=== PATIENT | female | born 1975 | race African-American/Black ===

== ENCOUNTER 2017-01-29 16:06 | Emergency (ER) | payer MEDICAID ==
[~2017-01-29] VITALS: Ht 170.2 cm; Wt 129.3 kg
[~2017-01-29 16:06] MED LIST: CIPRO500 MG PO; IBUPROFEN600 MG ORAL; KEFLEX500 MG ORAL; NITROFURANTOIN100 M2 ORAL; NKM; PHENAZOPYRIDIN100 MG ORAL; PRENATAL CAPSU1 EAC1 PO; VICODIN 5-3001 EACH ORAL
[2017-01-29] MEDS ORDERED: IBUPROFEN600 MG ORAL (17:18)
[2017-01-29] MEDS ORDERED: TRAMADOL HCL50 MG ORAL (17:18)
[2017-01-29 17:19] VITALS: BP 154/91
--- NOTE | 2017-01-29 20:57 | Emergency Room Report ---
History of Present Illness General Chief Complaint: Lower Extremity Injury Source: Patient Present Illness HPI The patient is a 42-year-old female presenting for left knee pain which began 5 days prior for no known reason. Pain described as an 8/10 dull ache primarily to the inside of the knee. Worse with walking. She denies previous injury to the knee. She denies any numbness or tingling. She states that she has been trying to keep weight off of the knee by walking on her heels and is now complaining of left heel pain as well. She denies history of gout. She denies any other symptoms including nausea, vomiting, fever, chills, shortness of breath Allergies: Coded Allergies: SULFA(SULFONAMIDE ANTIBIOTICS) (Verified Allergy, Mild, Itching, 04/19/12) Patient History Past Medical History: see triage record Pertinent Family History: none Reviewed Nursing Documentation: PMH: Agreed, PSxH: Agreed Review of Systems All Other Systems: negative except mentioned in HPI Physical Exam Vital Signs Date Time Temp Pulse Resp B/P (MAP) Pulse Ox O2 Delivery O2 Flow Rate FiO2 01/29/17 16:12 98.1 95 20 160/91 99 Room Air Sp02 EP Interpretation: reviewed, normal General Appearance: no apparent distress, alert, GCS 15, non-toxic Head: normocephalic, atraumatic Eyes: bilateral eye normal inspection, bilateral eye PERRL ENT: hearing grossly normal, normal pharynx, no angioedema, normal voice Musculoskeletal: gait/station normal, normal range of motion, no calf tenderness, tender - TTP over the L knee joint line Neurologic: alert, oriented x3, responsive, motor strength/tone normal, sensory intact, speech normal Psychiatric: judgement/insight normal, memory normal, mood/affect normal, no suicidal/homicidal ideation Skin: normal color, no rash, warm/dry, well hydrated Procedures Splinting Splinting : Consent: Verbal Location: L knee Pre-Made Type: AVERY wrap Pre-Proc Neuro Vasc Exam: normal Post-Proc Neuro Vasc Exam: normal Patient Tolerated: Well Complications: None Medical Decision Making PA Attestation Dr. Muñoz is my supervising physician. Patient management was discussed with my supervising physician Diagnostic Impression: Primary Impression: Knee pain, left Qualified Codes: M25.562 - Pain in left knee ER Course The patient is a 42-year-old female presenting for left knee pain Ddx considered include but not limited to sprain/strain, fracture, contusion, gout PE: NAD. Left knee: No edema. No ecchymosis. There is tenderness over the joint line. Full active range of motion. Normal gait X-ray shows no acute findings AVERY wrap placed The patient be discharged home and given rice instructions and pain medication. She will followup with her primary doctor. ER precautions are given Other X-Ray Diagnostic Results Other X-Ray Diagnostic Results : X-Ray ordered: L knee # of Views/Limited Vs Complete: 3 View Indication: Pain EP Interpretation: Yes Interpretation: no dislocation, no soft tissue swelling, no fractures Impression: No acute disease Electronically Signed by: ANUSHA Valladares Scribchanel Text I have reviewed the xray with my supervising physician and interpretation is that there are no fractures, dislocations or soft tissue swelling. Last Vital Signs Date Time Temp Pulse Resp B/P (MAP) Pulse Ox O2 Delivery O2 Flow Rate FiO2 01/29/17 17:19 98.1 76 19 154/91 100 Room Air Status: improved Disposition: HOME, SELF-CARE Condition: Improved Scripts Tramadol Hcl* (ULTRAM*) 50 Mg Tablet 50 MG ORAL Q6H Y for For Pain, #10 TAB 0 Refills Prov: JOHANNY SANCHEZ.A. 01/29/17 Ibuprofen* (MOTRIN*) 600 Mg Tablet 600 MG ORAL Q8H Y for For Pain, #30 TAB 0 Refills Prov: JOHANNY SANCHEZ.A. 01/29/17 Patient Instructions: Knee Pain Additional Instructions: I discussed my findings with the patient. All questions and concerns have been answered. Treatment and medication compliance have been addressed. I advised the patient that they need to follow up with PMD in 3-5 days. Return to ED if symptoms worsen, new symptoms arise, or if needed for any reason. Patient verbalized understanding of discharge instructions. JOHANNY SANCHEZ Jan 29, 2017 20:57
--- NOTE | 2017-01-30 11:11 | Diagnostic Imaging Report ---
Indication: Pain 3 views of the left knee were obtained. Findings: No fracture or malalignment identified. The exam is limited by body habitus. There are some narrowing of the patellofemoral and medial compartment and mild osteophyte formation. Impression: Osteoarthritis
== END 2017-01-29 17:19 | disposition home or self-care (01) ==
LOC: EMR 16:55
DX: M17.12 Unilateral primary osteoarthritis, left knee (principal); Z88.2 Allergy status to sulfonamides
CPT/HCPCS: 99284

== ENCOUNTER 2017-07-21 13:18 | Emergency (ER) | payer MEDICAID ==
[~2017-07-21] VITALS: Ht 170.2 cm; Wt 145.1 kg
[~2017-07-21 13:18] MED LIST changes: +TRAMADOL HCL50 MG ORAL
--- NOTE | 2017-07-21 13:57 | Emergency Room Report ---
History of Present Illness General Chief Complaint: Lower Extremity Injury Source: Patient Present Illness HPI 42-year-old female presents to the emergency department complaining of 8 out of 10 in severity right knee pain 1 week. Patient reports over a week ago she hit the front medial aspect of her knee and had swelling and bruising. Patient states that she has not been able to rest her extremity as she requires using it for work. Patient states that now she is beginning of pain on the opposite extremity due to compensating. Patient states her pain continues and has not improved since injury. Patient denies falling to the ground, hitting her head or loss of consciousness. Denies numbness tingling or loss of sensation or gross motor movements of the extremities, incontinence of bowel or bladder. Denies CP, Palpitations, LOC, AMS, dizziness, Changes in Vision, Sensation, paresthesias, or a sudden severe headache. Allergies: Coded Allergies: SULFA(SULFONAMIDE ANTIBIOTICS) (Verified Allergy, Mild, Itching, 04/19/12) Patient History Past Medical History: see triage record Past Surgical History: none Pertinent Family History: none Last Menstrual Period: 07/05/2017 Now: No : 3 Para: 2 Reviewed Nursing Documentation: PMH: Agreed; PSxH: Agreed Nursing Documentation-PMH Past Medical History: No Stated History Review of Systems All Other Systems: negative except mentioned in HPI Physical Exam Vital Signs Date Time Temp Pulse Resp B/P (MAP) Pulse Ox O2 Delivery O2 Flow Rate FiO2 07/21/17 13:35 97.4 87 18 146/83 95 Room Air 97.3 Sp02 EP Interpretation: reviewed, normal General Appearance: no apparent distress, alert, GCS 15, non-toxic Head: normocephalic, atraumatic ENT: hearing grossly normal, normal voice Neck: full range of motion Respiratory: lungs clear, normal breath sounds, speaking full sentences Cardiovascular #1: regular rate, rhythm, no edema Rectal: deferred Genitourinary: normal inspection Musculoskeletal: back normal, gait/station normal - compensatory., normal range of motion, swelling - right knee. , other - no increased laxity upon varus or valgus stressing of the right knee, negative anterior and posterior drawer signs. ankles with normal palpation and appearance. Neurologic: alert, oriented x3, responsive, motor strength/tone normal, sensory intact, speech normal, grossly normal Psychiatric: judgement/insight normal Skin: normal color, no rash, warm/dry, well hydrated, other - no obvious hematomas or contusions. Medical Decision Making PA Attestation Dr. Muñoz is my supervising Physician whom patient management has been discussed with. Diagnostic Impression: Primary Impression: Closed fibular fracture Qualified Codes: S82.831A - Other fracture of upper and lower end of right fibula, initial encounter for closed fracture Additional Impressions: Contusion of knee, right Qualified Codes: S80.01XA - Contusion of right knee, initial encounter Knee effusion, right ER Course 42-year-old female presents to the emergency department complaining of 8 out of 10 in severity right knee pain 1 week. Patient reports over a week ago she hit the front medial aspect of her knee and had swelling and bruising. Patient states that she has not been able to rest her extremity as she requires using it for work. Patient states that now she is beginning of pain on the opposite extremity due to compensating. Patient states her pain continues and has not improved since injury. Patient denies falling to the ground, hitting her head or loss of consciousness. Denies numbness tingling or loss of sensation or gross motor movements of the extremities, incontinence of bowel or bladder. Denies CP, Palpitations, LOC, AMS, dizziness, Changes in Vision, Sensation, paresthesias, or a sudden severe headache. Ddx considered but are not limited to Fracture, dislocation, contusion, Sprain/ Strain/Spasm. Vital signs: are WNL, pt. is afebrile H&PE are most consistent with musculoskeletal injury will perform imaging to r/ o fractures/dislocations. ORDERS: - X-ray Right Knee 3 Views - suspicious proximal-lateral fibular fx, non- displaced , only seen on 1 view. ED INTERVENTIONS: - Franklin PO - Right knee Immobilizer applied by roof technician. Pt. remains neurovascularly intact. --Patient is provided with crutches and instructed on their use DISCHARGE: At this time pt. is stable for d/c to home. Will provide printed patient care instructions, and any necessary prescriptions. Care plan and follow up instructions have been discussed with the patient prior to discharge. Other X-Ray Diagnostic Results Other X-Ray Diagnostic Results : X-Ray ordered: Right Knee # of Views/Limited Vs Complete: 3 View Indication: Pain EP Interpretation: Yes PA Xray: Interpretation reviewed, by supervising , and agrees with findings. Interpretation: no dislocation, other - suspicious proximal-lateral fibular fx, non-displaced , only seen on 1 view. Impression: Other - abnormal Electronically Signed by: Leslie Montesinos PA-C Last Vital Signs Date Time Temp Pulse Resp B/P (MAP) Pulse Ox O2 Delivery O2 Flow Rate FiO2 07/21/17 13:35 97.4 87 18 146/83 95 Room Air 97.3 Disposition: HOME, SELF-CARE Condition: Stable Scripts Hydrocodone Bit/Acetaminophen 7.5-325* (NORCO 7.5-325*) 1 Each Tablet 1 TAB ORAL Q8HR PRN for For Pain, #9 TAB 0 Refills Prov: Leslie Montesinos 07/21/17 Ibuprofen* (MOTRIN*) 600 Mg Tablet 600 MG ORAL THREE TIMES A DAY, #30 TAB 0 Refills Prov: Leslie Montesinos 07/21/17 Patient Instructions: Knee Fracture, Adult, Knee Pain, [id number] Additional Instructions: Take medications as directed. Follow up with an LEAD PRESS OPERATOR in 3-5 days, even if your symptoms have resolved. --Please review list of primary care clinics, if you do not already have a primary care provider who can give you an Orthopedic Referral. Return sooner to ED if new symptoms occur, or current symptoms become worse. Do not drink alcohol, drive, or operate heavy machinery while taking Franklin as this may cause drowsiness. - Please note that this Emergency Department Report was dictated using [employer] analyst technology software, occasionally this can lead to erroneous entry secondary to interpretation by the dictation equipment. Leslie Montesinos Jul 21, 2017 13:57
[2017-07-21] MEDS ORDERED: HYDROcodone/Acetamin 7.5/325 tab ORAL ONE (14:00)
[2017-07-21] MEDS ORDERED: IBUPROFEN600 MG ORAL (15:00)
[2017-07-21] MEDS ORDERED: NORCO 7.5-3251 EACH ORAL (15:00)
[2017-07-21 15:05] VITALS: BP 146/83
--- NOTE | 2017-07-22 09:11 | Diagnostic Imaging Report ---
Indication: Knee pain Technique: 3 views of the right knee Comparison: None Findings:There is a small suprapatellar effusion. No acute fractures. No dislocations. The joint spaces are preserved. Impression: Positive for joint effusion No acute bony trauma
== END 2017-07-21 15:08 | disposition home or self-care (01) ==
LOC: EMR 14:20
DX: S82.401A Unspecified fracture of shaft of right fibula, initial encounter for closed fracture (principal); S80.01XA Contusion of right knee, initial encounter; W22.8XXA Striking against or struck by other objects, initial encounter; Y92.9 Unspecified place or not applicable; Z88.2 Allergy status to sulfonamides
CPT/HCPCS: 99284

== ENCOUNTER 2018-04-09 08:41 | Emergency (ER) | payer MEDICAID ==
[~2018-04-09] VITALS: Ht 170.2 cm; Wt 131.5 kg
[~2018-04-09 08:41] MED LIST changes: +NORCO 7.5-3251 EACH ORAL
[2018-04-09 08:47] VITALS: BP 105/67
[2018-04-09] MEDS ORDERED: ROBITUSSIN NIG237 ML PO (09:15)
--- NOTE | 2018-04-09 09:17 | Emergency Room Report ---
History of Present Illness General Chief Complaint: Upper Respiratory Illness Source: Patient, Medical Record Present Illness HPI Patient presents with reports of runny nose cough and congestion ongoing since Patient reports that [id number] medication has not been helping Denies any fevers she had a sore throat on that has resolved Denies any chest pain denies any back or flank pain Denies any fevers or chills denies any neck pain or photophobia Denies any production with her cough Patient reports that she has not been to work since that day and requires a note Allergies: Coded Allergies: SULFA(SULFONAMIDE ANTIBIOTICS) (Verified Allergy, Mild, Itching, 04/19/12) Patient History Past Medical History: see triage record Pertinent Family History: none Now: No Reviewed Nursing Documentation: PMH: Agreed; PSxH: Agreed Review of Systems All Other Systems: negative except mentioned in HPI Physical Exam Vital Signs Date Time Temp Pulse Resp B/P (MAP) Pulse Ox O2 Delivery O2 Flow Rate FiO2 04/09/18 08:47 98.2 96 18 105/67 97 Room Air Sp02 EP Interpretation: reviewed, normal General Appearance: well appearing, no apparent distress Head: normocephalic, atraumatic Eyes: bilateral eye PERRL, bilateral eye EOMI ENT: hearing grossly normal, normal pharynx, TMs + canals normal, uvula midline Neck: full range of motion, supple, no meningismus, no bony tend Respiratory: lungs clear, normal breath sounds, no rhonchi, no respiratory distress, no retraction, no accessory muscle use Cardiovascular #1: normal peripheral pulses, regular rate, rhythm, no edema, no gallop, no JVD, no murmur Gastrointestinal: normal bowel sounds, non tender, soft, no mass, no organomegaly, non-distended, no guarding, no hernia, no pulsatile mass, no rebound Musculoskeletal: normal inspection Neurologic: oriented x3, responsive, automatic fancy machine operator III-XII nml as tested, motor strength/ tone normal, sensory intact Psychiatric: mood/affect normal Skin: normal color, no rash, warm/dry, palpation normal Lymphatic: normal inspection, no adenopathy Medical Decision Making Diagnostic Impression: Primary Impression: Upper respiratory infection ER Course Patient has findings consistent with URI Does not have a history of smoking lung sounds are clear at this time and saturation is appropriate I did not feel patient met emergency criteria for imaging Patient is provided with medication and requires close follow-up Last Vital Signs Date Time Temp Pulse Resp B/P (MAP) Pulse Ox O2 Delivery O2 Flow Rate FiO2 04/09/18 08:47 96 18 Room Air 04/09/18 08:47 98.2 105/67 97 Status: unchanged Disposition: HOME, SELF-CARE Condition: Stable Scripts Dextromethorphan Hb/Doxylamine (ROBITUSSIN NIGHTTIME COUGH DM) 237 Ml Liquid 10 ML PO QHS for 5 Days, ML Prov: Gualberto Sommer DO 04/09/18 Referrals: [facility],REFERRING (PCP) Departure Forms: Return to Work Return to Work in (Days): 2 Return to Work Date: Apr 11, 2018 Patient Instructions: Upper Respiratory Infection, Adult Additional Instructions: Patient is provided with the discharge instructions notified to follow up with primary doctor in the next 2-3 days otherwise return to the er with any worsening symptoms. Please note that this report is being documented using [employer] technology. This can lead to erroneous entry secondary to incorrect interpretation by the dictating instrument. Gualberto Sommer DO Apr 09, 2018 09:17
[2018-04-09 09:22] VITALS: BP 112/60
== END 2018-04-09 09:22 | disposition home or self-care (01) ==
LOC: EMR 09:14
DX: J06.9 Acute upper respiratory infection, unspecified (principal); Z88.2 Allergy status to sulfonamides
CPT/HCPCS: 99282

== ENCOUNTER 2018-09-12 09:46 | Emergency (ER) | payer MEDICAID ==
[~2018-09-12] VITALS: Ht 170.2 cm; Wt 133.8 kg
[~2018-09-12 09:46] MED LIST changes: +ROBITUSSIN NIG237 ML PO
[2018-09-12 10:08] VITALS: BP 170/92
--- NOTE | 2018-09-12 10:10 | NUR ---
ED Nurse Note:pt. came with c/o persistant cough and headache ,no fever on arrival
--- NOTE | 2018-09-12 10:16 | Emergency Room Report ---
History of Present Illness General Chief Complaint: Upper Respiratory Illness Source: Patient Present Illness HPI Patient presents with complaints of cough ongoing for the past 7 days reports increased phlegm production Questionable subjective fever several days ago however that has improved denies any rash denies any chest pain or shortness of breath denies any vomiting or diarrhea Denies any recent travel denies any pleurisy Allergies: Coded Allergies: SULFA(SULFONAMIDE ANTIBIOTICS) (Verified Allergy, Mild, Itching, 04/19/12) Patient History Past Medical History: see triage record Pertinent Family History: none Last Menstrual Period: 09/05/2018 Reviewed Nursing Documentation: PMH: Agreed; PSxH: Agreed Nursing Documentation-PMH Past Medical History: No Stated History Review of Systems All Other Systems: negative except mentioned in HPI Physical Exam Vital Signs Date Time Temp Pulse Resp B/P (MAP) Pulse Ox O2 Delivery O2 Flow Rate FiO2 09/12/18 09:50 97.9 100 19 94 Room Air 09/12/18 10:08 170/92 Sp02 EP Interpretation: reviewed, normal General Appearance: well appearing, no apparent distress Head: normocephalic, atraumatic Eyes: bilateral eye PERRL, bilateral eye EOMI ENT: hearing grossly normal, normal pharynx, TMs + canals normal, uvula midline Neck: full range of motion, supple, no meningismus, no bony tend Respiratory: lungs clear, normal breath sounds, no rhonchi, no respiratory distress, no retraction, no accessory muscle use Cardiovascular #1: normal peripheral pulses, regular rate, rhythm, no edema, no gallop, no JVD, no murmur Gastrointestinal: normal bowel sounds, non tender, soft, no mass, no organomegaly, non-distended, no guarding, no hernia, no pulsatile mass, no rebound Musculoskeletal: normal inspection Neurologic: oriented x3, responsive, digital cartographer III-XII nml as tested, motor strength/ tone normal, sensory intact Psychiatric: mood/affect normal Skin: normal color, no rash, warm/dry, palpation normal Lymphatic: normal inspection, no adenopathy Medical Decision Making Diagnostic Impression: Primary Impression: Atypical pneumonia ER Course Patient is a fairly complex patient with multiple differential to consideration including but not limited to cardiac cardiopulmonary and vascular emergencies Patient's x-ray does not show any obvious acute pathology Given the patient's duration of symptoms clinical exam and findings Patient is diagnosed with atypical pneumonia and placed on medication for close follow-up Chest X-Ray Diagnostic Results Chest X-Ray Diagnostic Results : Chest X-Ray Ordered: Yes # of Views/Limited/Complete: 1 View Indication: Shortness of Breath EP Interpretation: Yes Interpretation: no consolidation, no effusion, no pneumothorax Impression: No acute disease Electronically Signed by: Gualberto Sommer DO Last Vital Signs Date Time Temp Pulse Resp B/P (MAP) Pulse Ox O2 Delivery O2 Flow Rate FiO2 09/12/18 10:08 98 19 Room Air 09/12/18 10:08 97.9 170/92 94 Status: improved Disposition: HOME, SELF-CARE Condition: Improved Scripts Promethazine Hcl (PROMETHAZINE HCL*) 6.25 Mg/5 Ml Syrup 5 ML ORAL Q8H for 5 Days, #120 ML 0 Refills Prov: Gualberto Sommer DO 09/12/18 Azithromycin* (ZITHROMAX*) 250 Mg Tablet 250 MG ORAL DAILY, #6 TAB 0 Refills Take two tables once daily for 1 day, then one tablet once daily for 4 days. Prov: Gualberto Sommer DO 09/12/18 Referrals: [facility] [place] [facility],REFERRING (PCP) Additional Instructions: Patient is provided with the discharge instructions notified to follow up with primary doctor in the next 2-3 days otherwise return to the er with any worsening symptoms. Please note that this report is being documented using [employer] technology. This can lead to erroneous entry secondary to incorrect interpretation by the dictating instrument. Gualberto Sommer DO September 12, 2018 10:16
[2018-09-12] MEDS ORDERED: PROMETHAZI6.25 MG/1 ORAL (11:03)
[2018-09-12] MEDS ORDERED: ZITHROMAX250 MG ORAL (11:03)
[2018-09-12 11:12] VITALS: BP 165/90
--- NOTE | 2018-09-12 11:19 | NUR ---
ER DISCHARGE NOTE: Patient is cleared to be discharged per ERMD, pt is aox4, on room air, with stable vital signs. pt was given dc and prescription instructions, pt was able to verbalize understanding. pt is able to ambulate with steady gait. pt took all belongings.
--- NOTE | 2018-09-12 11:42 | Diagnostic Imaging Report ---
Indication: Cough Comparison: 11/14/2013 A single view chest radiograph was obtained. Findings: Cardiomediastinal appearance is within normal limits for age. The lungs are clear. Pulmonary vascularity is appropriate. The diaphragmatic contour is smooth and costophrenic angles are sharp. No pleural effusions are identified. The bones are unremarkable. Impression: No acute findings
== END 2018-09-12 11:20 | disposition home or self-care (01) ==
LOC: EMR 10:00
DX: J18.9 Pneumonia, unspecified organism (principal); Z88.2 Allergy status to sulfonamides
CPT/HCPCS: 71045; 99283

== ENCOUNTER 2018-10-10 11:47 | Emergency (ER) | payer MEDICAID ==
[~2018-10-10] VITALS: Ht 170.2 cm; Wt 117.9 kg
[~2018-10-10 11:47] MED LIST changes: +PROMETHAZI6.25 MG/1 ORAL; +ZITHROMAX250 MG ORAL
[2018-10-10 12:00] VITALS: BP 150/68
--- NOTE | 2018-10-10 12:00 | NUR ---
ED Nurse Note: pt walked in to ED due to pain on right calf area for 2 weeks. per pt, felt bump around that area and having intermittent pain. per pt, pain gets worse when walking. joaquin tingling sensation. able to walk with steady gait. AAO x4. respirations even and non-labored noted. will wait for the further order.
[2018-10-10] MEDS ORDERED: Clindamycin 150mg cap ORAL ONE (12:45)
--- NOTE | 2018-10-10 13:12 | Emergency Room Report ---
History of Present Illness General Chief Complaint: Pain Source: Medical Record Present Illness HPI 43-year-old female presents to the emergency department complaining of 7 out of 10 severity pain, swelling and erythema along with some warmth to the right lower extremity progressive x2 weeks. Patient denies taking estrogen she denies history of smoking she does report recent travel back and forth in the car out to [facility]. Patient states that she does not recall any insect bites or any appreciable trauma or fall. Denies hemoptysis or SOB. The patient reports pain is exacerbated upon walking she states pain is primarily in the medial aspect of the calf with some radiation to the posterior aspect. Patient denies history of immune compromise she does report swelling in the lower extremities bilaterally but states that this is a chronic issue no aggravating or relieving factors at this time. Denies Fevers or chills Allergies: Coded Allergies: SULFA(SULFONAMIDE ANTIBIOTICS) (Verified Allergy, Mild, Itching, 04/19/12) Patient History Past Medical History: see triage record Past Surgical History: none Pertinent Family History: none Last Menstrual Period: 10/05/18 Now: No Reviewed Nursing Documentation: PMH: Agreed; PSxH: Agreed Nursing Documentation-PMH Past Medical History: No History, Except For Review of Systems All Other Systems: negative except mentioned in HPI Physical Exam Vital Signs Date Time Temp Pulse Resp B/P (MAP) Pulse Ox O2 Delivery O2 Flow Rate FiO2 10/10/18 11:50 98.2 99 16 150/68 (95) 96 Room Air Sp02 EP Interpretation: reviewed, normal General Appearance: no apparent distress, alert, GCS 15, non-toxic, obese Head: normocephalic, atraumatic Eyes: bilateral eye normal inspection, bilateral eye PERRL ENT: hearing grossly normal, normal voice Neck: full range of motion Respiratory: lungs clear, normal breath sounds, no respiratory distress, no accessory muscle use, no wheezing, speaking full sentences Cardiovascular #1: regular rate, rhythm, normal capillary refill Cardiovascular #2: 2+ dorsalis pedis (R), 2+ dorsalis pedis (L) Musculoskeletal: back normal, gait/station normal, normal range of motion, tender - medial right calf ttp, no bony ttp. Neurologic: alert, oriented x3, responsive, motor strength/tone normal, sensory intact, speech normal, grossly normal Psychiatric: judgement/insight normal Skin: no rash, warm/dry, well hydrated, other - erythema, warmth and some swelling to the medial right calf. Lymphatic: no adenopathy Medical Decision Making PA Attestation Dr. Dye Is my supervising Physician whom patient management has been discussed with. Diagnostic Impression: Primary Impression: Cellulitis and abscess of right leg ER Course 43-year-old female presents to the emergency department complaining of 7 out of 10 severity pain, swelling and erythema along with some warmth to the right lower extremity progressive x2 weeks. Patient denies taking estrogen she denies history of smoking she does report recent travel back and forth in the car out to [facility]. Patient states that she does not recall any insect bites or any appreciable trauma or fall. Denies hemoptysis or SOB. The patient reports pain is exacerbated upon walking she states pain is primarily in the medial aspect of the calf with some radiation to the posterior aspect. Patient denies history of immune compromise she does report swelling in the lower extremities bilaterally but states that this is a chronic issue no aggravating or relieving factors at this time. Denies Fevers or chills. Ddx considered but are not limited to Cellulitis, DVT, varicose vein, PAD, Venous insufficiency Vital signs: are WNL, pt. is afebrile H&PE are most consistent with extremity cellulitis however given clinical appearance and history of recent travel will rule out DVT with ultrasound. ORDERS: LE duplex U/s to R/O dvt. ED INTERVENTIONS: -Clindamycin p.o. DISCHARGE: At this time pt. is stable for d/c to home. Will provide printed patient care instructions, and any necessary prescriptions. Care plan and follow up instructions have been discussed with the patient prior to discharge. CT/MRI/US Diagnostic Results CT/MRI/US Diagnostic Results : Imaging Test Ordered: Right LE Venous Duplex US Impression NEgative for a cute DVT. Last Vital Signs Date Time Temp Pulse Resp B/P (MAP) Pulse Ox O2 Delivery O2 Flow Rate FiO2 10/10/18 12:00 98.2 99 16 150/68 96 Room Air Status: improved Disposition: HOME, SELF-CARE Condition: Stable Scripts Acetaminophen* (TYLENOL EXTRA STRENGTH*) 500 Mg Tablet 500 MG ORAL Q6H, #20 TAB 0 Refills Prov: Leslie Montesinos 10/10/18 Clindamycin Hcl (CLINDAMYCIN HCL) 300 Mg Capsule 300 MG ORAL FOUR TIMES A DAY for 7 Days, #28 CAP Prov: Leslie Montesinos 10/10/18 Referrals: NOT CHOSEN IPA/MD,REFERRING (PCP) Patient Instructions: Cellulitis, [id number] Additional Instructions: Take medications as directed. Follow up with a Primary Care Provider in 3-5 days, even if your symptoms have resolved. --Please review list of primary care clinics, if you do not already have a primary care provider Return sooner to ED if new symptoms occur, or current symptoms become worse. - Please note that this Emergency Department Report was dictated using [employer] SYSTEMSadministrator of home health technology software, occasionally this can lead to erroneous entry secondary to interpretation by the dictation equipment. Leslie Montesinos Oct 10, 2018 13:12
--- NOTE | 2018-10-10 13:24 | NUR ---
ED Nurse Note: US at bedside.
[2018-10-10] MEDS ORDERED: CLINDAMYCIN HC300 MG ORAL ×2 (14:11→14:15)
[2018-10-10] MEDS ORDERED: TYLENOL EXTRA500 MG ORAL ×2 (14:11→14:15)
[2018-10-10 14:25] VITALS: BP 148/68
--- NOTE | 2018-10-10 14:25 | NUR ---
ED Nurse Note: pt given aci and script verbalized understanding ambulated out of er with strong and steady gait.
--- NOTE | 2018-10-10 15:15 | Diagnostic Imaging Report ---
Indication: Right leg pain and edema Technique: Grayscale and duplex images of the right lower extremity veins Comparison: none Findings: Visualization of the femoral vein and calf veins is limited due to patient body habitus. Grayscale and duplex images of the right lower extremity veins demonstrate no evidence of intraluminal thrombus. Normal compressibility. Normal phasic Doppler waveforms, demonstrating normal augmentation response and no evidence of valvular insufficiency. Impression: Negative for evidence of right lower extremity deep venous thrombosis
== END 2018-10-10 14:25 | disposition home or self-care (01) ==
LOC: EMR 12:49
DX: L03.115 Cellulitis of right lower limb (principal); Z88.2 Allergy status to sulfonamides; E66.9 Obesity, unspecified; Z68.41 Body mass index [BMI] 40.0-44.9, adult
CPT/HCPCS: 93971; 99284

== ENCOUNTER 2018-10-23 21:21 | Emergency (ER) | payer MEDICAID ==
[~2018-10-23] VITALS: Ht 170.2 cm; Wt 131.5 kg
[~2018-10-23 21:21] MED LIST changes: +CLINDAMYCIN HC300 MG ORAL; +TYLENOL EXTRA500 MG ORAL
--- NOTE | 2018-10-23 21:39 | NUR ---
ED Nurse Note: Pt arrived ED from home, c/o right leg redness and pain for 2 weeks. Pt states that she was in ED for trudy same complain one week ago. Pt is A/O X4, Vital signs stable at this time, waiting for orders.
[2018-10-23] MEDS ORDERED: ACETAMINOPHEN-1 EAC1 ORAL (22:18)
[2018-10-23] MEDS ORDERED: FUROSEMIDE20 M1 ORAL (22:18)
[2018-10-23] MEDS ORDERED: AUGMENTIN 875-1 EAC1 ORAL (22:18)
[2018-10-23 22:25] VITALS: BP 141/78
--- NOTE | 2018-10-23 22:25 | NUR ---
ER DISCHARGE NOTE: Patient is cleared to be discharged per Jignesh. Pt is aox4 on room air with stable vital signs. Pt was given dc and prescription instructions and was able to verbalize understanding. Pt's ID band removed. Pt is able to ambulate with steady gait and took all belongings.
--- NOTE | 2018-10-24 00:25 | Emergency Room Report ---
History of Present Illness General Chief Complaint: Lower Extremity Injury Source: Patient Present Illness HPI 43-year-old female presents ED for evaluation. Patient walked in complaining of pain and swelling to the right leg. States that she was seen here almost 2 weeks ago for similar presentation. Had venous duplex of the leg which was negative. Was placed on antibiotics but states there has not been much improvement. Pain is throbbing, 7 out of 10, nonradiating. Denies fevers or chills. States that her legs do get swollen quite often and they resolve with elevation. She is on her feet all day long. Denies chest pain or shortness of breath. No other aggravating relieving factors. Denies any other associated symptoms Allergies: Coded Allergies: SULFA(SULFONAMIDE ANTIBIOTICS) (Verified Allergy, Mild, Itching, 04/19/12) Patient History Past Medical History: none Past Surgical History: none Pertinent Family History: none Social History: Denies: smoking, alcohol use, drug use Last Menstrual Period: October 06 Now: No Immunizations: UTD Reviewed Nursing Documentation: PMH: Agreed; PSxH: Agreed Review of Systems All Other Systems: negative except mentioned in HPI Physical Exam Vital Signs Date Time Temp Pulse Resp B/P (MAP) Pulse Ox O2 Delivery O2 Flow Rate FiO2 10/23/18 21:30 98.2 105 18 143/87 (105) 98 Room Air Sp02 EP Interpretation: reviewed, normal General Appearance: no apparent distress, alert, GCS 15, non-toxic, obese Head: normocephalic Eyes: bilateral eye normal inspection, bilateral eye PERRL ENT: normal ENT inspection Neck: normal inspection Respiratory: chest non-tender, lungs clear, normal breath sounds, speaking full sentences Cardiovascular #1: regular rate, rhythm, no edema Gastrointestinal: normal inspection Rectal: deferred Genitourinary: no CVA tenderness Musculoskeletal: swelling - 2+ pitting edema/ bilateral LE Neurologic: alert, oriented x3, responsive, motor strength/tone normal, sensory intact, speech normal Psychiatric: normal inspection Skin: other - erythema/induration RLE Lymphatic: normal inspection Medical Decision Making Diagnostic Impression: Primary Impression: Peripheral edema Additional Impression: Cellulitis of lower extremity Qualified Codes: L03.115 - Cellulitis of right lower limb ER Course Hospital Course 43-year-old female presents to ED with redness, swelling to right lower extremity Differential diagnoses include: Cellulitis, dermatitis, insect bite, abscess Clinical course Patient placed on stretcher. After initial history, physical exam reveals an obese female in no acute distress. On exam there is pitting edema to both legs. There is some induration and erythema to the right lower extremity. No fluctuance or discharge. I reviewed EMR. Patient was seen here nearly 2 weeks ago for same presentation. Had a venous duplex at that time which was negative. Was placed on clindamycin. Discussed findings with patient. Afebrile, nontoxic-appearing. No signs of shortness of breath. Vitals stable. Discussed option for admission for IV antibiotics but patient declined. Would like to try another round of antibiotics first. We will try Augmentin. Also prescribed low-dose Lasix. Patient states she has compression stockings at home. Safe for discharge for close outpatient follow-up. Will provide referrals Diagnosis - peripheral edema, cellulitis of lower extemity stable and discharged to home with prescription for lasix, augmentin. Instructed to followup with PMD. Instructed return to ED if symptoms recur or worsen Last Vital Signs Date Time Temp Pulse Resp B/P (MAP) Pulse Ox O2 Delivery O2 Flow Rate FiO2 10/23/18 21:30 98.2 105 18 143/87 (105) 98 Room Air Status: improved Disposition: HOME, SELF-CARE Condition: Stable Scripts Furosemide* (LASIX*) 20 Mg Tablet 20 MG ORAL DAILY, #10 TAB Prov: Ronaldo Egan MD 10/23/18 Acetaminophen With Codeine (T#3) (TYLENOL #3 TAB*) Y Tab 1 TAB ORAL Q8H PRN for For Pain, #12 TAB Prov: Ronaldo Egan MD 10/23/18 Amoxicillin/Potassium Clav 875-125* (AUGMENTIN 875-125 TABLET*) 1 Each Tablet 1 TAB ORAL TWICE A DAY, #14 TAB Prov: Ronaldo Egan MD 10/23/18 Referrals: Bind[facility] Patient Instructions: Cellulitis, [id number], Peripheral Edema Ronaldo Egan MD Oct 24, 2018 00:25
== END 2018-10-23 22:25 | disposition home or self-care (01) ==
LOC: EMR 21:45
DX: R60.0 Localized edema (principal); L03.115 Cellulitis of right lower limb; Z88.2 Allergy status to sulfonamides
CPT/HCPCS: 99282

== ENCOUNTER 2019-06-01 12:32 | Emergency (ER) | payer MEDICAID ==
[~2019-06-01] VITALS: Ht 170.2 cm; Wt 127.0 kg
[~2019-06-01 12:32] MED LIST changes: +ACETAMINOPHEN-1 EAC1 ORAL; +AUGMENTIN 875-1 EAC1 ORAL; +FUROSEMIDE20 M1 ORAL
--- NOTE | 2019-06-01 14:10 | NUR ---
ED Nurse Note: pt relates having a cough for a few weeks with some phlegm. states feel worsened over past few days. lungs cta throughout. speaks without dyspnea
[2019-06-01 14:12] VITALS: BP 150/79
--- NOTE | 2019-06-01 14:21 | Emergency Room Report ---
History of Present Illness General Chief Complaint: Upper Respiratory Illness Source: Patient Present Illness HPI 44-year-old female presents to the emergency department complaining of persistent cough x1 month. Patient reports initially she had some sputum production which did resolve. Patient reports persistent coughing especially when she takes too deep of a breath in. She denies smoking history but reports she is around many people that do smoke. She denies fevers or chills. Patient reports that she did receive this years flu vaccine. 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 Denies sore throat, ear pain, high fevers, lethargy, neck pain/stiffness, irritability , photophobia dehydration, N/V/D. Denies Cp, Palpitations, LOC, AMS, seizures, paresthesias, or changes in Hearing or vision, no Sudden severe ESPINOZA. Denies hx of smoking, asthma or COPD. Denies pain at this time. Allergies: Coded Allergies: SULFA(SULFONAMIDE ANTIBIOTICS) (Verified Allergy, Mild, Itching, 04/19/12) Patient History Past Medical History: see triage record Past Surgical History: none Pertinent Family History: none Last Menstrual Period: 05/23/2019 Now: No Immunizations: UTD Reviewed Nursing Documentation: PMH: Agreed; PSxH: Agreed Nursing Documentation-PMH Past Medical History: No Stated History Review of Systems All Other Systems: negative except mentioned in HPI Physical Exam Vital Signs Date Time Temp Pulse Resp B/P (MAP) Pulse Ox O2 Delivery O2 Flow Rate FiO2 06/01/19 12:37 98.1 95 20 150/79 (102) 93 Room Air Sp02 EP Interpretation: reviewed, normal General Appearance: no apparent distress, alert, GCS 15, non-toxic Head: normocephalic, atraumatic Eyes: bilateral eye normal inspection, bilateral eye PERRL ENT: hearing grossly normal, normal voice Neck: full range of motion Respiratory: chest non-tender, lungs clear, normal breath sounds, no respiratory distress, no accessory muscle use, speaking full sentences, wheezing - scant expiratory wheezes/ dry cough. with deep inspiration Cardiovascular #1: regular rate, rhythm, no edema, normal capillary refill Musculoskeletal: normal range of motion, gait/station normal, non-tender Neurologic: alert, motor strength/tone normal, oriented x3, sensory intact, responsive, speech normal Psychiatric: judgement/insight normal Skin: normal color, normal inspection Lymphatic: no adenopathy Medical Decision Making PA Attestation Dr. Sommer is my supervising Physician whom patient management has been discussed with. ER Course 44-year-old female presents to the emergency department complaining of persistent cough x1 month. Patient reports initially she had some sputum production which did resolve. Patient reports persistent coughing especially when she takes too deep of a breath in. She denies smoking history but reports she is around many people that do smoke. She denies fevers or chills. Patient reports that she did receive this years flu vaccine. 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 Denies sore throat, ear pain, high fevers, lethargy, neck pain/stiffness, irritability , photophobia dehydration, N/V/D. Denies Cp, Palpitations, LOC, AMS, seizures, paresthesias, or changes in Hearing or vision, no Sudden severe ESPINOZA. Denies hx of smoking, asthma or COPD. Denies pain at this time. Ddx considered but are not limited to URI, pneumonia, PE, strep pharyngitis, meningitis. Vital signs: Pt.is afebrile VS are WNL H&PE are most consistent with bronchitis ORDERS: none required at this time, the diagnosis is clinical ED INTERVENTIONS: None required at this time. DISCHARGE: At this time pt. is stable for d/c to home. Will provide printed patient care instructions, and any necessary prescriptions. Care plan and follow up instructions have been discussed with the patient prior to discharge. Chest X-Ray Diagnostic Results Chest X-Ray Diagnostic Results : Chest X-Ray Ordered: Yes # of Views/Limited/Complete: 1 View Indication: Shortness of Breath EP Interpretation: Yes PA Xray: Interpretation reviewed, by supervising MD, and agrees with findings. Interpretation: no consolidation, no effusion, no pneumothorax, no acute cardiopulmonary disease Impression: No acute disease Electronically Signed by: Leslie Montesinos PA-C Last Vital Signs Date Time Temp Pulse Resp B/P (MAP) Pulse Ox O2 Delivery O2 Flow Rate FiO2 06/01/19 14:12 88 20 Room Air 06/01/19 14:12 150/79 95 06/01/19 12:37 98.1 Disposition: HOME, SELF-CARE Condition: Stable Departure Forms: Return to Work Return to Work Date: Jun 03, 2019 Work Restrictions: None Return to Full Activity: Jun 03, 2019 Patient Instructions: Acute Bronchitis, [id number] Additional Instructions: Take medications as directed. Follow up with a Primary Care Provider in 3-5 days, even if your symptoms have resolved. Return sooner to ED if new symptoms occur, or current symptoms become worse. Do not drink alcohol, drive, or operate heavy machinery while taking Cough Syrup as this may cause drowsiness. - Please note that this Emergency Department Report was dictated using [employer] well gun perforator operator technology software, occasionally this can lead to erroneous entry secondary to interpretation by the dictation equipment. Leslie Montesinos Jun 01, 2019 14:21
[2019-06-01] MEDS ORDERED: ALBUTEROL SULF8.5 GM INH (14:23)
[2019-06-01] MEDS ORDERED: BENZONATATE200 MG ORAL (14:23)
[2019-06-01] MEDS ORDERED: PROMETHAZINE-C118 M1 ORAL (14:23)
[2019-06-01] MEDS ORDERED: PREDNISONE20 MG ORAL (14:23)
[2019-06-01 14:45] VITALS: BP 150/79
--- NOTE | 2019-06-01 14:45 | NUR ---
ED Nurse Note: Pt cleared by health care Provider for discharge. DC instructions/prescription was given and explained to pt and verbalized understanding of teachings. All medical deviecs such as ID band removed. Pt is AAO x4, ambulatory and left with all personal belongings.
--- NOTE | 2019-06-01 16:27 | Diagnostic Imaging Report ---
Indication: Dyspnea Comparison: 09/12/2018 A single view chest radiograph was obtained. Findings: Cardiomediastinal appearance is within normal limits for age. The lungs are clear. Pulmonary vascularity is appropriate. The diaphragmatic contour is smooth and costophrenic angles are sharp. No pleural effusions are identified. The bones are unremarkable. Impression: No acute findings
== END 2019-06-01 14:46 | disposition home or self-care (01) ==
LOC: EMR 14:16
DX: J20.9 Acute bronchitis, unspecified (principal)
CPT/HCPCS: 71045; Z7502; 99283

== ENCOUNTER 2019-06-25 16:03 | Emergency (ER) | payer MEDICAID ==
[~2019-06-25] VITALS: Ht 172.7 cm; Wt 127.0 kg
[~2019-06-25 16:03] MED LIST changes: +ALBUTEROL SULF8.5 GM INH; +BENZONATATE200 MG ORAL; +PREDNISONE20 MG ORAL; +PROMETHAZINE-C118 M1 ORAL
--- NOTE | 2019-06-25 16:20 | NUR ---
ED Nurse Note: Pt walked into ED w/ c/o blurry vision for 2 days. Bilateral eyes are itchy, red. Pt pain in eyes is 5/10. Pt is taking antifungal cream and thinks she might have rubbed some in her eye. Pt is alert and orientedx4, ambulatory. Pt friend is at bedside.
--- NOTE | 2019-06-25 16:24 | Emergency Room Report ---
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 Denies any pain in the eye. Has not been seen by manager system in a longtime. Denies any change of vision in that eye. Complains of itchiness in the left eye. Denies any headache and dizziness. Denies any chemical exposure. Is sitting comfortably with stable vital signs. Patient has an upcoming appointment with manager system. Denies photophobia. Denies any changes and pressure in eyes.. Reports that she has chronic glaucoma Allergies: Coded Allergies: SULFA(SULFONAMIDE ANTIBIOTICS) (Verified Allergy, Mild, Itching, 04/19/12) Patient History Past Medical History: see triage record Past Surgical History: none Pertinent Family History: none Last Menstrual Period: currently Now: No Immunizations: UTD Reviewed Nursing Documentation: PMH: Agreed; PSxH: Agreed Nursing Documentation-PMH Past Medical History: No History, Except For Review of Systems All Other Systems: negative except mentioned in HPI Physical Exam Vital Signs Date Time Temp Pulse Resp B/P (MAP) Pulse Ox O2 Delivery O2 Flow Rate FiO2 06/25/19 16:07 97.9 100 18 131/77 (95) 95 Room Air Sp02 EP Interpretation: reviewed, normal General Appearance: no apparent distress, alert, GCS 15, non-toxic Head: normocephalic, atraumatic Eyes: left eye other - Allergic conjunctivitis left eye, possible bacterial conjunctivitis right eye; bilateral eye PERRL, bilateral eye conjunctivae pale ENT: normal ENT inspection, hearing grossly normal, EOM grossly intact Neck: full range of motion, supple, supple/symm/no masses Respiratory: chest non-tender, lungs clear, normal breath sounds, no rhonchi, no retraction, speaking full sentences Cardiovascular #1: regular rate, rhythm, no edema, no murmur Gastrointestinal: normal bowel sounds, non tender, soft, non-distended, no guarding, no rebound Rectal: deferred Genitourinary: no CVA tenderness Musculoskeletal: back normal, no calf tenderness Neurologic: alert, motor strength/tone normal, oriented x3, sensory intact, responsive, speech normal Psychiatric: judgement/insight normal, memory normal, mood/affect normal, no suicidal/homicidal ideation Skin: no rash Lymphatic: no adenopathy Medical Decision Making PA Attestation All my diagnosis and treatment plans were reviewed ad discussed with my supervising physician Dr. 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 Denies any pain in the eye. Has not been seen by manager system in a longtime. Denies any change of vision in that eye. Complains of itchiness in the left eye. Denies any headache and dizziness. Denies any chemical exposure. Is sitting comfortably with stable vital signs. Patient has an upcoming appointment with manager system. Denies photophobia. Denies any changes and pressure in eyes.. Reports that she has chronic glaucoma Ddx considered but are not limited to: bacterial conjunctivitis, allergic conjunctivitis, viral conjunctivitis, periorbital cellulitis, global trauma Vital signs: are WNL, pt. is afebrile H&PE are most consistent with: Bacterial conjunctivitis, allergic conjunctivitis ORDERS: Ofloxacin ophthalmic, olopatadine ophthalmic ED INTERVENTIONS: None required at this time. DISCHARGE: At this time pt. is stable for d/c to home. Will provide printed patient care instructions, and any necessary prescriptions. Care plan and follow up instructions have been discussed with the patient prior to discharge. Since patient does not report any change in the pressure in the eye and reports that she is completely blind in the affected eye with glaucoma patient to follow-up with manager system at this time no further evaluation needed in that regard. However if worsening symptoms return to the emergency room Last Vital Signs Date Time Temp Pulse Resp B/P (MAP) Pulse Ox O2 Delivery O2 Flow Rate FiO2 06/25/19 16:07 97.9 100 18 131/77 (95) 95 Room Air Disposition: HOME, SELF-CARE Condition: Stable Scripts Olopatadine (Patanol) 5 Ml Drops 1 DROP OP BID for 7 Days, #10 ML Prov: Alize Khan 06/25/19 Ofloxacin (Ofloxacin) 5 Ml Drops 2 DROP OP Q6H for 7 Days, #5 ML Prov: Alize Khan 06/25/19 Patient Instructions: Bacterial Conjunctivitis, [id number] Additional Instructions: Take medication as directed, follow-up with your manager system, if worsening symptoms return to the emergency room Alize Kahn Jun 25, 2019 16:24
[2019-06-25] MEDS ORDERED: OFLOXACIN10 ML OP ×2 (16:26→16:36)
[2019-06-25] MEDS ORDERED: PATANOL1 DROP OP ×2 (16:26→16:36)
[2019-06-25 16:31] VITALS: BP 127/73
[2019-06-25 16:40] VITALS: BP 120/71
--- NOTE | 2019-06-25 16:40 | NUR ---
ER DISCHARGE NOTE: Patient is cleared to be discharged per ERMD, pt is aox4, on room air, with stable vital signs. pt was given dc and prescription instructions, pt was able to verbalize understanding, pt id band removed. pt is able to ambulate with steady gait. pt took all belongings.
== END 2019-06-25 16:40 | disposition home or self-care (01) ==
LOC: EMR 16:40
DX: H10.89 Other conjunctivitis (principal); H10.12 Acute atopic conjunctivitis, left eye; H54.61 Unqualified visual loss, right eye, normal vision left eye; H40.9 Unspecified glaucoma; Z88.2 Allergy status to sulfonamides
CPT/HCPCS: 99282

== ENCOUNTER 2019-07-06 13:47 | Emergency (ER) | payer MEDICAID ==
[~2019-07-06] VITALS: Ht 170.2 cm; Wt 128.4 kg
[~2019-07-06 13:47] MED LIST changes: +OFLOXACIN10 ML OP; +PATANOL1 DROP OP
--- NOTE | 2019-07-06 14:06 | NUR ---
ED Nurse Note: eye infection x 2 weeks given meds but pain and redness still there garamycin,cipro eye drops
[2019-07-06 14:07] VITALS: BP 130/67
--- NOTE | 2019-07-06 14:07 | NUR ---
ED Nurse Note: pt has glaucoma of right eye and states she cannot see from that eye. redness noted in both eyes. pt has 20/20 of left eye
[2019-07-06] MEDS ORDERED: ERYTHROMYCIN3.5 GM BOTH EYES (14:26)
--- NOTE | 2019-07-06 14:32 | Emergency Room Report ---
History of Present Illness General Chief Complaint: Eye Problems Source: Patient Present Illness HPI 44-year-old female presents with bilateral eye redness for about 2 weeks. Patient was here 2 weeks ago and received antihistamine eyedrops along with ofloxacin eyedrops. At that time she was having some discharge from her eyes and she reports that she sometimes still does but overall that part is getting better, her eyes are just very dry and itchy. She denies any pain or changes in her vision. Patient has a history of glaucoma and cannot see from the right eye. No visual changes to the left eye. No trauma. No foreign body sensation. Does not wear contacts. No fever or other symptoms. Allergies: Coded Allergies: SULFA(SULFONAMIDE ANTIBIOTICS) (Verified Allergy, Mild, Itching, 04/19/12) Patient History Past Medical History: see triage record Now: No Reviewed Nursing Documentation: PMH: Agreed; PSxH: Agreed Review of Systems All Other Systems: negative except mentioned in HPI Physical Exam Vital Signs Date Time Temp Pulse Resp B/P (MAP) Pulse Ox O2 Delivery O2 Flow Rate FiO2 07/06/19 13:59 98.2 66 18 130/67 (88) 98 Room Air Sp02 EP Interpretation: reviewed, normal General Appearance: normal inspection, well appearing, no apparent distress Eyes: left eye visual acuity - 20/20; bilateral eye PERRL, bilateral eye EOMI, bilateral eye Scleral Injection Medical Decision Making PA Attestation Dr. Bill Timmons is my supervising physician whom patient management and care has been discussed with. Diagnostic Impression: Primary Impression: Conjunctivitis Qualified Codes: H10.33 - Unspecified acute conjunctivitis, bilateral ER Course Pt. presents to the ED c/o bilateral eye erythema and dryness and itchiness. Ddx considered but are not limited to bacterial conjunctivitis, allergic conjunctivitis, corneal abrasion, corneal ulcer, periorbital cellulitis, foreign body. Vital signs: are WNL, pt. is afebrile H&PE are most consistent with allergic versus bacterial conjunctivitis ORDERS: none required at this time, the diagnosis is clinical ED INTERVENTIONS: None required at this time. DISCHARGE: At this time pt. is stable for d/c to home. No evidence of any periorbital/orbital cellulitis, foreign body, abrasion or ulcer. Will provide printed patient care instructions, and erythromycin ophthalmic ointment to assist with dryness, itching, and possible infectious etiology. Advised to continue with antihistamine eyedrops and other lubricating eyedrop such as Systane as needed. Advised to follow up outpatient in 1-2 days. Care plan and follow up instructions have been discussed with the patient prior to discharge. Last Vital Signs Date Time Temp Pulse Resp B/P (MAP) Pulse Ox O2 Delivery O2 Flow Rate FiO2 07/06/19 14:07 98.2 86 18 130/67 98 Room Air Disposition: HOME, SELF-CARE Condition: Stable Scripts Erythromycin Base (ERYTHROMYCIN*) 3.5 Gm Oint...g. 1 APPLIC BOTH EYES QID for 7 Days, #3.5 GM 0 Refills Prov: Kari Mistry 07/06/19 Patient Instructions: Bacterial Conjunctivitis, [id number], Allergic Conjunctivitis, [id number] Additional Instructions: Take medications as directed. Follow up with an eye doctor if no improvement. Follow up with a Primary Care Provider in 1-2 days, even if your symptoms have resolved. --Please review list of primary care clinics, if you do not already have a primary care provider Return to the emergency department sooner if new symptoms occur, or current symptoms become worse. - Please note that this Emergency Department Report was dictated using Michael Biekerresidential insurance inspector technology software, occasionally this can lead to erroneous entry secondary to interpretation by the dictation equipment. Kari Mistry Jul 06, 2019 14:32
== END 2019-07-06 14:28 | disposition home or self-care (01) ==
LOC: EMR 14:23
DX: H10.33 Unspecified acute conjunctivitis, bilateral (principal); Z88.2 Allergy status to sulfonamides
CPT/HCPCS: 99282

== ENCOUNTER 2019-10-04 19:31 | Inpatient (IN) | payer MEDICAID ==
[~2019-10-04] VITALS: Ht 165.1 cm; Wt 143.8 kg
[2019-10-04 19:31] VITALS: BP 112/74
[~2019-10-04 19:31] MED LIST changes: +ERYTHROMYCIN3.5 GM BOTH EYES
--- NOTE | 2019-10-04 19:31 | NUR ---
ED Nurse Note: PT walked in to ED for C/O increase in weakness since 3 days ago. pt reports having headache, fatigue, n/v, and dizziness. Pt reports having occasional cough
--- NOTE | 2019-10-04 19:55 | NUR ---
ED Nurse Note: PT blood sample collected and sent to lab. pt is unable to provide urine sample at this time.
--- NOTE | 2019-10-04 19:55 | Emergency Room Report ---
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 And at the facility does not have any covid-19 patient's Allergies: Coded Allergies: SULFA (SULFONAMIDE ANTIBIOTICS) (Verified Allergy, Mild, Itching, 04/19/12 ) COVID-19 Screening Contact w/high risk pt: Yes Recent Travel to affected area: No Experienced COVID-19 symptoms?: No 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 COVID-19 Screening: Negative COVID-19 COVID-19 Testing Source: outside facility 3 weeks ago Patient History Past Medical History: see triage record Last Menstrual Period: current Reviewed Nursing Documentation: PMH: Agreed; PSxH: Agreed Review of Systems All Other Systems: negative except mentioned in HPI Physical Exam Vital Signs Date Time Temp Pulse Resp B/P (MAP) Pulse Ox O2 Delivery O2 Flow Rate FiO2 10/04/19 19:24 98.8 99 18 98/64 (75) 93 Room Air Sp02 EP Interpretation: reviewed, normal General Appearance: well appearing, no apparent distress Head: normocephalic, atraumatic Eyes: bilateral eye PERRL, bilateral eye EOMI ENT: hearing grossly normal, normal pharynx, TMs + canals normal, uvula midline Neck: full range of motion, supple, no meningismus, no bony tend Respiratory: lungs clear, normal breath sounds, no rhonchi, no respiratory distress, no retraction, no accessory muscle use Cardiovascular #1: normal peripheral pulses, regular rate, rhythm, no edema, no gallop, no JVD, no murmur Gastrointestinal: normal bowel sounds, non tender, soft, no mass, no organomegaly, non-distended, no guarding, no hernia, no pulsatile mass, no rebound Genitourinary: no CVA tenderness Musculoskeletal: normal inspection Neurologic: motor strength/tone normal, senior mobile developer III-XII nml as tested, oriented x3 , sensory intact, responsive Psychiatric: mood/affect normal Skin: no rash Lymphatic: normal inspection, no adenopathy Medical Decision Making Diagnostic Impression: Primary Impression: Pneumonia Additional Impressions: Vomiting UTI (urinary tract infection) ER Course With the history exam and presentation, multiple differentials considered, including but not limited to appendicitis, gastritis, cholecystitis, diverticulitis Patient also had cardiac process entertained and on the work-up chest x-ray shows questionable infiltrate After further discussion patient now reports that she has had a cough over the past several days CT imaging has been done to evaluate the nausea and vomiting and the lower lobes do show abnormal findings raising concern of covid-19 Patient's urine also shows significant infectious process Patient is placed on precautions and isolation testing is performed and patient admitted for further care Labs Test 10/04/19 19:52 10/04/19 20:21 White Blood Count 9.4 K/UL (4.8-10.8) Red Blood Count 4.58 M/UL (4.20-5.40) Hemoglobin 13.2 G/DL (12.0-16.0) Hematocrit 42.5 % (37.0-47.0) Mean Corpuscular Volume 93 FL (80-99) Mean Corpuscular Hemoglobin 28.8 PG (27.0-31.0) Mean Corpuscular Hemoglobin Concent 31.1 G/DL (32.0-36.0) Red Cell Distribution Width 13.3 % (11.6-14.8) Platelet Count 186 K/UL (150-450) Mean Platelet Volume 9.0 FL (6.5-10.1) Neutrophils (%) (Auto) 71.6 % (45.0-75.0) Lymphocytes (%) (Auto) 22.0 % (20.0-45.0) Monocytes (%) (Auto) 5.5 % (1.0-10.0) Eosinophils (%) (Auto) 0.1 % (0.0-3.0) Basophils (%) (Auto) 0.9 % (0.0-2.0) Sodium Level 133 MMOL/L (136-145) Potassium Level 4.6 MMOL/L (3.5-5.1) Chloride Level 96 MMOL/L (98-107) Carbon Dioxide Level 28 MMOL/L (21-32) Anion Gap 9 mmol/L (5-15) Blood Urea Nitrogen 9 mg/dL (7-18) Creatinine 1.0 MG/DL (0.55-1.30) Estimat Glomerular Filtration Rate > 60 mL/min (>60) Glucose Level 298 MG/DL (74-106) Calcium Level 8.9 MG/DL (8.5-10.1) Total Bilirubin 0.6 MG/DL (0.2-1.0) Aspartate Amino Transf (AST/SGOT) 29 U/L (15-37) Alanine Aminotransferase (ALT/SGPT) 26 U/L (12-78) Alkaline Phosphatase 103 U/L (46-116) Total Creatine Kinase 131 U/L (26-308) Troponin I 0.000 ng/mL (0.000-0.056) Pro-B-Type Natriuretic Peptide 8 pg/mL (0-125) Total Protein 8.1 G/DL (6.4-8.2) Albumin 3.3 G/DL (3.4-5.0) Globulin 4.8 g/dL Albumin/Globulin Ratio 0.7 (1.0-2.7) Lipase 214 U/L (73-393) Rhythm Strip Diag. Results EP Interpretation: yes Rate: 77 Rhythm: NSR, no PVC's, no ectopy Chest X-Ray Diagnostic Results Chest X-Ray Diagnostic Results : Chest X-Ray Ordered: Yes # of Views/Limited/Complete: 1 View Indication: Chest Pain EP Interpretation: Yes Interpretation: no effusion, no pneumothorax, other - Bilateral patchy markings some increased marking the left lower lobe concerning for infiltrate Impression: Other - Bilateral patchy markings, more focalized region left lower lobe Electronically Signed by: Gualberto Sommer DO CT/MRI/US Diagnostic Results CT/MRI/US Diagnostic Results : Impression CT abdomen pelvisIMPRESSION: 1. Patchy bilateral airspace opacities, left greater than right. Differential includes infectious etiologies such as viral as well as atypical bacterial. Additionally, interstitial processes such as cryptogenic organizing pneumonia. 2. Large multi-fibroid uterus. Last Vital Signs Date Time Temp Pulse Resp B/P (MAP) Pulse Ox O2 Delivery O2 Flow Rate FiO2 10/04/19 19:24 98.8 99 18 98/64 (75) 93 Room Air Status: improved Disposition: ADMITTED INPATIENT Condition: Serious Gualberto Sommer DO Oct 04, 2019 19:55
--- NOTE | 2019-10-04 20:04 | NUR ---
ED Nurse Note: X ray being taken at this time.
[2019-10-04 20:16] LABS: BASOPHILS % (AUTO) 0.9 % (0.0-2.0); EOSINOPHILS % (AUTO) 0.1 % (0.0-3.0); HEMATOCRIT 42.5 % (37.0-47.0); HEMOGLOBIN 13.2 G/DL (12.0-16.0); MEAN CORPUSCULAR VOLUME 93 FL (80-99); MONOCYTES % (AUTO) 5.5 % (1.0-10.0); NEUTROPHILS % (AUTO) 71.6 % (45.0-75.0); PLATELET COUNT 186 K/UL (150-450); RED BLOOD COUNT 4.58 M/UL (4.20-5.40); RED CELL DISTRIBUTION WIDTH 13.3 % (11.6-14.8); WHITE BLOOD COUNT 9.4 K/UL (4.8-10.8)
[2019-10-04 20:47] LABS: ANION GAP 9 mmol/L (5-15); BLOOD UREA NITROGEN 9 mg/dL (7-18); CALCIUM 8.9 MG/DL (8.5-10.1); CARBON DIOXIDE 28 MMOL/L (21-32); CHLORIDE 96 MMOL/L (98-107); POTASSIUM 4.6 MMOL/L (3.5-5.1); SODIUM 133 MMOL/L (136-145)
[2019-10-04 20:58] LABS: ALANINE AMINOTRANSFERASE 26 U/L (12-78); ALBUMIN 3.3 G/DL (3.4-5.0); ALBUMIN/GLOBULIN RATIO 0.7 (1.0-2.7); ALKALINE PHOSPHATASE 103 U/L (46-116); ASPARTATE AMINO TRANSFERASE 29 U/L (15-37); BILIRUBIN,TOTAL 0.6 MG/DL (0.2-1.0); CREATINE KINASE 131 U/L (26-308)
--- NOTE | 2019-10-04 21:03 | NUR ---
ED Nurse Note: PT back from CT.
--- NOTE | 2019-10-04 21:13 | Diagnostic Imaging Report ---
EXAM: XR Chest, 1 View CLINICAL HISTORY: CP TECHNIQUE: Frontal view of the chest. COMPARISON: Chest VertiGraft dated 06/01/2019 FINDINGS: Lungs: Left patchy and linear airspace opacity within the lung base. Pleural space: Unremarkable. No pneumothorax. Heart: Unremarkable. No cardiomegaly. Mild tortuosity of the aorta. Mediastinum: Unremarkable. Bones/joints: Unremarkable. Mild degenerative changes of the bilateral acromioclavicular joints. IMPRESSION: Left basilar airspace disease, may represent infection in the appropriate clinical setting. Recommend correlation with clinical exam and consider dedicated frontal and lateral radiographs once patient is able.
--- NOTE | 2019-10-04 21:39 | Diagnostic Imaging Report ---
EXAM: CT Abdomen and Pelvis Without Intravenous Contrast CLINICAL HISTORY: PAIN TECHNIQUE: Axial computed tomography images of the abdomen and pelvis without intravenous contrast. CTDI is 17.0 mGy and DLP is 1009.2 mGy-cm. One or more of the following dose reduction techniques were used: automated exposure control, adjustment of the mA and/or kV according to patient size, use of iterative reconstruction technique. COMPARISON: Chest radiograph dated today. FINDINGS: Lung bases: Patchy bilateral airspace opacities are demonstrated within the left greater than right lung bases. A few areas of peribronchovascular opacities are noted. ABDOMEN: Liver: Unremarkable. Gallbladder and bile ducts: Unremarkable. No calcified stones. No ductal dilation. Pancreas: Unremarkable. No ductal dilation. Spleen: Unremarkable. No splenomegaly. Adrenals: Unremarkable. No mass. Kidneys and ureters: Unremarkable. No obstructing stones. No hydronephrosis. Stomach and bowel: Unremarkable. No obstruction. No mucosal thickening. PELVIS: Appendix: No findings to suggest acute appendicitis. Bladder: Unremarkable. No stones. Reproductive: Large multilobulated uterus with areas of dense dystrophic calcification representing a multi-fibroid uterus. The uterus measures approximately 13.4 x 18.9 x 12.6 cm. ABDOMEN and PELVIS: Intraperitoneal space: Unremarkable. No free air. No significant fluid collection. Bones/joints: No acute fracture. No dislocation. Soft tissues: Small fat-containing umbilical hernia. Vasculature: Unremarkable. No abdominal aortic aneurysm. Lymph nodes: Unremarkable. No enlarged lymph nodes. IMPRESSION: 1. Patchy bilateral airspace opacities, left greater than right. Differential includes infectious etiologies such as viral as well as atypical bacterial. Additionally, interstitial processes such as cryptogenic organizing pneumonia. 2. Large multi-fibroid uterus.
--- NOTE | 2019-10-04 21:39 | NUR ---
ED Nurse Note: droplet precaution initiated. covid swab collected and sent to lab.
[2019-10-04] MEDS ORDERED: Azithromycin 500 MG in NS 275 ML IV ONE (21:45)
[2019-10-04] MEDS ORDERED: Levofloxacin 750mg tab ORAL ONE (21:45)
--- NOTE | 2019-10-04 22:45 | NUR ---
ED Nurse Note: urine sent to lab
--- NOTE | 2019-10-04 22:52 | NUR ---
ED Nurse Note: Report given to NICOL Foster from med/surg
[2019-10-04 23:14] LABS: BILIRUBIN, URINE NEGATIVE (NEGATIVE); COLOR,URINE PALE YELLOW; GLUCOSE, URINE (UA) 4+ (NEGATIVE); KETONES,URINE 4+ (NEGATIVE); LEUKOCYTE ESTERASE ,URINE 2+ (NEGATIVE); NITRITE,URINE POSITIVE (NEGATIVE); PH,URINE 5 (4.5-8.0); PROTEIN,URINE 3+ (NEGATIVE); UROBILINOGEN,URINE NORMAL MG/DL (0.0-1.0)
--- NOTE | 2019-10-04 23:15 | NUR ---
ER DISCHARGE NOTE: Patient taken up to [facility] room 421 accompanied by LOADING UNIT OPERATOR SEATING via W/C in stable condition. Belonging list signed off. IV to left AC intact.
[2019-10-04 23:24] LABS: APPEARANCE,URINE CLOUDY
--- NOTE | 2019-10-04 23:25 | NUR ---
NURSE NOTES: Admitted a patient from ER. Pt is A&O x4, verbal and awake. Pt is ambulatory. Pt has a fever and episode of cough. no sob. iv on the left Ac 20g sL. Skin is intact. Belongings are with a patient. Bed in the lower position,locked and call light within reach. We will keep monitoring the pt.
[2019-10-05] VITALS (7 sets, daily range): BP systolic 118–144; BP diastolic 56–80
[2019-10-05] MEDS ORDERED: cefTRIAXone 1 GM in D5W 55 ML IVPB SCH (01:00)
[2019-10-05] MEDS: cefTRIAXone 1 GM in D5W 55 ML IVPB SCH (01:02)
[2019-10-05] MEDS ORDERED: guaiFENesin /DM 10ml syrup ORAL PRN (01:30)
[2019-10-05] MEDS ORDERED: D5NS 1,000 ML IV SCH (01:30)
[2019-10-05] MEDS ORDERED: Albuterol/Ipratropium 3ml neb HHN SCH (01:30)
[2019-10-05] MEDS ORDERED: NovoLOG Insulin Flexpen SUBQ SCH (06:30)
[2019-10-05] MEDS: Albuterol/Ipratropium 3ml neb INH SCH ×2 (06:39→12:56)
[2019-10-05] MEDS: NovoLOG Insulin Flexpen SUBQ SCH ×4 (06:50→20:20)
[2019-10-05] MEDS ORDERED: Albuterol/Ipratropium 3ml neb INH SCH (07:00)
[2019-10-05 07:15] LABS: BASOPHILS % (AUTO) 0.5 % (0.0-2.0); EOSINOPHILS % (AUTO) 0.1 % (0.0-3.0); HEMATOCRIT 36.9 % (37.0-47.0); HEMOGLOBIN 12.5 G/DL (12.0-16.0); LYMPHOCYTES % (AUTO) 27.5 % (20.0-45.0); MEAN CORPUSCULAR VOLUME 85 FL (80-99); PLATELET COUNT 176 K/UL (150-450); RED BLOOD COUNT 4.33 M/UL (4.20-5.40); RED CELL DISTRIBUTION WIDTH 11.7 % (11.6-14.8)
--- NOTE | 2019-10-05 07:20 | NUR ---
HAND-OFF: Report given to NICOL Ryan.
[2019-10-05 07:24] LABS: ALANINE AMINOTRANSFERASE 20 U/L (12-78); ALBUMIN 2.9 G/DL (3.4-5.0); ALBUMIN/GLOBULIN RATIO 0.6 (1.0-2.7); ALKALINE PHOSPHATASE 90 U/L (46-116); ANION GAP 10 mmol/L (5-15); ASPARTATE AMINO TRANSFERASE 33 U/L (15-37); BILIRUBIN,TOTAL 0.5 MG/DL (0.2-1.0); BLOOD UREA NITROGEN 9 mg/dL (7-18); CALCIUM 8.1 MG/DL (8.5-10.1); CARBON DIOXIDE 26 MMOL/L (21-32); CHLORIDE 99 MMOL/L (98-107); CREATININE 0.7 MG/DL (0.55-1.30); POTASSIUM 3.8 MMOL/L (3.5-5.1); SODIUM 135 MMOL/L (136-145)
--- NOTE | 2019-10-05 07:49 | NUR ---
NURSE NOTES: Report received from NICOL Foster. Patient seen on rounds, AxOx4, not in distress, on room air. Pt reports feeling a little nauseated and weak. PIV on left AC patent and intact running IVF as ordered. Isolation precautions maintained. Bed low and locked, siderails up x2, call light placed within reach and instructed to call nurse for assistance. Will continue to monitor.
[2019-10-05] MEDS: Enoxaparin 40mg Inj SUBQ SCH (08:23)
[2019-10-05] MEDS ORDERED: Pantoprazole Inj IVP SCH (09:00)
[2019-10-05] MEDS ORDERED: Heparin 5000 units/ml inj SUBQ SCH (09:00)
--- NOTE | 2019-10-05 09:26 | NUR ---
*-* NO INSURANCE INFORMATION IN THE BAR UNABLE TO SEND CLINICALS OR REVIEWS *-*
--- NOTE | 2019-10-05 09:28 | NUR ---
*-* NO INSURANCE INFORMATION IN THE BAR UNABLE TO SEND CLINICALS OR REVIEWS *-*
--- NOTE | 2019-10-05 11:30 | NUR ---
*-* INSURANCE *-* ALL AVAILABLE CLINICALS HAVE BEEN FAXED TO: [employer] P: [phone] F: [phone]
--- NOTE | 2019-10-05 13:00 | History and Physical Report ---
DATE OF ADMISSION: 10/04/2019 CHIEF COMPLAINT: Shortness of breath, cough, dizziness HISTORY OF PRESENT ILLNESS: The patient is a 44-year-old female with no past medical history, presented from home with complaints of generalized weakness and dizziness. She has had a mild nonproductive cough and low-grade fevers. 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 On evaluation in the emergency room, she had a low-grade temperature. She had a CAT scan that showed bilateral opacities possibly consistent with viral pneumonia. A COVID swab was done and is currently pending. She is now admitted for further evaluation and care. PAST MEDICAL HISTORY: None. PAST SURGICAL HISTORY: None. CURRENT MEDICATIONS: None. FAMILY HISTORY: Significant for diabetes. SOCIAL HISTORY: Negative for tobacco. Patient drinks socially. No drugs. REVIEW OF SYSTEMS: Negative except for dizziness and dry cough. PHYSICAL EXAMINATION: VITAL SIGNS: Temperature 99.5, pulse 98, respirations 18, and blood pressure 126/68. GENERAL: The patient is well developed, in no apparent distress. HEART: Regular rate and rhythm. LUNGS: Clear. ABDOMEN: Soft, nontender, and nondistended. EXTREMITIES: Without clubbing, cyanosis, or edema. LABORATORY DATA: Sodium 133, potassium 4.6, chloride 96. TSH is 0.76. White count 9, hemoglobin 13. UA showed 40 to 60 wbc's. ASSESSMENT: This is a 44-year-old female admitted with complaints of fevers, dizziness, dehydration, possible new-onset diabetes, possible pneumonia versus COVID. PLAN: 1. IV antibiotics. 2. Followup cultures. 3. Await COVID swab. 4. IV hydration. 5. Check an A1c. Josh Farnsworth M.D. DR: AMBER JOB#: [id number] CC:
--- NOTE | 2019-10-05 13:30 | Consultation ---
DATE OF CONSULTATION: 10/05/2019 INFECTIOUS DISEASES CONSULTATION CONSULTING PHYSICIAN: Blu Guzman MD. REFERRING PHYSICIAN: Josh Farnsworth MD. REASON FOR CONSULTATION: To rule out COVID-19 pneumonia. 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 There was a concern for COVID-19 pneumonia and an Infectious Diseases consultation has been obtained for antibiotics. She was tested negative for COVID-19. PAST MEDICAL HISTORY: History of newly diagnosed diabetes. SOCIAL HISTORY: She does not smoke. She drinks alcohol socially. No history of drug use. FAMILY HISTORY: Noncontributory. REVIEW OF SYSTEMS: RESPIRATORY: No fever or chills, but she feels cold. She has some dry cough. No shortness of breath or chest pain. CARDIAC: No chest pain. No palpitations. She did have dizziness. No syncope. GASTROINTESTINAL: She had no nausea. She had some vomiting yesterday. No abdominal pain or diarrhea. MEDICATIONS: As an inpatient, she is on azithromycin, metformin, enoxaparin, albuterol, ipratropium, insulin, Robitussin, ceftriaxone, Zofran, Tylenol. ALLERGIES: To . PHYSICAL EXAMINATION: VITAL SIGNS: Temperature of 99.3, T-max of 99.5, pulse of 109, respiratory rate 18, blood pressure 133/62, O2 saturation of 96% on room air. Examination deferred due to possibility of COVID-19. LABORATORY AND DIAGNOSTIC DATA: White count of 8, hemoglobin 12.5, hematocrit 36.9, MCV 85, platelet count of 176,000, neutrophils of 66%. Sodium 135, potassium 3.8, chloride 99, bicarb 26, BUN 9, creatinine 0.7, glucose 252, calcium 8.1. Total bilirubin 0.5. AST 33, ALT 20, alkaline phosphatase 90. Total protein 7.4, albumin 2.9, lipase of 214. C-reactive protein 4.3. UA showing 40 to 60 white cell. Chest x-ray showing left basilar airspace disease. CT abdomen and pelvis showing patchy bilateral airspace opacities, left greater than the right. ASSESSMENT: This is a 44-year-old lady with history of newly diagnosed diabetes, who comes in with cough, vomiting, dizziness and was found to have: 1. Urinary tract infection. 2. Would also like to rule out COVID-19 pneumonia as a possibility. 3. Newly diagnosed diabetes. PLAN: 1. Continue ceftriaxone. 2. Discontinue azithromycin. 3. We will order urine cultures. 4. We will order a COVID-19 testing. 5. We will follow up cultures and adjust antibiotics accordingly. I would like to thank, Dr. Farnsworth, for this consultation. Blu Guzman M.D. DR: DEISI JOB#: [id number] CC: Josh Farnsworth MD.
--- NOTE | 2019-10-05 14:10 | NUR ---
INTERQUAL CRITERIA MET
--- NOTE | 2019-10-05 17:25 | NUR ---
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 98.8 HR 99 RR 18 B/P 98/64 UA+ PROTEIN,GLUCOSE,KETONES,RBC,WBC,LEUKOCYTE ESTERASE,NITRITE,BACTERIA CXR=Left basilar airspace disease, may represent infection in the appropriate clinical setting. IS: ZITHROMAX IV LEVAQUIN PO IV BOLUS NS X 500ML ADMITTED TO MED/SURG @ 23158 MED/SURG STATUS DCP PENDING HOSPITAL STAY
--- NOTE | 2019-10-05 19:25 | NUR ---
NURSE NOTES: Received report from NICOL Velasquez. AAO x 4, resting in bed, on NC3L. IV site intact, running IVF. Need to collect sputum. Isolation precaution maintained. No acute distress noted. Bed locked, lowest position, bed locked, alarm on, side rails up, call light within reach. Will continue to monitor.
--- NOTE | 2019-10-05 19:43 | NUR ---
HAND-OFF: Report given to Ashley CAMARENA.
[2019-10-05] MEDS ORDERED: Azithromycin 500 MG in D5W 275 ML IV SCH (22:00)
[2019-10-06] MEDS: cefTRIAXone 1 GM in D5W 55 ML IVPB SCH (00:39)
[2019-10-06 04:00] VITALS: BP 125/59
[2019-10-06] MEDS: NovoLOG Insulin Flexpen SUBQ SCH ×4 (05:55→20:24)
--- NOTE | 2019-10-06 07:13 | NUR ---
HAND-OFF: Report given to Hari/NICOL London.
--- NOTE | 2019-10-06 07:45 | NUR ---
RECEIVED REPORT FROM NICOL TRAMMELL. PATIENT SEEN RESTING IN BED AAOX4, AMBULATORY, ON NC 4L/M. IV SITE PATENT AND INTACT WITH IV FLUIDS RUNNING. NEED TO COLLECT SPUTUM. ISOLATION PRECAUTION MAINTAINED. RN INSTRUCTED PATIENT TO CALL IF PATIENT TRIES TO USE BATHROOM OR AMBULATE. BED LOCKED AND PLACED IN LOWEST POSITION WITH ALARM ON. CALL LIGHT WITHIN REACH. WILL CONTINUE TO MONITOR. Addendum: 10/06/19 at 0936 by Surya Hannon RN NURSE NOTES: RECEIVED REPORT FROM NICOL TRAMMELL. PATIENT SEEN RESTING IN BED AAOX4, AMBULATORY, ON NC 4L/M. IV SITE PATENT AND INTACT WITH IV FLUIDS RUNNING. NEED TO COLLECT SPUTUM. ISOLATION PRECAUTION MAINTAINED. RN INSTRUCTED PATIENT TO CALL IF PATIENT TRIES TO USE BATHROOM OR AMBULATE. BED LOCKED AND PLACED IN LOWEST POSITION WITH ALARM ON. CALL LIGHT WITHIN REACH. WILL CONTINUE TO MONITOR.
[2019-10-06 07:59] LABS: ALANINE AMINOTRANSFERASE 27 U/L (12-78); ALBUMIN 2.7 G/DL (3.4-5.0); ALBUMIN/GLOBULIN RATIO 0.6 (1.0-2.7); ALKALINE PHOSPHATASE 79 U/L (46-116); ANION GAP 11 mmol/L (5-15); ASPARTATE AMINO TRANSFERASE 47 U/L (15-37); BILIRUBIN,TOTAL 0.6 MG/DL (0.2-1.0); BLOOD UREA NITROGEN 8 mg/dL (7-18); CALCIUM 7.7 MG/DL (8.5-10.1); CARBON DIOXIDE 25 MMOL/L (21-32); CHLORIDE 99 MMOL/L (98-107); CREATININE 0.7 MG/DL (0.55-1.30); POTASSIUM 3.6 MMOL/L (3.5-5.1); SODIUM 135 MMOL/L (136-145)
[2019-10-06 08:00] VITALS: BP 124/59
[2019-10-06] MEDS: Enoxaparin 40mg Inj SUBQ SCH (08:15)
--- NOTE | 2019-10-06 09:05 | General Progress Note ---
Assessment/Plan Problem List: (1) COVID-19 ICD Codes: U07.1 - COVID-19 SNOMED: 647647865 (2) Diabetes ICD Codes: E11.9 - Type 2 diabetes mellitus without complications SNOMED: 27175475 (3) Pneumonia ICD Codes: J18.9 - Pneumonia, unspecified organism SNOMED: 665711698 Status: stable Assessment/Plan: ID follow up titrate insulin ivf o2 Subjective ROS Limited/Unobtainable: No Constitutional: Reports: fever, malaise, weakness HEENT: Reports: no symptoms Cardiovascular: Reports: no symptoms Respiratory: Reports: cough, shortness of breath Gastrointestinal/Abdominal: Reports: no symptoms Genitourinary: Reports: no symptoms Neurologic/Psychiatric: Reports: no symptoms Endocrine: Reports: no symptoms Hematologic/Lymphatic: Reports: no symptoms Allergies: Coded Allergies: SULFA (SULFONAMIDE ANTIBIOTICS) (Verified Allergy, Mild, Itching, 04/19/12 ) All Systems: reviewed and negative except above Subjective no events. w/o complaints. feels tired. Covid +. Objective Last 24 Hour Vital Signs Date Time Temp Pulse Resp B/P (MAP) Pulse Ox O2 Delivery O2 Flow Rate FiO2 10/06/19 08:00 100.9 110 20 124/59 (80) 93 10/06/19 04:00 99.7 109 20 125/59 (81) 93 10/05/19 23:55 99.5 106 20 118/56 (76) 95 10/05/19 21:00 Nasal Cannula 4.0 10/05/19 20:00 99.9 108 20 123/65 (84) 95 10/05/19 16:00 99.9 100 18 144/76 (98) 93 10/05/19 12:00 98.6 97 18 132/80 (97) 95 Intake and Output 10/05/19 10/06/19 19:00 07:00 Intake Total 605 ml 1333 ml Balance 605 ml 1333 ml Intake Oral 480 ml IV Total 125 ml 1333 ml # Voids 3 3 Laboratory Tests 10/06/19 06:55: Sodium Level 135L, Potassium Level 3.6, Chloride Level 99, Carbon Dioxide Level 25, Anion Gap 11, Blood Urea Nitrogen 8, Creatinine 0.7, Estimat Glomerular Filtration Rate > 60, Glucose Level 255H, Calcium Level 7.7L, Total Bilirubin 0.6, Aspartate Amino Transf (AST/SGOT) 47H, Alanine Aminotransferase (ALT/SGPT) 27, Alkaline Phosphatase 79, Total Protein 7.0, Albumin 2.7L, Globulin 4.3, Albumin/Globulin Ratio 0.6L Height (Feet): 5 Height (Inches): 5.00 Weight (Pounds): 316 General Appearance: WD/WN Neck: supple Cardiovascular: regular rhythm Respiratory/Chest: lungs clear Abdomen: normal bowel sounds, non tender, soft, no organomegaly Edema: no edema noted Arm (L), no edema noted Arm (R), no edema noted Leg (L), no edema noted Leg (R), no edema noted Pedal (L), no edema noted Pedal (R), no edema noted Generalized Josh Farnsworth MD Oct 06, 2019 09:05
--- NOTE | 2019-10-06 11:22 | Infectious Diseases Prog Note ---
Assessment/Plan Assessment/Plan antibiotics : ceftriaxone A 1. COVID 19 pneumonia on 4 liters O2, 93 percent O2 saturation 2. diabetes mellitus P 1. d/c ceftriaxone 2. consider remdesivir EUA 3. will follow up cultures 4. continue isolation Subjective Constitutional: Denies: fever, chills Respiratory: Reports: shortness of breath, dry cough Gastrointestinal/Abdominal: Denies: nausea, vomiting, diarrhea Musculoskeletal: Denies: pain Allergies: Coded Allergies: SULFA (SULFONAMIDE ANTIBIOTICS) (Verified Allergy, Mild, Itching, 04/19/12 ) Objective Vital Signs Last 24 Hour Vital Signs Date Time Temp Pulse Resp B/P (MAP) Pulse Ox O2 Delivery O2 Flow Rate FiO2 10/06/19 09:10 98.2 10/06/19 09:00 Nasal Cannula 4.0 10/06/19 08:00 100.9 110 20 124/59 (80) 93 10/06/19 04:00 99.7 109 20 125/59 (81) 93 10/05/19 23:55 99.5 106 20 118/56 (76) 95 10/05/19 21:00 Nasal Cannula 4.0 10/05/19 20:00 99.9 108 20 123/65 (84) 95 10/05/19 16:00 99.9 100 18 144/76 (98) 93 10/05/19 12:00 98.6 97 18 132/80 (97) 95 Height (Feet): 5 Height (Inches): 5.00 Weight (Pounds): 316 Microbiology Date/Time Source Procedure Growth Status 10/04/19 21:39 Nasopharynx Coronavirus COVID-19 PCR (MICHAEL) - Final Complete 10/04/19 22:38 Urine,Clean Catch Urine Culture - Preliminary Diphtheroids Resulted Laboratory Tests Test 10/06/19 06:55 Sodium Level 135 MMOL/L (136-145) L Potassium Level 3.6 MMOL/L (3.5-5.1) Chloride Level 99 MMOL/L (98-107) Carbon Dioxide Level 25 MMOL/L (21-32) Anion Gap 11 mmol/L (5-15) Blood Urea Nitrogen 8 mg/dL (7-18) Creatinine 0.7 MG/DL (0.55-1.30) Estimat Glomerular Filtration Rate > 60 mL/min (>60) Glucose Level 255 MG/DL (74-106) H Calcium Level 7.7 MG/DL (8.5-10.1) L Total Bilirubin 0.6 MG/DL (0.2-1.0) Aspartate Amino Transf (AST/SGOT) 47 U/L (15-37) H Alanine Aminotransferase (ALT/SGPT) 27 U/L (12-78) Alkaline Phosphatase 79 U/L (46-116) Total Protein 7.0 G/DL (6.4-8.2) Albumin 2.7 G/DL (3.4-5.0) L Globulin 4.3 g/dL Albumin/Globulin Ratio 0.6 (1.0-2.7) L Current Medications Medications (Trade) Dose Ordered Sig/Isa Route PRN Reason Start Time Stop Time Status Last Admin Dose Admin Acetaminophen (Tylenol) 650 mg Q4H PRN ORAL Mild Pain (Pain Scale 1-3) 10/04/19 23:45 11/03/19 23:44 10/06/19 08:34 Albuterol/ Ipratropium (Combivent Respimat) 2 puff Q6HR INH 10/05/19 14:00 11/04/19 13:59 10/06/19 05:57 Ceftriaxone Sodium 1 gm/ Dextrose 55 ml @ 110 mls/hr Q24H IVPB 10/05/19 01:00 10/12/19 00:59 10/06/19 00:39 Dextrose (Dextrose 50%) 25 ml Q30M PRN IV Hypoglycemia 10/05/19 01:30 01/03/20 01:29 Dextrose (Dextrose 50%) 50 ml Q30M PRN IV Hypoglycemia 10/05/19 01:30 01/03/20 01:29 Enoxaparin Sodium (Lovenox) 40 mg DAILY SUBQ 10/05/19 09:00 01/03/20 08:59 10/06/19 08:15 Guaifenesin/ Dextromethorphan (Robitussin DM Syrup) 10 ml Q4H PRN ORAL For Cough 10/05/19 01:30 01/03/20 01:29 Insulin Aspart (NovoLOG) BEFORE MEALS AND HS SUBQ 10/05/19 06:30 01/03/20 06:29 10/06/19 05:55 Metformin HCl (Glucophage) 850 mg TIAC ORAL 10/05/19 09:30 11/04/19 09:29 10/06/19 05:54 Ondansetron HCl (Zofran) 4 mg Q4H PRN IVP Nausea & Vomiting 10/04/19 23:45 11/03/19 23:44 Sodium Chloride 1,000 ml @ 125 mls/hr Q8H IV 10/05/19 01:30 11/04/19 01:29 10/06/19 08:15 Blu Guzman MD Oct 06, 2019 11:22
[2019-10-06 12:00] VITALS: BP 122/63
--- NOTE | 2019-10-06 12:42 | NUR ---
RD ASSESSMENT & RECOMMENDATIONS SEE CARE ACTIVITY FOR COMPLETE ASSESSMENT DAILY ESTIMATED NEEDS: Needs based on DM, obese 78.5kg abw 20-25 kcals/kg 6392-3626 total kcals 1-1.5 g protein/kg 79-118 g total protein 25-30 mL/kg 4979-9777 total fluid mLs NUTRITION DIAGNOSIS: Altered nutrition related lab values r/t diabetes as evidenced by A1C 11.8, Uglu 4+ on adm, w/ BG in the 200's. CURRENT DIET: Regular PO DIET RECOMMENDATIONS--->>> Rec CCHO LOW ADDITIONAL RECOMMENDATIONS: 1) Obtain a calibrated bed scale wt while on iso 2) Diet edu as able, on iso 3) Monitor BG w/ current fair po intake.
[2019-10-06] MEDS ORDERED: Remdesivir Fact Sheet MISC SCH (13:00)
--- NOTE | 2019-10-06 14:06 | NUR ---
NURSE NOTES: RN EDUCATED PATIENT ON REMDESIVIR. PATIENT GIVEN FACT SHEET AND INFORMED PATIENT THAT THE SHEET CONSISTS OF INFORMATION REGARDING THE MEDICATION. PATIENT IS SCHEDULED TO GET MEDICATION TODAY
--- NOTE | 2019-10-06 15:22 | NUR ---
NURSE NOTES: PATIENT NOTIFIED RN REGARDING CONCERN OF HER NEW MEDICATION, REMDESIVIR. PATIENT WAS AFRAID AND WANTED MORE INFORMATION REGARDING THE DRUG. PATIENT REQUESTED TO TALK TO A DOCTOR FOR FURTHER QUESTIONS AND CONCERN. RN GOT PATIENTS PHONE NUMBER TO RELAY TO DR. DELAROSA. RN CALLED AND LEFT DR. DELAROSA A MESSAGE.
--- NOTE | 2019-10-06 15:36 | NUR ---
NURSE NOTES: PATIENT'S SP02 WITHOUT NC ON WAS 92 AND CONTINUED TO DESAT. WILL CONTINUE TO MONITOR
--- NOTE | 2019-10-06 15:51 | NUR ---
NURSE NOTES: PATIENT ABLE TO TALK TO DR. DELAROSA REGARDING CONCERNS AND VERBALIZED TO NURSE THAT SHE WILL STILL CONTINUE WITH REMDESIVIR.
[2019-10-06 16:00] VITALS: BP 122/70
--- NOTE | 2019-10-06 16:12 | NUR ---
CASE MANAGEMENT:REVIEW SI;COVID-19 PNEUMONIA 100.9 110 20 125/59 93% 4L NC NA 135 BG 255 CA 7.7 AST 47 ALB 2.7 IS;REMDESIVIR IV Q24 HRS COMBIVENT INH Q6 HRS LOVENOX SUBQ QD IVF NS @ 125 ML/HR MED SURG STATUS DCP;PATIENT IS FROM HOME
--- NOTE | 2019-10-06 16:42 | NUR ---
*-* INSURANCE *-* ALL AVAILABLE CLINICALS HAVE BEEN FAXED TO: [employer] P: [phone] F: [phone] & GIOVANNY HANLEY P: [phone] F: [phone]
[2019-10-06] MEDS ORDERED: Loading Dose:Remdesivir 200mg/NS 210ml IV SCH (17:00)
--- NOTE | 2019-10-06 18:50 | NUR ---
NURSE NOTES: PATIENT'S SPO2 WAS CONSISTENTLY AROUND 90-91% AND COMPLAINING OF LIGHT HEADEDNESS. RN DECIDED TO CHANGE TO FACE MASK AND INCREASE OXYGEN TO 10L/MIN. PATIENT'S O2 STILL REMAINED 90-91%. PATIENT WAS THEN PUT ON NON-REBREATHER ON 15L/MIN. O2 SAT INCREASED TO 94-95%
--- NOTE | 2019-10-06 19:10 | NUR ---
NURSE NOTES: Received report from NICOL Noriega. AAO x 4, resting in bed, on non rebreather mask 15L. IV site intact, running IVF. Need to collect sputum. Isolation precaution maintained. No acute distress noted. Bed locked, lowest position, bed locked, alarm on, side rails up, call light within reach. Will continue to monitor.
--- NOTE | 2019-10-06 19:16 | NUR ---
HAND-OFF: Report given to VALERI WICK RN.
[2019-10-06 20:00] VITALS: BP 131/70
--- NOTE | 2019-10-06 21:30 | NUR ---
NURSE NOTES: Pt c/o chest soreness /10 when breathing. Stated I have pain on my chest because I am using chest a lot when I breath. Per pt requesting, Tylenol given and re asses for pain is /10 with 97% O2 sat.
[2019-10-07] VITALS (25 sets, daily range): BP systolic 104–175; BP diastolic 53–112
--- NOTE | 2019-10-07 05:07 | NUR ---
NURSE NOTES: Pt c/o hard of breathing and couldn't lie down whole night. Vitals 98.2F, 109HR, 26RR, 127/76BP, 94% O2. 2puffs of Combivent given. Called RT and recommended MDI, bipap. Charge nurse made aware. Left the message Dr. Farnsworth. Awaiting for call back. Addendum: 10/07/19 at 0551 by VALERI WICK RN RN Per Dr. Farnsworth, transfer to ICU. Awaiting for the bed in ICU.
[2019-10-07] MEDS: NovoLOG Insulin Flexpen SUBQ SCH ×4 (05:36→21:13)
--- NOTE | 2019-10-07 05:51 | NUR ---
NURSE NOTES: RT came and ABG is done.
--- NOTE | 2019-10-07 06:45 | NUR ---
NURSE NOTES: received to 246-K in no acute resp distress, slightly tachypneic with rr 25/min o2 sat 09-92% on nrm 100% fio2, special assets officer shows st wit hr 112/min bp 114/68, received report from tony light
--- NOTE | 2019-10-07 07:00 | NUR ---
NURSE NOTES: Dr. Farnsworth made aware of ABG result. No new order received. Pt transferred to ICU room 246-k. All belongings sent with pt. Addendum: 10/07/19 at 0712 by VALERI WICK RN RN Informed family member Carlyn Whipple regarding transfer to icu.
--- NOTE | 2019-10-07 07:00 | NUR ---
HAND-OFF: Report given to tony sanderson.
[2019-10-07 07:04] LABS: ALANINE AMINOTRANSFERASE 28 U/L (12-78); ALBUMIN/GLOBULIN RATIO 0.6 (1.0-2.7); ALKALINE PHOSPHATASE 92 U/L (46-116); ANION GAP 13 mmol/L (5-15); ASPARTATE AMINO TRANSFERASE 51 U/L (15-37); BILIRUBIN,DIRECT 0.2 MG/DL (0.0-0.3); BILIRUBIN,TOTAL 0.8 MG/DL (0.2-1.0); BLOOD UREA NITROGEN 6 mg/dL (7-18); CALCIUM 7.9 MG/DL (8.5-10.1); CARBON DIOXIDE 24 MMOL/L (21-32); CHLORIDE 98 MMOL/L (98-107); CREATININE 0.8 MG/DL (0.55-1.30); POTASSIUM 3.5 MMOL/L (3.5-5.1); SODIUM 135 MMOL/L (136-145)
[2019-10-07] MEDS ORDERED: guaiFENesin /DM 10ml syrup ORAL PRN (07:08)
--- NOTE | 2019-10-07 07:11 | NUR ---
HAND-OFF: Report given to NICOL Lyon.
[2019-10-07 07:28] LABS: BASOPHILS % (AUTO) 0.2 % (0.0-2.0); HEMATOCRIT 37.1 % (37.0-47.0); HEMOGLOBIN 12.4 G/DL (12.0-16.0); MEAN CORPUSCULAR VOLUME 86 FL (80-99); MONOCYTES % (AUTO) 4.6 % (1.0-10.0); NEUTROPHILS % (AUTO) 81.1 % (45.0-75.0); PLATELET COUNT 188 K/UL (150-450); RED CELL DISTRIBUTION WIDTH 11.9 % (11.6-14.8)
--- NOTE | 2019-10-07 08:10 | NUR ---
NURSE NOTES: Patient is a new transfer to ICU for SOB. Received lying in bed, awake, alert x4, able to communicate needs. On non-rebreather mask 15 lpm, saturation ranges from 88-92-96%. Respirations even, unlabored, slight tachypneic RR -22. Patient does not want the bed to lay flat, pt unable to tolerate. Purewick catheter in place, blood tinged urine noted. Patient with 24g peripheral line infusing NS at 125 ml/hr. Skin is intact. Call light placed within reach. Safety measures implemented, bed kept at lowest position, bed alarm activated. Sinus tachycardia rate of 110s noted on the monitor. On isolation for Covid19 virus. Will monitor the patient.
--- NOTE | 2019-10-07 08:48 | General Progress Note ---
Assessment/Plan Problem List: (1) COVID-19 ICD Codes: U07.1 - COVID-19 SNOMED: 611905763 (2) Diabetes ICD Codes: E11.9 - Type 2 diabetes mellitus without complications SNOMED: 34112874 (3) Pneumonia ICD Codes: J18.9 - Pneumonia, unspecified organism SNOMED: 902366298 Status: deteriorating Assessment/Plan: cont remdesivir per ID bipap check cxr dvt prophylaxis with lovenox MS for sob hope to avoid intubation tenuous pulm eval called Subjective ROS Limited/Unobtainable: No Constitutional: Reports: malaise, weakness HEENT: Reports: no symptoms Cardiovascular: Reports: no symptoms Respiratory: Reports: cough, shortness of breath Gastrointestinal/Abdominal: Reports: no symptoms Genitourinary: Reports: no symptoms Neurologic/Psychiatric: Reports: no symptoms Endocrine: Reports: no symptoms Hematologic/Lymphatic: Reports: no symptoms Allergies: Coded Allergies: SULFA (SULFONAMIDE ANTIBIOTICS) (Verified Allergy, Mild, Itching, 04/19/12 ) All Systems: reviewed and negative except above Subjective worsening sob. now on nrb. received first dose of remdesivir yesterday. no chest pain .. Objective Last 24 Hour Vital Signs Date Time Temp Pulse Resp B/P (MAP) Pulse Ox O2 Delivery O2 Flow Rate FiO2 10/07/19 06:45 99.7 112 25 114/68 (83) 90 10/07/19 04:00 98.2 109 26 127/76 (93) 94 10/07/19 00:00 98.2 91 18 135/67 (89) 97 10/06/19 20:45 Non-Rebreather 15.0 10/06/19 20:00 98.4 109 17 131/70 (90) 93 10/06/19 16:00 98.2 74 18 122/70 (87) 94 10/06/19 12:00 97.9 96 20 122/63 (82) 94 10/06/19 09:10 98.2 10/06/19 09:00 Nasal Cannula 4.0 Intake and Output 10/06/19 10/07/19 19:00 07:00 Intake Total 1600 ml 1735 ml Balance 1600 ml 1735 ml Intake Oral 600 ml 360 ml IV Total 1000 ml 1375 ml # Voids 3 3 Laboratory Tests 10/07/19 05:40: Arterial Blood pH 7.405, Arterial Blood Partial Pressure CO2 33.8L, Arterial Blood Partial Pressure O2 65.7L, Arterial Blood HCO3 20.7L, Arterial Blood Oxygen Saturation 93.3L, Arterial Blood Base Excess -3.3L, Sadi Test Positive 10/07/19 05:50: White Blood Count 10.0, Red Blood Count 4.30, Hemoglobin 12.4, Hematocrit 37.1, Mean Corpuscular Volume 86, Mean Corpuscular Hemoglobin 28.9, Mean Corpuscular Hemoglobin Concent 33.5, Red Cell Distribution Width 11.9, Platelet Count 188, Mean Platelet Volume 5.8L, Neutrophils (%) (Auto) 81.1H, Lymphocytes (%) (Auto) 14.0L, Monocytes (%) (Auto) 4.6, Eosinophils (%) (Auto) 0.0, Basophils (%) (Auto ) 0.2, Sodium Level 135L, Potassium Level 3.5, Chloride Level 98, Carbon Dioxide Level 24, Anion Gap 13, Blood Urea Nitrogen 6L, Creatinine 0.8, Estimat Glomerular Filtration Rate > 60, Glucose Level 254H, Calcium Level 7.9L, Total Bilirubin 0.8, Direct Bilirubin 0.2, Aspartate Amino Transf (AST/SGOT) 51H, Alanine Aminotransferase (ALT/SGPT) 28, Alkaline Phosphatase 92, Total Protein 7.9, Albumin 3.0L, Globulin 4.9, Albumin/Globulin Ratio 0.6L Height (Feet): 5 Height (Inches): 5.00 Weight (Pounds): 315 General Appearance: alert Respiratory/Chest: crackles/rales - on the right Abdomen: normal bowel sounds, non tender, soft, no organomegaly Edema: no edema noted Arm (L), no edema noted Arm (R), no edema noted Leg (L), no edema noted Leg (R), no edema noted Pedal (L), no edema noted Pedal (R), no edema noted Generalized Neurologic: alert Josh Farnsworth MD Oct 07, 2019 08:48
--- NOTE | 2019-10-07 09:00 | NUR ---
NURSE NOTES: NICOL De La Fuente, resource nurse placed another IV, due to IV pull out by patient. Right forearm 22g, IV inserted.
[2019-10-07] MEDS: Morphine Sulfate 2mg/ml Inj(IV/IM USE ONLY) IVP PRN (09:16)
[2019-10-07] MEDS: Enoxaparin 40mg Inj SUBQ SCH (09:35)
--- NOTE | 2019-10-07 09:37 | NUR ---
NURSE NOTES: Patient complaining of pain, morphine IV administered as ordered. Patient kept NPO due to respirations starting to increase 22-26, patient feeling a little bit restless.
--- NOTE | 2019-10-07 10:08 | Diagnostic Imaging Report ---
Indication: Shortness of breath Technique: One view of the chest Comparison: 10/04/2019 Findings: Bilateral infiltrates have increased significantly. Heart borders are largely obscured. No definite effusions. Impression: Worsening bilateral infiltrates, likely pneumonia, over 3 days
--- NOTE | 2019-10-07 10:20 | NUR ---
RADIOLOGY DEPT., CHEST X-RAY DONE.-P.DYE
--- NOTE | 2019-10-07 12:41 | Infectious Diseases Prog Note ---
Assessment/Plan Assessment/Plan A 1. COVID 19 pneumonia 2. diabetes mellitus 3. Hypoxic respiratory failure 4. Morbid obesity P 1. Continue Remdesivir EUA 2. will follow up cultures 3. continue isolation Subjective ROS Limited/Unobtainable: No Constitutional: Reports: other - decreased appetite Respiratory: Reports: dry cough Gastrointestinal/Abdominal: Reports: no symptoms Genitourinary: Reports: no symptoms Allergies: Coded Allergies: SULFA (SULFONAMIDE ANTIBIOTICS) (Verified Allergy, Mild, Itching, 04/19/12 ) Objective Vital Signs Last 24 Hour Vital Signs Date Time Temp Pulse Resp B/P (MAP) Pulse Ox O2 Delivery O2 Flow Rate FiO2 10/07/19 10:00 112 28 112/63 (79) 92 10/07/19 09:46 98.7 10/07/19 09:00 112 28 104/55 (71) 92 10/07/19 08:00 98.7 111 25 110/68 (82) 90 10/07/19 08:00 Non-Rebreather 10/07/19 06:45 99.7 112 25 114/68 (83) 90 10/07/19 04:00 98.2 109 26 127/76 (93) 94 10/07/19 00:00 98.2 91 18 135/67 (89) 97 10/06/19 20:45 Non-Rebreather 15.0 10/06/19 20:00 98.4 109 17 131/70 (90) 93 10/06/19 16:00 98.2 74 18 122/70 (87) 94 Height (Feet): 5 Height (Inches): 5.00 Weight (Pounds): 315 General Appearance: other - obese HEENT: mucous membranes moist Respiratory/Chest: other - oxygen by rebreathing mask Cardiovascular: tachycardia Abdomen: soft, non tender Neurologic/Psychiatric: alert, oriented x 3, responsive Microbiology Date/Time Source Procedure Growth Status 10/04/19 21:39 Nasopharynx Coronavirus COVID-19 PCR (MICHAEL) - Final Complete 10/04/19 22:38 Urine,Clean Catch Urine Culture - Final Diphtheroids Complete Laboratory Tests Test 10/07/19 05:40 10/07/19 05:50 10/07/19 12:19 Arterial Blood pH 7.405 (7.350-7.450) 7.412 (7.350-7.450) Arterial Blood Partial Pressure CO2 33.8 mmHg (35.0-45.0) L 35.3 mmHg (35.0-45.0) Arterial Blood Partial Pressure O2 65.7 mmHg (75.0-100.0) L 49.4 mmHg (75.0-100.0) Arterial Blood HCO3 20.7 mmol/L (22.0-26.0) L 22.0 mmol/L (22.0-26.0) Arterial Blood Oxygen Saturation 93.3 % (95-100) L 86.4 % (95-100) *L Arterial Blood Base Excess -3.3 (-2-2) L -2.1 (-2-2) L Sadi Test Positive Positive White Blood Count 10.0 K/UL (4.8-10.8) Red Blood Count 4.30 M/UL (4.20-5.40) Hemoglobin 12.4 G/DL (12.0-16.0) Hematocrit 37.1 % (37.0-47.0) Mean Corpuscular Volume 86 FL (80-99) Mean Corpuscular Hemoglobin 28.9 PG (27.0-31.0) Mean Corpuscular Hemoglobin Concent 33.5 G/DL (32.0-36.0) Red Cell Distribution Width 11.9 % (11.6-14.8) Platelet Count 188 K/UL (150-450) Mean Platelet Volume 5.8 FL (6.5-10.1) L Neutrophils (%) (Auto) 81.1 % (45.0-75.0) H Lymphocytes (%) (Auto) 14.0 % (20.0-45.0) L Monocytes (%) (Auto) 4.6 % (1.0-10.0) Eosinophils (%) (Auto) 0.0 % (0.0-3.0) Basophils (%) (Auto) 0.2 % (0.0-2.0) Sodium Level 135 MMOL/L (136-145) L Potassium Level 3.5 MMOL/L (3.5-5.1) Chloride Level 98 MMOL/L (98-107) Carbon Dioxide Level 24 MMOL/L (21-32) Anion Gap 13 mmol/L (5-15) Blood Urea Nitrogen 6 mg/dL (7-18) L Creatinine 0.8 MG/DL (0.55-1.30) Estimat Glomerular Filtration Rate > 60 mL/min (>60) Glucose Level 254 MG/DL (74-106) H Calcium Level 7.9 MG/DL (8.5-10.1) L Total Bilirubin 0.8 MG/DL (0.2-1.0) Direct Bilirubin 0.2 MG/DL (0.0-0.3) Aspartate Amino Transf (AST/SGOT) 51 U/L (15-37) H Alanine Aminotransferase (ALT/SGPT) 28 U/L (12-78) Alkaline Phosphatase 92 U/L (46-116) Total Protein 7.9 G/DL (6.4-8.2) Albumin 3.0 G/DL (3.4-5.0) L Globulin 4.9 g/dL Albumin/Globulin Ratio 0.6 (1.0-2.7) L Current Medications Medications (Trade) Dose Ordered Sig/Isa Route PRN Reason Start Time Stop Time Status Last Admin Dose Admin Acetaminophen (Tylenol) 650 mg Q4H PRN ORAL Mild Pain (Pain Scale 1-3) 10/07/19 07:45 11/03/19 23:44 Albuterol/ Ipratropium (Combivent Respimat) 2 puff Q6HR INH 10/07/19 12:00 11/04/19 13:59 Dextrose (Dextrose 50%) 25 ml Q30M PRN IV Hypoglycemia 10/07/19 07:00 01/03/20 01:29 Dextrose (Dextrose 50%) 50 ml Q30M PRN IV Hypoglycemia 10/07/19 07:00 01/03/20 01:29 Enoxaparin Sodium (Lovenox) 40 mg DAILY SUBQ 10/07/19 09:00 01/03/20 08:59 10/07/19 09:35 Guaifenesin/ Dextromethorphan (Robitussin DM Syrup) 10 ml Q4H PRN ORAL For Cough 10/07/19 07:08 01/03/20 07:07 Insulin Aspart (NovoLOG) BEFORE MEALS AND HS SUBQ 10/07/19 11:30 01/03/20 06:29 Metformin HCl (Glucophage) 850 mg TIAC ORAL 10/07/19 11:30 11/04/19 09:29 Morphine Sulfate (Morphine Sulfate) 1 mg Q4H PRN IVP For Pain 10/07/19 08:45 10/14/19 08:44 10/07/19 09:16 Ondansetron HCl (Zofran) 4 mg Q4H PRN IVP Nausea & Vomiting 10/07/19 07:45 11/03/19 23:44 Remdesivir 100 mg/ Sodium Chloride 250 ml @ 250 mls/hr Q24H IV 10/07/19 17:00 10/10/19 17:59 Sodium Chloride 1,000 ml @ 125 mls/hr Q8H IV 10/07/19 07:00 11/04/19 01:29 10/07/19 09:26 Tony Mckinney MD Oct 07, 2019 12:41
--- NOTE | 2019-10-07 12:45 | NUR ---
NURSE NOTES: Reported ABG results to Dr. Perkins, patient saturating 88-90% on non-rebreather mask, tachypneic RR - 26. MD stated to intubate patient, MD to call ER doctor. RT made aware.
--- NOTE | 2019-10-07 13:25 | NUR ---
NURSE NOTES: Successful bedside intubation of patient. CXR to be ordered for placement confirmation.
--- NOTE | 2019-10-07 13:45 | NUR ---
NURSE NOTES: Dr. Farnsworth called the unit made aware that patient is already intubated- that the patient is wide awake and restless with order for Ativan 2 mg Q 1 hour as PRN for agitation. Dr. Farnsworth wanted to inform the daughter ( Baltazar Avila) that patient got intubated- patient gesturing that she doesn't want her daughter to be notified- Dr. Farnsworth aware.
--- NOTE | 2019-10-07 13:50 | NUR ---
NURSE NOTES: Patient's bed alarm ringing, patient observed to be sitting at edge of bed, left arm restraint removed, trying to reach for medical lines. Sudhakar Goodman RN rapidly entered room to prevent self-extubation. Will administer PRN ativan as ordered. Patient restless and agitated.
[2019-10-07] MEDS: LORazepam Inj 2mg/ml 1ml IV PRN ×2 (13:53→15:24)
--- NOTE | 2019-10-07 14:20 | Emergency Room Report ---
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 COVID-19 Screening: PUI COVID-19 COVID-19 Testing Source: outside facility 3 weeks ago Patient History Last Menstrual Period: current Nursing Documentation-[facility] Hx Cardiac Problems: No Hx Cancer: No Hx Gastrointestinal Problems: No Physical Exam Vital Signs Date Time Temp Pulse Resp B/P (MAP) Pulse Ox O2 Delivery O2 Flow Rate FiO2 10/04/19 19:24 98.8 99 18 98/64 (75) 93 Room Air 10/05/19 09:00 2.0 10/07/19 13:20 100 Procedures Intubation Intubation : Consent: Verbal Intubation Method: orotracheal Tube Size (cm): 7.5 Medications: Etomidate, Succinylcholine Breath Sounds after Intubation: equal Intubation Complications: no complications Post Intubation Xray: Yes Progress/Xray Impression: ET tube in appropriate position Attempts: One Patient Tolerated: Well Complications: None Medical Decision Making Diagnostic Impression: Primary Impression: Pneumonia Additional Impressions: UTI (urinary tract infection) Vomiting Last Vital Signs Date Time Temp Pulse Resp B/P (MAP) Pulse Ox O2 Delivery O2 Flow Rate FiO2 10/07/19 13:20 137 30 100 10/07/19 13:20 93 Mechanical Ventilator 10/07/19 10:00 112/63 (79) 10/07/19 09:46 98.7 10/06/19 20:45 15.0 Disposition: ADMITTED INPATIENT Condition: Serious Referrals: [facility],REFERRING (PCP) Wili Moreland M.D. Oct 07, 2019 14:20
--- NOTE | 2019-10-07 15:12 | NUR ---
RADIOLOGY DEPT., CHEST X-RAY FORM [facility] COMPLETED.-P.DYE
--- NOTE | 2019-10-07 15:15 | NUR ---
CASE MANAGEMENT:REVIEW SI:COVID-19 PNEUMONIA . UTI . VOMITING 98.7111 25 110/68 90% 15L NON-REBREATHER ~~~~NOW ON MECHANICAL VENT FiO2 100 NA 135 BG 255 CA 7.7 AST 47 ALB 2.7 ABG: pH 7.302 pCO2 48.6 pO2 53.7 O2 SAT 85.3 IS;IV NS @125ML/HR IV PROPOFOL Q24HR ALBUTEROL Q6HR/PRN NOVOLOG SQ AC+HS LOVENOX SQ QD IV MORPHINE SULFATE Q4HR/PRN Venous Duplex Scan Bo Leg-Bilateral lower extremity edema:Negative for lower extremity deep venous thrombosis bilaterally \: 3E MED SURG STATUS DCP:PATIENT IS FROM HOME PLAN: NOW INTUBATED D/T WORSENING SOB
--- NOTE | 2019-10-07 15:22 | Diagnostic Imaging Report ---
Indication: Bilateral lower extremity edema Technique: Grayscale and duplex images of the bilateral lower extremity veins Comparison: Right leg study dated 10/10/2018, left leg study dated 12/04/2013 Findings: Bilaterally, grayscale and duplex images demonstrate no evidence of intraluminal thrombus. Normal phasic Doppler waveforms, demonstrating normal augmentation response and no evidence of valvular insufficiency. Greater saphenous vein(s) and tibial veins are patent. Normal compressibility. No significant change Impression: Negative for evidence of lower extremity deep venous thrombosis bilaterally
[2019-10-07] MEDS: propofoL 1,000mg/100ml 100 ML IV SCH ×3 (15:29→22:01)
--- NOTE | 2019-10-07 16:12 | Diagnostic Imaging Report ---
Indication: Post intubation Technique: One view of the chest Comparison: 5 hours earlier Findings: Interim endotracheal intubation, endotracheal tube tip projecting approximately 3 cm above the ulysses. Bilateral infiltrates are unchanged. Impression: Satisfactory endotracheal intubation Unchanged bilateral infiltrates, likely pneumonia
--- NOTE | 2019-10-07 16:15 | NUR ---
NURSE NOTES: Patient inserted with 16 fr. paige catheter, right nare NG tube and tylenol 650 mg suppository and ice pack. Perineal care provided.
[2019-10-07] MEDS ORDERED: Acetaminophen 650 MG SUPP RECTAL PRN (16:45)
[2019-10-07] MEDS ORDERED: Maintenance Dose:Remdesivir 100mg/NS 230ml x 4 Doses IV SCH (17:00)
[2019-10-07] MEDS: Remdesivir 100mg 100 MG in NS 230 ML IV SCH (17:14)
--- NOTE | 2019-10-07 18:00 | NUR ---
NURSE NOTES: System downtime unexpected, unknown of what exact time started. Medication Propofol removed by NICOL De La Fuente through pyxs and given to primary nurse to administer. Administration witnessed by Florinda Khoury RN. Patient would easily awaken and gets agitated, would be pulling on medical sonographer. Medication had to be given as soon as possible. Patient is newly intubated. Oxygenation was crucial to stabilize the patient due to desaturation. Patient in critical condition.
--- NOTE | 2019-10-07 18:10 | Critical Care Progress Note ---
Assessment/Plan Assessment/Plan COVID+ ARDS hypoxemic respiratory failure sinus tachycardia PLAN vent support PEEP ICU care ID follow up on max oxygenation very critical medications/laboratory data/nursing notes/ICU care reviewed in detail note reviewed and edited care discussed with RN and RT ICU time spent >40 minutes Critical Care - Subjective Interval Events: seen earlier hypoxemic required intubation d/w ID very critical ROS Limited/Unobtainable: Yes Condition: critical EKG Rhythm: Sinus Tachycardia I&O: Intake and Output 10/06/19 10/07/19 19:00 07:00 Intake Total 1600 ml 1735 ml Balance 1600 ml 1735 ml Intake Oral 600 ml 360 ml IV Total 1000 ml 1375 ml # Voids 3 3 Critical Care - Objective Last 24 Hour Vital Signs Date Time Temp Pulse Resp B/P (MAP) Pulse Ox O2 Delivery O2 Flow Rate FiO2 10/07/19 15:29 22 136/73 Mechanical Ventilator 15.0 100 10/07/19 15:25 116 27 100 10/07/19 13:20 137 30 100 10/07/19 13:20 137 30 93 Mechanical Ventilator 100 10/07/19 10:00 112 28 112/63 (79) 92 10/07/19 09:46 98.7 10/07/19 09:00 112 28 104/55 (71) 92 10/07/19 08:00 98.7 111 25 110/68 (82) 90 10/07/19 08:00 Non-Rebreather 10/07/19 06:45 99.7 112 25 114/68 (83) 90 10/07/19 04:00 98.2 109 26 127/76 (93) 94 10/07/19 00:00 98.2 91 18 135/67 (89) 97 10/06/19 20:45 Non-Rebreather 15.0 10/06/19 20:00 98.4 109 17 131/70 (90) 93 Labs: Laboratory Tests Test 10/07/19 05:40 10/07/19 05:50 10/07/19 12:19 10/07/19 14:40 Arterial Blood pH 7.405 (7.350-7.450) 7.412 (7.350-7.450) 7.302 (7.350-7.450) Arterial Blood Partial Pressure CO2 33.8 mmHg (35.0-45.0) L 35.3 mmHg (35.0-45.0) 48.6 mmHg (35.0-45.0) H Arterial Blood Partial Pressure O2 65.7 mmHg (75.0-100.0) L 49.4 mmHg (75.0-100.0) 53.7 mmHg (75.0-100.0) L Arterial Blood HCO3 20.7 mmol/L (22.0-26.0) L 22.0 mmol/L (22.0-26.0) 23.5 mmol/L (22.0-26.0) Arterial Blood Oxygen Saturation 93.3 % (95-100) L 86.4 % (95-100) *L 85.3 % (95-100) *L Arterial Blood Base Excess -3.3 (-2-2) L -2.1 (-2-2) L -3.2 (-2-2) L Sadi Test Positive Positive Positive White Blood Count 10.0 K/UL (4.8-10.8) Red Blood Count 4.30 M/UL (4.20-5.40) Hemoglobin 12.4 G/DL (12.0-16.0) Hematocrit 37.1 % (37.0-47.0) Mean Corpuscular Volume 86 FL (80-99) Mean Corpuscular Hemoglobin 28.9 PG (27.0-31.0) Mean Corpuscular Hemoglobin Concent 33.5 G/DL (32.0-36.0) Red Cell Distribution Width 11.9 % (11.6-14.8) Platelet Count 188 K/UL (150-450) Mean Platelet Volume 5.8 FL (6.5-10.1) L Neutrophils (%) (Auto) 81.1 % (45.0-75.0) H Lymphocytes (%) (Auto) 14.0 % (20.0-45.0) L Monocytes (%) (Auto) 4.6 % (1.0-10.0) Eosinophils (%) (Auto) 0.0 % (0.0-3.0) Basophils (%) (Auto) 0.2 % (0.0-2.0) Sodium Level 135 MMOL/L (136-145) L Potassium Level 3.5 MMOL/L (3.5-5.1) Chloride Level 98 MMOL/L (98-107) Carbon Dioxide Level 24 MMOL/L (21-32) Anion Gap 13 mmol/L (5-15) Blood Urea Nitrogen 6 mg/dL (7-18) L Creatinine 0.8 MG/DL (0.55-1.30) Estimat Glomerular Filtration Rate > 60 mL/min (>60) Glucose Level 254 MG/DL (74-106) H Calcium Level 7.9 MG/DL (8.5-10.1) L Total Bilirubin 0.8 MG/DL (0.2-1.0) Direct Bilirubin 0.2 MG/DL (0.0-0.3) Aspartate Amino Transf (AST/SGOT) 51 U/L (15-37) H Alanine Aminotransferase (ALT/SGPT) 28 U/L (12-78) Alkaline Phosphatase 92 U/L (46-116) Total Protein 7.9 G/DL (6.4-8.2) Albumin 3.0 G/DL (3.4-5.0) L Globulin 4.9 g/dL Albumin/Globulin Ratio 0.6 (1.0-2.7) L Triglycerides Level 80 MG/DL (30-150) Objective: deferred due to COVID Micro: Microbiology Date/Time Source Procedure Growth Status 10/04/19 21:39 Nasopharynx Coronavirus COVID-19 PCR (MICHAEL) - Final Complete 10/04/19 22:38 Urine,Clean Catch Urine Culture - Final Diphtheroids Complete Accucheck: 238 Tripp Perkins MD Oct 07, 2019 18:10
--- NOTE | 2019-10-07 18:26 | Diagnostic Imaging Report ---
EXAM: XR Abdomen, 2 Views CLINICAL HISTORY: TUBE PLCMT TECHNIQUE: Frontal view of the abdomen/pelvis with upright view of the abdomen. COMPARISON: No relevant prior studies available. FINDINGS: Lower thorax: Esophagogastric tube terminates within the gastric antrum. Intraperitoneal space: No free air. Gastrointestinal tract: Unremarkable. No dilation. Bones/joints: Unremarkable. IMPRESSION: Esophagogastric tube terminates within the gastric antrum.
--- NOTE | 2019-10-07 19:15 | NUR ---
NURSE NOTES: Received patient from NICOL CARDENAS. Will continue plan of care.
--- NOTE | 2019-10-07 19:15 | NUR ---
HAND-OFF: Report given to NICOL Mckeon. Patient in stable condition.
--- NOTE | 2019-10-07 20:00 | NUR ---
NURSE NOTES: Patient is sedated RASS -2, moves and awakens to touch and voice. Intubated ETT 7.5 @ 26cm to the right lipline to vent with settings of AC:16, TV:500, FiO2:100%, PEEP:10. O2 saturation: 92-93%. Right nare NGT in place but NPO status at the moment. Zamora intact and draining. PHOTOVOLTAIC INSTALLATION TECHNICIAN restraints on for safety and prevention of pulling lines and tubes. Skin assessed and ROM performed. Right hand 20g intact, asymptomatic and running Propofol @ 25mcgs/min. Left hand 20g running NS @ 125ml/hr. Droplet precautions in place for Covid-19, fall precautions also implemented. Was endorsed that while patient was alert and oriented x 4 that she wishes not inform family of health status at the moment (livan intubation).
--- NOTE | 2019-10-07 22:00 | NUR ---
NURSE NOTES: Elevated temp of 102.5F axillary @ 1999, Tylenol PRN given and ice packs placed throughout. Patient became restless; trying to pulling out of restraints and kickings legs ; increased Propofol to 30mcgs/min. Will keep monitoring.
[2019-10-08] VITALS (37 sets, daily range): BP systolic 88–158; BP diastolic 19–71
--- NOTE | 2019-10-08 | NUR ---
NURSE NOTES: Temp still elevated. Will give Tylenol when due. Cooling measures remains in place. No changes in condition. RASS -2 lightly sedated; opens eyes and moves to voice and touch. Propofol remains running at 30mcgs/min. O2 saturation 94%.
[2019-10-08] MEDS: propofoL 1,000mg/100ml 100 ML IV SCH ×6 (01:38→22:24)
--- NOTE | 2019-10-08 02:00 | NUR ---
NURSE NOTES: RASS -2 continues to be lightly sedated. Propofol @ 30mcgs/min. Turned and repositioned.
--- NOTE | 2019-10-08 04:00 | NUR ---
NURSE NOTES: Continues to have elevated temp (102F axillary) Cool bath given, linens changed, turned and repositioned.
--- NOTE | 2019-10-08 06:00 | NUR ---
NURSE NOTES: Continues to have elevated temp. Tylenol given, cool towels given, ice packs placed. RASS -2, awakens to voice and touch.
[2019-10-08 06:06] LABS: BASOPHILS % (AUTO) 0.4 % (0.0-2.0); HEMATOCRIT 34.2 % (37.0-47.0); HEMOGLOBIN 11.4 G/DL (12.0-16.0); LYMPHOCYTES % (AUTO) 17.8 % (20.0-45.0); MEAN CORPUSCULAR VOLUME 87 FL (80-99); MONOCYTES % (AUTO) 4.9 % (1.0-10.0); NEUTROPHILS % (AUTO) 76.9 % (45.0-75.0); PLATELET COUNT 199 K/UL (150-450); RED BLOOD COUNT 3.94 M/UL (4.20-5.40); RED CELL DISTRIBUTION WIDTH 11.9 % (11.6-14.8); WHITE BLOOD COUNT 10.9 K/UL (4.8-10.8)
[2019-10-08] MEDS: NovoLOG Insulin Flexpen SUBQ SCH ×4 (06:08→21:03)
[2019-10-08 06:47] LABS: ALANINE AMINOTRANSFERASE 27 U/L (12-78); ALBUMIN 2.4 G/DL (3.4-5.0); ALBUMIN/GLOBULIN RATIO 0.5 (1.0-2.7); ALKALINE PHOSPHATASE 77 U/L (46-116); ANION GAP 7 mmol/L (5-15); ASPARTATE AMINO TRANSFERASE 54 U/L (15-37); BILIRUBIN,DIRECT 0.4 MG/DL (0.0-0.3); BILIRUBIN,TOTAL 0.9 MG/DL (0.2-1.0); BLOOD UREA NITROGEN 4 mg/dL (7-18); CALCIUM 7.8 MG/DL (8.5-10.1); CARBON DIOXIDE 29 MMOL/L (21-32); CHLORIDE 102 MMOL/L (98-107); CREATININE 0.8 MG/DL (0.55-1.30); POTASSIUM 3.4 MMOL/L (3.5-5.1); SODIUM 138 MMOL/L (136-145)
--- NOTE | 2019-10-08 07:30 | NUR ---
HAND-OFF: Report given to NICOL Alvarado.
--- NOTE | 2019-10-08 07:45 | NUR ---
NURSE NOTES: Dr. hdez updated at the bedside regarding mental status being sedated but has a gag reflex and responds to light shaking. currently running propofol to rass scale of -2 on dose of 30mcg/kg/hr and rate of 25.749ml/hr. patient is currently NPO awaiting for nutritional recommendation. NG-tube is present on the right nares and confirmed with xray film. no verbal orders given at this time.
--- NOTE | 2019-10-08 08:10 | NUR ---
NURSE NOTES: Patient is a new transfer to ICU for SOB. Received lying in bed, awake, alert x4, able to communicate needs. On non-rebreather mask 15 lpm, saturation ranges from 88-92-96%. Respirations even, unlabored, slight tachypneic RR -22. Patient does not want the bed to lay flat, pt unable to tolerate. Purewick catheter in place, blood tinged urine noted. Patient with 24g peripheral line infusing NS at 125 ml/hr. Skin is intact. Call light placed within reach. Safety measures implemented, bed kept at lowest position, bed alarm activated. Sinus tachycardia rate of 110s noted on the monitor. On isolation for Covid19 virus. Will monitor the patient. Addendum: 10/08/19 at 1012 by Owen Gibson RN wrong charting, intended for 10/07/19 at 08:10AM.
--- NOTE | 2019-10-08 08:52 | Critical Care Progress Note ---
Assessment/Plan Assessment/Plan COVID+ ARDS hypoxemic respiratory failure sinus tachycardia PLAN vent support as is PEEP at 10 ICU care ID follow up on max oxygenation follow up ABG and CXR daily very critical medications/laboratory data/nursing notes/ICU care reviewed in detail note reviewed and edited care discussed with RN and RT ICU time spent >40 minutes Critical Care - Subjective Interval Events: remains ill ICU care reviewed venous US negative ROS Limited/Unobtainable: Yes Condition: critical EKG Rhythm: Sinus Rhythm I&O: Intake and Output 10/07/19 10/08/19 19:00 07:00 Intake Total 250 ml 1463.98203 ml Output Total 250 ml 1200 ml Balance 0 ml 263.26642 ml IV Total 250 ml 1463.73757 ml Output Urine Total 250 ml 1200 ml Critical Care - Objective ET-Tube: 7.5 ET Position: 26 Last 24 Hour Vital Signs Date Time Temp Pulse Resp B/P (MAP) Pulse Ox O2 Delivery O2 Flow Rate FiO2 10/08/19 07:00 20 108/57 Mechanical Ventilator 100 10/08/19 06:00 23 101/50 Mechanical Ventilator 100 10/08/19 05:49 102.0 10/08/19 05:48 22 110/53 Mechanical Ventilator 100 10/08/19 05:00 24 110/53 Mechanical Ventilator 100 10/08/19 04:00 102.0 125 24 112/62 (79) 95 10/08/19 04:00 24 112/62 Mechanical Ventilator 100 10/08/19 04:00 Mechanical Ventilator 10/08/19 04:00 100 10/08/19 03:20 12 22 100 10/08/19 03:00 24 142/68 Mechanical Ventilator 100 10/08/19 03:00 124 24 142/68 (92) 96 10/08/19 02:00 124 24 110/66 (81) 95 10/08/19 02:00 24 110/66 Mechanical Ventilator 100 10/08/19 01:38 26 124/71 Mechanical Ventilator 100 10/08/19 01:37 24 124/71 Mechanical Ventilator 100 10/08/19 01:00 127 24 124/71 (88) 91 10/08/19 01:00 22 136/66 Mechanical Ventilator 100 10/08/19 00:00 102.0 127 23 158/59 (92) 93 10/08/19 00:00 Mechanical Ventilator 10/08/19 00:00 23 125/61 Mechanical Ventilator 100 10/08/19 00:00 100 10/07/19 23:00 23 142/64 Mechanical Ventilator 100 10/07/19 23:00 120 21 131/57 (81) 91 10/07/19 22:50 12 21 100 10/07/19 22:01 22 129/54 100 10/07/19 22:00 120 21 144/64 (90) 91 10/07/19 22:00 21 141/55 Mechanical Ventilator 100 10/07/19 21:00 119 22 145/65 (91) 94 10/07/19 21:00 22 145/65 Mechanical Ventilator 100 10/07/19 20:30 22 145/65 Mechanical Ventilator 100 10/07/19 20:00 22 134/70 Mechanical Ventilator 100 10/07/19 20:00 Mechanical Ventilator 10/07/19 20:00 102.5 122 22 134/70 (91) 92 10/07/19 19:50 124 26 100 10/07/19 19:00 24 115/59 Mechanical Ventilator 100 10/07/19 19:00 122 24 128/55 (79) 94 10/07/19 18:30 124 24 123/54 (77) 93 10/07/19 18:00 121 24 129/56 (80) 95 10/07/19 17:30 102.4 120 24 128/70 (89) 91 10/07/19 17:14 24 122/58 Mechanical Ventilator 100 10/07/19 17:00 112 26 115/53 (73) 99 10/07/19 17:00 25 115/53 Mechanical Ventilator 100 10/07/19 16:45 26 115/54 Mechanical Ventilator 100 10/07/19 16:30 26 115/57 Mechanical Ventilator 100 10/07/19 16:30 116 26 117/57 (77) 98 10/07/19 16:15 25 125/59 Mechanical Ventilator 100 10/07/19 16:00 Non-Rebreather 10/07/19 16:00 121 23 124/60 (81) 95 10/07/19 16:00 100 10/07/19 16:00 23 124/60 Mechanical Ventilator 100 10/07/19 15:45 24 136/73 Mechanical Ventilator 100 10/07/19 15:30 126 24 128/92 (104) 91 6/10/20 15:29 22 136/73 Mechanical Ventilator 15.0 100 10/07/19 15:25 116 27 100 10/07/19 15:00 102.0 135 27 128/92 (104) 90 10/07/19 14:30 130 29 167/110 (129) 94 10/07/19 14:00 133 26 147/71 (96) 93 10/07/19 13:45 133 29 157/71 (99) 92 10/07/19 13:30 136 29 175/112 (133) 93 10/07/19 13:25 100 10/07/19 13:20 137 30 100 10/07/19 13:20 137 30 93 Mechanical Ventilator 100 10/07/19 13:00 124 30 146/69 (94) 89 10/07/19 12:00 Non-Rebreather 10/07/19 12:00 98.2 117 33 139/79 (99) 89 10/07/19 10:00 112 28 112/63 (79) 92 10/07/19 09:46 98.7 10/07/19 09:00 112 28 104/55 (71) 92 Labs: Laboratory Tests Test 10/07/19 12:19 10/07/19 14:40 10/08/19 05:30 Arterial Blood pH 7.412 (7.350-7.450) 7.302 (7.350-7.450) Arterial Blood Partial Pressure CO2 35.3 mmHg (35.0-45.0) 48.6 mmHg (35.0-45.0) H Arterial Blood Partial Pressure O2 49.4 mmHg (75.0-100.0) 53.7 mmHg (75.0-100.0) L Arterial Blood HCO3 22.0 mmol/L (22.0-26.0) 23.5 mmol/L (22.0-26.0) Arterial Blood Oxygen Saturation 86.4 % (95-100) *L 85.3 % (95-100) *L Arterial Blood Base Excess -2.1 (-2-2) L -3.2 (-2-2) L Sadi Test Positive Positive White Blood Count 10.9 K/UL (4.8-10.8) H Red Blood Count 3.94 M/UL (4.20-5.40) L Hemoglobin 11.4 G/DL (12.0-16.0) L Hematocrit 34.2 % (37.0-47.0) L Mean Corpuscular Volume 87 FL (80-99) Mean Corpuscular Hemoglobin 28.8 PG (27.0-31.0) Mean Corpuscular Hemoglobin Concent 33.2 G/DL (32.0-36.0) Red Cell Distribution Width 11.9 % (11.6-14.8) Platelet Count 199 K/UL (150-450) Mean Platelet Volume 5.8 FL (6.5-10.1) L Neutrophils (%) (Auto) 76.9 % (45.0-75.0) H Lymphocytes (%) (Auto) 17.8 % (20.0-45.0) L Monocytes (%) (Auto) 4.9 % (1.0-10.0) Eosinophils (%) (Auto) 0.0 % (0.0-3.0) Basophils (%) (Auto) 0.4 % (0.0-2.0) Sodium Level 138 MMOL/L (136-145) Potassium Level 3.4 MMOL/L (3.5-5.1) L Chloride Level 102 MMOL/L (98-107) Carbon Dioxide Level 29 MMOL/L (21-32) Anion Gap 7 mmol/L (5-15) Blood Urea Nitrogen 4 mg/dL (7-18) L Creatinine 0.8 MG/DL (0.55-1.30) Estimat Glomerular Filtration Rate > 60 mL/min (>60) Glucose Level 259 MG/DL (74-106) H Calcium Level 7.8 MG/DL (8.5-10.1) L Total Bilirubin 0.9 MG/DL (0.2-1.0) Direct Bilirubin 0.4 MG/DL (0.0-0.3) H Aspartate Amino Transf (AST/SGOT) 54 U/L (15-37) H Alanine Aminotransferase (ALT/SGPT) 27 U/L (12-78) Alkaline Phosphatase 77 U/L (46-116) Total Protein 6.9 G/DL (6.4-8.2) Albumin 2.4 G/DL (3.4-5.0) L Globulin 4.5 g/dL Albumin/Globulin Ratio 0.5 (1.0-2.7) L Objective: deferred due to COVID Accucheck: 256 Tripp Perkins MD Oct 08, 2019 08:52
--- NOTE | 2019-10-08 09:00 | NUR ---
NURSE NOTES: NICOL De La Fuente, resource nurse placed another IV, due to IV pull out by patient. Right forearm 22g, IV inserted. Addendum: 10/08/19 at 1014 by Owen Gibson RN wrong time and date charting
--- NOTE | 2019-10-08 09:15 | NUR ---
NURSE NOTES: Dr. Perkins updated on patient respiratory status remaining around 25-29 RR with saturations of 998-99%. patient remains on sedation running propofol at 30mcg/kg/min at rate of 25.749ml/hr. patient still remains NPO she responds to light shaking and with light pain.
--- NOTE | 2019-10-08 09:37 | NUR ---
NURSE NOTES: Patient complaining of pain, morphine administered as ordered. Patient kept NPO due to respirations starting to increase 22-26, patient feeling a little bit restless. Addendum: 10/08/19 at 1017 by Owen Gibson RN wrong date and time charting
[2019-10-08] MEDS: Enoxaparin 40mg Inj SUBQ SCH (10:06)
--- NOTE | 2019-10-08 10:57 | NUR ---
RD ASSESSMENT & RECOMMENDATIONS SEE CARE ACTIVITY FOR COMPLETE ASSESSMENT DAILY ESTIMATED NEEDS: Needs based on DM, obese, Critical care 22-25kcal/kg IBW (57kg) kcals/kg 8162-5906 total kcals 2-2.5g/kg IBW g protein/kg 114-142 g total protein 25-30ml/kg abw (78kg) mL/kg 6517-2121 total fluid mLs NUTRITION DIAGNOSIS: * Swallowing difficulty R/T respiratory failure as evidenced by pt now orally intubated and sedated, w/ NGT in place, NPO status. * Altered nutrition related lab values r/t diabetes as evidenced by A1C 11.8, Uglu 4+ on adm, w/ BG in the 200's. CURRENT DIET:NPO PO DIET RECOMMENDATIONS: STUDENT SERVICES REP EVAL POST EXTUBATION -> CCHO LOW ENTERAL NUTRITION RECOMMENDATIONS: Vital AF 1.2 @ 50ml/hr x 24 hrs to provide 1200ml, 1440kcal, 90g prot, 973ml free water * Once medically appropriate, initiate Vital AF 1.2 for critical care and carb control * Initiate @ 20ml/hr x 6hrs, advance 10ml q 4-6 hrs as tolerated to goal rate * Once TF well tolerated @ goal, add Prosource 1pkt TID for additional 33g prot to better meet protein needs * HOB over 30 degrees/ water flush per MD IF PROPOFOL REMAINS @ 25.749ML/HR (provides 680kcal/day), rec lower goal rate of Vital AF to 25ml/hr x 24 hrs (600ml, 720kcal). Propofol and Vital AF together will provide 1400kcal per day. ADDITIONAL RECOMMENDATIONS: 1) Obtain a calibrated bed scale wt while on iso 2) Diet edu as able once extubated and out of iso 3) Monitor for hypoglycemia while pt is NPO- monitor need to add D5 4) W/ TF, consider adding long acting insulin 5) Monitor lytes, replete as needed
--- NOTE | 2019-10-08 12:30 | NUR ---
NURSE NOTES: Oral care provided and insulin given to patient, thick secretion suctioned from the Et-tube with saturations remains above 97% and returned to 100%. patient remains NPO at this time. currently remains running Propofol at 30mcg/kg/min at rate of 25.749 ml/hr.
--- NOTE | 2019-10-08 13:39 | Infectious Diseases Prog Note ---
Assessment/Plan Assessment/Plan A 1. COVID 19 pneumonia 2. diabetes mellitus 3. Hypoxic respiratory failure 4. Morbid obesity P 1. Continue Remdesivir EUA 2. will follow up cultures 3. continue isolation 4. Add Ceftriaxone Subjective ROS Limited/Unobtainable: Yes Constitutional: Reports: fever, other - Mr=706.5 Respiratory: Reports: other - intubated yesterday Allergies: Coded Allergies: SULFA (SULFONAMIDE ANTIBIOTICS) (Verified Allergy, Mild, Itching, 04/19/12 ) Objective Vital Signs Last 24 Hour Vital Signs Date Time Temp Pulse Resp B/P (MAP) Pulse Ox O2 Delivery O2 Flow Rate FiO2 10/08/19 12:00 101.0 103 27 111/49 (69) 100 10/08/19 12:00 100 10/08/19 12:00 Mechanical Ventilator 10/08/19 11:30 106 26 112/48 (69) 100 10/08/19 11:00 105 25 102/61 (75) 100 10/08/19 10:30 117 28 112/48 (69) 98 10/08/19 10:08 24 108/55 Mechanical Ventilator 100 10/08/19 10:00 120 28 108/55 (72) 99 10/08/19 09:30 111 21 109/68 (82) 100 10/08/19 09:00 107 22 103/56 (72) 99 10/08/19 08:30 107 24 99/38 (58) 99 10/08/19 08:00 100 10/08/19 08:00 101.4 113 24 106/61 (76) 100 10/08/19 08:00 110 10/08/19 08:00 Mechanical Ventilator 10/08/19 07:38 107 23 100 10/08/19 07:30 113 22 97/59 (72) 98 10/08/19 07:00 20 108/57 Mechanical Ventilator 100 10/08/19 06:00 23 101/50 Mechanical Ventilator 100 10/08/19 05:49 102.0 10/08/19 05:48 22 110/53 Mechanical Ventilator 100 10/08/19 05:00 24 110/53 Mechanical Ventilator 100 10/08/19 04:00 102.0 125 24 112/62 (79) 95 10/08/19 04:00 24 112/62 Mechanical Ventilator 100 10/08/19 04:00 Mechanical Ventilator 10/08/19 04:00 100 10/08/19 03:20 12 22 100 10/08/19 03:00 24 142/68 Mechanical Ventilator 100 10/08/19 03:00 124 24 142/68 (92) 96 10/08/19 02:00 124 24 110/66 (81) 95 10/08/19 02:00 24 110/66 Mechanical Ventilator 100 10/08/19 01:38 26 124/71 Mechanical Ventilator 100 10/08/19 01:37 24 124/71 Mechanical Ventilator 100 10/08/19 01:00 127 24 124/71 (88) 91 10/08/19 01:00 22 136/66 Mechanical Ventilator 100 10/08/19 00:00 102.0 127 23 158/59 (92) 93 10/08/19 00:00 Mechanical Ventilator 10/08/19 00:00 23 125/61 Mechanical Ventilator 100 10/08/19 00:00 100 10/07/19 23:00 23 142/64 Mechanical Ventilator 100 10/07/19 23:00 120 21 131/57 (81) 91 10/07/19 22:50 12 21 100 10/07/19 22:01 22 129/54 100 10/07/19 22:00 120 21 144/64 (90) 91 10/07/19 22:00 21 141/55 Mechanical Ventilator 100 10/07/19 21:00 119 22 145/65 (91) 94 10/07/19 21:00 22 145/65 Mechanical Ventilator 100 10/07/19 20:30 22 145/65 Mechanical Ventilator 100 10/07/19 20:00 22 134/70 Mechanical Ventilator 100 10/07/19 20:00 Mechanical Ventilator 10/07/19 20:00 102.5 122 22 134/70 (91) 92 10/07/19 19:50 124 26 100 10/07/19 19:00 24 115/59 Mechanical Ventilator 100 10/07/19 19:00 122 24 128/55 (79) 94 10/07/19 18:30 124 24 123/54 (77) 93 10/07/19 18:00 121 24 129/56 (80) 95 10/07/19 17:30 102.4 120 24 128/70 (89) 91 10/07/19 17:14 24 122/58 Mechanical Ventilator 100 10/07/19 17:00 112 26 115/53 (73) 99 10/07/19 17:00 25 115/53 Mechanical Ventilator 100 10/07/19 16:45 26 115/54 Mechanical Ventilator 100 10/07/19 16:30 26 115/57 Mechanical Ventilator 100 10/07/19 16:30 116 26 117/57 (77) 98 10/07/19 16:15 25 125/59 Mechanical Ventilator 100 10/07/19 16:00 Non-Rebreather 10/07/19 16:00 121 23 124/60 (81) 95 10/07/19 16:00 100 10/07/19 16:00 23 124/60 Mechanical Ventilator 100 10/07/19 15:45 24 136/73 Mechanical Ventilator 100 10/07/19 15:30 126 24 128/92 (104) 91 10/07/19 15:29 22 136/73 Mechanical Ventilator 15.0 100 10/07/19 15:25 116 27 100 10/07/19 15:00 102.0 135 27 128/92 (104) 90 10/07/19 14:30 130 29 167/110 (129) 94 10/07/19 14:00 133 26 147/71 (96) 93 10/07/19 13:45 133 29 157/71 (99) 92 Height (Feet): 5 Height (Inches): 5.00 Weight (Pounds): 315 HEENT: mucous membranes moist Respiratory/Chest: other - orally intubated on ventilator Cardiovascular: tachycardia Neurologic/Psychiatric: other - sedated Laboratory Tests Test 10/07/19 14:40 10/08/19 05:30 10/08/19 09:17 Arterial Blood pH 7.302 (7.350-7.450) 7.345 (7.350-7.450) Arterial Blood Partial Pressure CO2 48.6 mmHg (35.0-45.0) H 49.3 mmHg (35.0-45.0) H Arterial Blood Partial Pressure O2 53.7 mmHg (75.0-100.0) L 75.1 mmHg (75.0-100.0) Arterial Blood HCO3 23.5 mmol/L (22.0-26.0) 26.3 mmol/L (22.0-26.0) H Arterial Blood Oxygen Saturation 85.3 % (95-100) *L 93.8 % (95-100) L Arterial Blood Base Excess -3.2 (-2-2) L 0.1 (-2-2) Sadi Test Positive Positive White Blood Count 10.9 K/UL (4.8-10.8) H Red Blood Count 3.94 M/UL (4.20-5.40) L Hemoglobin 11.4 G/DL (12.0-16.0) L Hematocrit 34.2 % (37.0-47.0) L Mean Corpuscular Volume 87 FL (80-99) Mean Corpuscular Hemoglobin 28.8 PG (27.0-31.0) Mean Corpuscular Hemoglobin Concent 33.2 G/DL (32.0-36.0) Red Cell Distribution Width 11.9 % (11.6-14.8) Platelet Count 199 K/UL (150-450) Mean Platelet Volume 5.8 FL (6.5-10.1) L Neutrophils (%) (Auto) 76.9 % (45.0-75.0) H Lymphocytes (%) (Auto) 17.8 % (20.0-45.0) L Monocytes (%) (Auto) 4.9 % (1.0-10.0) Eosinophils (%) (Auto) 0.0 % (0.0-3.0) Basophils (%) (Auto) 0.4 % (0.0-2.0) Sodium Level 138 MMOL/L (136-145) Potassium Level 3.4 MMOL/L (3.5-5.1) L Chloride Level 102 MMOL/L (98-107) Carbon Dioxide Level 29 MMOL/L (21-32) Anion Gap 7 mmol/L (5-15) Blood Urea Nitrogen 4 mg/dL (7-18) L Creatinine 0.8 MG/DL (0.55-1.30) Estimat Glomerular Filtration Rate > 60 mL/min (>60) Glucose Level 259 MG/DL (74-106) H Calcium Level 7.8 MG/DL (8.5-10.1) L Total Bilirubin 0.9 MG/DL (0.2-1.0) Direct Bilirubin 0.4 MG/DL (0.0-0.3) H Aspartate Amino Transf (AST/SGOT) 54 U/L (15-37) H Alanine Aminotransferase (ALT/SGPT) 27 U/L (12-78) Alkaline Phosphatase 77 U/L (46-116) Total Protein 6.9 G/DL (6.4-8.2) Albumin 2.4 G/DL (3.4-5.0) L Globulin 4.5 g/dL Albumin/Globulin Ratio 0.5 (1.0-2.7) L Current Medications Medications (Trade) Dose Ordered Sig/Isa Route PRN Reason Start Time Stop Time Status Last Admin Dose Admin Acetaminophen (Tylenol) 650 mg Q4H PRN ORAL Mild Pain (Pain Scale 1-3) 10/07/19 07:45 11/03/19 23:44 10/08/19 05:19 Acetaminophen (Tylenol) 650 mg Q4H PRN RECTAL FEVER 10/07/19 16:45 11/06/19 16:44 Albuterol/ Ipratropium (Combivent Respimat) 2 puff Q6HR INH 10/07/19 12:00 11/04/19 13:59 10/07/19 17:14 Dextrose (Dextrose 50%) 25 ml Q30M PRN IV Hypoglycemia 10/07/19 07:00 01/03/20 01:29 Dextrose (Dextrose 50%) 50 ml Q30M PRN IV Hypoglycemia 10/07/19 07:00 01/03/20 01:29 Enoxaparin Sodium (Lovenox) 40 mg DAILY SUBQ 10/07/19 09:00 01/03/20 08:59 10/08/19 10:06 Guaifenesin/ Dextromethorphan (Robitussin DM Syrup) 10 ml Q4H PRN ORAL For Cough 10/07/19 07:08 01/03/20 07:07 Insulin Aspart (NovoLOG) BEFORE MEALS AND HS SUBQ 10/07/19 11:30 01/03/20 06:29 10/08/19 12:32 Lorazepam (Ativan 2mg/ml 1ml) 2 mg Q1H PRN IV For Anxiety 10/07/19 13:45 10/14/19 13:44 10/07/19 15:24 Metformin HCl (Glucophage) 850 mg TIAC ORAL 10/07/19 11:30 11/04/19 09:29 Morphine Sulfate (Morphine Sulfate) 1 mg Q4H PRN IVP For Pain 10/07/19 08:45 10/14/19 08:44 10/07/19 09:16 Ondansetron HCl (Zofran) 4 mg Q4H PRN IVP Nausea & Vomiting 10/07/19 07:45 11/03/19 23:44 Propofol 100 ml @ 0 mls/hr Q24H IV 10/07/19 13:59 10/09/19 13:58 10/08/19 10:08 Remdesivir 100 mg/ Sodium Chloride 250 ml @ 250 mls/hr Q24H IV 10/07/19 17:00 10/10/19 17:59 10/07/19 17:14 Sodium Chloride 1,000 ml @ 125 mls/hr Q8H IV 10/07/19 07:00 11/04/19 01:29 10/08/19 05:00 Tony Mckinney MD Oct 08, 2019 13:39
--- NOTE | 2019-10-08 14:05 | NUR ---
NURSE NOTES: Patient repositioned with assistance of CATHEAD OPERATOR, sacral remains intact with no redness present and blanchable. heels are elevated with blanchable pink skin noted. tolerated procedure well with ventilator setting of AC 16, TV: 500, FIo2 at 100% with peep of 10. patient remains saturating at 99-100%. thick secretion noted through the ET-tube.
--- NOTE | 2019-10-08 15:25 | NUR ---
NURSE NOTES: Tube feeding started after Dr Farnsworth gave verbal order for Vital A.F 1.2 at rate of 50ml/hr plus proscource for protein needs. Right NG-tube remains patent and in position, remains on propofol at 30mcg/kg/min at rate of 25.749ml/hr.
[2019-10-08] MEDS: cefTRIAXone 1 GM in D5W 55 ML IVPB SCH (16:01)
--- NOTE | 2019-10-08 16:19 | General Progress Note ---
Assessment/Plan Problem List: (1) COVID-19 ICD Codes: U07.1 - COVID-19 SNOMED: 322145256 (2) Diabetes ICD Codes: E11.9 - Type 2 diabetes mellitus without complications SNOMED: 20760661 (3) Pneumonia ICD Codes: J18.9 - Pneumonia, unspecified organism SNOMED: 781735041 Status: deteriorating Assessment/Plan: cont remdesivir per ID vent check cxr dvt prophylaxis with lovenox MS for sob tenuous pulm appreciated Subjective ROS Limited/Unobtainable: Yes HEENT: Reports: no symptoms Cardiovascular: Reports: no symptoms Respiratory: Reports: cough, shortness of breath Gastrointestinal/Abdominal: Reports: no symptoms Genitourinary: Reports: no symptoms Neurologic/Psychiatric: Reports: no symptoms Endocrine: Reports: no symptoms Hematologic/Lymphatic: Reports: no symptoms Allergies: Coded Allergies: SULFA (SULFONAMIDE ANTIBIOTICS) (Verified Allergy, Mild, Itching, 04/19/12 ) All Systems: reviewed and negative except above Subjective intubated. sedated. Objective Last 24 Hour Vital Signs Date Time Temp Pulse Resp B/P (MAP) Pulse Ox O2 Delivery O2 Flow Rate FiO2 10/08/19 15:06 97 26 100 10/08/19 14:06 24 133/47 Non-Rebreather 100 10/08/19 12:00 101.0 103 27 111/49 (69) 100 10/08/19 12:00 100 10/08/19 12:00 Mechanical Ventilator 10/08/19 11:36 104 28 100 10/08/19 11:30 106 26 112/48 (69) 100 10/08/19 11:00 105 25 102/61 (75) 100 10/08/19 10:30 117 28 112/48 (69) 98 10/08/19 10:08 24 108/55 Mechanical Ventilator 100 10/08/19 10:00 120 28 108/55 (72) 99 10/08/19 09:30 111 21 109/68 (82) 100 10/08/19 09:00 107 22 103/56 (72) 99 10/08/19 08:30 107 24 99/38 (58) 99 10/08/19 08:00 100 10/08/19 08:00 101.4 113 24 106/61 (76) 100 10/08/19 08:00 110 10/08/19 08:00 Mechanical Ventilator 10/08/19 07:38 107 23 100 10/08/19 07:30 113 22 97/59 (72) 98 10/08/19 07:00 20 108/57 Mechanical Ventilator 100 10/08/19 06:00 23 101/50 Mechanical Ventilator 100 10/08/19 05:49 102.0 10/08/19 05:48 22 110/53 Mechanical Ventilator 100 10/08/19 05:00 24 110/53 Mechanical Ventilator 100 10/08/19 04:00 102.0 125 24 112/62 (79) 95 10/08/19 04:00 24 112/62 Mechanical Ventilator 100 10/08/19 04:00 Mechanical Ventilator 10/08/19 04:00 100 10/08/19 03:20 12 22 100 10/08/19 03:00 24 142/68 Mechanical Ventilator 100 10/08/19 03:00 124 24 142/68 (92) 96 10/08/19 02:00 124 24 110/66 (81) 95 10/08/19 02:00 24 110/66 Mechanical Ventilator 100 10/08/19 01:38 26 124/71 Mechanical Ventilator 100 10/08/19 01:37 24 124/71 Mechanical Ventilator 100 10/08/19 01:00 127 24 124/71 (88) 91 10/08/19 01:00 22 136/66 Mechanical Ventilator 100 10/08/19 00:00 102.0 127 23 158/59 (92) 93 10/08/19 00:00 Mechanical Ventilator 10/08/19 00:00 23 125/61 Mechanical Ventilator 100 10/08/19 00:00 100 10/07/19 23:00 23 142/64 Mechanical Ventilator 100 10/07/19 23:00 120 21 131/57 (81) 91 10/07/19 22:50 12 21 100 10/07/19 22:01 22 129/54 100 10/07/19 22:00 120 21 144/64 (90) 91 10/07/19 22:00 21 141/55 Mechanical Ventilator 100 10/07/19 21:00 119 22 145/65 (91) 94 10/07/19 21:00 22 145/65 Mechanical Ventilator 100 10/07/19 20:30 22 145/65 Mechanical Ventilator 100 10/07/19 20:00 22 134/70 Mechanical Ventilator 100 10/07/19 20:00 Mechanical Ventilator 10/07/19 20:00 102.5 122 22 134/70 (91) 92 10/07/19 19:50 124 26 100 10/07/19 19:00 24 115/59 Mechanical Ventilator 100 10/07/19 19:00 122 24 128/55 (79) 94 10/07/19 18:30 124 24 123/54 (77) 93 10/07/19 18:00 24 129/56 Mechanical Ventilator 100 10/07/19 18:00 24 129/56 Mechanical Ventilator 100 10/07/19 18:00 121 24 129/56 (80) 95 10/07/19 17:45 24 122/58 Mechanical Ventilator 100 10/07/19 17:30 102.4 120 24 128/70 (89) 91 10/07/19 17:30 24 128/70 Mechanical Ventilator 100 10/07/19 17:14 24 122/58 Mechanical Ventilator 100 10/07/19 17:00 112 26 115/53 (73) 99 10/07/19 17:00 25 115/53 Mechanical Ventilator 100 10/07/19 16:45 26 115/54 Mechanical Ventilator 100 10/07/19 16:30 26 115/57 Mechanical Ventilator 100 10/07/19 16:30 116 26 117/57 (77) 98 Intake and Output 10/07/19 10/08/19 19:00 07:00 Intake Total 350 ml 1463.47592 ml Output Total 250 ml 1200 ml Balance 100 ml 263.47037 ml IV Total 350 ml 1463.93159 ml Output Urine Total 250 ml 1200 ml Laboratory Tests 10/08/19 05:30: White Blood Count 10.9H, Red Blood Count 3.94L, Hemoglobin 11.4L, Hematocrit 34.2L, Mean Corpuscular Volume 87, Mean Corpuscular Hemoglobin 28.8, Mean Corpuscular Hemoglobin Concent 33.2, Red Cell Distribution Width 11.9, Platelet Count 199, Mean Platelet Volume 5.8L, Neutrophils (%) (Auto) 76.9H, Lymphocytes (%) (Auto) 17.8L, Monocytes (%) (Auto) 4.9, Eosinophils (%) (Auto) 0.0, Basophils (%) (Auto) 0.4, Sodium Level 138, Potassium Level 3.4L, Chloride Level 102, Carbon Dioxide Level 29, Anion Gap 7, Blood Urea Nitrogen 4L, Creatinine 0.8, Estimat Glomerular Filtration Rate > 60, Glucose Level 259H, Calcium Level 7.8L, Total Bilirubin 0.9, Direct Bilirubin 0.4H, Aspartate Amino Transf (AST/SGOT) 54H, Alanine Aminotransferase (ALT/SGPT) 27, Alkaline Phosphatase 77, Total Protein 6.9, Albumin 2.4L, Globulin 4.5, Albumin/Globulin Ratio 0.5L 10/08/19 09:17: Arterial Blood pH 7.345L, Arterial Blood Partial Pressure CO2 49.3H, Arterial Blood Partial Pressure O2 75.1, Arterial Blood HCO3 26.3H, Arterial Blood Oxygen Saturation 93.8L, Arterial Blood Base Excess 0.1, Sadi Test Positive Height (Feet): 5 Height (Inches): 5.00 Weight (Pounds): 315 General Appearance: WD/WN Neck: supple Cardiovascular: normal rate Respiratory/Chest: lungs clear Abdomen: normal bowel sounds, non tender, soft Josh Farnsworth MD Oct 08, 2019 16:19
--- NOTE | 2019-10-08 16:26 | NUR ---
COUNTY ENGINEER NOTE Per chart review, pt is COVID +ve, intubated, A&O 4x, ambulatory. It is also noted that she does not want her family to be notified of her current health status. SW will attempt to meet w/ pt for assessment when pt is stable to communicate w/ this SW. Emergency contact listed: Carlyn Avila (daughter) [phone]
--- NOTE | 2019-10-08 16:38 | NUR ---
CASE MANAGEMENT:REVIEW 10/08/19 SI:COVID-19 + PNEUMONIA . UTI . VOMITING 101.0 103 27 111/49 100% ON MECHANICAL VENT FIO2 100 WBC 10.9 K+3.4 BG 259 CA+ 7.8 AST 54 ABG: pH 7.345 pCO2 49.3 HCO3 26.3 O2 SAT 93.8 IS;IV REMDESIVIR/NS Q24HR X9 BAGS IV NS @125ML/HR IV PROPOFOL Q24HR IV ROCEPHIN QD NOVOLOG SQ AC+HS LOVENOX SQ QD IV MORPHINE SULFATE Q4HR/PRN TYLENOL PO Q4HR/PRN \: 3E MED SURG STATUS DCP:PATIENT IS FROM HOME
[2019-10-08] MEDS: Remdesivir 100mg 100 MG in NS 230 ML IV SCH (17:30)
--- NOTE | 2019-10-08 17:30 | NUR ---
NURSE NOTES: reMdesirvir hung on patient left hand IV, blood return present upon flushing with Saline Flush. no alarms noted after infusion started with no puffy or swelling noted at insertion site. Tube feeding remains at 20ml/hr running vital A.F 1.2.
--- NOTE | 2019-10-08 17:57 | NUR ---
NURSE NOTES: Pharmacy called to inform of order placed by Dr. Farnsworth for potassium 10mEq/100ml x3 mixed solution in a 500ml bag to indorse over 3hrs and reschedule for 1999.
--- NOTE | 2019-10-08 19:17 | NUR ---
HAND-OFF: Report given to NICOL Mckeon.
[2019-10-08] MEDS ORDERED: POTASSIUM CHLORIDE IVPB ONE (20:00)
[2019-10-08] MEDS ORDERED: SODIUM CHLORIDE IVPB ONE (20:00)
--- NOTE | 2019-10-08 20:00 | NUR ---
NURSE NOTES: Patient is sedated RASS -2, moves and awakens to touch and voice. Intubated ETT 7.5 @ 26cm to the right lipline to vent with settings of AC:16, TV:500, FiO2:100%, PEEP:10. O2 saturation: 94%. Right nare NGT in placed, feeding of Vital AF @ 20ml at the moment and will increase to goal of 50ml/he as tolerated. Zamora intact and draining. WHEAT AND O[employer] FLAKE MILLER restraints on for safety and prevention of pulling lines and tubes. Skin assessed and ROM performed. Right hand 20g intact, asymptomatic and running Propofol @ 30mcgs/min. Left hand 20g running NS @ 125ml/hr. Droplet precautions in place for Covid-19, fall precautions also implemented.
[2019-10-08] MEDS: Levemir Flexpen SUBQ SCH (21:02)
--- NOTE | 2019-10-08 22:00 | NUR ---
NURSE NOTES: Patient has been tachycardic; now to the mid 120s. Continues Propofol @ 30mcgs RASS -2 lightly sedated. Opens eyes and moves a bit to light, voice and touch. Feeding increased to 30ml/hr w/ no residual; will keep monitoring and increase to goal accordingly. Repositioned.
[2019-10-09] VITALS (48 sets, daily range): BP systolic 98–167; BP diastolic 31–113
--- NOTE | 2019-10-09 | NUR ---
NURSE NOTES: Temp 102.8F axillary. Tylenol PRN given. Ice packs placed. Will monitor and place cooling blanket when available.
--- NOTE | 2019-10-09 02:00 | NUR ---
NURSE NOTES: Cool bath given, linens changes, turned and repositioned. Cooling blanket on. Temp slowing going down.
[2019-10-09] MEDS: propofoL 1,000mg/100ml 100 ML IV SCH ×6 (02:33→20:28)
--- NOTE | 2019-10-09 04:00 | NUR ---
NURSE NOTES: Temp decreasing 99.1F rectally. RASS -2 lighted sedated; opens eyes to voice and touch.
[2019-10-09 05:56] LABS: BASOPHILS % (AUTO) 0.5 % (0.0-2.0); EOSINOPHILS % (AUTO) 0.1 % (0.0-3.0); HEMATOCRIT 37.1 % (37.0-47.0); HEMOGLOBIN 11.6 G/DL (12.0-16.0); LYMPHOCYTES % (AUTO) 19.9 % (20.0-45.0); MEAN CORPUSCULAR VOLUME 94 FL (80-99); MONOCYTES % (AUTO) 4.8 % (1.0-10.0); NEUTROPHILS % (AUTO) 74.7 % (45.0-75.0); PLATELET COUNT 213 K/UL (150-450); RED BLOOD COUNT 3.93 M/UL (4.20-5.40); RED CELL DISTRIBUTION WIDTH 12.3 % (11.6-14.8); WHITE BLOOD COUNT 9.5 K/UL (4.8-10.8)
[2019-10-09 06:06] LABS: ALANINE AMINOTRANSFERASE 26 U/L (12-78); ALBUMIN 2.2 G/DL (3.4-5.0); ALBUMIN/GLOBULIN RATIO 0.5 (1.0-2.7); ALKALINE PHOSPHATASE 85 U/L (46-116); ANION GAP 7 mmol/L (5-15); ASPARTATE AMINO TRANSFERASE 63 U/L (15-37); BILIRUBIN,DIRECT 0.3 MG/DL (0.0-0.3); BILIRUBIN,TOTAL 0.9 MG/DL (0.2-1.0); BLOOD UREA NITROGEN 7 mg/dL (7-18); CALCIUM 8.2 MG/DL (8.5-10.1); CARBON DIOXIDE 30 MMOL/L (21-32); CHLORIDE 103 MMOL/L (98-107); CREATININE 0.7 MG/DL (0.55-1.30); POTASSIUM 3.7 MMOL/L (3.5-5.1); SODIUM 139 MMOL/L (136-145); TRIGLYCERIDES 179 MG/DL (30-150)
[2019-10-09] MEDS: NovoLOG Insulin Flexpen SUBQ SCH ×4 (06:30→21:03)
--- NOTE | 2019-10-09 07:25 | NUR ---
HAND-OFF: Report given to NICOL Alvarado.
--- NOTE | 2019-10-09 08:00 | NUR ---
NURSE NOTES: Medium Bowel movement cleaned this morning, consistent of soft and liquid stool. patient tolerated cleaning well with no distress noted. tube feeding Vital A.F. 1.2 is running at 50ml/hr. patient has cooling blanket with temperature of 98.9 F ventilator setting currently are AC 16, TV: 500, FIo2 100% with peep of 10. Zamora remain draining straw urine.
--- NOTE | 2019-10-09 08:40 | Critical Care Progress Note ---
Assessment/Plan Assessment/Plan COVID+ ARDS hypoxemic respiratory failure sinus tachycardia PLAN vent support as is/ taper oxygen as able PEEP at 10 ICU care ID follow up on max oxygenation at present follow up ABG and CXR daily for change very critical feeds proning as able medications/laboratory data/nursing notes/ICU care reviewed in detail note reviewed and edited care discussed with RN and RT ICU time spent >40 minutes Critical Care - Subjective Interval Events: remains critical on 100% minimal improvement sedated ROS Limited/Unobtainable: Yes Condition: critical EKG Rhythm: Sinus Tachycardia I&O: Intake and Output 10/08/19 10/09/19 19:00 07:00 Intake Total 2440.89573 ml 1421.03460 ml Output Total 1030 ml 1140 ml Balance 1410.47260 ml 281.04478 ml Free Water 100 ml IV Total 2220.69782 ml 981.75716 ml Tube Feeding 80 ml 440 ml Other 40 ml Output Urine Total 1030 ml 1140 ml Critical Care - Objective ET-Tube: 7.5 ET Position: 26 Last 24 Hour Vital Signs Date Time Temp Pulse Resp B/P (MAP) Pulse Ox O2 Delivery O2 Flow Rate FiO2 10/09/19 07:48 102 26 100 10/09/19 07:00 108 26 145/76 (99) 98 10/09/19 07:00 26 145/76 Mechanical Ventilator 100 10/09/19 06:45 22 112/96 Mechanical Ventilator 100 10/09/19 06:30 116 27 112/96 (101) 95 10/09/19 06:00 113 25 150/113 (125) 10/09/19 06:00 26 150/113 Mechanical Ventilator 100 10/09/19 05:30 107 25 122/76 (91) 100 10/09/19 05:00 25 135/64 Mechanical Ventilator 100 10/09/19 05:00 110 27 135/64 (87) 100 10/09/19 04:30 116 28 134/57 (82) 97 10/09/19 04:00 99.1 109 23 122/31 (61) 100 10/09/19 04:00 24 122/31 Mechanical Ventilator 100 10/09/19 04:00 Mechanical Ventilator 10/09/19 04:00 100 10/09/19 03:30 111 22 116/73 (87) 100 10/09/19 03:19 110 24 100 10/09/19 03:06 113 10/09/19 03:00 111 21 113/56 (75) 10/09/19 03:00 22 113/56 Mechanical Ventilator 100 10/09/19 02:33 22 116/43 Mechanical Ventilator 100 10/09/19 02:30 118 23 129/63 (85) 97 10/09/19 02:00 110 20 129/63 (85) 100 10/09/19 02:00 20 129/63 Mechanical Ventilator 100 10/09/19 01:00 21 120/37 Mechanical Ventilator 100 10/09/19 01:00 117 21 120/37 (64) 100 10/09/19 00:03 101.0 10/09/19 00:00 102.2 124 20 102/50 (67) 95 10/09/19 00:00 20 102/50 Mechanical Ventilator 100 10/09/19 00:00 Mechanical Ventilator 10/08/19 23:25 138 10/08/19 23:00 138 22 135/58 (83) 95 10/08/19 23:00 22 135/58 Mechanical Ventilator 100 10/08/19 22:57 134 26 100 10/08/19 22:24 22 137/57 Mechanical Ventilator 100 10/08/19 22:00 22 137/57 Mechanical Ventilator 100 10/08/19 22:00 139 22 132/65 (87) 95 10/08/19 21:30 137 22 135/57 (83) 94 10/08/19 21:00 133 21 119/52 (74) 95 10/08/19 21:00 21 119/52 Mechanical Ventilator 100 10/08/19 20:30 130 21 131/48 (75) 94 10/08/19 20:00 100 10/08/19 20:00 99.9 124 20 125/58 (80) 95 10/08/19 20:00 20 125/58 Mechanical Ventilator 100 10/08/19 20:00 Mechanical Ventilator 10/08/19 19:58 121 10/08/19 19:30 122 20 112/44 (66) 96 10/08/19 19:04 134 28 100 10/08/19 19:00 118 21 112/48 (69) 97 10/08/19 18:40 25 103/44 Mechanical Ventilator 100 10/08/19 18:30 108 20 103/44 (63) 99 10/08/19 18:00 103 20 103/44 (63) 100 10/08/19 17:30 103 20 104/41 (62) 100 10/08/19 17:00 104 23 97/43 (61) 99 10/08/19 16:56 99.9 10/08/19 16:30 104 23 104/34 (57) 99 10/08/19 16:01 99.9 111 23 106/37 (60) 100 10/08/19 16:00 Mechanical Ventilator 10/08/19 16:00 100 10/08/19 16:00 111 23 106/37 (60) 100 10/08/19 15:30 106 22 106/51 (69) 100 10/08/19 15:06 97 26 100 10/08/19 15:00 101 26 106/37 (60) 100 10/08/19 14:30 100 29 103/51 (68) 100 10/08/19 14:06 24 133/47 Non-Rebreather 100 10/08/19 14:00 104 24 88/19 (42) 96 10/08/19 13:30 118 24 101/54 (70) 96 10/08/19 13:00 110 24 133/47 (75) 99 10/08/19 12:30 104 25 111/57 (75) 100 10/08/19 12:00 101.0 103 27 111/49 (69) 100 10/08/19 12:00 100 10/08/19 12:00 Mechanical Ventilator 10/08/19 11:36 104 28 100 10/08/19 11:30 106 26 112/48 (69) 100 10/08/19 11:00 105 25 102/61 (75) 100 10/08/19 10:30 117 28 112/48 (69) 98 10/08/19 10:08 24 108/55 Mechanical Ventilator 100 10/08/19 10:00 120 28 108/55 (72) 99 10/08/19 09:30 111 21 109/68 (82) 100 10/08/19 09:00 107 22 103/56 (72) 99 Labs: Laboratory Tests Test 10/08/19 09:17 10/09/19 04:45 10/09/19 08:24 Arterial Blood pH 7.345 (7.350-7.450) 7.330 (7.350-7.450) Arterial Blood Partial Pressure CO2 49.3 mmHg (35.0-45.0) H 59.1 mmHg (35.0-45.0) *H Arterial Blood Partial Pressure O2 75.1 mmHg (75.0-100.0) 51.7 mmHg (75.0-100.0) L Arterial Blood HCO3 26.3 mmol/L (22.0-26.0) H 30.5 mmol/L (22.0-26.0) H Arterial Blood Oxygen Saturation 93.8 % (95-100) L 85.8 % (95-100) *L Arterial Blood Base Excess 0.1 (-2-2) 3.2 (-2-2) H Sadi Test Positive Positive White Blood Count 9.5 K/UL (4.8-10.8) Red Blood Count 3.93 M/UL (4.20-5.40) L Hemoglobin 11.6 G/DL (12.0-16.0) L Hematocrit 37.1 % (37.0-47.0) Mean Corpuscular Volume 94 FL (80-99) # Mean Corpuscular Hemoglobin 29.5 PG (27.0-31.0) Mean Corpuscular Hemoglobin Concent 31.2 G/DL (32.0-36.0) L Red Cell Distribution Width 12.3 % (11.6-14.8) Platelet Count 213 K/UL (150-450) Mean Platelet Volume 6.6 FL (6.5-10.1) Neutrophils (%) (Auto) 74.7 % (45.0-75.0) Lymphocytes (%) (Auto) 19.9 % (20.0-45.0) L Monocytes (%) (Auto) 4.8 % (1.0-10.0) Eosinophils (%) (Auto) 0.1 % (0.0-3.0) Basophils (%) (Auto) 0.5 % (0.0-2.0) Sodium Level 139 MMOL/L (136-145) Potassium Level 3.7 MMOL/L (3.5-5.1) Chloride Level 103 MMOL/L (98-107) Carbon Dioxide Level 30 MMOL/L (21-32) Anion Gap 7 mmol/L (5-15) Blood Urea Nitrogen 7 mg/dL (7-18) Creatinine 0.7 MG/DL (0.55-1.30) Estimat Glomerular Filtration Rate > 60 mL/min (>60) Glucose Level 295 MG/DL (74-106) H Calcium Level 8.2 MG/DL (8.5-10.1) L Total Bilirubin 0.9 MG/DL (0.2-1.0) Direct Bilirubin 0.3 MG/DL (0.0-0.3) Aspartate Amino Transf (AST/SGOT) 63 U/L (15-37) H Alanine Aminotransferase (ALT/SGPT) 26 U/L (12-78) Alkaline Phosphatase 85 U/L (46-116) Total Protein 6.7 G/DL (6.4-8.2) Albumin 2.2 G/DL (3.4-5.0) L Globulin 4.5 g/dL Albumin/Globulin Ratio 0.5 (1.0-2.7) L Triglycerides Level 179 MG/DL (30-150) H Objective: deferred due to COVID Micro: Microbiology Date/Time Source Procedure Growth Status 10/08/19 06:00 Sputum Gram Stain - Final Resulted 10/08/19 06:00 Sputum Sputum Culture Pending Resulted Accucheck: 251 Tripp Perkins MD Oct 09, 2019 08:40
--- NOTE | 2019-10-09 09:00 | NUR ---
NURSE NOTES: Dr. Perkins notified of patient saturations this morning which are around 88-89% ABG results also provided, no verbal order given at this time.
--- NOTE | 2019-10-09 09:22 | NUR ---
NURSE NOTES: Dr. Perkins is at the bedside and notified of patient saturations remaining 88-89%. order to have patient Peep increased to 12. no order orders given at this time.
[2019-10-09] MEDS: Enoxaparin 40mg Inj SUBQ SCH (09:25)
--- NOTE | 2019-10-09 09:59 | Diagnostic Imaging Report ---
Indication: Shortness of breath Technique: One view of the chest Comparison: 10/07/2019 Findings: There is increasingly dense consolidation of both lungs, particularly the left, with an ARDS pattern developing. Interim placement of an orogastric tube, tip of which projects at the level gastric body or antrum. Impression: Worsening bilateral consolidation, with development of an ARDS pattern
--- NOTE | 2019-10-09 10:30 | NUR ---
NURSE NOTES: Dr. Perkins notified regarding cheat X-ray report, ordered to have a BNP placed for this morning. patient does not have any neck vein distention or bounding pulses present.
--- NOTE | 2019-10-09 10:40 | Infectious Diseases Prog Note ---
Assessment/Plan Assessment/Plan antibiotics : ceftriaxone, remdesivir EUA 6.9.20 - A 1. COVID 19 pneumonia on FiO2 100 percent PEEP 12, 88 percent O2 saturation s/p tocilizumab 6..20 explained to daughter Carlyn, benefits outweigh risks of using tocilizumab and remdesivir, she consented to it 2. diabetes mellitus 3. ARDS 4. respiratory failure P 1. continue ceftriaxone 2. consider remdesivir EUA day 4 3. will follow up cultures 4. continue isolation Subjective ROS Limited/Unobtainable: Yes Allergies: Coded Allergies: SULFA (SULFONAMIDE ANTIBIOTICS) (Verified Allergy, Mild, Itching, 04/19/12 ) Objective Vital Signs Last 24 Hour Vital Signs Date Time Temp Pulse Resp B/P (MAP) Pulse Ox O2 Delivery O2 Flow Rate FiO2 10/09/19 08:00 100 10/09/19 08:00 Mechanical Ventilator 10/09/19 07:48 102 26 100 10/09/19 07:00 108 26 145/76 (99) 98 10/09/19 07:00 26 145/76 Mechanical Ventilator 100 10/09/19 06:45 22 112/96 Mechanical Ventilator 100 10/09/19 06:30 116 27 112/96 (101) 95 10/09/19 06:00 113 25 150/113 (125) 10/09/19 06:00 26 150/113 Mechanical Ventilator 100 10/09/19 05:30 107 25 122/76 (91) 100 10/09/19 05:00 25 135/64 Mechanical Ventilator 100 10/09/19 05:00 110 27 135/64 (87) 100 10/09/19 04:30 116 28 134/57 (82) 97 10/09/19 04:00 99.1 109 23 122/31 (61) 100 10/09/19 04:00 24 122/31 Mechanical Ventilator 100 10/09/19 04:00 Mechanical Ventilator 10/09/19 04:00 100 10/09/19 03:30 111 22 116/73 (87) 100 10/09/19 03:19 110 24 100 10/09/19 03:06 113 10/09/19 03:00 111 21 113/56 (75) 10/09/19 03:00 22 113/56 Mechanical Ventilator 100 10/09/19 02:33 22 116/43 Mechanical Ventilator 100 10/09/19 02:30 118 23 129/63 (85) 97 10/09/19 02:00 110 20 129/63 (85) 100 10/09/19 02:00 20 129/63 Mechanical Ventilator 100 10/09/19 01:00 21 120/37 Mechanical Ventilator 100 10/09/19 01:00 117 21 120/37 (64) 100 10/09/19 00:03 101.0 10/09/19 00:00 102.2 124 20 102/50 (67) 95 10/09/19 00:00 20 102/50 Mechanical Ventilator 100 10/09/19 00:00 Mechanical Ventilator 10/08/19 23:25 138 10/08/19 23:00 138 22 135/58 (83) 95 10/08/19 23:00 22 135/58 Mechanical Ventilator 100 10/08/19 22:57 134 26 100 10/08/19 22:24 22 137/57 Mechanical Ventilator 100 10/08/19 22:00 22 137/57 Mechanical Ventilator 100 10/08/19 22:00 139 22 132/65 (87) 95 10/08/19 21:30 137 22 135/57 (83) 94 10/08/19 21:00 133 21 119/52 (74) 95 10/08/19 21:00 21 119/52 Mechanical Ventilator 100 10/08/19 20:30 130 21 131/48 (75) 94 10/08/19 20:00 100 10/08/19 20:00 99.9 124 20 125/58 (80) 95 10/08/19 20:00 20 125/58 Mechanical Ventilator 100 10/08/19 20:00 Mechanical Ventilator 10/08/19 19:58 121 10/08/19 19:30 122 20 112/44 (66) 96 10/08/19 19:04 134 28 100 10/08/19 19:00 118 21 112/48 (69) 97 10/08/19 18:40 25 103/44 Mechanical Ventilator 100 10/08/19 18:30 108 20 103/44 (63) 99 10/08/19 18:00 103 20 103/44 (63) 100 10/08/19 17:30 103 20 104/41 (62) 100 10/08/19 17:00 104 23 97/43 (61) 99 10/08/19 16:56 99.9 10/08/19 16:30 104 23 104/34 (57) 99 10/08/19 16:01 99.9 111 23 106/37 (60) 100 10/08/19 16:00 Mechanical Ventilator 10/08/19 16:00 100 10/08/19 16:00 111 23 106/37 (60) 100 10/08/19 15:30 106 22 106/51 (69) 100 10/08/19 15:06 97 26 100 10/08/19 15:00 101 26 106/37 (60) 100 10/08/19 14:30 100 29 103/51 (68) 100 10/08/19 14:06 24 133/47 Non-Rebreather 100 10/08/19 14:00 104 24 88/19 (42) 96 10/08/19 13:30 118 24 101/54 (70) 96 10/08/19 13:00 110 24 133/47 (75) 99 10/08/19 12:30 104 25 111/57 (75) 100 10/08/19 12:00 101.0 103 27 111/49 (69) 100 10/08/19 12:00 100 10/08/19 12:00 Mechanical Ventilator 10/08/19 11:36 104 28 100 10/08/19 11:30 106 26 112/48 (69) 100 10/08/19 11:00 105 25 102/61 (75) 100 Height (Feet): 5 Height (Inches): 5.00 Weight (Pounds): 315 HEENT: other - intubated Microbiology Date/Time Source Procedure Growth Status 10/08/19 06:00 Sputum Gram Stain - Final Resulted 10/08/19 06:00 Sputum Sputum Culture Pending Resulted Laboratory Tests Test 10/09/19 04:45 10/09/19 08:24 White Blood Count 9.5 K/UL (4.8-10.8) Red Blood Count 3.93 M/UL (4.20-5.40) L Hemoglobin 11.6 G/DL (12.0-16.0) L Hematocrit 37.1 % (37.0-47.0) Mean Corpuscular Volume 94 FL (80-99) # Mean Corpuscular Hemoglobin 29.5 PG (27.0-31.0) Mean Corpuscular Hemoglobin Concent 31.2 G/DL (32.0-36.0) L Red Cell Distribution Width 12.3 % (11.6-14.8) Platelet Count 213 K/UL (150-450) Mean Platelet Volume 6.6 FL (6.5-10.1) Neutrophils (%) (Auto) 74.7 % (45.0-75.0) Lymphocytes (%) (Auto) 19.9 % (20.0-45.0) L Monocytes (%) (Auto) 4.8 % (1.0-10.0) Eosinophils (%) (Auto) 0.1 % (0.0-3.0) Basophils (%) (Auto) 0.5 % (0.0-2.0) Sodium Level 139 MMOL/L (136-145) Potassium Level 3.7 MMOL/L (3.5-5.1) Chloride Level 103 MMOL/L (98-107) Carbon Dioxide Level 30 MMOL/L (21-32) Anion Gap 7 mmol/L (5-15) Blood Urea Nitrogen 7 mg/dL (7-18) Creatinine 0.7 MG/DL (0.55-1.30) Estimat Glomerular Filtration Rate > 60 mL/min (>60) Glucose Level 295 MG/DL (74-106) H Calcium Level 8.2 MG/DL (8.5-10.1) L Total Bilirubin 0.9 MG/DL (0.2-1.0) Direct Bilirubin 0.3 MG/DL (0.0-0.3) Aspartate Amino Transf (AST/SGOT) 63 U/L (15-37) H Alanine Aminotransferase (ALT/SGPT) 26 U/L (12-78) Alkaline Phosphatase 85 U/L (46-116) Total Protein 6.7 G/DL (6.4-8.2) Albumin 2.2 G/DL (3.4-5.0) L Globulin 4.5 g/dL Albumin/Globulin Ratio 0.5 (1.0-2.7) L Triglycerides Level 179 MG/DL (30-150) H Arterial Blood pH 7.330 (7.350-7.450) Arterial Blood Partial Pressure CO2 59.1 mmHg (35.0-45.0) *H Arterial Blood Partial Pressure O2 51.7 mmHg (75.0-100.0) L Arterial Blood HCO3 30.5 mmol/L (22.0-26.0) H Arterial Blood Oxygen Saturation 85.8 % (95-100) *L Arterial Blood Base Excess 3.2 (-2-2) H Sadi Test Positive Current Medications Medications (Trade) Dose Ordered Sig/Isa Route PRN Reason Start Time Stop Time Status Last Admin Dose Admin Acetaminophen (Tylenol) 650 mg Q4H PRN ORAL Mild Pain (Pain Scale 1-3) 10/07/19 07:45 11/03/19 23:44 10/08/19 23:33 Acetaminophen (Tylenol) 650 mg Q4H PRN RECTAL FEVER 10/07/19 16:45 11/06/19 16:44 10/08/19 13:58 Ceftriaxone Sodium 1 gm/ Dextrose 55 ml @ 110 mls/hr Q24H IVPB 10/08/19 15:00 10/15/19 14:59 10/08/19 16:01 Dextrose (Dextrose 50%) 25 ml Q30M PRN IV Hypoglycemia 10/07/19 07:00 01/03/20 01:29 Dextrose (Dextrose 50%) 50 ml Q30M PRN IV Hypoglycemia 10/07/19 07:00 01/03/20 01:29 Enoxaparin Sodium (Lovenox) 40 mg DAILY SUBQ 10/07/19 09:00 01/03/20 08:59 10/09/19 09:25 Guaifenesin/ Dextromethorphan (Robitussin DM Syrup) 10 ml Q4H PRN ORAL For Cough 10/07/19 07:08 01/03/20 07:07 Insulin Aspart (NovoLOG) BEFORE MEALS AND HS SUBQ 10/07/19 11:30 01/03/20 06:29 10/09/19 06:30 Insulin Detemir (Levemir) 6 units BEDTIME SUBQ 10/08/19 21:00 01/06/20 20:59 10/08/19 21:02 Lorazepam (Ativan 2mg/ml 1ml) 2 mg Q1H PRN IV For Anxiety 10/07/19 13:45 10/14/19 13:44 10/07/19 15:24 Metformin HCl (Glucophage) 850 mg TIAC ORAL 10/07/19 11:30 11/04/19 09:29 10/09/19 06:44 Morphine Sulfate (Morphine Sulfate) 1 mg Q4H PRN IVP For Pain 10/07/19 08:45 10/14/19 08:44 10/07/19 09:16 Ondansetron HCl (Zofran) 4 mg Q4H PRN IVP Nausea & Vomiting 10/07/19 07:45 11/03/19 23:44 Propofol 100 ml @ 0 mls/hr Q24H IV 10/07/19 13:59 10/09/19 13:58 10/09/19 06:45 Remdesivir 100 mg/ Sodium Chloride 250 ml @ 250 mls/hr Q24H IV 10/07/19 17:00 10/15/19 17:59 10/08/19 17:30 Sodium Chloride 1,000 ml @ 125 mls/hr Q8H IV 10/07/19 07:00 11/04/19 01:29 10/09/19 05:00 Tocilizumab 400 mg/Sodium Chloride 120 ml @ 120 mls/hr ONCE IV 10/08/19 18:00 11/07/19 20:00 10/08/19 18:39 Blu Guzman MD Oct 09, 2019 10:40
--- NOTE | 2019-10-09 10:40 | NUR ---
RADIOLOGY DEPT., CHEST X-RAY DONE.-P.DYE
--- NOTE | 2019-10-09 10:50 | NUR ---
NURSE NOTES: Dr. hdez called to inform of recommendation by senior functional analyst to lower the tube feeding to 25ml/hr while remaining on propofol. order given to place patient at 25 ml/hr running vital A.F 1.2.
--- NOTE | 2019-10-09 10:59 | NUR ---
NURSE NOTES: Dr Guzman updated on patient condition and ABC count of 9.5 with temperature of 98.[address] Guzman updated daughter, Carlyn Avila, on patient infection status. no verbal orders given at this time.
--- NOTE | 2019-10-09 11:10 | NUR ---
NURSE NOTES: propofol increased to 35mcg/kg/min at rate of 30ml/hr for rass of -2
--- NOTE | 2019-10-09 12:03 | NUR ---
*-* INSURANCE *-* UPDATED CLINICALS AND REVIEWS HAVE BEEN FAXED TO: [employer] P: [phone] F: [phone] & GIOVANNY HANLEY P: [phone] F: [phone]
--- NOTE | 2019-10-09 13:28 | NUR ---
NURSE NOTES: updated daughter of the patient status and asked about the names of the medication dr Guzman informed her about. no further questions asked.
[2019-10-09] MEDS: cefTRIAXone 1 GM in D5W 55 ML IVPB SCH (14:13)
--- NOTE | 2019-10-09 14:57 | General Progress Note ---
Assessment/Plan Problem List: (1) COVID-19 ICD Codes: U07.1 - COVID-19 SNOMED: 439905203 (2) Diabetes ICD Codes: E11.9 - Type 2 diabetes mellitus without complications SNOMED: 71481533 (3) Pneumonia ICD Codes: J18.9 - Pneumonia, unspecified organism SNOMED: 039265243 Status: deteriorating Assessment/Plan: cont remdesivir per ID il6 blockade vent dvt prophylaxis with lovenox MS for sob tenuous pulm/id appreciated Subjective ROS Limited/Unobtainable: Yes Constitutional: Reports: weakness HEENT: Reports: no symptoms Cardiovascular: Reports: no symptoms Respiratory: Reports: no symptoms Gastrointestinal/Abdominal: Reports: no symptoms Genitourinary: Reports: no symptoms Neurologic/Psychiatric: Reports: no symptoms Endocrine: Reports: no symptoms Hematologic/Lymphatic: Reports: no symptoms Allergies: Coded Allergies: SULFA (SULFONAMIDE ANTIBIOTICS) (Verified Allergy, Mild, Itching, 04/19/12 ) All Systems: reviewed and negative except above Subjective intubated. sedated. on 100%. o2 sats 95-100. Objective Last 24 Hour Vital Signs Date Time Temp Pulse Resp B/P (MAP) Pulse Ox O2 Delivery O2 Flow Rate FiO2 10/09/19 14:19 20 99/54 Mechanical Ventilator 95 10/09/19 12:30 106 28 125/68 (87) 95 10/09/19 12:00 100 10/09/19 12:00 Mechanical Ventilator 10/09/19 12:00 100 10/09/19 12:00 99.7 100 28 103/49 (67) 95 10/09/19 11:42 113 27 100 10/09/19 11:30 101 28 101/61 (74) 95 10/09/19 11:00 115 27 121/56 (77) 84 10/09/19 10:42 24 129/53 Mechanical Ventilator 100 10/09/19 10:30 117 26 129/53 (78) 80 10/09/19 10:00 114 26 147/67 (93) 79 10/09/19 09:30 116 27 164/47 (86) 80 10/09/19 09:00 119 27 156/68 (97) 98 10/09/19 08:30 112 27 167/41 (83) 89 10/09/19 08:00 100 10/09/19 08:00 98.9 110 28 119/73 (88) 91 10/09/19 08:00 Mechanical Ventilator 10/09/19 08:00 111 10/09/19 07:48 102 26 100 10/09/19 07:30 108 28 119/73 (88) 87 10/09/19 07:00 108 26 145/76 (99) 98 10/09/19 07:00 26 145/76 Mechanical Ventilator 100 10/09/19 06:45 22 112/96 Mechanical Ventilator 100 10/09/19 06:30 116 27 112/96 (101) 95 10/09/19 06:00 113 25 150/113 (125) 10/09/19 06:00 26 150/113 Mechanical Ventilator 100 10/09/19 05:30 107 25 122/76 (91) 100 10/09/19 05:00 25 135/64 Mechanical Ventilator 100 10/09/19 05:00 110 27 135/64 (87) 100 10/09/19 04:30 116 28 134/57 (82) 97 10/09/19 04:00 99.1 109 23 122/31 (61) 100 10/09/19 04:00 24 122/31 Mechanical Ventilator 100 10/09/19 04:00 Mechanical Ventilator 10/09/19 04:00 100 10/09/19 03:30 111 22 116/73 (87) 100 10/09/19 03:19 110 24 100 10/09/19 03:06 113 10/09/19 03:00 111 21 113/56 (75) 10/09/19 03:00 22 113/56 Mechanical Ventilator 100 10/09/19 02:33 22 116/43 Mechanical Ventilator 100 10/09/19 02:30 118 23 129/63 (85) 97 10/09/19 02:00 110 20 129/63 (85) 100 10/09/19 02:00 20 129/63 Mechanical Ventilator 100 10/09/19 01:00 21 120/37 Mechanical Ventilator 100 10/09/19 01:00 117 21 120/37 (64) 100 10/09/19 00:03 101.0 10/09/19 00:00 102.2 124 20 102/50 (67) 95 10/09/19 00:00 20 102/50 Mechanical Ventilator 100 10/09/19 00:00 Mechanical Ventilator 10/08/19 23:25 138 10/08/19 23:00 138 22 135/58 (83) 95 10/08/19 23:00 22 135/58 Mechanical Ventilator 100 10/08/19 22:57 134 26 100 10/08/19 22:24 22 137/57 Mechanical Ventilator 100 10/08/19 22:00 22 137/57 Mechanical Ventilator 100 10/08/19 22:00 139 22 132/65 (87) 95 10/08/19 21:30 137 22 135/57 (83) 94 10/08/19 21:00 133 21 119/52 (74) 95 10/08/19 21:00 21 119/52 Mechanical Ventilator 100 10/08/19 20:30 130 21 131/48 (75) 94 10/08/19 20:00 100 10/08/19 20:00 99.9 124 20 125/58 (80) 95 10/08/19 20:00 20 125/58 Mechanical Ventilator 100 10/08/19 20:00 Mechanical Ventilator 10/08/19 19:58 121 10/08/19 19:30 122 20 112/44 (66) 96 10/08/19 19:04 134 28 100 10/08/19 19:00 118 21 112/48 (69) 97 10/08/19 18:40 25 103/44 Mechanical Ventilator 100 10/08/19 18:30 108 20 103/44 (63) 99 10/08/19 18:00 103 20 103/44 (63) 100 10/08/19 17:30 103 20 104/41 (62) 100 10/08/19 17:00 104 23 97/43 (61) 99 10/08/19 16:56 99.9 10/08/19 16:30 104 23 104/34 (57) 99 10/08/19 16:01 99.9 111 23 106/37 (60) 100 10/08/19 16:00 Mechanical Ventilator 10/08/19 16:00 100 10/08/19 16:00 111 23 106/37 (60) 100 10/08/19 15:30 106 22 106/51 (69) 100 10/08/19 15:06 97 26 100 10/08/19 15:00 101 26 106/37 (60) 100 Intake and Output 10/08/19 10/09/19 19:00 07:00 Intake Total 2440.69431 ml 1421.05449 ml Output Total 1030 ml 1140 ml Balance 1410.01109 ml 281.98001 ml Free Water 100 ml IV Total 2220.93223 ml 981.97785 ml Tube Feeding 80 ml 440 ml Other 40 ml Output Urine Total 1030 ml 1140 ml Laboratory Tests 10/09/19 04:43: Pro-B-Type Natriuretic Peptide 674H 10/09/19 04:45: White Blood Count 9.5, Red Blood Count 3.93L, Hemoglobin 11.6L, Hematocrit 37.1 , Mean Corpuscular Volume 94#, Mean Corpuscular Hemoglobin 29.5, Mean Corpuscular Hemoglobin Concent 31.2L, Red Cell Distribution Width 12.3, Platelet Count 213, Mean Platelet Volume 6.6, Neutrophils (%) (Auto) 74.7, Lymphocytes (%) (Auto) 19.9L, Monocytes (%) (Auto) 4.8, Eosinophils (%) (Auto) 0.1, Basophils (%) (Auto) 0.5, Sodium Level 139, Potassium Level 3.7, Chloride Level 103, Carbon Dioxide Level 30, Anion Gap 7, Blood Urea Nitrogen 7, Creatinine 0.7, Estimat Glomerular Filtration Rate > 60, Glucose Level 295H, Calcium Level 8.2L, Total Bilirubin 0.9, Direct Bilirubin 0.3, Aspartate Amino Transf (AST/SGOT) 63H, Alanine Aminotransferase (ALT/SGPT) 26, Alkaline Phosphatase 85, Total Protein 6.7, Albumin 2.2L, Globulin 4.5, Albumin/Globulin Ratio 0.5L, Triglycerides Level 179H 10/09/19 08:24: Arterial Blood pH 7.330L, Arterial Blood Partial Pressure CO2 59.1*H, Arterial Blood Partial Pressure O2 51.7L, Arterial Blood HCO3 30.5H, Arterial Blood Oxygen Saturation 85.8*L, Arterial Blood Base Excess 3.2H, Sadi Test Positive Height (Feet): 5 Height (Inches): 5.00 Weight (Pounds): 315 Objective General Appearance: WD/WN, orally intubated Neck: supple Cardiovascular: normal rate Respiratory/Chest: lungs clear Abdomen: normal bowel sounds, non tender, soft Josh Farnsworth MD Oct 09, 2019 14:57
--- NOTE | 2019-10-09 15:00 | NUR ---
NURSE NOTES: Patient remains on tube feeding at rate of 25ml/hr, patient remains on propofol drip at rate of 35mcg/kg/min at rate of 30.00ml/hr.
--- NOTE | 2019-10-09 16:36 | NUR ---
CASE MANAGEMENT: REVIEW 10/09/2019 SI:RESP FAILURE VS: T 99.7 HR 100 RR 28 B/P 103/49 SATS 95% ON MECH VENT FIO2 100 LABS: GLU 295 CA 8.2 AST 63 ABGs PH 7.330 PCO2 59.1 PO2 51.7 HCO3 30.5 O2 SAT 85.8 BE 3.2 IS:NS @ 125 ML/HR INSULIN ASPART SUBQ AC/HS REMDESIVIR IV Q24H CEFTRIAXONE IV Q24H PROPOFOL IV PER PARAMETERS ICU
[2019-10-09] MEDS: Remdesivir 100mg 100 MG in NS 230 ML IV SCH (17:46)
--- NOTE | 2019-10-09 18:30 | NUR ---
NURSE NOTES: Propofol bottle changed with rate at 30.00ml/hr. at of 35mcg/kg/min. patient temperature is 98.9 F taken rectally.
--- NOTE | 2019-10-09 19:17 | NUR ---
RESPIRATORY NOTE: Received pt on AC 16, 500VT, 100%, PEEP +12. Pt intubated w/ ETT 7.5 @ 26cm lipline, secured by anchorfast. Pt obtunded. B/S dewayne. diminished, sxn minimal amounts of thin, clear-white secretions. Vent plugged into red outlet, ambubag at bedside. Pt in no apparent distress at this time. Will continue to monitor pt.
--- NOTE | 2019-10-09 19:21 | NUR ---
HAND-OFF: Report given to NICOL Rodriguez. Patient remains on tube feeding at 25ml/hr propofol is running at 30.002ml/hr at 35mcg/kg/min.
--- NOTE | 2019-10-09 19:30 | NUR ---
NURSE NOTES: Received report from NICOL Alvarado Pt is sedated with Propofol 35mcg, calm and asleep IV site is patent Tube feeding Vital A.F. 1.2 is running at 25ml/hr. Goal is 50mL/hr Ventilator setting AC 16, TV: 500, FIo2 100% with peep of 12. Zamora remain adequate amount 75-100mL/hr draining straw urine.
[2019-10-09] MEDS: LORazepam Inj 2mg/ml 1ml IV PRN ×2 (20:24→23:44)
--- NOTE | 2019-10-09 20:30 | NUR ---
NURSE NOTES: Pt remains sedated. Propofol bottle changed and dosage changed to 30mcg NS is running at 125mL/hr IV site is intact Accu check is done BG 281. Insulin given per order. Ativan PRN given Pt has cooling blanket with temperature of 97.8 Skin is intact
[2019-10-09] MEDS: Levemir Flexpen SUBQ SCH (21:02)
--- NOTE | 2019-10-09 22:00 | NUR ---
NURSE NOTES: Pt remains sedated with Propofol 30mcg, RASS -2. NS 125mL/hr. IV site is patent Patient has been tachycardic, above 110. Pt soiled with loose greenish BM. inserted rectal tube Cleaned, turned, repositioned, suctioned and oral care provided Will continue monitor.
[2019-10-10] VITALS (59 sets, daily range): BP systolic 72–168; BP diastolic 31–83
--- NOTE | 2019-10-10 | NUR ---
NURSE NOTES: No acute distress noted and remains sedated with Propofol 30mcg RASS -2 Turned, repositioned, oral care provided. Rectal tube and paige are in place and intact Will continue to monitor
[2019-10-10] MEDS: propofoL 1,000mg/100ml 100 ML IV SCH ×3 (00:36→06:43)
[2019-10-10] MEDS: LORazepam Inj 2mg/ml 1ml IV PRN ×2 (03:04→06:18)
--- NOTE | 2019-10-10 03:08 | NUR ---
NURSE NOTES: Saturation decreasing to low 80s. Ativan given. RT is at the bedside.
--- NOTE | 2019-10-10 04:15 | NUR ---
NURSE NOTE Temp 101.9. Tylenol given. Pt remains sedated with Propofol 30mcg, calm and asleep. No residual and feeding remain running 25mL/hr Saturation 99% All IV site are patent Turn and repositioned Oral care provided Will continue to monitor
[2019-10-10 05:22] LABS: BASOPHILS % (AUTO) 0.5 % (0.0-2.0); EOSINOPHILS % (AUTO) 0.7 % (0.0-3.0); HEMATOCRIT 38.1 % (37.0-47.0); HEMOGLOBIN 11.6 G/DL (12.0-16.0); LYMPHOCYTES % (AUTO) 14.9 % (20.0-45.0); MEAN CORPUSCULAR VOLUME 95 FL (80-99); MONOCYTES % (AUTO) 4.3 % (1.0-10.0); NEUTROPHILS % (AUTO) 79.6 % (45.0-75.0); PLATELET COUNT 159 K/UL (150-450); RED CELL DISTRIBUTION WIDTH 12.3 % (11.6-14.8)
[2019-10-10 05:35] LABS: ALANINE AMINOTRANSFERASE 33 U/L (12-78); ALBUMIN 2.3 G/DL (3.4-5.0); ALBUMIN/GLOBULIN RATIO 0.5 (1.0-2.7); ALKALINE PHOSPHATASE 114 U/L (46-116); ANION GAP 8 mmol/L (5-15); ASPARTATE AMINO TRANSFERASE 67 U/L (15-37); BILIRUBIN,DIRECT 0.2 MG/DL (0.0-0.3); BILIRUBIN,TOTAL 0.8 MG/DL (0.2-1.0); BLOOD UREA NITROGEN 9 mg/dL (7-18); CALCIUM 8.3 MG/DL (8.5-10.1); CARBON DIOXIDE 32 MMOL/L (21-32); CHLORIDE 103 MMOL/L (98-107); CREATININE 0.6 MG/DL (0.55-1.30); POTASSIUM 3.6 MMOL/L (3.5-5.1); SODIUM 143 MMOL/L (136-145); TRIGLYCERIDES 547 MG/DL (30-150)
[2019-10-10] MEDS: Morphine Sulfate 2mg/ml Inj(IV/IM USE ONLY) IVP PRN (06:20)
[2019-10-10] MEDS: NovoLOG Insulin Flexpen SUBQ SCH ×4 (06:25→21:28)
--- NOTE | 2019-10-10 07:12 | NUR ---
HAND-OFF: Report given to NICOL Henderson. Endorsed POC.
--- NOTE | 2019-10-10 07:13 | NUR ---
NURSE NOTES: Received patient from Brenda CAMARENA. Patient is sedated RASS -2, Sinus Tachycardia on the heart monitor, HR 140. Receiving oxygen via ET Tube 7.5 26cm at the lip line, vent settings: AC 16, TV 500, FiO2 100%, PEEP 12. Right NGT is intact and receiving Vital AF at 25cc/hr. IV site is right hand 20g receiving propofol at 30mcg/kg/min, left hand is intact and receiving NS at 125cc/hr. Zamora catheter is intact and draining, Rectal tube is intact and draining. Bed is locked, placed in lowest position, side rails up x3, bed alarm on, head of bed elevated.
--- NOTE | 2019-10-10 07:25 | NUR ---
NURSE NOTES: Patient seen and assessed by Dr. Farnsworth, reported Triglyceride level, ordered to discontinue Propofol.
[2019-10-10] MEDS: Enoxaparin 40mg Inj SUBQ SCH (08:04)
[2019-10-10] MEDS: fentaNYL 2500mcg/NS 250ml 250 ML IV SCH (08:05)
[2019-10-10] MEDS ORDERED: Sterile Water Irrig 1000ml IRRIG ONE (08:48)
--- NOTE | 2019-10-10 09:58 | NUR ---
NURSE NOTES: Reported ABG results and O2 saturation of patient to Dr. Blackman. Orders received.
--- NOTE | 2019-10-10 09:58 | Diagnostic Imaging Report ---
EXAM: XR Chest, 1 View CLINICAL HISTORY: F/U TECHNIQUE: Frontal view of the chest. COMPARISON: Chest x-ray 10/09/19 FINDINGS: Lungs: Bilateral airspace opacities and consolidations have improved in the left lung and right upper lobe. Persistent consolidation in the right lower lung. Pleural space: There may be small pleural effusions. No pneumothorax. Heart: Unremarkable. No cardiomegaly. Mediastinum: Unremarkable. Bones/joints: Unremarkable. Tubes, lines and devices: Stable endotracheal tube and NG tube. IMPRESSION: 1. Bilateral airspace opacities and consolidations have improved in the left lung and right upper lobe. Persistent consolidation in the right lower lung. 2. There may be small pleural effusions.
[2019-10-10] MEDS ORDERED: Lidocaine 1% Plain 30 ml INJ PRN (10:39)
[2019-10-10] MEDS ORDERED: Heparin1,000 units/500ml Premix(Conc:2 units/ml) IV PRN (10:39)
[2019-10-10] MEDS ORDERED: Acetaminophen 650mg/20.3ml NG PRN (10:45)
--- NOTE | 2019-10-10 11:05 | NUR ---
NURSE NOTES: Patient's rectal temperature read 101.2 degrees Fahrenheit, prescribed Tylenol given, patient is on cooling blanket.
--- NOTE | 2019-10-10 12:22 | General Progress Note ---
Assessment/Plan Problem List: (1) COVID-19 ICD Codes: U07.1 - COVID-19 SNOMED: 804974333 (2) Diabetes ICD Codes: E11.9 - Type 2 diabetes mellitus without complications SNOMED: 24161144 (3) Pneumonia ICD Codes: J18.9 - Pneumonia, unspecified organism SNOMED: 699344779 Status: deteriorating Assessment/Plan: cont remdesivir per ID il6 blockade vent dvt prophylaxis with lovenox MS for sob tenuous/crtiical pulm/id appreciated Subjective ROS Limited/Unobtainable: Yes Constitutional: Reports: no symptoms HEENT: Reports: no symptoms Cardiovascular: Reports: no symptoms Respiratory: Reports: no symptoms Genitourinary: Reports: no symptoms Neurologic/Psychiatric: Reports: no symptoms Endocrine: Reports: no symptoms Hematologic/Lymphatic: Reports: no symptoms Allergies: Coded Allergies: SULFA (SULFONAMIDE ANTIBIOTICS) (Verified Allergy, Mild, Itching, 04/19/12 ) All Systems: reviewed and negative except above Subjective intubated. sedated. on 100%. o2 sats 95-100. tachycardic. +fevers Objective Last 24 Hour Vital Signs Date Time Temp Pulse Resp B/P (MAP) Pulse Ox O2 Delivery O2 Flow Rate FiO2 10/10/19 11:23 100.8 10/10/19 11:20 130 30 100 10/10/19 10:30 150 33 96/56 (69) 80 10/10/19 10:00 144 37 90/41 (57) 80 10/10/19 09:30 147 34 102/46 (64) 62 10/10/19 09:15 148 35 108/67 (81) 69 10/10/19 09:00 Mechanical Ventilator 10/10/19 09:00 145 36 107/48 (67) 66 10/10/19 08:45 148 34 123/64 (83) 61 10/10/19 08:30 149 35 121/54 (76) 63 10/10/19 08:30 35 121/54 Endotracheal Tube 100 10/10/19 08:15 150 33 127/75 (92) 80 10/10/19 08:05 34 138/63 Endotracheal Tube 15.0 100 10/10/19 08:00 100 10/10/19 08:00 101.9 148 34 114/65 (81) 99 10/10/19 08:00 Mechanical Ventilator 10/10/19 07:59 148 10/10/19 07:30 34 138/63 Endotracheal Tube 100 10/10/19 07:12 127 36 100 10/10/19 07:00 139 30 126/68 (87) 99 10/10/19 07:00 30 126/68 Mechanical Ventilator 100 10/10/19 06:43 30 111/55 Mechanical Ventilator 100 10/10/19 06:00 146 33 141/77 (98) 97 10/10/19 06:00 30 141/77 Mechanical Ventilator 100 10/10/19 06:00 30 141/77 Mechanical Ventilator 100 10/10/19 05:58 30 116/52 Mechanical Ventilator 100 10/10/19 05:00 144 30 144/83 (103) 98 10/10/19 05:00 30 144/83 Mechanical Ventilator 100 10/10/19 04:49 101.9 10/10/19 04:30 148 30 153/73 (99) 99 10/10/19 04:15 101.9 150 29 151/74 (99) 100 10/10/19 04:00 30 166/75 Mechanical Ventilator 100 10/10/19 04:00 Mechanical Ventilator 10/10/19 04:00 100 10/10/19 04:00 148 29 166/75 (105) 100 10/10/19 03:41 30 152/78 100 10/10/19 03:40 30 166/80 Mechanical Ventilator 100 10/10/19 03:07 139 27 100 10/10/19 03:00 30 166/80 Mechanical Ventilator 100 10/10/19 03:00 138 28 166/80 (108) 10/10/19 02:30 131 27 144/72 (96) 10/10/19 02:00 119 27 109/74 (86) 10/10/19 02:00 30 109/74 Mechanical Ventilator 100 10/10/19 01:30 119 28 133/56 (81) 10/10/19 01:00 30 125/61 Mechanical Ventilator 100 10/10/19 01:00 97.9 111 23 125/61 (82) 10/10/19 00:36 30 109/57 Mechanical Ventilator 100 10/10/19 00:35 30 114/69 Mechanical Ventilator 100 10/10/19 00:00 Mechanical Ventilator 10/10/19 00:00 30 114/64 Mechanical Ventilator 100 10/10/19 00:00 100 10/10/19 00:00 108 30 114/64 (81) 10/09/19 23:30 128 33 165/98 (120) 10/09/19 23:30 30 165/98 Mechanical Ventilator 100 10/09/19 23:20 129 34 100 10/09/19 23:00 128 34 146/57 (86) 100 10/09/19 23:00 30 146/57 Mechanical Ventilator 100 10/09/19 22:45 120 27 135/56 (82) 86 10/09/19 22:30 124 29 130/46 (74) 77 10/09/19 22:15 129 20 149/60 (89) 75 10/09/19 22:00 30 152/57 Mechanical Ventilator 100 10/09/19 22:00 125 31 152/57 (88) 93 10/09/19 21:45 30 143/54 Mechanical Ventilator 100 10/09/19 21:45 123 29 143/54 (83) 99 10/09/19 21:30 127 27 132/52 (78) 100 10/09/19 21:30 30 132/52 Mechanical Ventilator 100 10/09/19 21:15 30 134/68 Mechanical Ventilator 100 10/09/19 21:15 115 24 134/68 (90) 96 10/09/19 21:00 30 121/56 Mechanical Ventilator 100 10/09/19 21:00 102 28 121/56 (77) 100 10/09/19 20:45 114 30 116/66 (83) 96 10/09/19 20:45 30 116/66 Mechanical Ventilator 100 10/09/19 20:28 30 166/66 Mechanical Ventilator 100 10/09/19 20:28 30 166/66 Mechanical Ventilator 100 10/09/19 20:00 100 10/09/19 20:00 30 116/66 Mechanical Ventilator 100 10/09/19 20:00 114 30 116/66 (83) 96 10/09/19 20:00 Mechanical Ventilator 10/09/19 19:15 109 30 100 10/09/19 18:30 98.9 113 25 126/62 (83) 93 10/09/19 18:00 99.1 111 25 141/71 (94) 92 10/09/19 17:46 25 122/48 Mechanical Ventilator 100 10/09/19 17:30 99.2 112 25 122/48 (72) 95 10/09/19 17:00 118 23 106/34 (58) 91 10/09/19 16:30 117 23 127/74 (91) 93 10/09/19 16:00 100.0 123 24 120/73 (89) 89 10/09/19 16:00 100 10/09/19 16:00 Mechanical Ventilator 10/09/19 16:00 123 10/09/19 15:30 124 24 98/60 (73) 90 10/09/19 15:20 124 25 100 10/09/19 15:00 125 24 99/56 (70) 88 10/09/19 14:30 127 23 111/63 (79) 83 10/09/19 14:19 20 99/54 Mechanical Ventilator 95 10/09/19 14:00 112 27 99/54 (69) 94 10/09/19 13:30 104 28 106/60 (75) 95 10/09/19 13:00 106 28 125/58 (80) 94 10/09/19 12:30 106 28 125/68 (87) 95 Intake and Output 10/09/19 10/10/19 19:00 07:00 Intake Total 2589.88753 ml 2438.121 ml Output Total 1475 ml 675 ml Balance 1114.86261 ml 1763.121 ml Free Water 105 ml 30 ml IV Total 2089.62782 ml 2108.121 ml Tube Feeding 375 ml 300 ml Other 20 ml Output Urine Total 1475 ml 675 ml # Bowel Movements 3 Laboratory Tests 10/10/19 04:00: White Blood Count 11.0H, Red Blood Count 4.00L, Hemoglobin 11.6L, Hematocrit 38.1, Mean Corpuscular Volume 95, Mean Corpuscular Hemoglobin 28.9, Mean Corpuscular Hemoglobin Concent 30.4L, Red Cell Distribution Width 12.3, Platelet Count 159, Mean Platelet Volume 6.9, Neutrophils (%) (Auto) 79.6H, Lymphocytes (%) (Auto) 14.9L, Monocytes (%) (Auto) 4.3, Eosinophils (%) (Auto) 0.7, Basophils (%) (Auto) 0.5, Sodium Level 143, Potassium Level 3.6, Chloride Level 103, Carbon Dioxide Level 32, Anion Gap 8, Blood Urea Nitrogen 9, Creatinine 0.6, Estimat Glomerular Filtration Rate > 60, Glucose Level 315H, Calcium Level 8.3L, Total Bilirubin 0.8, Direct Bilirubin 0.2, Aspartate Amino Transf (AST/SGOT) 67H, Alanine Aminotransferase (ALT/SGPT) 33, Alkaline Phosphatase 114, Total Protein 6.5, Albumin 2.3L, Globulin 4.2, Albumin/ Globulin Ratio 0.5L, Triglycerides Level 547H 10/10/19 06:30: D-Dimer > 35.20H 10/10/19 07:28: Arterial Blood pH 7.283L, Arterial Blood Partial Pressure CO2 64.3*H, Arterial Blood Partial Pressure O2 39.0*L, Arterial Blood HCO3 29.7H, Arterial Blood Oxygen Saturation 70.2*L, Arterial Blood Base Excess 1.6, Sadi Test Positive 10/10/19 12:00: Arterial Blood pH 7.132*L, Arterial Blood Partial Pressure CO2 78.6*H, Arterial Blood Partial Pressure O2 46.4*L, Arterial Blood HCO3 25.7, Arterial Blood Oxygen Saturation 72.6*L, Arterial Blood Base Excess -4.7L, Sadi Test Positive Height (Feet): 5 Height (Inches): 5.00 Weight (Pounds): 316 Objective General Appearance: WD/WN, orally intubated Neck: supple Cardiovascular: normal rate Respiratory/Chest: lungs clear Abdomen: normal bowel sounds, non tender, soft Josh Farnsworth MD Oct 10, 2019 12:22
--- NOTE | 2019-10-10 12:39 | NUR ---
NURSE NOTES: Reported ABG results to Dr. Blackman. Orders received.
--- NOTE | 2019-10-10 13:16 | Pulmonolgy Critical Care Note ---
Critical Care - Asmt/Plan Assessment/Plan: Pulmonary CCM Progress Note Assessment/Plan COVID+ ARDS worsening hypoxemic respiratory failure sinus tachycardia PLAN vent support as is/ taper oxygen as able PEEP at 16, RR increased sp central line CXR pending ICU care ID follow up FIO2 100% follow up ABG and CXR daily for change very critical feeds proning as able medications/laboratory data/nursing notes/ICU care reviewed in detail note reviewed and edited care discussed with RN and RT ICU time spent >40 minutes Critical Care - Subjective Interval Events: remains critical on 100% no improvement sedated ROS Limited/Unobtainable: Yes Condition: critical EKG Rhythm: Sinus Tachycardia Critical Care - Objective ET-Tube: 7.5 ET Position: 26 Vital Signs Noted Laboratory Tests Noted Test 10/08/19 09:17 10/09/19 04:45 10/09/19 08:24 Arterial Blood pH 7.345 (7.350-7.450) 7.330 (7.350-7.450) Arterial Blood Partial Pressure CO2 49.3 mmHg (35.0-45.0) H 59.1 mmHg (35.0-45.0) *H Arterial Blood Partial Pressure O2 75.1 mmHg (75.0-100.0) 51.7 mmHg (75.0-100.0) L Arterial Blood HCO3 26.3 mmol/L (22.0-26.0) H 30.5 mmol/L (22.0-26.0) H Arterial Blood Oxygen Saturation 93.8 % (95-100) L 85.8 % (95-100) *L Arterial Blood Base Excess 0.1 (-2-2) 3.2 (-2-2) H Sadi Test Positive Positive White Blood Count 9.5 K/UL (4.8-10.8) Red Blood Count 3.93 M/UL (4.20-5.40) L Hemoglobin 11.6 G/DL (12.0-16.0) L Hematocrit 37.1 % (37.0-47.0) Mean Corpuscular Volume 94 FL (80-99) # Mean Corpuscular Hemoglobin 29.5 PG (27.0-31.0) Mean Corpuscular Hemoglobin Concent 31.2 G/DL (32.0-36.0) L Red Cell Distribution Width 12.3 % (11.6-14.8) Platelet Count 213 K/UL (150-450) Mean Platelet Volume 6.6 FL (6.5-10.1) Neutrophils (%) (Auto) 74.7 % (45.0-75.0) Lymphocytes (%) (Auto) 19.9 % (20.0-45.0) L Monocytes (%) (Auto) 4.8 % (1.0-10.0) Eosinophils (%) (Auto) 0.1 % (0.0-3.0) Basophils (%) (Auto) 0.5 % (0.0-2.0) Sodium Level 139 MMOL/L (136-145) Potassium Level 3.7 MMOL/L (3.5-5.1) Chloride Level 103 MMOL/L (98-107) Carbon Dioxide Level 30 MMOL/L (21-32) Anion Gap 7 mmol/L (5-15) Blood Urea Nitrogen 7 mg/dL (7-18) Creatinine 0.7 MG/DL (0.55-1.30) Estimat Glomerular Filtration Rate > 60 mL/min (>60) Glucose Level 295 MG/DL (74-106) H Calcium Level 8.2 MG/DL (8.5-10.1) L Total Bilirubin 0.9 MG/DL (0.2-1.0) Direct Bilirubin 0.3 MG/DL (0.0-0.3) Aspartate Amino Transf (AST/SGOT) 63 U/L (15-37) H Alanine Aminotransferase (ALT/SGPT) 26 U/L (12-78) Alkaline Phosphatase 85 U/L (46-116) Total Protein 6.7 G/DL (6.4-8.2) Albumin 2.2 G/DL (3.4-5.0) L Globulin 4.5 g/dL Albumin/Globulin Ratio 0.5 (1.0-2.7) L Triglycerides Level 179 MG/DL (30-150) H Objective: deferred due to COVID Micro: Microbiology Date/Time Source Procedure Growth Status 10/08/19 06:00 Sputum Gram Stain - Final Resulted 10/08/19 06:00 Sputum Sputum Culture Pending Resulted Critical Care - Objective Last 24 Hour Vital Signs Date Time Temp Pulse Resp B/P (MAP) Pulse Ox O2 Delivery O2 Flow Rate FiO2 6/13/20 12:57 95/52 10/10/19 12:40 100 10/10/19 12:00 Mechanical Ventilator 10/10/19 12:00 100 10/10/19 12:00 100.9 140 31 89/60 (70) 99 10/10/19 11:30 140 30 91/44 (60) 97 10/10/19 11:23 100.8 10/10/19 11:20 130 30 100 10/10/19 11:00 146 31 97/55 (69) 97 10/10/19 10:30 150 33 96/56 (69) 80 10/10/19 10:00 144 37 90/41 (57) 80 10/10/19 09:30 147 34 102/46 (64) 62 10/10/19 09:15 148 35 108/67 (81) 69 10/10/19 09:00 Mechanical Ventilator 10/10/19 09:00 145 36 107/48 (67) 66 10/10/19 08:45 148 34 123/64 (83) 61 10/10/19 08:30 149 35 121/54 (76) 63 10/10/19 08:30 35 121/54 Endotracheal Tube 100 10/10/19 08:15 150 33 127/75 (92) 80 10/10/19 08:05 34 138/63 Endotracheal Tube 15.0 100 10/10/19 08:00 100 10/10/19 08:00 101.9 148 34 114/65 (81) 99 10/10/19 08:00 Mechanical Ventilator 10/10/19 07:59 148 10/10/19 07:30 34 138/63 Endotracheal Tube 100 10/10/19 07:12 127 36 100 10/10/19 07:00 139 30 126/68 (87) 99 10/10/19 07:00 30 126/68 Mechanical Ventilator 100 10/10/19 06:43 30 111/55 Mechanical Ventilator 100 10/10/19 06:00 146 33 141/77 (98) 97 10/10/19 06:00 30 141/77 Mechanical Ventilator 100 10/10/19 06:00 30 141/77 Mechanical Ventilator 100 10/10/19 05:58 30 116/52 Mechanical Ventilator 100 10/10/19 05:00 144 30 144/83 (103) 98 10/10/19 05:00 30 144/83 Mechanical Ventilator 100 10/10/19 04:49 101.9 10/10/19 04:30 148 30 153/73 (99) 99 10/10/19 04:15 101.9 150 29 151/74 (99) 100 10/10/19 04:00 30 166/75 Mechanical Ventilator 100 10/10/19 04:00 Mechanical Ventilator 10/10/19 04:00 100 10/10/19 04:00 148 29 166/75 (105) 100 10/10/19 03:41 30 152/78 100 10/10/19 03:40 30 166/80 Mechanical Ventilator 100 10/10/19 03:07 139 27 100 10/10/19 03:00 30 166/80 Mechanical Ventilator 100 10/10/19 03:00 138 28 166/80 (108) 10/10/19 02:30 131 27 144/72 (96) 10/10/19 02:00 119 27 109/74 (86) 10/10/19 02:00 30 109/74 Mechanical Ventilator 100 10/10/19 01:30 119 28 133/56 (81) 10/10/19 01:00 30 125/61 Mechanical Ventilator 100 10/10/19 01:00 97.9 111 23 125/61 (82) 10/10/19 00:36 30 109/57 Mechanical Ventilator 100 10/10/19 00:35 30 114/69 Mechanical Ventilator 100 10/10/19 00:00 Mechanical Ventilator 10/10/19 00:00 30 114/64 Mechanical Ventilator 100 10/10/19 00:00 100 10/10/19 00:00 108 30 114/64 (81) 10/09/19 23:30 128 33 165/98 (120) 10/09/19 23:30 30 165/98 Mechanical Ventilator 100 10/09/19 23:20 129 34 100 10/09/19 23:00 128 34 146/57 (86) 100 10/09/19 23:00 30 146/57 Mechanical Ventilator 100 10/09/19 22:45 120 27 135/56 (82) 86 10/09/19 22:30 124 29 130/46 (74) 77 10/09/19 22:15 129 20 149/60 (89) 75 10/09/19 22:00 30 152/57 Mechanical Ventilator 100 10/09/19 22:00 125 31 152/57 (88) 93 10/09/19 21:45 30 143/54 Mechanical Ventilator 100 10/09/19 21:45 123 29 143/54 (83) 99 10/09/19 21:30 127 27 132/52 (78) 100 10/09/19 21:30 30 132/52 Mechanical Ventilator 100 10/09/19 21:15 30 134/68 Mechanical Ventilator 100 10/09/19 21:15 115 24 134/68 (90) 96 10/09/19 21:00 30 121/56 Mechanical Ventilator 100 10/09/19 21:00 102 28 121/56 (77) 100 10/09/19 20:45 114 30 116/66 (83) 96 10/09/19 20:45 30 116/66 Mechanical Ventilator 100 10/09/19 20:28 30 166/66 Mechanical Ventilator 100 10/09/19 20:28 30 166/66 Mechanical Ventilator 100 10/09/19 20:00 100 10/09/19 20:00 30 116/66 Mechanical Ventilator 100 10/09/19 20:00 114 30 116/66 (83) 96 10/09/19 20:00 Mechanical Ventilator 10/09/19 19:15 109 30 100 10/09/19 18:30 98.9 113 25 126/62 (83) 93 10/09/19 18:00 99.1 111 25 141/71 (94) 92 10/09/19 17:46 25 122/48 Mechanical Ventilator 100 10/09/19 17:30 99.2 112 25 122/48 (72) 95 10/09/19 17:00 118 23 106/34 (58) 91 10/09/19 16:30 117 23 127/74 (91) 93 10/09/19 16:00 100.0 123 24 120/73 (89) 89 10/09/19 16:00 100 10/09/19 16:00 Mechanical Ventilator 10/09/19 16:00 123 10/09/19 15:30 124 24 98/60 (73) 90 10/09/19 15:20 124 25 100 10/09/19 15:00 125 24 99/56 (70) 88 10/09/19 14:30 127 23 111/63 (79) 83 10/09/19 14:19 20 99/54 Mechanical Ventilator 95 10/09/19 14:00 112 27 99/54 (69) 94 10/09/19 13:30 104 28 106/60 (75) 95 Micro: Microbiology Date/Time Source Procedure Growth Status 10/08/19 06:00 Sputum Gram Stain - Final Complete 10/08/19 06:00 Sputum Sputum Culture - Final NORMAL UPPER RESPIRATORY BETZADIA AT 48 ... Complete Accucheck: 328 Critical Care - Subjective ROS Limited/Unobtainable: Yes Condition: critical IV Access: central FI02: 100 Vent Support Breath Rate: 24 Vent Support Mode: AC Vent Tidal Volume: 500 Sputum Amount: Small PEEP: 16.0 PIP: 38 Tube Feeding Amount: 35 I&O: Intake and Output 10/09/19 10/10/19 19:00 07:00 Intake Total 2589.10115 ml 2438.121 ml Output Total 1475 ml 675 ml Balance 1114.53678 ml 1763.121 ml Free Water 105 ml 30 ml IV Total 2089.41184 ml 2108.121 ml Tube Feeding 375 ml 300 ml Other 20 ml Output Urine Total 1475 ml 675 ml # Bowel Movements 3 ET-Tube: 7.5 ET Position: 26 Christiano Blackman MD Oct 10, 2019 13:16
--- NOTE | 2019-10-10 13:18 | Operative Note - PDOC ---
Operative Note Operative Note Date of Operation/Procedure: Oct 10, 2019 Pre-op Diagnosis: Sepsis, hypotension, abnormal labs, COVID Procedure: Left femoral central venous catheter insertion Post-op Diagnosis: same as pre-op Surgeon: Abdoul Burt MD Anesthesia: local Specimen: none Complications: none Condition: unstable Estimated Blood Loss: minimal Drains: none Implant(s) used?: No Indications for Procedure 44-year-old female COVID positive and intensive care unit septic hypotensive requiring pressors, meds, labs, fluids. Central venous access indicated and necessary. Consent obtained. Line placed in ICU. Description of Procedure Patient was made comfortable in supine position intensive care unit. Patient is already on ventilator support through an ET tube and sedated with fentanyl. She is comfortable nonresponsive at this time. Rass -2. The left groin was prepped draped in the same surgical fashion. Local anesthetic was infiltrated and a finder needle was used after anatomic landmarks were identified to cannulate the left femoral vein. Left femoral vein cannulated on for stick without complication good venous blood flow identified. Guidewire placed through the needle needle removed and discarded. Dilator used and tract was dilated after small skin incision was made around the wire. A triple-lumen central venous catheter was inserted over the guidewire and the guidewire was removed and discarded. The catheter was sutured in place all 3 ports flushed and aspirated appropriately without complication. Dressings applied. Line okay to use. Will anticipate PICC line placement when radiology team available. Thank you for let me participate in patient's care Abdoul Burt Oct 10, 2019 13:18
[2019-10-10] MEDS: cefTRIAXone 1 GM in D5W 55 ML IVPB SCH (15:17)
[2019-10-10] MEDS: Remdesivir 100mg 100 MG in NS 230 ML IV SCH (16:47)
--- NOTE | 2019-10-10 18:45 | NUR ---
NURSE NOTES: Gave bed bath to patient, changed central line dressing, turned and repositioned. Patient remains hypotensive, reported to Dr. Blackman. Orders received.
[2019-10-10] MEDS ORDERED: EPINEPHrine 1mg/1ml Amp 1 MG in D5W 249 ML IV PRN (19:00)
[2019-10-10] MEDS ORDERED: Vasopressin 100 UNITS in NS 95 ML IV PRN (19:00)
--- NOTE | 2019-10-10 19:01 | NUR ---
RESPIRATORY NOTE: Received pt on AC 28, 550VT, 100%, PEEP +20. Pt intubated w/ ETT 7.5 @ 26cm lipline, secured by anchorfast. Pt sedated. B/S dewayne. diminished, sxn small amounts of thick/thin, lucas-brown secretions w/ occasional blood clots & red specks. Vent plugged into red outlet, ambubag at bedside. Will continue to monitor pt.
--- NOTE | 2019-10-10 19:02 | NUR ---
NURSE NOTES: Called Dr. Blackman and updated MD regarding patients conditioned, dopamine gtt order received.
--- NOTE | 2019-10-10 19:07 | NUR ---
NURSE NOTES: Called and spoke with MD Blackman at this time. Notified him of the most recent ABG done as ordered. Also informed him the ID MD Guzman recommends starting the patient on heparin gtt and solu medrol. Also informed MD Blackman, peak pressures are in the 60's, VT is less that 520.Per MD Blackman vent setting to be change to the following: AC 30 Peep 22. Patient is to be started on Heparin gtt at this time, Solumedrol 40mg IVP Q 6HR. Give another Lasix 20mg and try to prone the patient. Orders read back and confirmed by .
--- NOTE | 2019-10-10 19:12 | NUR ---
NURSE NOTES: Informed MD Blackman patient BP Currently 53/28 at this time. Dopamine and levophed are maxed. MD ordered to start Epinephrine gtt with a goal to keep map > 65, Give on amp Bicarb IVP. Orders read back and confirmed at this time.
[2019-10-10] MEDS ORDERED: Sodium Bicarbonate 50ml Carp IV SCH (19:15)
[2019-10-10] MEDS: DOPamine 400mg/250ml 250 ML IV SCH (19:19)
--- NOTE | 2019-10-10 19:25 | NUR ---
NURSE NOTES: PTT drawn and picked up by Compensation Programs Manager.
[2019-10-10] MEDS ORDERED: Heparin 25,000u/D5W 500ml 500 ML IV SCH (19:30)
[2019-10-10] MEDS: Solu-MEDROL 40mg Inj IVP SCH (19:31)
--- NOTE | 2019-10-10 19:33 | NUR ---
HAND-OFF: Report given to Michael CAMARENA.
--- NOTE | 2019-10-10 19:47 | NUR ---
RESPIRATORY NOTE: Vent settings changed per MD Yehuda post ABG draw. Pt now on AC VC+ 30, 550VT, 100%, PEEP +22. Pt tolerating new settings, still sedated. RN at bedside. ABG to be drawn in an hour. Will continue to monitor pt.
--- NOTE | 2019-10-10 19:58 | NUR ---
NURSE NOTES: Called and informed MD Blackman Patient sats are in the low 70's, peak pressures remain > 60, VT > 460 with shallow and slight retraction when breathing. RT recommendation of AC/VC+ rate 30 Vt 550 peep 20 100%. On this setting she is doing inverse ration breathing 1.0:1 and she is comfortable. Her volumes remain 470-500. Per MD Blackman ok continue recommended setting. ABG to be repeated in 1 HR.
[2019-10-10] MEDS: Dyna-Hex 2% Top Sol 2oz TOPIC SCH (20:00)
[2019-10-10] MEDS: Norepinephrine Bitartrate 8 MG in D5W 500ml 500 ML IV SCH (20:42)
--- NOTE | 2019-10-10 20:52 | NUR ---
NURSE NOTES: At this time patient is on Levophed 30mcg/min, dopamine gtt at 4mcg/kg/min, Vasopressin at 0.04units and Heparin gtt at 15units/kg/hr -Next PTT to be done at 0200 10/10, and fentanyl gtt at 200mcg. Right now we will hold off on the Epinephrine gtt as Blood pressure remains stable while on these current gtt's. We will try to taper off pressors as much as blood pressure parameters allow. Currently patients on new Vent settings per Dr. Blackman. Patients saturating in the mid 80s to upper 80s. Right now SpO2 is 88% while on 100% FiO2. Patient is in a low semi-fowlers position. Blood pressure is 126/53 (69). I will continue to monitor for any acute changes.
[2019-10-10] MEDS ORDERED: Enoxaparin 40mg Inj SUBQ SCH (21:00)
[2019-10-10] MEDS: Levemir Flexpen SUBQ SCH (21:27)
--- NOTE | 2019-10-10 21:28 | NUR ---
NURSE NOTES: Glucose noted to be 385, insulin coverage given along with scheduled Levemir. tapering pressors down as much as blood pressure parameters allows. Keeping MAP grater than 65 and SBP greater than 100.
--- NOTE | 2019-10-10 21:30 | NUR ---
NURSE NOTES: Notified MD Blackman about the latest ABG results ordered. wants patient to start on D5W with 3 amps of bicarb @ 50ml/hr. Orders read back and confirmed by .
--- NOTE | 2019-10-10 21:35 | NUR ---
NURSE NOTES: Called and informed Dr. Blackman regarding post ABG results after changing Vent settings. MD ordered to continue with this vent settings and place patient on a 3 amp/150ml Bicarb gtt at 50ml/hr.
[2019-10-10] MEDS ORDERED: Sodium Bicarbonate 150 ML in D5W 1000ml 1,000 ML IV SCH (22:00)
--- NOTE | 2019-10-10 22:30 | NUR ---
NURSE NOTES: Bicarb gtt hung. Adjusting pressors to meet MAP above 60-65 andn SBP of greater than 100. Patient remains sedated RASS -2. Afebrile at this time, no acute distress. Patient remains on cooling blanket as patient does tends to become febrile without cooling measures.
[2019-10-11] VITALS (91 sets, daily range): BP systolic 65–160; BP diastolic 22–96
--- NOTE | 2019-10-11 | NUR ---
NURSE NOTES: Patient in ST at this time in the 120s. Afebrile. Patient was lavaged and suctioned by RT. Oral care was provided and repositioned. Slowly titrating gtt accordingly as much as BP will permit. Keeping MAP greater than 60 or 65 and SBP above 100. Patient remains afebrile while on cooling measures.
[2019-10-11] MEDS: Solu-MEDROL 40mg Inj IVP SCH ×5 (00:19→23:29)
[2019-10-11] MEDS: LORazepam Inj 2mg/ml 1ml IV PRN (00:19)
[2019-10-11] MEDS: fentaNYL 2500mcg/NS 250ml 250 ML IV SCH ×2 (00:32→14:01)
[2019-10-11] MEDS: Norepinephrine Bitartrate 8 MG in D5W 500ml 500 ML IV SCH ×5 (00:33→23:32)
--- NOTE | 2019-10-11 01:55 | NUR ---
NURSE NOTES: Timed ptt drawn and sent to lab.
[2019-10-11] MEDS: DOPamine 400mg/250ml 250 ML IV SCH (01:56)
--- NOTE | 2019-10-11 02:00 | NUR ---
NURSE NOTES: Patients HR in the 120s, we decreased Dopamine gtt and restarted vasopressin to keep HR lower than 120's. So far patients is tolerating ventilator settings, patient was lavaged and suctioned, bloody tinge secretions noted. Patient continues on the heparin gtt, levo gtt, dopa gtt, vaso gtt, fentanyl gtt and bicarb gtt. Patient is making good amount of urine output. RASS -2. Will continue to monitor.
--- NOTE | 2019-10-11 03:00 | NUR ---
NURSE NOTES: Patients PTT was 66. Per protocol patient to receive 5500units of Heparin bolus IVP and increase gtt rate to 17units/kg/hr. Addendum: 10/11/19 at 0700 by DAMION NG RN Correction: PTT was 60 not 66
[2019-10-11] MEDS ORDERED: Heparin 5000 units/ml inj IV SCH (03:30)
[2019-10-11] MEDS ORDERED: Heparin 25,000u/D5W 500ml 500 ML IV SCH (03:30)
--- NOTE | 2019-10-11 04:00 | NUR ---
NURSE NOTES: Sponge bath given, Zamora care provided. Labs drawn and sent to lab. Adjusting pressors as much as BP will permit. Oral care provided, afebrile 98.5F. HR is 108ST. BP is 134/60. Patients SPo2 is 85% While on 100% Fio2. Patient continues to tolerate ventilator settings, peak pressures around in the 50s. Repositioned.
[2019-10-11] MEDS: NovoLOG Insulin Flexpen SUBQ SCH ×5 (05:34→21:00)
[2019-10-11 05:47] LABS: EOSINOPHILS % (AUTO) 0.9 % (0.0-3.0); HEMATOCRIT 37.7 % (37.0-47.0); LYMPHOCYTES % (AUTO) 15.3 % (20.0-45.0); MEAN CORPUSCULAR VOLUME 101 FL (80-99); MONOCYTES % (AUTO) 4.8 % (1.0-10.0); PLATELET COUNT 121 K/UL (150-450); RED BLOOD COUNT 3.74 M/UL (4.20-5.40); RED CELL DISTRIBUTION WIDTH 14.3 % (11.6-14.8); WHITE BLOOD COUNT 9.8 K/UL (4.8-10.8)
--- NOTE | 2019-10-11 06:00 | NUR ---
NURSE NOTES: We decreased dopamine gtt to 1mcg, slowly tapering pressors as possible as patient does remains critical. levo gtt remains at 30mcg/min, vasopressin at 0.02units. Patient continues to be on Bicarb gtt, Heparin gtt and fentanyl gtt. SpO2 is 91%. HR 105, BP 148/55. Suctioned patient. New Heparin bag hung. Patients Glucose this morning was 529, 10units of insulin coverage was given including scheduled Glucophage.
--- NOTE | 2019-10-11 06:30 | NUR ---
NURSE NOTES: Dopamine gtt held for now as BP staying within good parameters.
--- NOTE | 2019-10-11 07:00 | NUR ---
NURSE NOTES: Dr. Farnsworth at bedside, updated MD on patients progress, order given for AM CXR.
--- NOTE | 2019-10-11 07:03 | NUR ---
HAND-OFF: Report given to Emily Hinds.
--- NOTE | 2019-10-11 07:04 | NUR ---
NURSE NOTES: Pt received from NICOL Rodriguez. Pt is sedated, noted with RASS -4, does not open eyes when called by name or shaken, pt grimaces during oral care, gag reflex is hypoactive, right pupil noted 3 cc with sluggish light rxn and left pupil 2 cc with brisk light rxn (will clarify RASS goal with Dr Blackman). Pt is ST to [facility] [employer], bilateral radial pulses 2+ and dorsalis pedis pulses 1+. Pt has non-pitting edema to both hands, arms, and feet. Pt is mechanically ventilated with 7.5 ETT noted 26 cm at lip line with the following settings: AC 30 TV 550 FiO2 100% Peep 22. SpO2 noted 89-92%. Upper and lower right lung lobes noted with fine crackles and upper+lower left lung lobes diminished upon auscultation. Pt has a right nares NGT clamped at this time0- pt is NPO. Abd is soft, round, and non-distended with hypoactive bowel sounds to all quadrants. F/C noted draining yellow urine. Pt has a LH 20g IV running fentanyl gtt a 200 mcg/hr, a RH 20g IV running Heparin gtt at 17 units/kg/hr, and a left femoral line with dry and intact dressing running NaHCO3- at 50 cc/hr, levophed gtt at 30 mcg/min and vasopressin at 0.02 units/min (1.2 CC/HR). no visible bruising or bleeding present at this time time. Skin is intact, noted with dryness. Dr Farnsworth at bedside assessing pt and is aware of difference in pupil size as well as labs for today (serum glucose of 612 and potassium 3.4). Bed in lowest position with alarm on, side rails up x 3, call light within reach. Will continue to monitor. Addendum: 10/11/19 at 1453 by Emily Esqueda RN Amendment: with active (not hypoactive) bowel sounds to all quadrants. Rectal tube noted draining dark brown liquid-like stool.
--- NOTE | 2019-10-11 07:30 | NUR ---
NURSE NOTES: Clarified RASS goal with Dr Blackman with order for RASS goal of -3 during sedation.
[2019-10-11 07:37] LABS: ALANINE AMINOTRANSFERASE 27 U/L (12-78); ALBUMIN 2.1 G/DL (3.4-5.0); ALBUMIN/GLOBULIN RATIO 0.6 (1.0-2.7); ALKALINE PHOSPHATASE 112 U/L (46-116); ANION GAP 12 mmol/L (5-15); ASPARTATE AMINO TRANSFERASE 76 U/L (15-37); BILIRUBIN,TOTAL 0.6 MG/DL (0.2-1.0); BLOOD UREA NITROGEN 26 mg/dL (7-18); CALCIUM 7.6 MG/DL (8.5-10.1); CARBON DIOXIDE 28 MMOL/L (21-32); CHLORIDE 98 MMOL/L (98-107); CREATININE 1.6 MG/DL (0.55-1.30); POTASSIUM 3.4 MMOL/L (3.5-5.1); SODIUM 138 MMOL/L (136-145)
--- NOTE | 2019-10-11 07:45 | NUR ---
NURSE NOTES: Dr Blackman made aware of most recent ABG results- order received for 20 mg IV lasix once.
[2019-10-11] MEDS: Insulin Reg 100 units Premix 100 ML IVPB SCH ×2 (09:00→21:35)
[2019-10-11] MEDS: Levemir Flexpen SUBQ SCH ×2 (09:14→17:28)
--- NOTE | 2019-10-11 09:31 | Diagnostic Imaging Report ---
EXAM: XR Chest, 1 View CLINICAL HISTORY: F/U TECHNIQUE: Frontal view of the chest. COMPARISON: Chest x-ray 10/10/19 FINDINGS: Lungs: Right mid to lower lung consolidation, similar. Diffuse bilateral interstitial thickening and mild opacities, similar. Pleural space: Query small right pleural effusion. No pneumothorax. Heart: Unremarkable. No cardiomegaly. Mediastinum: Unremarkable. Bones/joints: Unremarkable. Tubes, lines and devices: Stable endotracheal tube and NG tube. IMPRESSION: No significant interval change.
--- NOTE | 2019-10-11 09:54 | General Progress Note ---
Assessment/Plan Problem List: (1) COVID-19 ICD Codes: U07.1 - COVID-19 SNOMED: 866885044 (2) Diabetes ICD Codes: E11.9 - Type 2 diabetes mellitus without complications SNOMED: 87951445 (3) Pneumonia ICD Codes: J18.9 - Pneumonia, unspecified organism SNOMED: 104979590 Status: deteriorating Assessment/Plan: cont remdesivir per ID il6 blockade vent heparin drip pressors renal consult morphine and ativan tenuous/crtiical pulm/id appreciated Subjective ROS Limited/Unobtainable: Yes Constitutional: Reports: malaise, weakness HEENT: Reports: no symptoms Cardiovascular: Reports: no symptoms Respiratory: Reports: no symptoms Gastrointestinal/Abdominal: Reports: no symptoms Genitourinary: Reports: no symptoms Neurologic/Psychiatric: Reports: no symptoms Endocrine: Reports: no symptoms Hematologic/Lymphatic: Reports: no symptoms Allergies: Coded Allergies: SULFA (SULFONAMIDE ANTIBIOTICS) (Verified Allergy, Mild, Itching, 04/19/12 ) All Systems: reviewed and negative except above Subjective remains intubated. multiple pressors. max vent support 100% fio2. high peep. on heparin drip and iv steroids. on remdesivir. high blood sugars. Objective Last 24 Hour Vital Signs Date Time Temp Pulse Resp B/P (MAP) Pulse Ox O2 Delivery O2 Flow Rate FiO2 10/11/19 07:34 108 30 100 10/11/19 07:00 125/58 10/11/19 07:00 30 125/58 Mechanical Ventilator 100 10/11/19 07:00 108 30 125/58 (80) 87 10/11/19 06:30 111 30 122/54 (76) 90 10/11/19 06:15 106 30 135/58 (83) 89 10/11/19 06:00 98.3 105 30 146/55 (85) 83 10/11/19 06:00 146/55 10/11/19 06:00 146/55 10/11/19 06:00 30 146/55 Mechanical Ventilator 100 10/11/19 05:45 105 30 145/58 (87) 89 10/11/19 05:30 105 30 139/64 (89) 86 10/11/19 05:16 114/56 10/11/19 05:15 108 30 134/60 (84) 85 10/11/19 05:11 108 30 122/59 (80) 84 10/11/19 05:00 109 30 89/44 (59) 85 10/11/19 05:00 134/60 10/11/19 05:00 134/60 10/11/19 05:00 30 134/60 Mechanical Ventilator 100 10/11/19 04:45 109 30 126/58 (80) 85 10/11/19 04:30 110 30 116/43 (67) 83 10/11/19 04:15 110 30 120/48 (72) 83 10/11/19 04:00 Mechanical Ventilator 10/11/19 04:00 114/56 10/11/19 04:00 114/56 10/11/19 04:00 30 114/56 Mechanical Ventilator 100 10/11/19 04:00 100 10/11/19 04:00 98.5 109 30 114/56 (75) 81 10/11/19 03:45 109 30 114/54 (74) 79 10/11/19 03:30 108 30 112/66 (81) 100 10/11/19 03:25 109 30 100 10/11/19 03:19 108 10/11/19 03:15 105 30 129/46 (73) 100 10/11/19 03:00 122/22 10/11/19 03:00 122/22 10/11/19 03:00 30 122/22 Mechanical Ventilator 100 10/11/19 03:00 106 30 122/22 (55) 100 10/11/19 02:45 105 30 116/46 (69) 100 10/11/19 02:30 107 30 107/58 (74) 100 10/11/19 02:15 109 30 99/41 (60) 100 10/11/19 02:00 112 30 115/95 (102) 100 10/11/19 02:00 115/95 10/11/19 02:00 115/95 10/11/19 02:00 30 115/95 Mechanical Ventilator 100 10/11/19 01:56 124/58 10/11/19 01:30 121 30 124/58 (80) 100 10/11/19 01:15 122 30 140/72 (94) 100 10/11/19 01:13 122 30 137/57 (83) 100 10/11/19 01:00 140/53 10/11/19 01:00 140/53 10/11/19 01:00 30 140/53 Mechanical Ventilator 100 10/11/19 01:00 123 30 140/53 (82) 100 10/11/19 00:33 107/28 10/11/19 00:32 30 107/289 Mechanical Ventilator 100 10/11/19 00:30 119 24 120/53 (75) 100 10/11/19 00:30 107/28 10/11/19 00:30 107/28 10/11/19 00:23 114 30 107/28 (54) 100 10/11/19 00:15 115 26 111/30 (57) 100 10/11/19 00:00 Mechanical Ventilator 10/11/19 00:00 100 10/11/19 00:00 100/33 10/11/19 00:00 100/33 10/11/19 00:00 30 100/33 Mechanical Ventilator 100 10/11/19 00:00 98.1 115 25 108/50 (69) 100 10/10/19 23:45 114 30 100/33 (55) 100 10/10/19 23:30 115 30 101/54 (70) 100 10/10/19 23:15 118 23 110/44 (66) 100 10/10/19 23:15 114 30 100 10/10/19 23:12 113 10/10/19 23:00 112 30 123/50 (74) 84 10/10/19 23:00 123/50 10/10/19 23:00 123/50 10/10/19 23:00 30 123/50 Mechanical Ventilator 100 10/10/19 22:45 110 30 131/52 (78) 85 10/10/19 22:30 114 30 124/54 (77) 85 10/10/19 22:15 97.8 115 30 121/54 (76) 85 10/10/19 22:00 115 30 118/51 (73) 85 10/10/19 22:00 118/51 10/10/19 22:00 118/51 10/10/19 22:00 30 118/51 Mechanical Ventilator 100 10/10/19 21:30 113 30 118/65 (82) 84 10/10/19 21:15 113 12 130/59 (82) 85 10/10/19 21:00 126/55 10/10/19 21:00 126/55 10/10/19 21:00 30 126/55 Mechanical Ventilator 100 10/10/19 21:00 114 30 130/54 (79) 85 10/10/19 20:42 77/31 10/10/19 20:30 114 30 126/59 (81) 84 10/10/19 20:15 114 30 126/61 (82) 88 10/10/19 20:00 Mechanical Ventilator 10/10/19 20:00 97.6 109 29 107/56 (73) 67 10/10/19 20:00 120/67 10/10/19 20:00 120/67 10/10/19 20:00 30 120/67 Mechanical Ventilator 100 10/10/19 20:00 100 10/10/19 19:55 108 27 88/55 (66) 69 10/10/19 19:45 100 10/10/19 19:41 133 10/10/19 19:30 132 28 168/35 (79) 100 10/10/19 19:19 77/31 10/10/19 19:15 130 28 124/43 (70) 100 10/10/19 19:01 130 28 100 10/10/19 19:00 101 27 80/46 (57) 79 10/10/19 19:00 80/46 10/10/19 19:00 27 80/46 Endotracheal Tube 100 10/10/19 18:45 108 28 81/47 (58) 84 10/10/19 18:39 77/31 10/10/19 18:30 106 22 77/31 (46) 79 10/10/19 18:15 97 19 77/38 (51) 66 10/10/19 18:00 86 20 111/79 (90) 72 10/10/19 18:00 111/79 10/10/19 18:00 25 111/79 Endotracheal Tube 100 10/10/19 17:45 100 10/10/19 17:30 107 28 72/34 (47) 76 10/10/19 17:00 96/44 10/10/19 17:00 21 72/34 Endotracheal Tube 100 10/10/19 17:00 115 28 96/44 (61) 76 10/10/19 16:30 117 22 106/55 (72) 76 10/10/19 16:27 98.7 10/10/19 16:00 118 6/13/20 16:00 Mechanical Ventilator 10/10/19 16:00 97/49 10/10/19 16:00 26 97/49 Endotracheal Tube 100 10/10/19 16:00 117 24 97/49 (65) 75 10/10/19 15:30 118 26 101/54 (70) 74 10/10/19 15:00 96/50 10/10/19 15:00 26 96/50 Endotracheal Tube 100 10/10/19 15:00 119 26 96/50 (65) 71 10/10/19 14:38 118 27 100 10/10/19 14:30 119 26 88/47 (61) 71 10/10/19 14:00 124 29 87/56 (66) 71 10/10/19 14:00 87/56 10/10/19 14:00 29 87/56 Endotracheal Tube 100 10/10/19 13:30 126 29 98/58 (71) 77 10/10/19 13:00 91/47 10/10/19 13:00 30 91/47 Endotracheal Tube 100 10/10/19 13:00 130 30 91/47 (62) 80 10/10/19 12:57 95/52 10/10/19 12:45 131 31 95/52 (66) 84 10/10/19 12:40 100 10/10/19 12:30 132 31 93/44 (60) 82 10/10/19 12:00 Mechanical Ventilator 10/10/19 12:00 100 10/10/19 12:00 100.9 140 31 89/60 (70) 99 10/10/19 12:00 34 89/60 Endotracheal Tube 100 10/10/19 11:30 140 30 91/44 (60) 97 10/10/19 11:23 100.8 10/10/19 11:20 130 30 100 10/10/19 11:00 146 31 97/55 (69) 97 10/10/19 11:00 31 96/52 Endotracheal Tube 100 10/10/19 10:30 150 33 96/56 (69) 80 10/10/19 10:00 37 81/49 Endotracheal Tube 100 10/10/19 10:00 144 37 90/41 (57) 80 Intake and Output 10/10/19 10/11/19 19:00 07:00 Intake Total 1747.50 ml 2606.0788 ml Output Total 440 ml 1800 ml Balance 1307.50 ml 806.0788 ml IV Total 1437.50 ml 2606.0788 ml Tube Feeding 310 ml Output Urine Total 440 ml 1800 ml Laboratory Tests 10/10/19 12:00: Arterial Blood pH 7.132*L, Arterial Blood Partial Pressure CO2 78.6*H, Arterial Blood Partial Pressure O2 46.4*L, Arterial Blood HCO3 25.7, Arterial Blood Oxygen Saturation 72.6*L, Arterial Blood Base Excess -4.7L, Sadi Test Positive 10/10/19 15:00: Arterial Blood pH 7.108*L, Arterial Blood Partial Pressure CO2 82.3*H, Arterial Blood Partial Pressure O2 38.7*L, Arterial Blood HCO3 25.4, Arterial Blood Oxygen Saturation 61.2*L, Arterial Blood Base Excess -5.5L, Sadi Test Positive 10/10/19 18:49: Arterial Blood pH 7.060*L, Arterial Blood Partial Pressure CO2 87.0*H, Arterial Blood Partial Pressure O2 45.0*L, Arterial Blood HCO3 24.1, Arterial Blood Oxygen Saturation 70.5*L, Arterial Blood Base Excess -7.5L, Sadi Test Positive 10/10/19 19:25: Activated Partial Thromboplast Time 28 10/10/19 21:01: Arterial Blood pH 7.104*L, Arterial Blood Partial Pressure CO2 78.6*H, Arterial Blood Partial Pressure O2 64.9L, Arterial Blood HCO3 24.1, Arterial Blood Oxygen Saturation 89.1*L, Arterial Blood Base Excess -6.7L, Sadi Test 10/11/19 02:00: Activated Partial Thromboplast Time 60H 10/11/19 04:00: White Blood Count 9.8, Red Blood Count 3.74L, Hemoglobin 11.0L, Hematocrit 37.7 , Mean Corpuscular Volume 101H, Mean Corpuscular Hemoglobin 29.4, Mean Corpuscular Hemoglobin Concent 29.1L, Red Cell Distribution Width 14.3, Platelet Count 121L, Mean Platelet Volume 9.4, Neutrophils (%) (Auto) 78.0H, Lymphocytes (%) (Auto) 15.3L, Monocytes (%) (Auto) 4.8, Eosinophils (%) (Auto) 0.9, Basophils (%) (Auto) 1.0, Sodium Level 138, Potassium Level 3.4L, Chloride Level 98, Carbon Dioxide Level 28, Anion Gap 12, Blood Urea Nitrogen 26H, Creatinine 1.6#H, Estimat Glomerular Filtration Rate 42.3, Glucose Level 612#*H , Calcium Level 7.6L, Total Bilirubin 0.6, Aspartate Amino Transf (AST/SGOT) 76H , Alanine Aminotransferase (ALT/SGPT) 27, Alkaline Phosphatase 112, Troponin I 0.170H, Total Protein 5.6L, Albumin 2.1L, Globulin 3.5, Albumin/Globulin Ratio 0.6L 10/11/19 07:20: Arterial Blood pH 7.204*L, Arterial Blood Partial Pressure CO2 75.5*H, Arterial Blood Partial Pressure O2 62.2L, Arterial Blood HCO3 29.1H, Arterial Blood Oxygen Saturation 89.4*L, Arterial Blood Base Excess -0.5, Sadi Test Positive Height (Feet): 5 Height (Inches): 5.00 Weight (Pounds): 316 Objective General Appearance: WD/WN, orally intubated Neck: supple Cardiovascular: normal rate Respiratory/Chest: lungs clear Abdomen: normal bowel sounds, non tender, soft Josh Farnsworth MD Oct 11, 2019 09:54
--- NOTE | 2019-10-11 10:00 | NUR ---
NURSE NOTES: Pt repositioned, oral care provided, no distress noted. vasopressin gtt off at 0900 - currently titrating down levophed and fentanyl.
--- NOTE | 2019-10-11 10:11 | Pulmonolgy Critical Care Note ---
Critical Care - Asmt/Plan Assessment/Plan: Pulmonary CCM Progress Note Assessment/Plan COVID+ ARDS worsening hypoxemic respiratory failure, on bicarbonate gtt, on insulin gtt, multiple pressors,, worsening renal function sinus tachycardia PLAN vent support adjusted/FIO2 100% PEEP at 20, RR increased, sp central line CXR noted, no PTX ICU care ID follow up , steroids started, on remdesavir Diurese PRN follow up ABG and CXR for change very critical feeds proning as able medications/laboratory data/nursing notes/ICU care reviewed in detail note reviewed and edited care discussed with RN and RT ICU time spent >40 minutes Critical Care - Subjective Interval Events: remains critical on 100% no improvement sedated ROS Limited/Unobtainable: Yes Condition: critical EKG Rhythm: Sinus Tachycardia Critical Care - Objective ET-Tube: 7.5 ET Position: 26 Vital Signs Noted Laboratory Tests Noted Test 10/08/19 09:17 10/09/19 04:45 10/09/19 08:24 Arterial Blood pH 7.345 (7.350-7.450) 7.330 (7.350-7.450) Arterial Blood Partial Pressure CO2 49.3 mmHg (35.0-45.0) H 59.1 mmHg (35.0-45.0) *H Arterial Blood Partial Pressure O2 75.1 mmHg (75.0-100.0) 51.7 mmHg (75.0-100.0) L Arterial Blood HCO3 26.3 mmol/L (22.0-26.0) H 30.5 mmol/L (22.0-26.0) H Arterial Blood Oxygen Saturation 93.8 % (95-100) L 85.8 % (95-100) *L Arterial Blood Base Excess 0.1 (-2-2) 3.2 (-2-2) H Sadi Test Positive Positive White Blood Count 9.5 K/UL (4.8-10.8) Red Blood Count 3.93 M/UL (4.20-5.40) L Hemoglobin 11.6 G/DL (12.0-16.0) L Hematocrit 37.1 % (37.0-47.0) Mean Corpuscular Volume 94 FL (80-99) # Mean Corpuscular Hemoglobin 29.5 PG (27.0-31.0) Mean Corpuscular Hemoglobin Concent 31.2 G/DL (32.0-36.0) L Red Cell Distribution Width 12.3 % (11.6-14.8) Platelet Count 213 K/UL (150-450) Mean Platelet Volume 6.6 FL (6.5-10.1) Neutrophils (%) (Auto) 74.7 % (45.0-75.0) Lymphocytes (%) (Auto) 19.9 % (20.0-45.0) L Monocytes (%) (Auto) 4.8 % (1.0-10.0) Eosinophils (%) (Auto) 0.1 % (0.0-3.0) Basophils (%) (Auto) 0.5 % (0.0-2.0) Sodium Level 139 MMOL/L (136-145) Potassium Level 3.7 MMOL/L (3.5-5.1) Chloride Level 103 MMOL/L (98-107) Carbon Dioxide Level 30 MMOL/L (21-32) Anion Gap 7 mmol/L (5-15) Blood Urea Nitrogen 7 mg/dL (7-18) Creatinine 0.7 MG/DL (0.55-1.30) Estimat Glomerular Filtration Rate > 60 mL/min (>60) Glucose Level 295 MG/DL (74-106) H Calcium Level 8.2 MG/DL (8.5-10.1) L Total Bilirubin 0.9 MG/DL (0.2-1.0) Direct Bilirubin 0.3 MG/DL (0.0-0.3) Aspartate Amino Transf (AST/SGOT) 63 U/L (15-37) H Alanine Aminotransferase (ALT/SGPT) 26 U/L (12-78) Alkaline Phosphatase 85 U/L (46-116) Total Protein 6.7 G/DL (6.4-8.2) Albumin 2.2 G/DL (3.4-5.0) L Globulin 4.5 g/dL Albumin/Globulin Ratio 0.5 (1.0-2.7) L Triglycerides Level 179 MG/DL (30-150) H Objective: deferred due to COVID Micro: Microbiology Date/Time Source Procedure Growth Status 10/08/19 06:00 Sputum Gram Stain - Final Resulted 10/08/19 06:00 Sputum Sputum Culture Pending Resulted Critical Care - Objective Last 24 Hour Vital Signs Date Time Temp Pulse Resp B/P (MAP) Pulse Ox O2 Delivery O2 Flow Rate FiO2 10/11/19 10:00 122/67 10/11/19 07:34 108 30 100 10/11/19 07:00 125/58 10/11/19 07:00 30 125/58 Mechanical Ventilator 100 10/11/19 07:00 108 30 125/58 (80) 87 10/11/19 06:30 111 30 122/54 (76) 90 10/11/19 06:15 106 30 135/58 (83) 89 10/11/19 06:00 98.3 105 30 146/55 (85) 83 10/11/19 06:00 146/55 10/11/19 06:00 146/55 10/11/19 06:00 30 146/55 Mechanical Ventilator 100 10/11/19 05:45 105 30 145/58 (87) 89 10/11/19 05:30 105 30 139/64 (89) 86 10/11/19 05:16 114/56 10/11/19 05:15 108 30 134/60 (84) 85 10/11/19 05:11 108 30 122/59 (80) 84 10/11/19 05:00 109 30 89/44 (59) 85 10/11/19 05:00 134/60 10/11/19 05:00 134/60 10/11/19 05:00 30 134/60 Mechanical Ventilator 100 10/11/19 04:45 109 30 126/58 (80) 85 10/11/19 04:30 110 30 116/43 (67) 83 10/11/19 04:15 110 30 120/48 (72) 83 10/11/19 04:00 Mechanical Ventilator 10/11/19 04:00 114/56 10/11/19 04:00 114/56 10/11/19 04:00 30 114/56 Mechanical Ventilator 100 10/11/19 04:00 100 10/11/19 04:00 98.5 109 30 114/56 (75) 81 10/11/19 03:45 109 30 114/54 (74) 79 10/11/19 03:30 108 30 112/66 (81) 100 10/11/19 03:25 109 30 100 10/11/19 03:19 108 10/11/19 03:15 105 30 129/46 (73) 100 10/11/19 03:00 122/22 10/11/19 03:00 122/22 10/11/19 03:00 30 122/22 Mechanical Ventilator 100 10/11/19 03:00 106 30 122/22 (55) 100 10/11/19 02:45 105 30 116/46 (69) 100 10/11/19 02:30 107 30 107/58 (74) 100 10/11/19 02:15 109 30 99/41 (60) 100 10/11/19 02:00 112 30 115/95 (102) 100 10/11/19 02:00 115/95 10/11/19 02:00 115/95 10/11/19 02:00 30 115/95 Mechanical Ventilator 100 10/11/19 01:56 124/58 10/11/19 01:30 121 30 124/58 (80) 100 10/11/19 01:15 122 30 140/72 (94) 100 10/11/19 01:13 122 30 137/57 (83) 100 10/11/19 01:00 140/53 10/11/19 01:00 140/53 10/11/19 01:00 30 140/53 Mechanical Ventilator 100 10/11/19 01:00 123 30 140/53 (82) 100 10/11/19 00:33 107/28 10/11/19 00:32 30 107/289 Mechanical Ventilator 100 10/11/19 00:30 119 24 120/53 (75) 100 10/11/19 00:30 107/28 10/11/19 00:30 107/28 10/11/19 00:23 114 30 107/28 (54) 100 10/11/19 00:15 115 26 111/30 (57) 100 10/11/19 00:00 Mechanical Ventilator 10/11/19 00:00 100 10/11/19 00:00 100/33 10/11/19 00:00 100/33 10/11/19 00:00 30 100/33 Mechanical Ventilator 100 10/11/19 00:00 98.1 115 25 108/50 (69) 100 10/10/19 23:45 114 30 100/33 (55) 100 10/10/19 23:30 115 30 101/54 (70) 100 10/10/19 23:15 118 23 110/44 (66) 100 10/10/19 23:15 114 30 100 10/10/19 23:12 113 10/10/19 23:00 112 30 123/50 (74) 84 10/10/19 23:00 123/50 10/10/19 23:00 123/50 10/10/19 23:00 30 123/50 Mechanical Ventilator 100 10/10/19 22:45 110 30 131/52 (78) 85 10/10/19 22:30 114 30 124/54 (77) 85 10/10/19 22:15 97.8 115 30 121/54 (76) 85 10/10/19 22:00 115 30 118/51 (73) 85 10/10/19 22:00 118/51 10/10/19 22:00 118/51 10/10/19 22:00 30 118/51 Mechanical Ventilator 100 10/10/19 21:30 113 30 118/65 (82) 84 10/10/19 21:15 113 12 130/59 (82) 85 10/10/19 21:00 126/55 10/10/19 21:00 126/55 10/10/19 21:00 30 126/55 Mechanical Ventilator 100 10/10/19 21:00 114 30 130/54 (79) 85 10/10/19 20:42 77/31 10/10/19 20:30 114 30 126/59 (81) 84 10/10/19 20:15 114 30 126/61 (82) 88 10/10/19 20:00 Mechanical Ventilator 10/10/19 20:00 97.6 109 29 107/56 (73) 67 10/10/19 20:00 120/67 10/10/19 20:00 120/67 10/10/19 20:00 30 120/67 Mechanical Ventilator 100 10/10/19 20:00 100 10/10/19 19:55 108 27 88/55 (66) 69 10/10/19 19:45 100 10/10/19 19:41 133 10/10/19 19:30 132 28 168/35 (79) 100 10/10/19 19:19 77/31 10/10/19 19:15 130 28 124/43 (70) 100 10/10/19 19:01 130 28 100 10/10/19 19:00 101 27 80/46 (57) 79 10/10/19 19:00 80/46 10/10/19 19:00 27 80/46 Endotracheal Tube 100 10/10/19 18:45 108 28 81/47 (58) 84 10/10/19 18:39 77/31 10/10/19 18:30 106 22 77/31 (46) 79 10/10/19 18:15 97 19 77/38 (51) 66 10/10/19 18:00 86 20 111/79 (90) 72 10/10/19 18:00 111/79 10/10/19 18:00 25 111/79 Endotracheal Tube 100 10/10/19 17:45 100 10/10/19 17:30 107 28 72/34 (47) 76 10/10/19 17:00 96/44 10/10/19 17:00 21 72/34 Endotracheal Tube 100 10/10/19 17:00 115 28 96/44 (61) 76 10/10/19 16:30 117 22 106/55 (72) 76 10/10/19 16:27 98.7 10/10/19 16:00 118 10/10/19 16:00 Mechanical Ventilator 10/10/19 16:00 97/49 10/10/19 16:00 26 97/49 Endotracheal Tube 100 10/10/19 16:00 117 24 97/49 (65) 75 10/10/19 15:30 118 26 101/54 (70) 74 10/10/19 15:00 96/50 10/10/19 15:00 26 96/50 Endotracheal Tube 100 10/10/19 15:00 119 26 96/50 (65) 71 10/10/19 14:38 118 27 100 10/10/19 14:30 119 26 88/47 (61) 71 10/10/19 14:00 124 29 87/56 (66) 71 10/10/19 14:00 87/56 10/10/19 14:00 29 87/56 Endotracheal Tube 100 10/10/19 13:30 126 29 98/58 (71) 77 10/10/19 13:00 91/47 10/10/19 13:00 30 91/47 Endotracheal Tube 100 10/10/19 13:00 130 30 91/47 (62) 80 10/10/19 12:57 95/52 10/10/19 12:45 131 31 95/52 (66) 84 10/10/19 12:40 100 10/10/19 12:30 132 31 93/44 (60) 82 10/10/19 12:00 Mechanical Ventilator 10/10/19 12:00 100 10/10/19 12:00 100.9 140 31 89/60 (70) 99 10/10/19 12:00 34 89/60 Endotracheal Tube 100 10/10/19 11:30 140 30 91/44 (60) 97 10/10/19 11:23 100.8 10/10/19 11:20 130 30 100 10/10/19 11:00 146 31 97/55 (69) 97 10/10/19 11:00 31 96/52 Endotracheal Tube 100 10/10/19 10:30 150 33 96/56 (69) 80 Accucheck: 612 Critical Care - Subjective ROS Limited/Unobtainable: No Condition: critical IV Access: central FI02: 100 Vent Support Breath Rate: 30 Vent Support Mode: AC Vent Tidal Volume: 550 Sputum Amount: Small PEEP: 22.0 PIP: 53 Tube Feeding Amount: 45 I&O: Intake and Output 10/10/19 10/11/19 19:00 07:00 Intake Total 1747.50 ml 2606.0788 ml Output Total 440 ml 1800 ml Balance 1307.50 ml 806.0788 ml IV Total 1437.50 ml 2606.0788 ml Tube Feeding 310 ml Output Urine Total 440 ml 1800 ml ET-Tube: 7.5 ET Position: 26 Christiano Blackman MD Oct 11, 2019 10:11
--- NOTE | 2019-10-11 10:35 | Consultation ---
History of Present Illness General Date patient seen: Oct 11, 2019 Chief Complaint: Generalized Weakness Present Illness HPI 44-year-old female currently intensive care unit COVID positive respiratory insufficiency on support. Recent central line placement. Since has deteriorated significantly now on heparin drip levo fed vasopressin. Surgery called to eval and assist with care. Patient seen, patient evaluated, chart reviewed. FiO2 100% PEEP 22 Allergies: Coded Allergies: SULFA (SULFONAMIDE ANTIBIOTICS) (Verified Allergy, Mild, Itching, 04/19/12 ) Medication History Scheduled Erythromycin Base (Erythromycin*), 1 APPLIC BOTH EYES QID Ofloxacin (Ofloxacin), 2 DROP OP Q6H Olopatadine (Patanol), 1 DROP OP BID Patient History Limited by: medical condition History Provided By: Medical Record, PMD Healthcare decision maker Resuscitation status Advanced Directive on File Past Medical/Surgical History Past Medical/Surgical History: (1) Acute lower urinary tract infection (2) Palpitations (3) threatened (4) abdominal pain in (5) threatened (6) Chest tightness or pressure (7) Knee strain (8) Leg pain, left (9) Knee strain (10) Knee strain (11) Nail avulsion of toe (12) Knee pain, left (13) Atypical pneumonia (14) Cellulitis of lower extremity (15) Peripheral edema (16) Upper respiratory infection (17) Conjunctivitis (18) Diabetes (19) COVID-19 (20) UTI (urinary tract infection) (21) Pneumonia (22) Vomiting Review of Systems ROS Narrative Cannot obtain given patient's current medical condition Physical Exam General Appearance: severe distress Lines, tubes and drains: central line HEENT: mucous membranes moist, other Neck: other Respiratory/Chest: on vent Cardiovascular/Chest: tachycardia Abdomen: soft, no organomegaly, no mass Genitourinary/Rectal: paige, other Extremities: inflammation, slow capillary refill Skin Exam: warm/dry Neurologic: unresponsiveness Last 24 Hour Vital Signs Date Time Temp Pulse Resp B/P (MAP) Pulse Ox O2 Delivery O2 Flow Rate FiO2 10/11/19 10:00 122/67 10/11/19 07:34 108 30 100 10/11/19 07:00 125/58 10/11/19 07:00 30 125/58 Mechanical Ventilator 100 10/11/19 07:00 108 30 125/58 (80) 87 10/11/19 06:30 111 30 122/54 (76) 90 10/11/19 06:15 106 30 135/58 (83) 89 10/11/19 06:00 98.3 105 30 146/55 (85) 83 10/11/19 06:00 146/55 10/11/19 06:00 146/55 10/11/19 06:00 30 146/55 Mechanical Ventilator 100 10/11/19 05:45 105 30 145/58 (87) 89 10/11/19 05:30 105 30 139/64 (89) 86 10/11/19 05:16 114/56 10/11/19 05:15 108 30 134/60 (84) 85 10/11/19 05:11 108 30 122/59 (80) 84 10/11/19 05:00 109 30 89/44 (59) 85 10/11/19 05:00 134/60 10/11/19 05:00 134/60 10/11/19 05:00 30 134/60 Mechanical Ventilator 100 10/11/19 04:45 109 30 126/58 (80) 85 10/11/19 04:30 110 30 116/43 (67) 83 10/11/19 04:15 110 30 120/48 (72) 83 10/11/19 04:00 Mechanical Ventilator 10/11/19 04:00 114/56 10/11/19 04:00 114/56 10/11/19 04:00 30 114/56 Mechanical Ventilator 100 10/11/19 04:00 100 10/11/19 04:00 98.5 109 30 114/56 (75) 81 10/11/19 03:45 109 30 114/54 (74) 79 10/11/19 03:30 108 30 112/66 (81) 100 10/11/19 03:25 109 30 100 10/11/19 03:19 108 10/11/19 03:15 105 30 129/46 (73) 100 10/11/19 03:00 122/22 10/11/19 03:00 122/22 10/11/19 03:00 30 122/22 Mechanical Ventilator 100 10/11/19 03:00 106 30 122/22 (55) 100 10/11/19 02:45 105 30 116/46 (69) 100 10/11/19 02:30 107 30 107/58 (74) 100 10/11/19 02:15 109 30 99/41 (60) 100 10/11/19 02:00 112 30 115/95 (102) 100 10/11/19 02:00 115/95 10/11/19 02:00 115/95 10/11/19 02:00 30 115/95 Mechanical Ventilator 100 10/11/19 01:56 124/58 10/11/19 01:30 121 30 124/58 (80) 100 10/11/19 01:15 122 30 140/72 (94) 100 10/11/19 01:13 122 30 137/57 (83) 100 10/11/19 01:00 140/53 10/11/19 01:00 140/53 10/11/19 01:00 30 140/53 Mechanical Ventilator 100 10/11/19 01:00 123 30 140/53 (82) 100 10/11/19 00:33 107/28 10/11/19 00:32 30 107/289 Mechanical Ventilator 100 10/11/19 00:30 119 24 120/53 (75) 100 10/11/19 00:30 107/28 10/11/19 00:30 107/28 10/11/19 00:23 114 30 107/28 (54) 100 10/11/19 00:15 115 26 111/30 (57) 100 10/11/19 00:00 Mechanical Ventilator 10/11/19 00:00 100 10/11/19 00:00 100/33 10/11/19 00:00 100/33 10/11/19 00:00 30 100/33 Mechanical Ventilator 100 10/11/19 00:00 98.1 115 25 108/50 (69) 100 10/10/19 23:45 114 30 100/33 (55) 100 10/10/19 23:30 115 30 101/54 (70) 100 10/10/19 23:15 118 23 110/44 (66) 100 10/10/19 23:15 114 30 100 10/10/19 23:12 113 10/10/19 23:00 112 30 123/50 (74) 84 10/10/19 23:00 123/50 10/10/19 23:00 123/50 10/10/19 23:00 30 123/50 Mechanical Ventilator 100 10/10/19 22:45 110 30 131/52 (78) 85 10/10/19 22:30 114 30 124/54 (77) 85 10/10/19 22:15 97.8 115 30 121/54 (76) 85 10/10/19 22:00 115 30 118/51 (73) 85 10/10/19 22:00 118/51 10/10/19 22:00 118/51 10/10/19 22:00 30 118/51 Mechanical Ventilator 100 10/10/19 21:30 113 30 118/65 (82) 84 10/10/19 21:15 113 12 130/59 (82) 85 10/10/19 21:00 126/55 10/10/19 21:00 126/55 10/10/19 21:00 30 126/55 Mechanical Ventilator 100 10/10/19 21:00 114 30 130/54 (79) 85 10/10/19 20:42 77/31 10/10/19 20:30 114 30 126/59 (81) 84 10/10/19 20:15 114 30 126/61 (82) 88 10/10/19 20:00 Mechanical Ventilator 10/10/19 20:00 97.6 109 29 107/56 (73) 67 10/10/19 20:00 120/67 10/10/19 20:00 120/67 10/10/19 20:00 30 120/67 Mechanical Ventilator 100 10/10/19 20:00 100 10/10/19 19:55 108 27 88/55 (66) 69 10/10/19 19:45 100 10/10/19 19:41 133 10/10/19 19:30 132 28 168/35 (79) 100 10/10/19 19:19 77/31 10/10/19 19:15 130 28 124/43 (70) 100 10/10/19 19:01 130 28 100 10/10/19 19:00 101 27 80/46 (57) 79 10/10/19 19:00 80/46 10/10/19 19:00 27 80/46 Endotracheal Tube 100 10/10/19 18:45 108 28 81/47 (58) 84 10/10/19 18:39 77/31 10/10/19 18:30 106 22 77/31 (46) 79 10/10/19 18:15 97 19 77/38 (51) 66 10/10/19 18:00 86 20 111/79 (90) 72 10/10/19 18:00 111/79 10/10/19 18:00 25 111/79 Endotracheal Tube 100 10/10/19 17:45 100 10/10/19 17:30 107 28 72/34 (47) 76 10/10/19 17:00 96/44 10/10/19 17:00 21 72/34 Endotracheal Tube 100 10/10/19 17:00 115 28 96/44 (61) 76 10/10/19 16:30 117 22 106/55 (72) 76 10/10/19 16:27 98.7 10/10/19 16:00 118 10/10/19 16:00 Mechanical Ventilator 10/10/19 16:00 97/49 10/10/19 16:00 26 97/49 Endotracheal Tube 100 10/10/19 16:00 117 24 97/49 (65) 75 10/10/19 15:30 118 26 101/54 (70) 74 10/10/19 15:00 96/50 10/10/19 15:00 26 96/50 Endotracheal Tube 100 10/10/19 15:00 119 26 96/50 (65) 71 10/10/19 14:38 118 27 100 10/10/19 14:30 119 26 88/47 (61) 71 10/10/19 14:00 124 29 87/56 (66) 71 10/10/19 14:00 87/56 10/10/19 14:00 29 87/56 Endotracheal Tube 100 10/10/19 13:30 126 29 98/58 (71) 77 10/10/19 13:00 91/47 10/10/19 13:00 30 91/47 Endotracheal Tube 100 10/10/19 13:00 130 30 91/47 (62) 80 10/10/19 12:57 95/52 10/10/19 12:45 131 31 95/52 (66) 84 10/10/19 12:40 100 10/10/19 12:30 132 31 93/44 (60) 82 10/10/19 12:00 Mechanical Ventilator 10/10/19 12:00 100 10/10/19 12:00 100.9 140 31 89/60 (70) 99 6/13/20 12:00 34 89/60 Endotracheal Tube 100 10/10/19 11:30 140 30 91/44 (60) 97 10/10/19 11:23 100.8 10/10/19 11:20 130 30 100 10/10/19 11:00 146 31 97/55 (69) 97 10/10/19 11:00 31 96/52 Endotracheal Tube 100 Intake and Output 10/10/19 10/11/19 19:00 07:00 Intake Total 1747.50 ml 2606.0788 ml Output Total 440 ml 1800 ml Balance 1307.50 ml 806.0788 ml IV Total 1437.50 ml 2606.0788 ml Tube Feeding 310 ml Output Urine Total 440 ml 1800 ml Laboratory Tests Test 10/10/19 12:00 10/10/19 15:00 10/10/19 18:49 10/10/19 19:25 Arterial Blood pH 7.132 (7.350-7.450) 7.108 (7.350-7.450) 7.060 (7.350-7.450) Arterial Blood Partial Pressure CO2 78.6 mmHg (35.0-45.0) *H 82.3 mmHg (35.0-45.0) *H 87.0 mmHg (35.0-45.0) *H Arterial Blood Partial Pressure O2 46.4 mmHg (75.0-100.0) 38.7 mmHg (75.0-100.0) 45.0 mmHg (75.0-100.0) Arterial Blood HCO3 25.7 mmol/L (22.0-26.0) 25.4 mmol/L (22.0-26.0) 24.1 mmol/L (22.0-26.0) Arterial Blood Oxygen Saturation 72.6 % (95-100) *L 61.2 % (95-100) *L 70.5 % (95-100) *L Arterial Blood Base Excess -4.7 (-2-2) L -5.5 (-2-2) L -7.5 (-2-2) L Sadi Test Positive Positive Positive Activated Partial Thromboplast Time 28 SEC (23-33) Test 10/10/19 21:01 10/11/19 02:00 10/11/19 04:00 10/11/19 07:20 Arterial Blood pH 7.104 (7.350-7.450) 7.204 (7.350-7.450) Arterial Blood Partial Pressure CO2 78.6 mmHg (35.0-45.0) *H 75.5 mmHg (35.0-45.0) *H Arterial Blood Partial Pressure O2 64.9 mmHg (75.0-100.0) L 62.2 mmHg (75.0-100.0) L Arterial Blood HCO3 24.1 mmol/L (22.0-26.0) 29.1 mmol/L (22.0-26.0) H Arterial Blood Oxygen Saturation 89.1 % (95-100) *L 89.4 % (95-100) *L Arterial Blood Base Excess -6.7 (-2-2) L -0.5 (-2-2) Sadi Test Positive Activated Partial Thromboplast Time 60 SEC (23-33) H White Blood Count 9.8 K/UL (4.8-10.8) Red Blood Count 3.74 M/UL (4.20-5.40) L Hemoglobin 11.0 G/DL (12.0-16.0) L Hematocrit 37.7 % (37.0-47.0) Mean Corpuscular Volume 101 FL (80-99) H Mean Corpuscular Hemoglobin 29.4 PG (27.0-31.0) Mean Corpuscular Hemoglobin Concent 29.1 G/DL (32.0-36.0) L Red Cell Distribution Width 14.3 % (11.6-14.8) Platelet Count 121 K/UL (150-450) L Mean Platelet Volume 9.4 FL (6.5-10.1) Neutrophils (%) (Auto) 78.0 % (45.0-75.0) H Lymphocytes (%) (Auto) 15.3 % (20.0-45.0) L Monocytes (%) (Auto) 4.8 % (1.0-10.0) Eosinophils (%) (Auto) 0.9 % (0.0-3.0) Basophils (%) (Auto) 1.0 % (0.0-2.0) Sodium Level 138 MMOL/L (136-145) Potassium Level 3.4 MMOL/L (3.5-5.1) L Chloride Level 98 MMOL/L (98-107) Carbon Dioxide Level 28 MMOL/L (21-32) Anion Gap 12 mmol/L (5-15) Blood Urea Nitrogen 26 mg/dL (7-18) H Creatinine 1.6 MG/DL (0.55-1.30) #H Estimat Glomerular Filtration Rate 42.3 mL/min (>60) Glucose Level 612 MG/DL (74-106) #*H Calcium Level 7.6 MG/DL (8.5-10.1) L Total Bilirubin 0.6 MG/DL (0.2-1.0) Aspartate Amino Transf (AST/SGOT) 76 U/L (15-37) H Alanine Aminotransferase (ALT/SGPT) 27 U/L (12-78) Alkaline Phosphatase 112 U/L (46-116) Troponin I 0.170 ng/mL (0.000-0.056) Total Protein 5.6 G/DL (6.4-8.2) L Albumin 2.1 G/DL (3.4-5.0) L Globulin 3.5 g/dL Albumin/Globulin Ratio 0.6 (1.0-2.7) L Test 10/11/19 09:30 Activated Partial Thromboplast Time Pending Height (Feet): 5 Height (Inches): 5.00 Weight (Pounds): 316 Medications Current Medications Medications (Trade) Dose Ordered Sig/Isa Route PRN Reason Start Time Stop Time Status Last Admin Dose Admin Acetaminophen (Tylenol) 650 mg Q4H PRN NG Temp >100.5/ PAIN 1-3 10/10/19 10:45 11/09/19 10:44 10/10/19 10:53 Acetaminophen (Tylenol) 650 mg Q4H PRN RECTAL FEVER 10/07/19 16:45 11/06/19 16:44 10/08/19 13:58 Ceftriaxone Sodium 1 gm/ Dextrose 55 ml @ 110 mls/hr Q24H IVPB 10/08/19 15:00 10/15/19 14:59 10/10/19 15:17 Chlorhexidine Gluconate (Cori-Hex 2%) 1 applic DAILY@2000 TOPIC 10/10/19 20:00 01/08/20 19:59 10/10/19 20:00 Dextrose (Dextrose 50%) 25 ml Q30M PRN IV Hypoglycemia 10/11/19 06:15 01/09/20 06:14 Dextrose (Dextrose 50%) 50 ml Q30M PRN IV Hypoglycemia 10/11/19 06:15 01/09/20 06:14 Dopamine HCl/ Dextrose 250 ml @ 0 mls/hr Q24H IV 10/10/19 19:00 01/08/20 18:59 10/11/19 01:56 Epinephrine 1 mg/ Dextrose 250 ml @ 0 mls/hr Q24H PRN IV For hypotension 10/10/19 19:00 11/09/19 18:59 Fentanyl Citrate 250 ml @ 0 mls/hr Q24H IV 10/10/19 07:55 01/08/20 07:54 10/11/19 00:32 Guaifenesin/ Dextromethorphan (Robitussin DM Syrup) 10 ml Q4H PRN ORAL For Cough 10/07/19 07:08 01/03/20 07:07 Heparin Sodium/ Dextrose 500 ml @ 48.742 mls/ hr ADJUST PER PROTOCOL IV 10/11/19 03:30 11/10/19 03:29 10/11/19 03:29 Insulin Aspart (NovoLOG) BEFORE MEALS AND HS SUBQ 10/11/19 06:30 01/09/20 06:29 Insulin Detemir (Levemir) 12 units BID SUBQ 10/11/19 09:00 01/06/20 20:59 10/11/19 09:14 Insulin Human (Reg)/Sodium Chloride 100 ml @ 6 mls/hr Q24H IVPB 10/11/19 09:00 10/12/19 08:03 10/11/19 09:00 Lorazepam (Ativan 2mg/ml 1ml) 2 mg Q2H PRN IV anxiety/agitation 10/10/19 07:30 10/17/19 07:29 10/11/19 00:19 Methylprednisolone Sodium Succinate (Solu-MEDROL) 40 mg EVERY 6 HOURS IVP 10/10/19 19:15 01/08/20 19:14 10/11/19 05:16 Morphine Sulfate (Morphine Sulfate) 1 mg Q4H PRN IVP For Pain 10/07/19 08:45 10/14/19 08:44 10/10/19 06:20 Norepinephrine Bitartrate 8 mg/ Dextrose 508 ml @ 0 mls/hr Q24H IV 10/10/19 21:00 11/09/19 20:59 10/11/19 10:00 Ondansetron HCl (Zofran) 4 mg Q4H PRN IVP Nausea & Vomiting 10/07/19 07:45 11/03/19 23:44 Potassium Chloride 100 ml @ 50 mls/hr Q2H IVPB 10/11/19 09:00 10/11/19 12:59 10/11/19 09:00 Remdesivir 100 mg/ Sodium Chloride 250 ml @ 250 mls/hr Q24H IV 10/07/19 17:00 10/15/19 17:59 10/10/19 16:47 Sodium Bicarbonate 150 ml/Dextrose 1,150 ml @ 50 mls/hr Q23H IV 10/10/19 22:00 11/09/19 21:59 10/10/19 22:31 Vasopressin 100 units/Sodium Chloride 100 ml @ 0 mls/hr Q24H PRN IV For hypotension 10/10/19 19:00 11/09/19 18:59 10/10/19 21:43 Assessment/Plan Problem List: (1) Severe sepsis Assessment & Plan: Patient coded positive restaurant insufficiency on vent support. Acute decline. FiO2 100% PEEP 22 Chest x-ray noted On heparin drip On pressors Levophed vasopressin On antibiotics Unfortunately patient rapidly declining. We will continue with maximal medical efforts. Considerations of prone positioning but currently patient too unstable We will follow the recommendations thank you ICD Codes: A41.9 - Sepsis, unspecified organism; R65.20 - Severe sepsis without septic shock SNOMED: [id number] (2) COVID-19 ICD Codes: U07.1 - COVID-19 SNOMED: [id number] Abdoul Burt Oct 11, 2019 10:35
--- NOTE | 2019-10-11 11:00 | NUR ---
NURSE NOTES: ptt NOTED 1489 - HEPARIN GTT DRIP WILL BE HELD FOR 1 HOUR AND RATE DECREASED BY 3 UNITS PER HR. INSULIN NOVOLOG HELD PER DR MARIA'S ORDER (HOLD WHILE PT IS ON INSULIN GTT). Addendum: 10/11/19 at 1439 by Emily Esqueda RN Amendment: PTT noted 149 sec Addendum: 10/11/19 at 1441 by Emily Esqueda RN Late entry: Pt now noted moving all extremities (RASS -5) however, does not open eyes when called by name.
[2019-10-11] MEDS: Heparin 25,000u/D5W 500ml 500 ML IV SCH ×2 (12:00→15:04)
--- NOTE | 2019-10-11 12:00 | NUR ---
NURSE NOTES: Spoke to Ross from pharmacy, heparin label not brought up yet; however, heparin drip started at this time with enw rate of 14 units/kg/hr (OK with Ross to go ahead and restart without scanning label until ti is brought up).
--- NOTE | 2019-10-11 12:53 | Infectious Diseases Prog Note ---
Assessment/Plan Assessment/Plan A 1. COVID 19 pneumonia 2. diabetes mellitus with hyperglcemia 3. Hypoxic respiratory failure 4. Morbid obesity 5. ARDS 6. Septic shock 7. Acute renal failure P 1. Continue Remdesivir EUA 2. Continue Rocephin 3. continue isolation 4. Case was D/W RN Subjective ROS Limited/Unobtainable: Yes Constitutional: Denies: fever Cardiovascular: Reports: other - on Levophed dose is decreasing Allergies: Coded Allergies: SULFA (SULFONAMIDE ANTIBIOTICS) (Verified Allergy, Mild, Itching, 04/19/12 ) Objective Vital Signs Last 24 Hour Vital Signs Date Time Temp Pulse Resp B/P (MAP) Pulse Ox O2 Delivery O2 Flow Rate FiO2 10/11/19 12:00 133/61 10/11/19 12:00 30 133/61 Mechanical Ventilator 100 10/11/19 12:00 Mechanical Ventilator Mechanical Ventilator 10/11/19 12:00 98 15 140/63 (88) 95 10/11/19 12:00 99 10/11/19 11:45 98 15 127/66 (86) 90 10/11/19 11:30 100 10/11/19 11:30 100 15 136/66 (89) 80 10/11/19 11:15 97 15 134/62 (86) 100 10/11/19 11:06 100 30 100 10/11/19 11:00 99 28 127/68 (87) 100 10/11/19 11:00 134/62 10/11/19 11:00 30 134/62 Mechanical Ventilator 100 10/11/19 10:45 101 30 128/62 (84) 100 10/11/19 10:30 101 26 123/66 (85) 100 10/11/19 10:15 106 29 131/58 (82) 100 10/11/19 10:00 104 28 122/67 (85) 100 10/11/19 10:00 122/67 10/11/19 10:00 30 131/58 Mechanical Ventilator 100 10/11/19 10:00 90 10/11/19 09:45 103 22 122/66 (84) 100 10/11/19 09:34 102 15 115/59 (77) 100 10/11/19 09:30 102 29 90/29 (49) 87 10/11/19 09:15 102 22 133/68 (89) 90 10/11/19 09:00 102 19 134/66 (88) 91 10/11/19 09:00 133/68 10/11/19 09:00 30 133/68 Mechanical Ventilator 100 10/11/19 08:45 101 19 144/65 (91) 91 10/11/19 08:30 102 21 145/71 (95) 100 10/11/19 08:15 103 18 142/63 (89) 10/11/19 08:00 97.7 105 15 128/64 (85) 100 10/11/19 08:00 100 10/11/19 08:00 142/63 10/11/19 08:00 30 142/63 Mechanical Ventilator 100 10/11/19 08:00 Mechanical Ventilator Mechanical Ventilator 10/11/19 08:00 104 10/11/19 07:45 106 21 145/61 (89) 100 10/11/19 07:34 108 30 100 10/11/19 07:30 109 25 132/62 (85) 99 10/11/19 07:15 105 19 160/70 (100) 97 10/11/19 07:00 125/58 10/11/19 07:00 30 125/58 Mechanical Ventilator 100 10/11/19 07:00 108 30 125/58 (80) 87 10/11/19 06:30 111 30 122/54 (76) 90 10/11/19 06:15 106 30 135/58 (83) 89 10/11/19 06:00 98.3 105 30 146/55 (85) 83 10/11/19 06:00 146/55 10/11/19 06:00 146/55 10/11/19 06:00 30 146/55 Mechanical Ventilator 100 10/11/19 05:45 105 30 145/58 (87) 89 10/11/19 05:30 105 30 139/64 (89) 86 10/11/19 05:16 114/56 10/11/19 05:15 108 30 134/60 (84) 85 10/11/19 05:11 108 30 122/59 (80) 84 10/11/19 05:00 109 30 89/44 (59) 85 10/11/19 05:00 134/60 10/11/19 05:00 134/60 10/11/19 05:00 30 134/60 Mechanical Ventilator 100 10/11/19 04:45 109 30 126/58 (80) 85 10/11/19 04:30 110 30 116/43 (67) 83 10/11/19 04:15 110 30 120/48 (72) 83 10/11/19 04:00 Mechanical Ventilator 10/11/19 04:00 114/56 10/11/19 04:00 114/56 10/11/19 04:00 30 114/56 Mechanical Ventilator 100 10/11/19 04:00 100 10/11/19 04:00 98.5 109 30 114/56 (75) 81 10/11/19 03:45 109 30 114/54 (74) 79 10/11/19 03:30 108 30 112/66 (81) 100 10/11/19 03:25 109 30 100 10/11/19 03:19 108 10/11/19 03:15 105 30 129/46 (73) 100 10/11/19 03:00 122/22 10/11/19 03:00 122/22 10/11/19 03:00 30 122/22 Mechanical Ventilator 100 10/11/19 03:00 106 30 122/22 (55) 100 10/11/19 02:45 105 30 116/46 (69) 100 10/11/19 02:30 107 30 107/58 (74) 100 10/11/19 02:15 109 30 99/41 (60) 100 10/11/19 02:00 112 30 115/95 (102) 100 10/11/19 02:00 115/95 10/11/19 02:00 115/95 10/11/19 02:00 30 115/95 Mechanical Ventilator 100 10/11/19 01:56 124/58 10/11/19 01:30 121 30 124/58 (80) 100 10/11/19 01:15 122 30 140/72 (94) 100 10/11/19 01:13 122 30 137/57 (83) 100 10/11/19 01:00 140/53 10/11/19 01:00 140/53 10/11/19 01:00 30 140/53 Mechanical Ventilator 100 10/11/19 01:00 123 30 140/53 (82) 100 10/11/19 00:33 107/28 10/11/19 00:32 30 107/289 Mechanical Ventilator 100 10/11/19 00:30 119 24 120/53 (75) 100 10/11/19 00:30 107/28 10/11/19 00:30 107/28 10/11/19 00:23 114 30 107/28 (54) 100 10/11/19 00:15 115 26 111/30 (57) 100 10/11/19 00:00 Mechanical Ventilator 10/11/19 00:00 100 10/11/19 00:00 100/33 10/11/19 00:00 100/33 10/11/19 00:00 30 100/33 Mechanical Ventilator 100 10/11/19 00:00 98.1 115 25 108/50 (69) 100 10/10/19 23:45 114 30 100/33 (55) 100 10/10/19 23:30 115 30 101/54 (70) 100 10/10/19 23:15 118 23 110/44 (66) 100 10/10/19 23:15 114 30 100 10/10/19 23:12 113 10/10/19 23:00 112 30 123/50 (74) 84 10/10/19 23:00 123/50 10/10/19 23:00 123/50 10/10/19 23:00 30 123/50 Mechanical Ventilator 100 10/10/19 22:45 110 30 131/52 (78) 85 10/10/19 22:30 114 30 124/54 (77) 85 10/10/19 22:15 97.8 115 30 121/54 (76) 85 10/10/19 22:00 115 30 118/51 (73) 85 10/10/19 22:00 118/51 10/10/19 22:00 118/51 10/10/19 22:00 30 118/51 Mechanical Ventilator 100 10/10/19 21:30 113 30 118/65 (82) 84 10/10/19 21:15 113 12 130/59 (82) 85 10/10/19 21:00 126/55 10/10/19 21:00 126/55 10/10/19 21:00 30 126/55 Mechanical Ventilator 100 10/10/19 21:00 114 30 130/54 (79) 85 10/10/19 20:42 77/31 10/10/19 20:30 114 30 126/59 (81) 84 10/10/19 20:15 114 30 126/61 (82) 88 10/10/19 20:00 Mechanical Ventilator 10/10/19 20:00 97.6 109 29 107/56 (73) 67 10/10/19 20:00 120/67 10/10/19 20:00 120/67 10/10/19 20:00 30 120/67 Mechanical Ventilator 100 10/10/19 20:00 100 10/10/19 19:55 108 27 88/55 (66) 69 10/10/19 19:45 100 10/10/19 19:41 133 10/10/19 19:30 132 28 168/35 (79) 100 10/10/19 19:19 77/31 10/10/19 19:15 130 28 124/43 (70) 100 10/10/19 19:01 130 28 100 10/10/19 19:00 101 27 80/46 (57) 79 10/10/19 19:00 80/46 10/10/19 19:00 27 80/46 Endotracheal Tube 100 10/10/19 18:45 108 28 81/47 (58) 84 10/10/19 18:39 77/31 10/10/19 18:30 106 22 77/31 (46) 79 10/10/19 18:15 97 19 77/38 (51) 66 10/10/19 18:00 86 20 111/79 (90) 72 10/10/19 18:00 111/79 10/10/19 18:00 25 111/79 Endotracheal Tube 100 10/10/19 17:45 100 10/10/19 17:30 107 28 72/34 (47) 76 10/10/19 17:00 96/44 10/10/19 17:00 21 72/34 Endotracheal Tube 100 10/10/19 17:00 115 28 96/44 (61) 76 10/10/19 16:30 117 22 106/55 (72) 76 10/10/19 16:27 98.7 10/10/19 16:00 118 10/10/19 16:00 Mechanical Ventilator 10/10/19 16:00 97/49 10/10/19 16:00 26 97/49 Endotracheal Tube 100 10/10/19 16:00 117 24 97/49 (65) 75 10/10/19 15:30 118 26 101/54 (70) 74 10/10/19 15:00 96/50 10/10/19 15:00 26 96/50 Endotracheal Tube 100 10/10/19 15:00 119 26 96/50 (65) 71 10/10/19 14:38 118 27 100 10/10/19 14:30 119 26 88/47 (61) 71 10/10/19 14:00 124 29 87/56 (66) 71 10/10/19 14:00 87/56 10/10/19 14:00 29 87/56 Endotracheal Tube 100 10/10/19 13:30 126 29 98/58 (71) 77 10/10/19 13:00 91/47 10/10/19 13:00 30 91/47 Endotracheal Tube 100 10/10/19 13:00 130 30 91/47 (62) 80 10/10/19 12:57 95/52 Height (Feet): 5 Height (Inches): 5.00 Weight (Pounds): 317 HEENT: mucous membranes moist, other - orally intubated Respiratory/Chest: other - on ventilator, QKN5=883% Cardiovascular: tachycardia Abdomen: soft, non tender, other - NG tube Neurologic/Psychiatric: unresponsiveness Laboratory Tests Test 10/10/19 15:00 10/10/19 18:49 10/10/19 19:25 10/10/19 21:01 Arterial Blood pH 7.108 (7.350-7.450) 7.060 (7.350-7.450) 7.104 (7.350-7.450) Arterial Blood Partial Pressure CO2 82.3 mmHg (35.0-45.0) *H 87.0 mmHg (35.0-45.0) *H 78.6 mmHg (35.0-45.0) *H Arterial Blood Partial Pressure O2 38.7 mmHg (75.0-100.0) 45.0 mmHg (75.0-100.0) 64.9 mmHg (75.0-100.0) L Arterial Blood HCO3 25.4 mmol/L (22.0-26.0) 24.1 mmol/L (22.0-26.0) 24.1 mmol/L (22.0-26.0) Arterial Blood Oxygen Saturation 61.2 % (95-100) *L 70.5 % (95-100) *L 89.1 % (95-100) *L Arterial Blood Base Excess -5.5 (-2-2) L -7.5 (-2-2) L -6.7 (-2-2) L Sadi Test Positive Positive Activated Partial Thromboplast Time 28 SEC (23-33) Test 10/11/19 02:00 10/11/19 04:00 10/11/19 07:20 10/11/19 09:30 Activated Partial Thromboplast Time 60 SEC (23-33) H 149 SEC (23-33) H White Blood Count 9.8 K/UL (4.8-10.8) Red Blood Count 3.74 M/UL (4.20-5.40) L Hemoglobin 11.0 G/DL (12.0-16.0) L Hematocrit 37.7 % (37.0-47.0) Mean Corpuscular Volume 101 FL (80-99) H Mean Corpuscular Hemoglobin 29.4 PG (27.0-31.0) Mean Corpuscular Hemoglobin Concent 29.1 G/DL (32.0-36.0) L Red Cell Distribution Width 14.3 % (11.6-14.8) Platelet Count 121 K/UL (150-450) L Mean Platelet Volume 9.4 FL (6.5-10.1) Neutrophils (%) (Auto) 78.0 % (45.0-75.0) H Lymphocytes (%) (Auto) 15.3 % (20.0-45.0) L Monocytes (%) (Auto) 4.8 % (1.0-10.0) Eosinophils (%) (Auto) 0.9 % (0.0-3.0) Basophils (%) (Auto) 1.0 % (0.0-2.0) Sodium Level 138 MMOL/L (136-145) Potassium Level 3.4 MMOL/L (3.5-5.1) L Chloride Level 98 MMOL/L (98-107) Carbon Dioxide Level 28 MMOL/L (21-32) Anion Gap 12 mmol/L (5-15) Blood Urea Nitrogen 26 mg/dL (7-18) H Creatinine 1.6 MG/DL (0.55-1.30) #H Estimat Glomerular Filtration Rate 42.3 mL/min (>60) Glucose Level 612 MG/DL (74-106) #*H Calcium Level 7.6 MG/DL (8.5-10.1) L Total Bilirubin 0.6 MG/DL (0.2-1.0) Aspartate Amino Transf (AST/SGOT) 76 U/L (15-37) H Alanine Aminotransferase (ALT/SGPT) 27 U/L (12-78) Alkaline Phosphatase 112 U/L (46-116) Troponin I 0.170 ng/mL (0.000-0.056) Total Protein 5.6 G/DL (6.4-8.2) L Albumin 2.1 G/DL (3.4-5.0) L Globulin 3.5 g/dL Albumin/Globulin Ratio 0.6 (1.0-2.7) L Arterial Blood pH 7.204 (7.350-7.450) Arterial Blood Partial Pressure CO2 75.5 mmHg (35.0-45.0) *H Arterial Blood Partial Pressure O2 62.2 mmHg (75.0-100.0) L Arterial Blood HCO3 29.1 mmol/L (22.0-26.0) H Arterial Blood Oxygen Saturation 89.4 % (95-100) *L Arterial Blood Base Excess -0.5 (-2-2) Sadi Test Positive Current Medications Medications (Trade) Dose Ordered Sig/Isa Route PRN Reason Start Time Stop Time Status Last Admin Dose Admin Acetaminophen (Tylenol) 650 mg Q4H PRN NG Temp >100.5/ PAIN 1-3 10/10/19 10:45 11/09/19 10:44 10/10/19 10:53 Acetaminophen (Tylenol) 650 mg Q4H PRN RECTAL FEVER 10/07/19 16:45 11/06/19 16:44 10/08/19 13:58 Ceftriaxone Sodium 1 gm/ Dextrose 55 ml @ 110 mls/hr Q24H IVPB 10/08/19 15:00 10/15/19 14:59 10/10/19 15:17 Chlorhexidine Gluconate (Cori-Hex 2%) 1 applic DAILY@2000 TOPIC 10/10/19 20:00 01/08/20 19:59 10/10/19 20:00 Dextrose (Dextrose 50%) 25 ml Q30M PRN IV Hypoglycemia 10/11/19 06:15 01/09/20 06:14 Dextrose (Dextrose 50%) 50 ml Q30M PRN IV Hypoglycemia 10/11/19 06:15 01/09/20 06:14 Dopamine HCl/ Dextrose 250 ml @ 0 mls/hr Q24H IV 10/10/19 19:00 01/08/20 18:59 10/11/19 01:56 Epinephrine 1 mg/ Dextrose 250 ml @ 0 mls/hr Q24H PRN IV For hypotension 10/10/19 19:00 11/09/19 18:59 Fentanyl Citrate 250 ml @ 0 mls/hr Q24H IV 10/10/19 07:55 01/08/20 07:54 10/11/19 00:32 Guaifenesin/ Dextromethorphan (Robitussin DM Syrup) 10 ml Q4H PRN ORAL For Cough 10/07/19 07:08 01/03/20 07:07 Heparin Sodium/ Dextrose 500 ml @ 40.14 mls/ hr ADJUST PER PROTOCOL IV 10/11/19 12:00 11/10/19 11:59 10/11/19 12:00 Insulin Aspart (NovoLOG) BEFORE MEALS AND HS SUBQ 10/11/19 06:30 01/09/20 06:29 Insulin Detemir (Levemir) 12 units BID SUBQ 10/11/19 09:00 01/06/20 20:59 10/11/19 09:14 Insulin Human (Reg)/Sodium Chloride 100 ml @ 6 mls/hr Q24H IVPB 10/11/19 09:00 10/12/19 08:03 10/11/19 09:00 Lorazepam (Ativan 2mg/ml 1ml) 2 mg Q2H PRN IV anxiety/agitation 10/10/19 07:30 10/17/19 07:29 10/11/19 00:19 Methylprednisolone Sodium Succinate (Solu-MEDROL) 40 mg EVERY 6 HOURS IVP 10/10/19 19:15 01/08/20 19:14 10/11/19 11:15 Morphine Sulfate (Morphine Sulfate) 1 mg Q4H PRN IVP For Pain 10/07/19 08:45 10/14/19 08:44 10/10/19 06:20 Norepinephrine Bitartrate 8 mg/ Dextrose 508 ml @ 0 mls/hr Q24H IV 10/10/19 21:00 11/09/19 20:59 10/11/19 10:00 Ondansetron HCl (Zofran) 4 mg Q4H PRN IVP Nausea & Vomiting 10/07/19 07:45 11/03/19 23:44 Pantoprazole (Protonix) 40 mg EVERY 12 HOURS IVP 10/11/19 21:00 11/10/19 20:59 Potassium Chloride 100 ml @ 50 mls/hr Q2H IVPB 10/11/19 09:00 10/11/19 12:59 10/11/19 11:15 Remdesivir 100 mg/ Sodium Chloride 250 ml @ 250 mls/hr Q24H IV 10/07/19 17:00 10/15/19 17:59 10/10/19 16:47 Sodium Bicarbonate 150 ml/Dextrose 1,150 ml @ 50 mls/hr Q23H IV 10/10/19 22:00 11/09/19 21:59 10/10/19 22:31 Vasopressin 100 units/Sodium Chloride 100 ml @ 0 mls/hr Q24H PRN IV For hypotension 10/10/19 19:00 11/09/19 18:59 10/10/19 21:43 Tony Mckinney MD Oct 11, 2019 12:53
--- NOTE | 2019-10-11 13:30 | NUR ---
NURSE NOTES: Dr Blackman at bedside assessing pt and ordered ABGs for tomorrow am.
--- NOTE | 2019-10-11 14:00 | NUR ---
NURSE NOTES: Pt repositioned, no distress noted, RASS -3 at this time (gently moves extremities with physical stimulation). Addendum: 10/11/19 at 1942 by Emily Esqueda RN Amendment: with auditory stimulation (not physical).
[2019-10-11] MEDS: cefTRIAXone 1 GM in D5W 55 ML IVPB SCH (15:07)
--- NOTE | 2019-10-11 16:00 | NUR ---
NURSE NOTES: Pt repositioned, oral care provided, pt is afebrile at this time, will continue to monitor.
[2019-10-11] MEDS: Remdesivir 100mg 100 MG in NS 230 ML IV SCH (17:03)
--- NOTE | 2019-10-11 18:00 | NUR ---
NURSE NOTES: Dr Mclain recently here assessing pt at bedside and placing orders. PTT, urine samples, and OBS collected and sent down to lab. Pt repositioned and cleaned, no distress noted, remains at RASS -3.
--- NOTE | 2019-10-11 18:00 | Consultation ---
DATE OF CONSULTATION: 10/11/2019 NEPHROLOGY CONSULTATION CONSULTING PHYSICIAN: Agapito Mclain MD. REFERRING PHYSICIAN: Josh Farnsworth MD. REASON FOR CONSULTATION: Acute kidney injury. 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 She was admitted to the hospital apparently on 10/04/2019 with shortness of breath, but she has progressed to respiratory failure. She is ventilator dependent with a positive COVID PCR. She has consolidation and interstitial lung changes on the imaging. There is a history of diabetes. HABITS: She is a nonsmoker. Apparently social drinker. No drugs. REVIEW OF SYSTEMS: Unable at this time. CURRENT MEDICATIONS: Include vasopressin drip and ceftriaxone. She is on Levophed, fentanyl, heparin, potassium replacement, remdesivir, Tylenol p.r.n., chlorhexidine, and received several doses of Lasix. She is also on insulin and she received some sodium bicarbonate. PHYSICAL EXAMINATION: GENERAL: The patient is lying in bed, sedated. VITAL SIGNS: Pulse 108, respirations 30, blood pressure 125/58, pulse ox 87. She is on a ventilator. HEENT: Eyes and mouth are closed. LUNGS: Rhonchi. HEART: Regular rhythm. ABDOMEN: Soft. EXTREMITIES: 1+ edema. NEUROLOGIC: She is sedated. REVIEW OF HOSPITAL COURSE AND DATA: She has had a positive fluid balance over the past few days. On admission, the urinalysis shows 3+ protein, 4+ glucose, 4+ ketones, and too numerous to count red cells, 40 to 60 white cells per high-power field. Creatinine has gone from 0.6 on 10/10/2019 to 1.6 on 10/11/2019. Sodium 138, potassium 3.4, chloride 98, CO2 is 28. Troponin 0.170. Albumin 2.1. IMPRESSION: 1. COVID-19 pneumonia. 2. Acute respiratory failure. 3. Acute kidney injury with a positive fluid balance, likely COVID-19 induced acute kidney injury. 4. Hyperglycemia. Glucose 612 today. 5. Metabolic acidosis prior as well as respiratory acidosis. PLAN: At this time, the patient's condition is critical. Try to avoid fluid overload and doses of diuretics as needed. Control diabetes a little bit more aggressively. Continuing treatment for respiratory failure from COVID-19. Her condition is critical. All ICU orders were reviewed. Agapito Mclain M.D. DR: FRANCES JOB#: [id number] CC:
--- NOTE | 2019-10-11 19:00 | NUR ---
NURSE NOTES: PTT results noted within therapeutic range, heparin gtt rate remains unchanged. timed PTT scheduled for tomorrow at 0400.
--- NOTE | 2019-10-11 19:30 | NUR ---
HAND-OFF: Report given to NICOL Johnson. Pt in no distress.
[2019-10-11] MEDS: Dyna-Hex 2% Top Sol 2oz TOPIC SCH (20:00)
[2019-10-11] MEDS: Pantoprazole Inj IVP SCH (21:00)
--- NOTE | 2019-10-11 21:00 | NUR ---
NURSE NOTES: bs 468 on insulin drip at 6unit /hr
[2019-10-12] VITALS (63 sets, daily range): BP systolic 88–209; BP diastolic 41–124
[2019-10-12 04:47] LABS: HEMOGLOBIN 10.3 G/DL (12.0-16.0); MEAN CORPUSCULAR VOLUME 97 FL (80-99); PLATELET COUNT 107 K/UL (150-450); RED CELL DISTRIBUTION WIDTH 14.5 % (11.6-14.8); WHITE BLOOD COUNT 17.4 K/UL (4.8-10.8)
[2019-10-12 05:05] LABS: ALANINE AMINOTRANSFERASE 29 U/L (12-78); ALBUMIN 2.2 G/DL (3.4-5.0); ALBUMIN/GLOBULIN RATIO 0.6 (1.0-2.7); ALKALINE PHOSPHATASE 151 U/L (46-116); ANION GAP 8 mmol/L (5-15); ASPARTATE AMINO TRANSFERASE 68 U/L (15-37); BILIRUBIN,TOTAL 0.4 MG/DL (0.2-1.0); BLOOD UREA NITROGEN 28 mg/dL (7-18); CALCIUM 7.4 MG/DL (8.5-10.1); CARBON DIOXIDE 33 MMOL/L (21-32); CHLORIDE 100 MMOL/L (98-107); CREATININE 1.5 MG/DL (0.55-1.30); POTASSIUM 4.1 MMOL/L (3.5-5.1); SODIUM 141 MMOL/L (136-145)
[2019-10-12] MEDS: Heparin 25,000u/D5W 500ml 500 ML IV SCH ×5 (05:58→22:17)
[2019-10-12] MEDS: Solu-MEDROL 40mg Inj IVP SCH ×4 (05:59→23:19)
[2019-10-12] MEDS ORDERED: Heparin 5000 units/ml inj IV SCH ×2 (06:00→14:00)
--- NOTE | 2019-10-12 06:02 | NUR ---
NURSE NOTES: Message left for MD Farnsworth in regards to patient Blood sugar. Blood sugar does not go below 445. patient continues on insulin drip at this time, currently running 6 u/hr.
[2019-10-12] MEDS: NovoLOG Insulin Flexpen SUBQ SCH ×4 (06:30→21:03)
[2019-10-12 06:40] LABS: ALANINE AMINOTRANSFERASE 19 U/L (12-78); ALBUMIN 2.2 G/DL (3.4-5.0); ALKALINE PHOSPHATASE 162 U/L (46-116); ASPARTATE AMINO TRANSFERASE 69 U/L (15-37); BILIRUBIN,DIRECT 0.2 MG/DL (0.0-0.3); BILIRUBIN,TOTAL 0.3 MG/DL (0.2-1.0)
--- NOTE | 2019-10-12 07:30 | NUR ---
NURSE NOTES: Pt received from NICOL Patterson. Pt is sedated, noted with RASS -2, opens eyes to suction and physical stimuli, with hypoactive gag reflex but moves extremities at times. Pt fighting vent at times, alarms frequently heard. Will increase Fentanyl to achieve RASS -3, as ordered by Dr Blackman. Pt is ST (130) to clinical research monitor. Pt has non-pitting edema to both hands, arms, and feet. Pt is mechanically ventilated with 7.5 ETT, 26 cm at the lip line with vent settings: AC 30 TV 550 FiO2 100% Peep 22. SpO2 noted 94-99%. Pt has a right nares NGT clamped at this time, as pt is NPO. F/C noted draining yellow urine to urometer. Pt has a Lt Hand 20g IV running Fentanyl at 120 mcg/hr, a Rt Hand 20g IV running Heparin gtt at 16 units/kg/hr, and a left femoral TLC, dressing clean, dry, and intact; running 1/2 NS at 50 cc/hr, Levophed at 4 mcg/min, and insulin at 6units/hr. Skin is intact, noted with dryness. Dr Farnsworth at bedside assessing pt. Informed him of elevated BS despite Inslulin drip- he will change orders. Bed in lowest position with alarm on, side rails up x 3, call light within reach. Will continue to monitor.
--- NOTE | 2019-10-12 08:15 | NUR ---
NURSE NOTES: Dr Perkins at bedside. Updated him on pt's current condition. No new orders given at this time.
--- NOTE | 2019-10-12 08:23 | Diagnostic Imaging Report ---
Procedure: XRAY Chest 1v Reason for study: Central line placement attempt. Comparison films: 10/10/2019. FINDINGS: Endotracheal tube and NG tube remain in place. There is no central venous catheter demonstrated. There is no pneumothorax. Extensive bilateral alveolar densities with right basilar consolidation and air bronchogram again noted unchanged. Cardiac and mediastinal silhouette are within normal limits. There may be an underlying right effusion. The bony thorax appear unremarkable. IMPRESSION: There is no central venous catheter demonstrated. No pneumothorax. No change alveolar disease.
--- NOTE | 2019-10-12 08:39 | Critical Care Progress Note ---
Assessment/Plan Assessment/Plan COVID+ ARDS hypoxemic respiratory failure sinus tachycardia anemia TESSA PCM severe leukocytosis, possible due to steroids PLAN vent support as is/ taper oxygen as able PEEP at 20 ICU care ID follow up on max oxygenation at present follow up ABG and CXR daily for change lasix PRN keep negative steroids IV heparin very critical feeds as able proning as able medications/laboratory data/nursing notes/ICU care reviewed in detail note reviewed and edited care discussed with RN and RT ICU time spent >40 minutes Critical Care - Subjective Interval Events: care noted over the weekend remains ill PEEP increased started on heparin and steroids ROS Limited/Unobtainable: Yes IV Access: PICC EKG Rhythm: Sinus Rhythm I&O: Intake and Output 10/11/19 10/12/19 19:00 07:00 Intake Total 2868.22625 ml 1144.295 ml Output Total 2900 ml 1170 ml Balance -31.46399 ml -25.705 ml IV Total 2868.32161 ml 1144.295 ml Output Urine Total 2800 ml 1070 ml Stool Total 100 ml 100 ml Critical Care - Objective ET-Tube: 7.5 ET Position: 26 Last 24 Hour Vital Signs Date Time Temp Pulse Resp B/P (MAP) Pulse Ox O2 Delivery O2 Flow Rate FiO2 10/12/19 08:00 100 10/12/19 08:00 99.4 126 14 134/51 (78) 97 10/12/19 07:30 128 15 111/62 (78) 97 10/12/19 07:00 135 17 153/52 (85) 85 10/12/19 06:55 128 35 100 10/12/19 06:30 122 14 132/66 (88) 99 10/12/19 06:00 133/67 10/12/19 06:00 20 133/67 Mechanical Ventilator 100 10/12/19 06:00 126 13 133/67 (89) 98 10/12/19 05:45 130 18 140/56 (84) 76 10/12/19 05:30 129 18 151/57 (88) 79 10/12/19 05:15 127 18 131/65 (87) 82 10/12/19 05:00 124/58 10/12/19 05:00 21 124/58 Mechanical Ventilator 100 10/12/19 05:00 120 17 140/64 (89) 89 10/12/19 04:45 113 12 124/58 (80) 100 10/12/19 04:30 119 13 115/49 (71) 93 10/12/19 04:15 109 17 112/60 (77) 100 10/12/19 04:00 98.6 108 16 123/68 (86) 100 10/12/19 04:00 112/60 10/12/19 04:00 17 112/60 Mechanical Ventilator 100 10/12/19 04:00 100 10/12/19 04:00 100 10/12/19 04:00 Mechanical Ventilator Mechanical Ventilator 10/12/19 03:45 110 24 112/48 (69) 100 10/12/19 03:30 109 22 111/59 (76) 100 10/12/19 03:30 109 31 100 10/12/19 03:15 111 21 110/55 (73) 100 10/12/19 03:00 112 19 114/44 (67) 100 10/12/19 03:00 110/55 10/12/19 03:00 21 110/55 Mechanical Ventilator 100 10/12/19 02:45 116 20 98/57 (71) 100 10/12/19 02:30 116 21 111/51 (71) 100 10/12/19 02:15 114 20 130/63 (85) 98 10/12/19 02:00 130/63 10/12/19 02:00 21 130/63 Mechanical Ventilator 100 10/12/19 02:00 115 21 130/55 (80) 99 10/12/19 01:30 115 21 132/67 (88) 99 10/12/19 01:00 134/29 10/12/19 01:00 20 134/59 Mechanical Ventilator 100 10/12/19 01:00 116 18 140/56 (84) 97 10/12/19 00:30 113 13 134/77 (96) 10/12/19 00:00 100 10/12/19 00:00 129/61 10/12/19 00:00 17 129/61 Mechanical Ventilator 100 10/12/19 00:00 98.7 112 20 129/61 (83) 100 10/12/19 00:00 Mechanical Ventilator Mechanical Ventilator 10/11/19 23:32 127/56 10/11/19 23:30 106 20 112/49 (70) 100 10/11/19 23:30 107 30 100 10/11/19 23:00 106 20 127/62 (83) 100 10/11/19 23:00 127/62 10/11/19 23:00 20 127/62 Mechanical Ventilator 100 10/11/19 22:30 108 20 127/69 (88) 100 10/11/19 22:15 107 15 133/68 (89) 100 10/11/19 22:00 109 18 116/65 (82) 100 10/11/19 22:00 133/68 10/11/19 22:00 31 133/68 Mechanical Ventilator 100 10/11/19 21:30 110 18 124/61 (82) 10/11/19 21:00 114 16 128/51 (76) 10/11/19 21:00 122/65 10/11/19 21:00 18 122/65 Mechanical Ventilator 100 10/11/19 20:30 119 17 124/64 (84) 10/11/19 20:00 119 10/11/19 20:00 137/66 10/11/19 20:00 18 137/66 Mechanical Ventilator 100 10/11/19 20:00 Mechanical Ventilator Mechanical Ventilator 10/11/19 20:00 98.1 120 18 141/63 (89) 98 10/11/19 20:00 100 10/11/19 19:30 120 30 100 10/11/19 19:30 119 15 137/67 (90) 97 10/11/19 19:15 121 18 138/61 (86) 10/11/19 19:00 121 15 124/70 (88) 99 10/11/19 19:00 124/70 10/11/19 19:00 30 124/70 Mechanical Ventilator 100 10/11/19 18:58 122 14 142/58 (86) 97 10/11/19 18:45 120 21 142/58 (86) 100 10/11/19 18:30 115 24 119/57 (77) 95 10/11/19 18:15 114 23 124/62 (82) 93 10/11/19 18:00 113 18 126/60 (82) 100 10/11/19 18:00 120/60 10/11/19 18:00 30 120/60 Mechanical Ventilator 100 10/11/19 17:45 115 22 131/55 (80) 100 10/11/19 17:30 113 19 121/62 (81) 100 10/11/19 17:15 116 19 114/65 (81) 100 10/11/19 17:00 114/65 10/11/19 17:00 30 114/65 Mechanical Ventilator 100 10/11/19 17:00 114 19 115/61 (79) 100 10/11/19 16:45 113 19 113/57 (75) 90 10/11/19 16:30 114 18 105/61 (76) 98 10/11/19 16:15 112 16 110/58 (75) 100 10/11/19 16:00 114 10/11/19 16:00 100 10/11/19 16:00 98.1 115 17 124/61 (82) 99 10/11/19 16:00 124/61 10/11/19 16:00 30 124/61 Mechanical Ventilator 100 10/11/19 16:00 Mechanical Ventilator Mechanical Ventilator 10/11/19 15:45 115 15 116/57 (76) 99 10/11/19 15:39 100 31 100 10/11/19 15:30 117 19 146/53 (84) 100 10/11/19 15:15 107 16 140/68 (92) 100 10/11/19 15:02 123/56 10/11/19 15:00 107 15 116/60 (78) 100 10/11/19 15:00 30 116/60 Mechanical Ventilator 100 10/11/19 14:45 112 15 123/56 (78) 99 10/11/19 14:30 112 20 155/53 (87) 100 10/11/19 14:15 110 17 93/31 (51) 100 10/11/19 14:01 30 132/64 Mechanical Ventilator 100 10/11/19 14:00 132/64 10/11/19 14:00 112 23 116/96 (103) 100 10/11/19 13:45 108 15 132/64 (86) 100 10/11/19 13:30 106 22 131/67 (88) 100 10/11/19 13:15 104 14 65/45 (52) 97 10/11/19 13:00 98 16 125/64 (84) 100 10/11/19 13:00 125/64 10/11/19 13:00 30 125/64 Mechanical Ventilator 100 10/11/19 12:45 100 14 121/68 (85) 100 6/14/20 12:30 100 15 133/61 (85) 100 10/11/19 12:15 98 15 145/62 (89) 100 10/11/19 12:00 100 10/11/19 12:00 133/61 10/11/19 12:00 30 133/61 Mechanical Ventilator 100 10/11/19 12:00 Mechanical Ventilator Mechanical Ventilator 10/11/19 12:00 98 15 140/63 (88) 95 10/11/19 12:00 99 10/11/19 11:45 98 15 127/66 (86) 90 10/11/19 11:30 100 10/11/19 11:30 100 15 136/66 (89) 80 10/11/19 11:15 97 15 134/62 (86) 100 10/11/19 11:06 100 30 100 10/11/19 11:00 99 28 127/68 (87) 100 10/11/19 11:00 134/62 10/11/19 11:00 30 134/62 Mechanical Ventilator 100 10/11/19 10:45 101 30 128/62 (84) 100 10/11/19 10:30 101 26 123/66 (85) 100 10/11/19 10:15 106 29 131/58 (82) 100 10/11/19 10:00 104 28 122/67 (85) 100 10/11/19 10:00 122/67 10/11/19 10:00 30 131/58 Mechanical Ventilator 100 10/11/19 10:00 90 10/11/19 09:45 103 22 122/66 (84) 100 10/11/19 09:34 102 15 115/59 (77) 100 10/11/19 09:30 102 29 90/29 (49) 87 10/11/19 09:15 102 22 133/68 (89) 90 10/11/19 09:00 102 19 134/66 (88) 91 10/11/19 09:00 133/68 10/11/19 09:00 30 133/68 Mechanical Ventilator 100 10/11/19 08:45 101 19 144/65 (91) 91 Labs: Laboratory Tests Test 10/11/19 09:30 10/11/19 17:30 10/11/19 18:00 10/12/19 04:19 Activated Partial Thromboplast Time 149 SEC (23-33) H 75 SEC (23-33) H 54 SEC (23-33) H Stool Occult Blood Pending Urine Random Sodium < 20 mmol/L (20-110) L Urine Creatinine 54.9 MG/DL (30.0-125.0) White Blood Count 17.4 K/UL (4.8-10.8) #H Red Blood Count 3.50 M/UL (4.20-5.40) L Hemoglobin 10.3 G/DL (12.0-16.0) L Hematocrit 34.0 % (37.0-47.0) L Mean Corpuscular Volume 97 FL (80-99) Mean Corpuscular Hemoglobin 29.3 PG (27.0-31.0) Mean Corpuscular Hemoglobin Concent 30.1 G/DL (32.0-36.0) L Red Cell Distribution Width 14.5 % (11.6-14.8) Platelet Count 107 K/UL (150-450) L Mean Platelet Volume 8.2 FL (6.5-10.1) Neutrophils (%) (Auto) % (45.0-75.0) Lymphocytes (%) (Auto) % (20.0-45.0) Monocytes (%) (Auto) % (1.0-10.0) Eosinophils (%) (Auto) % (0.0-3.0) Basophils (%) (Auto) % (0.0-2.0) Neutrophils % (Manual) Pending Lymphocytes % (Manual) Pending Platelet Estimate Pending Platelet Morphology Pending Sodium Level 141 MMOL/L (136-145) Potassium Level 4.1 MMOL/L (3.5-5.1) Chloride Level 100 MMOL/L (98-107) Carbon Dioxide Level 33 MMOL/L (21-32) H Anion Gap 8 mmol/L (5-15) Blood Urea Nitrogen 28 mg/dL (7-18) H Creatinine 1.5 MG/DL (0.55-1.30) H Estimat Glomerular Filtration Rate 45.5 mL/min (>60) Glucose Level 493 MG/DL (74-106) #H Calcium Level 7.4 MG/DL (8.5-10.1) L Total Bilirubin 0.3 MG/DL (0.2-1.0) Direct Bilirubin 0.2 MG/DL (0.0-0.3) Aspartate Amino Transf (AST/SGOT) 69 U/L (15-37) H Alanine Aminotransferase (ALT/SGPT) 19 U/L (12-78) Alkaline Phosphatase 162 U/L (46-116) H Total Protein 6.0 G/DL (6.4-8.2) L Albumin 2.2 G/DL (3.4-5.0) L Globulin 3.8 g/dL Albumin/Globulin Ratio 0.6 (1.0-2.7) L Test 10/12/19 08:09 Arterial Blood pH 7.326 (7.350-7.450) Arterial Blood Partial Pressure CO2 67.0 mmHg (35.0-45.0) *H Arterial Blood Partial Pressure O2 92.9 mmHg (75.0-100.0) Arterial Blood HCO3 34.2 mmol/L (22.0-26.0) H Arterial Blood Oxygen Saturation 96.0 % (95-100) Arterial Blood Base Excess 6.5 (-2-2) H Sadi Test Positive Objective: deferred due to COVID Accucheck: 373 Tripp Perkins MD Oct 12, 2019 08:39
[2019-10-12] MEDS: Pantoprazole Inj IVP SCH ×2 (08:59→20:25)
[2019-10-12] MEDS: fentaNYL 2500mcg/NS 250ml 250 ML IV SCH (09:00)
[2019-10-12] MEDS: Levemir Flexpen SUBQ SCH ×2 (09:23→17:52)
--- NOTE | 2019-10-12 09:45 | NUR ---
NURSE NOTES: Spoke with Dr. Farnsworth to clarify new orders. Insulin drip D/C'd. F/S & Novolog SS coverage to be done [id number].
--- NOTE | 2019-10-12 10:07 | General Progress Note ---
Assessment/Plan Problem List: (1) COVID-19 ICD Codes: U07.1 - COVID-19 SNOMED: 415091061 (2) Diabetes ICD Codes: E11.9 - Type 2 diabetes mellitus without complications SNOMED: 24805490 (3) Pneumonia ICD Codes: J18.9 - Pneumonia, unspecified organism SNOMED: 915493770 Status: deteriorating Assessment/Plan: cont remdesivir per ID vent heparin drip pressors- wean renal consult pending fentanyl for sedation/pain try q4 accuchecks with sliding scale added long acting insulin tenuous/crtiical pulm/id appreciated Subjective ROS Limited/Unobtainable: Yes Constitutional: Reports: malaise, weakness HEENT: Reports: no symptoms Cardiovascular: Reports: no symptoms Respiratory: Reports: no symptoms Gastrointestinal/Abdominal: Reports: no symptoms Genitourinary: Reports: no symptoms Neurologic/Psychiatric: Reports: no symptoms Endocrine: Reports: no symptoms Hematologic/Lymphatic: Reports: no symptoms Allergies: Coded Allergies: SULFA (SULFONAMIDE ANTIBIOTICS) (Verified Allergy, Mild, Itching, 04/19/12 ) All Systems: reviewed and negative except above Subjective remains critical. BS elevated despite insulin drip. on feeds and steroids. pressors wean to levophed. UOP better. labs noted. Objective Last 24 Hour Vital Signs Date Time Temp Pulse Resp B/P (MAP) Pulse Ox O2 Delivery O2 Flow Rate FiO2 10/12/19 09:30 112 12 119/55 (76) 98 10/12/19 09:00 17 103/64 Mechanical Ventilator 100 10/12/19 09:00 115 16 124/67 (86) 98 10/12/19 08:30 119 13 131/44 (73) 97 10/12/19 08:00 100 10/12/19 08:00 99.4 126 14 134/51 (78) 97 10/12/19 07:30 128 15 111/62 (78) 97 10/12/19 07:00 135 17 153/52 (85) 85 10/12/19 06:55 128 35 100 10/12/19 06:30 122 14 132/66 (88) 99 10/12/19 06:00 133/67 10/12/19 06:00 20 133/67 Mechanical Ventilator 100 10/12/19 06:00 126 13 133/67 (89) 98 10/12/19 05:45 130 18 140/56 (84) 76 10/12/19 05:30 129 18 151/57 (88) 79 10/12/19 05:15 127 18 131/65 (87) 82 10/12/19 05:00 124/58 10/12/19 05:00 21 124/58 Mechanical Ventilator 100 10/12/19 05:00 120 17 140/64 (89) 89 10/12/19 04:45 113 12 124/58 (80) 100 10/12/19 04:30 119 13 115/49 (71) 93 10/12/19 04:15 109 17 112/60 (77) 100 10/12/19 04:00 98.6 108 16 123/68 (86) 100 10/12/19 04:00 112/60 10/12/19 04:00 17 112/60 Mechanical Ventilator 100 10/12/19 04:00 100 10/12/19 04:00 100 10/12/19 04:00 Mechanical Ventilator Mechanical Ventilator 10/12/19 03:45 110 24 112/48 (69) 100 10/12/19 03:30 109 22 111/59 (76) 100 10/12/19 03:30 109 31 100 10/12/19 03:15 111 21 110/55 (73) 100 10/12/19 03:00 112 19 114/44 (67) 100 10/12/19 03:00 110/55 10/12/19 03:00 21 110/55 Mechanical Ventilator 100 10/12/19 02:45 116 20 98/57 (71) 100 10/12/19 02:30 116 21 111/51 (71) 100 10/12/19 02:15 114 20 130/63 (85) 98 10/12/19 02:00 130/63 10/12/19 02:00 21 130/63 Mechanical Ventilator 100 10/12/19 02:00 115 21 130/55 (80) 99 10/12/19 01:30 115 21 132/67 (88) 99 10/12/19 01:00 134/29 10/12/19 01:00 20 134/59 Mechanical Ventilator 100 10/12/19 01:00 116 18 140/56 (84) 97 10/12/19 00:30 113 13 134/77 (96) 10/12/19 00:00 100 10/12/19 00:00 129/61 10/12/19 00:00 17 129/61 Mechanical Ventilator 100 10/12/19 00:00 98.7 112 20 129/61 (83) 100 10/12/19 00:00 Mechanical Ventilator Mechanical Ventilator 10/11/19 23:32 127/56 10/11/19 23:30 106 20 112/49 (70) 100 10/11/19 23:30 107 30 100 10/11/19 23:00 106 20 127/62 (83) 100 10/11/19 23:00 127/62 10/11/19 23:00 20 127/62 Mechanical Ventilator 100 10/11/19 22:30 108 20 127/69 (88) 100 10/11/19 22:15 107 15 133/68 (89) 100 10/11/19 22:00 109 18 116/65 (82) 100 10/11/19 22:00 133/68 10/11/19 22:00 31 133/68 Mechanical Ventilator 100 10/11/19 21:30 110 18 124/61 (82) 10/11/19 21:00 114 16 128/51 (76) 10/11/19 21:00 122/65 10/11/19 21:00 18 122/65 Mechanical Ventilator 100 10/11/19 20:30 119 17 124/64 (84) 10/11/19 20:00 119 10/11/19 20:00 137/66 10/11/19 20:00 18 137/66 Mechanical Ventilator 100 10/11/19 20:00 Mechanical Ventilator Mechanical Ventilator 10/11/19 20:00 98.1 120 18 141/63 (89) 98 10/11/19 20:00 100 10/11/19 19:30 120 30 100 10/11/19 19:30 119 15 137/67 (90) 97 10/11/19 19:15 121 18 138/61 (86) 10/11/19 19:00 121 15 124/70 (88) 99 10/11/19 19:00 124/70 10/11/19 19:00 30 124/70 Mechanical Ventilator 100 10/11/19 18:58 122 14 142/58 (86) 97 10/11/19 18:45 120 21 142/58 (86) 100 10/11/19 18:30 115 24 119/57 (77) 95 10/11/19 18:15 114 23 124/62 (82) 93 10/11/19 18:00 113 18 126/60 (82) 100 10/11/19 18:00 120/60 10/11/19 18:00 30 120/60 Mechanical Ventilator 100 10/11/19 17:45 115 22 131/55 (80) 100 10/11/19 17:30 113 19 121/62 (81) 100 10/11/19 17:15 116 19 114/65 (81) 100 10/11/19 17:00 114/65 10/11/19 17:00 30 114/65 Mechanical Ventilator 100 10/11/19 17:00 114 19 115/61 (79) 100 10/11/19 16:45 113 19 113/57 (75) 90 10/11/19 16:30 114 18 105/61 (76) 98 10/11/19 16:15 112 16 110/58 (75) 100 10/11/19 16:00 114 10/11/19 16:00 100 10/11/19 16:00 98.1 115 17 124/61 (82) 99 10/11/19 16:00 124/61 10/11/19 16:00 30 124/61 Mechanical Ventilator 100 10/11/19 16:00 Mechanical Ventilator Mechanical Ventilator 10/11/19 15:45 115 15 116/57 (76) 99 10/11/19 15:39 100 31 100 10/11/19 15:30 117 19 146/53 (84) 100 10/11/19 15:15 107 16 140/68 (92) 100 10/11/19 15:02 123/56 10/11/19 15:00 107 15 116/60 (78) 100 10/11/19 15:00 30 116/60 Mechanical Ventilator 100 10/11/19 14:45 112 15 123/56 (78) 99 10/11/19 14:30 112 20 155/53 (87) 100 10/11/19 14:15 110 17 93/31 (51) 100 10/11/19 14:01 30 132/64 Mechanical Ventilator 100 10/11/19 14:00 132/64 10/11/19 14:00 112 23 116/96 (103) 100 10/11/19 13:45 108 15 132/64 (86) 100 10/11/19 13:30 106 22 131/67 (88) 100 10/11/19 13:15 104 14 65/45 (52) 97 10/11/19 13:00 98 16 125/64 (84) 100 10/11/19 13:00 125/64 10/11/19 13:00 30 125/64 Mechanical Ventilator 100 10/11/19 12:45 100 14 121/68 (85) 100 10/11/19 12:30 100 15 133/61 (85) 100 10/11/19 12:15 98 15 145/62 (89) 100 10/11/19 12:00 100 10/11/19 12:00 133/61 10/11/19 12:00 30 133/61 Mechanical Ventilator 100 10/11/19 12:00 Mechanical Ventilator Mechanical Ventilator 10/11/19 12:00 98 15 140/63 (88) 95 10/11/19 12:00 99 10/11/19 11:45 98 15 127/66 (86) 90 10/11/19 11:30 100 10/11/19 11:30 100 15 136/66 (89) 80 10/11/19 11:15 97 15 134/62 (86) 100 10/11/19 11:06 100 30 100 10/11/19 11:00 99 28 127/68 (87) 100 10/11/19 11:00 134/62 10/11/19 11:00 30 134/62 Mechanical Ventilator 100 10/11/19 10:45 101 30 128/62 (84) 100 10/11/19 10:30 101 26 123/66 (85) 100 10/11/19 10:15 106 29 131/58 (82) 100 Intake and Output 10/11/19 10/12/19 19:00 07:00 Intake Total 2868.81988 ml 1144.295 ml Output Total 2900 ml 1170 ml Balance -31.36338 ml -25.705 ml IV Total 2868.94734 ml 1144.295 ml Output Urine Total 2800 ml 1070 ml Stool Total 100 ml 100 ml Laboratory Tests 10/11/19 17:30: Stool Occult Blood [Pending] 10/11/19 18:00: Activated Partial Thromboplast Time 75H, Urine Random Sodium < 20L, Urine Creatinine 54.9 6/15/20 04:19: Activated Partial Thromboplast Time 54H, White Blood Count 17.4#H, Red Blood Count 3.50L, Hemoglobin 10.3L, Hematocrit 34.0L, Mean Corpuscular Volume 97, Mean Corpuscular Hemoglobin 29.3, Mean Corpuscular Hemoglobin Concent 30.1L, Red Cell Distribution Width 14.5, Platelet Count 107L, Mean Platelet Volume 8.2 , Neutrophils (%) (Auto) , Lymphocytes (%) (Auto) , Monocytes (%) (Auto) , Eosinophils (%) (Auto) , Basophils (%) (Auto) , Differential Total Cells Counted 100, Neutrophils % (Manual) 67, Lymphocytes % (Manual) 8L, Monocytes % ( Manual) 3, Eosinophils % (Manual) 0, Basophils % (Manual) 0, Myelocytes % 5H, Band Neutrophils 17H, Platelet Estimate DecreasedL, Platelet Morphology Normal, Polychromasia 1+, Hypochromasia 1+, Anisocytosis 1+, Macrocytosis 1+, Sodium Level 141, Potassium Level 4.1, Chloride Level 100, Carbon Dioxide Level 33H, Anion Gap 8, Blood Urea Nitrogen 28H, Creatinine 1.5H, Estimat Glomerular Filtration Rate 45.5, Glucose Level 493#H, Calcium Level 7.4L, Total Bilirubin 0.3, Direct Bilirubin 0.2, Aspartate Amino Transf (AST/SGOT) 69H, Alanine Aminotransferase (ALT/SGPT) 19, Alkaline Phosphatase 162H, Total Protein 6.0L, Albumin 2.2L, Globulin 3.8, Albumin/Globulin Ratio 0.6L 10/12/19 08:09: Arterial Blood pH 7.326L, Arterial Blood Partial Pressure CO2 67.0*H, Arterial Blood Partial Pressure O2 92.9, Arterial Blood HCO3 34.2H, Arterial Blood Oxygen Saturation 96.0, Arterial Blood Base Excess 6.5H, Sadi Test Positive Height (Feet): 5 Height (Inches): 5.00 Weight (Pounds): 317 Objective General Appearance: WD/WN, orally intubated Neck: supple Cardiovascular: normal rate Respiratory/Chest: lungs clear Abdomen: normal bowel sounds, non tender, soft Josh Farnsworth MD Oct 12, 2019 10:07
--- NOTE | 2019-10-12 10:14 | NUR ---
RD ASSESSMENT & RECOMMENDATIONS SEE CARE ACTIVITY FOR COMPLETE ASSESSMENT DAILY ESTIMATED NEEDS: Needs based on DM, obese, Critical care 22-25kcal/kg IBW (57kg) kcals/kg 5151-4354 total kcals 2-2.5g/kg IBW g protein/kg 114-142 g total protein 25-30ml/kg abw (78kg) mL/kg 3427-3772 total fluid mLs NUTRITION DIAGNOSIS: * Swallowing difficulty R/T respiratory failure as evidenced by pt now orally intubated and sedated, w/ NGT in place, NPO status. * Altered nutrition related lab values r/t diabetes as evidenced by A1C 11.8, Uglu 4+ on adm, w/ BG in the 200's. CURRENT TF:NPO ENTERAL NUTRITION RECOMMENDATIONS: Vital AF 1.2 @ 50ml/hr x 24 hrs to provide 1200ml, 1440kcal, 90g prot, 973ml free water * Once medically appropriate, initiate Vital AF 1.2 for critical care and carb control * Initiate @ 20ml/hr x 6hrs, advance 10ml q 4-6 hrs as tolerated to goal rate * Once TF well tolerated @ goal, add Prosource 1pkt TID for additional 33g prot to better meet protein needs * HOB over 30 degrees/ water flush per MD ADDITIONAL RECOMMENDATIONS: 1) Obtain a calibrated bed scale wt while on iso 2) Diet edu as able once extubated and out of iso 3) Monitor for hypoglycemia while pt is NPO- monitor need to add D5 4) W/ TF, consider adding long acting insulin-> now NPO on insulin drip + long acting insulin 5) Lytes daily, replete as needed
--- NOTE | 2019-10-12 10:49 | Infectious Diseases Prog Note ---
Assessment/Plan Assessment/Plan antibiotics : ceftriaxone, remdesivir EUA 6.9.20 - A 1. COVID 19 pneumonia on FiO2 100 percent PEEP 22, 98 percent O2 saturation s/p tocilizumab 6.11.20 s/p ivermectin 6.12.20 daughter Carlyn consented to using ivermectin, remdesivir, tocilizumab 2. diabetes mellitus 3. ARDS 4. respiratory failure P 1. continue ceftriaxone 2. consider remdesivir EUA day 7 3. will follow up cultures 4. continue isolation Subjective ROS Limited/Unobtainable: Yes Allergies: Coded Allergies: SULFA (SULFONAMIDE ANTIBIOTICS) (Verified Allergy, Mild, Itching, 04/19/12 ) Objective Vital Signs Last 24 Hour Vital Signs Date Time Temp Pulse Resp B/P (MAP) Pulse Ox O2 Delivery O2 Flow Rate FiO2 10/12/19 10:00 119/60 10/12/19 10:00 30 119/60 Mechanical Ventilator 100 10/12/19 10:00 110 20 119/60 (79) 99 10/12/19 09:30 112 12 119/55 (76) 98 10/12/19 09:00 103/64 10/12/19 09:00 17 103/64 Mechanical Ventilator 100 10/12/19 09:00 115 16 124/67 (86) 98 10/12/19 08:30 119 13 131/44 (73) 97 10/12/19 08:00 100 10/12/19 08:00 134/51 10/12/19 08:00 30 134/51 Mechanical Ventilator 100 10/12/19 08:00 99.4 126 14 134/51 (78) 97 10/12/19 08:00 Mechanical Ventilator Mechanical Ventilator 10/12/19 07:30 128 15 111/62 (78) 97 10/12/19 07:00 135 17 153/52 (85) 85 10/12/19 07:00 153/52 10/12/19 07:00 30 153/52 Mechanical Ventilator 100 10/12/19 06:55 128 35 100 10/12/19 06:30 122 14 132/66 (88) 99 10/12/19 06:00 133/67 10/12/19 06:00 20 133/67 Mechanical Ventilator 100 10/12/19 06:00 126 13 133/67 (89) 98 10/12/19 05:45 130 18 140/56 (84) 76 10/12/19 05:30 129 18 151/57 (88) 79 10/12/19 05:15 127 18 131/65 (87) 82 10/12/19 05:00 124/58 10/12/19 05:00 21 124/58 Mechanical Ventilator 100 10/12/19 05:00 120 17 140/64 (89) 89 10/12/19 04:45 113 12 124/58 (80) 100 10/12/19 04:30 119 13 115/49 (71) 93 10/12/19 04:15 109 17 112/60 (77) 100 10/12/19 04:00 98.6 108 16 123/68 (86) 100 10/12/19 04:00 112/60 10/12/19 04:00 17 112/60 Mechanical Ventilator 100 10/12/19 04:00 100 10/12/19 04:00 100 10/12/19 04:00 Mechanical Ventilator Mechanical Ventilator 10/12/19 03:45 110 24 112/48 (69) 100 10/12/19 03:30 109 22 111/59 (76) 100 10/12/19 03:30 109 31 100 10/12/19 03:15 111 21 110/55 (73) 100 10/12/19 03:00 112 19 114/44 (67) 100 10/12/19 03:00 110/55 10/12/19 03:00 21 110/55 Mechanical Ventilator 100 10/12/19 02:45 116 20 98/57 (71) 100 10/12/19 02:30 116 21 111/51 (71) 100 10/12/19 02:15 114 20 130/63 (85) 98 10/12/19 02:00 130/63 10/12/19 02:00 21 130/63 Mechanical Ventilator 100 10/12/19 02:00 115 21 130/55 (80) 99 10/12/19 01:30 115 21 132/67 (88) 99 10/12/19 01:00 134/29 10/12/19 01:00 20 134/59 Mechanical Ventilator 100 10/12/19 01:00 116 18 140/56 (84) 97 10/12/19 00:30 113 13 134/77 (96) 10/12/19 00:00 100 10/12/19 00:00 129/61 10/12/19 00:00 17 129/61 Mechanical Ventilator 100 10/12/19 00:00 98.7 112 20 129/61 (83) 100 10/12/19 00:00 Mechanical Ventilator Mechanical Ventilator 10/11/19 23:32 127/56 10/11/19 23:30 106 20 112/49 (70) 100 10/11/19 23:30 107 30 100 10/11/19 23:00 106 20 127/62 (83) 100 10/11/19 23:00 127/62 10/11/19 23:00 20 127/62 Mechanical Ventilator 100 10/11/19 22:30 108 20 127/69 (88) 100 10/11/19 22:15 107 15 133/68 (89) 100 10/11/19 22:00 109 18 116/65 (82) 100 10/11/19 22:00 133/68 10/11/19 22:00 31 133/68 Mechanical Ventilator 100 10/11/19 21:30 110 18 124/61 (82) 10/11/19 21:00 114 16 128/51 (76) 10/11/19 21:00 122/65 10/11/19 21:00 18 122/65 Mechanical Ventilator 100 10/11/19 20:30 119 17 124/64 (84) 10/11/19 20:00 119 10/11/19 20:00 137/66 10/11/19 20:00 18 137/66 Mechanical Ventilator 100 10/11/19 20:00 Mechanical Ventilator Mechanical Ventilator 10/11/19 20:00 98.1 120 18 141/63 (89) 98 10/11/19 20:00 100 10/11/19 19:30 120 30 100 10/11/19 19:30 119 15 137/67 (90) 97 10/11/19 19:15 121 18 138/61 (86) 10/11/19 19:00 121 15 124/70 (88) 99 10/11/19 19:00 124/70 10/11/19 19:00 30 124/70 Mechanical Ventilator 100 10/11/19 18:58 122 14 142/58 (86) 97 10/11/19 18:45 120 21 142/58 (86) 100 10/11/19 18:30 115 24 119/57 (77) 95 10/11/19 18:15 114 23 124/62 (82) 93 10/11/19 18:00 113 18 126/60 (82) 100 10/11/19 18:00 120/60 10/11/19 18:00 30 120/60 Mechanical Ventilator 100 10/11/19 17:45 115 22 131/55 (80) 100 10/11/19 17:30 113 19 121/62 (81) 100 10/11/19 17:15 116 19 114/65 (81) 100 10/11/19 17:00 114/65 10/11/19 17:00 30 114/65 Mechanical Ventilator 100 10/11/19 17:00 114 19 115/61 (79) 100 10/11/19 16:45 113 19 113/57 (75) 90 10/11/19 16:30 114 18 105/61 (76) 98 10/11/19 16:15 112 16 110/58 (75) 100 10/11/19 16:00 114 10/11/19 16:00 100 10/11/19 16:00 98.1 115 17 124/61 (82) 99 10/11/19 16:00 124/61 10/11/19 16:00 30 124/61 Mechanical Ventilator 100 10/11/19 16:00 Mechanical Ventilator Mechanical Ventilator 10/11/19 15:45 115 15 116/57 (76) 99 10/11/19 15:39 100 31 100 10/11/19 15:30 117 19 146/53 (84) 100 10/11/19 15:15 107 16 140/68 (92) 100 10/11/19 15:02 123/56 10/11/19 15:00 107 15 116/60 (78) 100 10/11/19 15:00 30 116/60 Mechanical Ventilator 100 10/11/19 14:45 112 15 123/56 (78) 99 10/11/19 14:30 112 20 155/53 (87) 100 10/11/19 14:15 110 17 93/31 (51) 100 10/11/19 14:01 30 132/64 Mechanical Ventilator 100 10/11/19 14:00 132/64 10/11/19 14:00 112 23 116/96 (103) 100 10/11/19 13:45 108 15 132/64 (86) 100 10/11/19 13:30 106 22 131/67 (88) 100 10/11/19 13:15 104 14 65/45 (52) 97 10/11/19 13:00 98 16 125/64 (84) 100 10/11/19 13:00 125/64 10/11/19 13:00 30 125/64 Mechanical Ventilator 100 10/11/19 12:45 100 14 121/68 (85) 100 10/11/19 12:30 100 15 133/61 (85) 100 10/11/19 12:15 98 15 145/62 (89) 100 10/11/19 12:00 100 10/11/19 12:00 133/61 10/11/19 12:00 30 133/61 Mechanical Ventilator 100 10/11/19 12:00 Mechanical Ventilator Mechanical Ventilator 10/11/19 12:00 98 15 140/63 (88) 95 10/11/19 12:00 99 10/11/19 11:45 98 15 127/66 (86) 90 10/11/19 11:30 100 10/11/19 11:30 100 15 136/66 (89) 80 10/11/19 11:15 97 15 134/62 (86) 100 10/11/19 11:06 100 30 100 10/11/19 11:00 99 28 127/68 (87) 100 10/11/19 11:00 134/62 10/11/19 11:00 30 134/62 Mechanical Ventilator 100 Height (Feet): 5 Height (Inches): 5.00 Weight (Pounds): 317 HEENT: other - intubated Laboratory Tests Test 10/11/19 17:30 10/11/19 18:00 10/12/19 04:19 10/12/19 08:09 Stool Occult Blood Pending Activated Partial Thromboplast Time 75 SEC (23-33) H 54 SEC (23-33) H Urine Random Sodium < 20 mmol/L (20-110) L Urine Creatinine 54.9 MG/DL (30.0-125.0) White Blood Count 17.4 K/UL (4.8-10.8) #H Red Blood Count 3.50 M/UL (4.20-5.40) L Hemoglobin 10.3 G/DL (12.0-16.0) L Hematocrit 34.0 % (37.0-47.0) L Mean Corpuscular Volume 97 FL (80-99) Mean Corpuscular Hemoglobin 29.3 PG (27.0-31.0) Mean Corpuscular Hemoglobin Concent 30.1 G/DL (32.0-36.0) L Red Cell Distribution Width 14.5 % (11.6-14.8) Platelet Count 107 K/UL (150-450) L Mean Platelet Volume 8.2 FL (6.5-10.1) Neutrophils (%) (Auto) % (45.0-75.0) Lymphocytes (%) (Auto) % (20.0-45.0) Monocytes (%) (Auto) % (1.0-10.0) Eosinophils (%) (Auto) % (0.0-3.0) Basophils (%) (Auto) % (0.0-2.0) Differential Total Cells Counted 100 Neutrophils % (Manual) 67 % (45-75) Lymphocytes % (Manual) 8 % (20-45) L Monocytes % (Manual) 3 % (1-10) Eosinophils % (Manual) 0 % (0-3) Basophils % (Manual) 0 % (0-2) Myelocytes % 5 % (0-0) H Band Neutrophils 17 % (0-8) H Platelet Estimate Decreased L Platelet Morphology Normal Polychromasia 1+ Hypochromasia 1+ Anisocytosis 1+ Macrocytosis 1+ Sodium Level 141 MMOL/L (136-145) Potassium Level 4.1 MMOL/L (3.5-5.1) Chloride Level 100 MMOL/L (98-107) Carbon Dioxide Level 33 MMOL/L (21-32) H Anion Gap 8 mmol/L (5-15) Blood Urea Nitrogen 28 mg/dL (7-18) H Creatinine 1.5 MG/DL (0.55-1.30) H Estimat Glomerular Filtration Rate 45.5 mL/min (>60) Glucose Level 493 MG/DL (74-106) #H Calcium Level 7.4 MG/DL (8.5-10.1) L Total Bilirubin 0.3 MG/DL (0.2-1.0) Direct Bilirubin 0.2 MG/DL (0.0-0.3) Aspartate Amino Transf (AST/SGOT) 69 U/L (15-37) H Alanine Aminotransferase (ALT/SGPT) 19 U/L (12-78) Alkaline Phosphatase 162 U/L (46-116) H Total Protein 6.0 G/DL (6.4-8.2) L Albumin 2.2 G/DL (3.4-5.0) L Globulin 3.8 g/dL Albumin/Globulin Ratio 0.6 (1.0-2.7) L Arterial Blood pH 7.326 (7.350-7.450) Arterial Blood Partial Pressure CO2 67.0 mmHg (35.0-45.0) *H Arterial Blood Partial Pressure O2 92.9 mmHg (75.0-100.0) Arterial Blood HCO3 34.2 mmol/L (22.0-26.0) H Arterial Blood Oxygen Saturation 96.0 % (95-100) Arterial Blood Base Excess 6.5 (-2-2) H Sadi Test Positive Current Medications Medications (Trade) Dose Ordered Sig/Isa Route PRN Reason Start Time Stop Time Status Last Admin Dose Admin Acetaminophen (Tylenol) 650 mg Q4H PRN NG Temp >100.5/ PAIN 1-3 10/10/19 10:45 11/09/19 10:44 10/10/19 10:53 Acetaminophen (Tylenol) 650 mg Q4H PRN RECTAL FEVER 10/07/19 16:45 11/06/19 16:44 10/08/19 13:58 Ceftriaxone Sodium 1 gm/ Dextrose 55 ml @ 110 mls/hr Q24H IVPB 10/08/19 15:00 10/15/19 14:59 10/11/19 15:07 Chlorhexidine Gluconate (Cori-Hex 2%) 1 applic DAILY@2000 TOPIC 10/10/19 20:00 01/08/20 19:59 10/11/19 20:00 Dextrose (Dextrose 50%) 25 ml Q30M PRN IV Hypoglycemia 10/12/19 09:00 01/10/20 08:59 Dextrose (Dextrose 50%) 50 ml Q30M PRN IV Hypoglycemia 10/12/19 09:00 01/10/20 08:59 Dopamine HCl/ Dextrose 250 ml @ 0 mls/hr Q24H IV 10/10/19 19:00 01/08/20 18:59 10/11/19 01:56 Epinephrine 1 mg/ Dextrose 250 ml @ 0 mls/hr Q24H PRN IV For hypotension 10/10/19 19:00 11/09/19 18:59 Fentanyl Citrate 250 ml @ 0 mls/hr Q24H IV 10/10/19 07:55 01/08/20 07:54 10/12/19 09:00 Guaifenesin/ Dextromethorphan (Robitussin DM Syrup) 10 ml Q4H PRN ORAL For Cough 10/07/19 07:08 01/03/20 07:07 Heparin Sodium/ Dextrose 500 ml @ 45.875 mls/ hr ADJUST PER PROTOCOL IV 10/12/19 06:00 11/10/19 11:59 10/12/19 10:31 Insulin Aspart (NovoLOG) Q4HR SUBQ 10/12/19 13:00 01/10/20 12:59 Insulin Detemir (Levemir) 20 units BID SUBQ 10/12/19 09:00 01/10/20 08:59 10/12/19 09:23 Lorazepam (Ativan 2mg/ml 1ml) 2 mg Q2H PRN IV anxiety/agitation 10/10/19 07:30 10/17/19 07:29 10/11/19 00:19 Methylprednisolone Sodium Succinate (Solu-MEDROL) 40 mg EVERY 6 HOURS IVP 10/10/19 19:15 01/08/20 19:14 10/12/19 05:59 Morphine Sulfate (Morphine Sulfate) 1 mg Q4H PRN IVP For Pain 10/07/19 08:45 10/14/19 08:44 10/10/19 06:20 Norepinephrine Bitartrate 8 mg/ Dextrose 508 ml @ 0 mls/hr Q24H IV 10/10/19 21:00 11/09/19 20:59 10/11/19 23:32 Ondansetron HCl (Zofran) 4 mg Q4H PRN IVP Nausea & Vomiting 10/07/19 07:45 11/03/19 23:44 Pantoprazole (Protonix) 40 mg EVERY 12 HOURS IVP 10/11/19 21:00 11/10/19 20:59 10/12/19 08:59 Remdesivir 100 mg/ Sodium Chloride 250 ml @ 250 mls/hr Q24H IV 10/07/19 17:00 10/15/19 17:59 10/11/19 17:03 Sodium Chloride 1,000 ml @ 50 mls/hr Q20H IV 10/11/19 17:30 11/10/19 17:29 10/11/19 17:43 Vasopressin 100 units/Sodium Chloride 100 ml @ 0 mls/hr Q24H PRN IV For hypotension 10/10/19 19:00 11/09/19 18:59 10/10/19 21:43 Blu Guzman MD Oct 12, 2019 10:49
[2019-10-12] MEDS ORDERED: NovoLOG Insulin Flexpen SUBQ SCH (11:30)
--- NOTE | 2019-10-12 11:49 | NUR ---
CASE MANAGEMENT: REVIEW SI: COVID-19 PNA . ACUTE RESPIRATORY FAILURE T 99.4 HR 128 RR 13 BP 131/44 SAT 97% MECH VENT FIO2 100 WBC 17.4 BUN 28 CR 1.5 AST 69 ALK PHOS 162 IS: REMDESIVIR IV Q24HR FENTANYL IV Q24HR LEVOPHED IV Q24HR DOPAMINE IV Q24HR NS IVF @ 50ML/HR HEPARIN GTT SOLU MEDROL IV Q6HR PROTONIX IV Q12HR ICU STATUS DCP: PATIENT IS FROM HOME
--- NOTE | 2019-10-12 12:30 | NUR ---
NURSE NOTES: BS 294. Novolog coverage 8 units given. No distress noted.
--- NOTE | 2019-10-12 13:32 | NUR ---
NURSE NOTES: Dr. Mclain made rounds ,updated with patient's condition- aware of all lab. results today. Made aware of current drips
--- NOTE | 2019-10-12 14:00 | Surgery Progress Note ---
Surgery Progress Note Subjective Procedure Performed Left femoral central venous catheter insertion Additional Comments Acute leukocytosis, insulin drip glucose [id number] Weaning off drips exam stable on support Objective Last 24 Hour Vital Signs Date Time Temp Pulse Resp B/P (MAP) Pulse Ox O2 Delivery O2 Flow Rate FiO2 10/12/19 12:00 100 10/12/19 12:00 Mechanical Ventilator Mechanical Ventilator 10/12/19 12:00 99.0 105 19 111/47 (68) 100 10/12/19 11:30 106 18 123/46 (71) 100 10/12/19 11:15 106 19 115/53 (73) 99 10/12/19 11:15 106 30 100 10/12/19 11:00 107 13 119/54 (75) 96 10/12/19 10:00 119/60 10/12/19 10:00 30 119/60 Mechanical Ventilator 100 10/12/19 10:00 110 20 119/60 (79) 99 10/12/19 09:30 112 12 119/55 (76) 98 10/12/19 09:00 103/64 10/12/19 09:00 17 103/64 Mechanical Ventilator 100 10/12/19 09:00 115 16 124/67 (86) 98 10/12/19 08:30 119 13 131/44 (73) 97 10/12/19 08:00 100 10/12/19 08:00 134/51 10/12/19 08:00 30 134/51 Mechanical Ventilator 100 10/12/19 08:00 99.4 126 14 134/51 (78) 97 10/12/19 08:00 Mechanical Ventilator Mechanical Ventilator 10/12/19 07:30 128 15 111/62 (78) 97 10/12/19 07:00 135 17 153/52 (85) 85 10/12/19 07:00 153/52 10/12/19 07:00 30 153/52 Mechanical Ventilator 100 10/12/19 06:55 128 35 100 10/12/19 06:30 122 14 132/66 (88) 99 10/12/19 06:00 133/67 10/12/19 06:00 20 133/67 Mechanical Ventilator 100 10/12/19 06:00 126 13 133/67 (89) 98 10/12/19 05:45 130 18 140/56 (84) 76 10/12/19 05:30 129 18 151/57 (88) 79 10/12/19 05:15 127 18 131/65 (87) 82 10/12/19 05:00 124/58 10/12/19 05:00 21 124/58 Mechanical Ventilator 100 10/12/19 05:00 120 17 140/64 (89) 89 10/12/19 04:45 113 12 124/58 (80) 100 10/12/19 04:30 119 13 115/49 (71) 93 10/12/19 04:15 109 17 112/60 (77) 100 10/12/19 04:00 98.6 108 16 123/68 (86) 100 10/12/19 04:00 112/60 10/12/19 04:00 17 112/60 Mechanical Ventilator 100 10/12/19 04:00 100 10/12/19 04:00 100 10/12/19 04:00 Mechanical Ventilator Mechanical Ventilator 10/12/19 03:45 110 24 112/48 (69) 100 10/12/19 03:30 109 22 111/59 (76) 100 10/12/19 03:30 109 31 100 10/12/19 03:15 111 21 110/55 (73) 100 10/12/19 03:00 112 19 114/44 (67) 100 10/12/19 03:00 110/55 10/12/19 03:00 21 110/55 Mechanical Ventilator 100 10/12/19 02:45 116 20 98/57 (71) 100 10/12/19 02:30 116 21 111/51 (71) 100 10/12/19 02:15 114 20 130/63 (85) 98 10/12/19 02:00 130/63 10/12/19 02:00 21 130/63 Mechanical Ventilator 100 10/12/19 02:00 115 21 130/55 (80) 99 10/12/19 01:30 115 21 132/67 (88) 99 10/12/19 01:00 134/29 10/12/19 01:00 20 134/59 Mechanical Ventilator 100 10/12/19 01:00 116 18 140/56 (84) 97 10/12/19 00:30 113 13 134/77 (96) 10/12/19 00:00 100 10/12/19 00:00 129/61 10/12/19 00:00 17 129/61 Mechanical Ventilator 100 10/12/19 00:00 98.7 112 20 129/61 (83) 100 10/12/19 00:00 Mechanical Ventilator Mechanical Ventilator 10/11/19 23:32 127/56 10/11/19 23:30 106 20 112/49 (70) 100 10/11/19 23:30 107 30 100 10/11/19 23:00 106 20 127/62 (83) 100 10/11/19 23:00 127/62 10/11/19 23:00 20 127/62 Mechanical Ventilator 100 10/11/19 22:30 108 20 127/69 (88) 100 10/11/19 22:15 107 15 133/68 (89) 100 10/11/19 22:00 109 18 116/65 (82) 100 10/11/19 22:00 133/68 10/11/19 22:00 31 133/68 Mechanical Ventilator 100 10/11/19 21:30 110 18 124/61 (82) 10/11/19 21:00 114 16 128/51 (76) 10/11/19 21:00 122/65 10/11/19 21:00 18 122/65 Mechanical Ventilator 100 10/11/19 20:30 119 17 124/64 (84) 10/11/19 20:00 119 10/11/19 20:00 137/66 10/11/19 20:00 18 137/66 Mechanical Ventilator 100 10/11/19 20:00 Mechanical Ventilator Mechanical Ventilator 10/11/19 20:00 98.1 120 18 141/63 (89) 98 10/11/19 20:00 100 10/11/19 19:30 120 30 100 10/11/19 19:30 119 15 137/67 (90) 97 10/11/19 19:15 121 18 138/61 (86) 10/11/19 19:00 121 15 124/70 (88) 99 10/11/19 19:00 124/70 10/11/19 19:00 30 124/70 Mechanical Ventilator 100 10/11/19 18:58 122 14 142/58 (86) 97 10/11/19 18:45 120 21 142/58 (86) 100 10/11/19 18:30 115 24 119/57 (77) 95 10/11/19 18:15 114 23 124/62 (82) 93 6/14/20 18:00 113 18 126/60 (82) 100 10/11/19 18:00 120/60 10/11/19 18:00 30 120/60 Mechanical Ventilator 100 10/11/19 17:45 115 22 131/55 (80) 100 10/11/19 17:30 113 19 121/62 (81) 100 10/11/19 17:15 116 19 114/65 (81) 100 10/11/19 17:00 114/65 10/11/19 17:00 30 114/65 Mechanical Ventilator 100 10/11/19 17:00 114 19 115/61 (79) 100 10/11/19 16:45 113 19 113/57 (75) 90 10/11/19 16:30 114 18 105/61 (76) 98 10/11/19 16:15 112 16 110/58 (75) 100 10/11/19 16:00 114 10/11/19 16:00 100 10/11/19 16:00 98.1 115 17 124/61 (82) 99 10/11/19 16:00 124/61 10/11/19 16:00 30 124/61 Mechanical Ventilator 100 10/11/19 16:00 Mechanical Ventilator Mechanical Ventilator 10/11/19 15:45 115 15 116/57 (76) 99 10/11/19 15:39 100 31 100 10/11/19 15:30 117 19 146/53 (84) 100 10/11/19 15:15 107 16 140/68 (92) 100 10/11/19 15:02 123/56 10/11/19 15:00 107 15 116/60 (78) 100 10/11/19 15:00 30 116/60 Mechanical Ventilator 100 10/11/19 14:45 112 15 123/56 (78) 99 10/11/19 14:30 112 20 155/53 (87) 100 10/11/19 14:15 110 17 93/31 (51) 100 10/11/19 14:01 30 132/64 Mechanical Ventilator 100 10/11/19 14:00 132/64 10/11/19 14:00 112 23 116/96 (103) 100 I&O Intake and Output 10/11/19 10/12/19 19:00 07:00 Intake Total 2868.96582 ml 1273.410 ml Output Total 2900 ml 1170 ml Balance -31.55326 ml 103.410 ml IV Total 2868.11323 ml 1273.410 ml Output Urine Total 2800 ml 1070 ml Stool Total 100 ml 100 ml Dressing: other Wound: other Drains: other Cardiovascular: RSR Respiratory: decreased breath sounds Abdomen: soft, present bowel sounds Extremities: no cyanosis Laboratory Tests Test 10/11/19 17:30 10/11/19 18:00 10/12/19 04:19 10/12/19 08:09 Stool Occult Blood Positive (NEGATIVE) Activated Partial Thromboplast Time 75 SEC (23-33) H 54 SEC (23-33) H Urine Random Sodium < 20 mmol/L (20-110) L Urine Creatinine 54.9 MG/DL (30.0-125.0) White Blood Count 17.4 K/UL (4.8-10.8) #H Red Blood Count 3.50 M/UL (4.20-5.40) L Hemoglobin 10.3 G/DL (12.0-16.0) L Hematocrit 34.0 % (37.0-47.0) L Mean Corpuscular Volume 97 FL (80-99) Mean Corpuscular Hemoglobin 29.3 PG (27.0-31.0) Mean Corpuscular Hemoglobin Concent 30.1 G/DL (32.0-36.0) L Red Cell Distribution Width 14.5 % (11.6-14.8) Platelet Count 107 K/UL (150-450) L Mean Platelet Volume 8.2 FL (6.5-10.1) Neutrophils (%) (Auto) % (45.0-75.0) Lymphocytes (%) (Auto) % (20.0-45.0) Monocytes (%) (Auto) % (1.0-10.0) Eosinophils (%) (Auto) % (0.0-3.0) Basophils (%) (Auto) % (0.0-2.0) Differential Total Cells Counted 100 Neutrophils % (Manual) 67 % (45-75) Lymphocytes % (Manual) 8 % (20-45) L Monocytes % (Manual) 3 % (1-10) Eosinophils % (Manual) 0 % (0-3) Basophils % (Manual) 0 % (0-2) Myelocytes % 5 % (0-0) H Band Neutrophils 17 % (0-8) H Platelet Estimate Decreased L Platelet Morphology Normal Polychromasia 1+ Hypochromasia 1+ Anisocytosis 1+ Macrocytosis 1+ Sodium Level 141 MMOL/L (136-145) Potassium Level 4.1 MMOL/L (3.5-5.1) Chloride Level 100 MMOL/L (98-107) Carbon Dioxide Level 33 MMOL/L (21-32) H Anion Gap 8 mmol/L (5-15) Blood Urea Nitrogen 28 mg/dL (7-18) H Creatinine 1.5 MG/DL (0.55-1.30) H Estimat Glomerular Filtration Rate 45.5 mL/min (>60) Glucose Level 493 MG/DL (74-106) #H Calcium Level 7.4 MG/DL (8.5-10.1) L Total Bilirubin 0.3 MG/DL (0.2-1.0) Direct Bilirubin 0.2 MG/DL (0.0-0.3) Aspartate Amino Transf (AST/SGOT) 69 U/L (15-37) H Alanine Aminotransferase (ALT/SGPT) 19 U/L (12-78) Alkaline Phosphatase 162 U/L (46-116) H Total Protein 6.0 G/DL (6.4-8.2) L Albumin 2.2 G/DL (3.4-5.0) L Globulin 3.8 g/dL Albumin/Globulin Ratio 0.6 (1.0-2.7) L Arterial Blood pH 7.326 (7.350-7.450) Arterial Blood Partial Pressure CO2 67.0 mmHg (35.0-45.0) *H Arterial Blood Partial Pressure O2 92.9 mmHg (75.0-100.0) Arterial Blood HCO3 34.2 mmol/L (22.0-26.0) H Arterial Blood Oxygen Saturation 96.0 % (95-100) Arterial Blood Base Excess 6.5 (-2-2) H Sadi Test Positive Test 10/12/19 12:30 Activated Partial Thromboplast Time 56 SEC (23-33) H Plan Problems: (1) Severe sepsis Assessment & Plan: Patient coded positive restaurant insufficiency on vent support. Acute decline. FiO2 100% PEEP 22 Chest x-ray noted On heparin drip On pressors Levophed vasopressin On antibiotics Unfortunately patient rapidly declining. We will continue with maximal medical efforts. Considerations of prone positioning but currently patient too unstable We will follow the recommendations thank you (2) COVID-19 Abdoul Burt Oct 12, 2019 14:00
--- NOTE | 2019-10-12 14:00 | NUR ---
NURSE NOTES: Fentanyl increased to 140mcg/hr to achieve RASS -3, as ordered by Dr. Blackman
--- NOTE | 2019-10-12 14:07 | Nephrology Progress Note ---
Assessment/Plan Problem List: (1) Acute respiratory failure due to COVID-19 (2) TESSA (acute kidney injury) (3) COVID-19 Plan maintenance iv, trned lab, continue antibiotics and supportive care Subjective ROS Limited/Unobtainable: Yes Objective Objective Last 24 Hour Vital Signs Date Time Temp Pulse Resp B/P (MAP) Pulse Ox O2 Delivery O2 Flow Rate FiO2 10/12/19 12:00 100 10/12/19 12:00 Mechanical Ventilator Mechanical Ventilator 10/12/19 12:00 99.0 105 19 111/47 (68) 100 10/12/19 11:30 106 18 123/46 (71) 100 10/12/19 11:15 106 19 115/53 (73) 99 10/12/19 11:15 106 30 100 10/12/19 11:00 107 13 119/54 (75) 96 10/12/19 10:00 119/60 10/12/19 10:00 30 119/60 Mechanical Ventilator 100 10/12/19 10:00 110 20 119/60 (79) 99 10/12/19 09:30 112 12 119/55 (76) 98 10/12/19 09:00 103/64 10/12/19 09:00 17 103/64 Mechanical Ventilator 100 10/12/19 09:00 115 16 124/67 (86) 98 10/12/19 08:30 119 13 131/44 (73) 97 10/12/19 08:00 100 10/12/19 08:00 134/51 10/12/19 08:00 30 134/51 Mechanical Ventilator 100 10/12/19 08:00 99.4 126 14 134/51 (78) 97 10/12/19 08:00 Mechanical Ventilator Mechanical Ventilator 10/12/19 07:30 128 15 111/62 (78) 97 10/12/19 07:00 135 17 153/52 (85) 85 10/12/19 07:00 153/52 10/12/19 07:00 30 153/52 Mechanical Ventilator 100 10/12/19 06:55 128 35 100 10/12/19 06:30 122 14 132/66 (88) 99 10/12/19 06:00 133/67 10/12/19 06:00 20 133/67 Mechanical Ventilator 100 10/12/19 06:00 126 13 133/67 (89) 98 10/12/19 05:45 130 18 140/56 (84) 76 10/12/19 05:30 129 18 151/57 (88) 79 10/12/19 05:15 127 18 131/65 (87) 82 10/12/19 05:00 124/58 10/12/19 05:00 21 124/58 Mechanical Ventilator 100 10/12/19 05:00 120 17 140/64 (89) 89 10/12/19 04:45 113 12 124/58 (80) 100 10/12/19 04:30 119 13 115/49 (71) 93 10/12/19 04:15 109 17 112/60 (77) 100 10/12/19 04:00 98.6 108 16 123/68 (86) 100 10/12/19 04:00 112/60 10/12/19 04:00 17 112/60 Mechanical Ventilator 100 10/12/19 04:00 100 10/12/19 04:00 100 10/12/19 04:00 Mechanical Ventilator Mechanical Ventilator 10/12/19 03:45 110 24 112/48 (69) 100 10/12/19 03:30 109 22 111/59 (76) 100 10/12/19 03:30 109 31 100 10/12/19 03:15 111 21 110/55 (73) 100 10/12/19 03:00 112 19 114/44 (67) 100 10/12/19 03:00 110/55 10/12/19 03:00 21 110/55 Mechanical Ventilator 100 10/12/19 02:45 116 20 98/57 (71) 100 10/12/19 02:30 116 21 111/51 (71) 100 10/12/19 02:15 114 20 130/63 (85) 98 10/12/19 02:00 130/63 10/12/19 02:00 21 130/63 Mechanical Ventilator 100 10/12/19 02:00 115 21 130/55 (80) 99 10/12/19 01:30 115 21 132/67 (88) 99 10/12/19 01:00 134/29 10/12/19 01:00 20 134/59 Mechanical Ventilator 100 10/12/19 01:00 116 18 140/56 (84) 97 10/12/19 00:30 113 13 134/77 (96) 10/12/19 00:00 100 10/12/19 00:00 129/61 10/12/19 00:00 17 129/61 Mechanical Ventilator 100 10/12/19 00:00 98.7 112 20 129/61 (83) 100 10/12/19 00:00 Mechanical Ventilator Mechanical Ventilator 10/11/19 23:32 127/56 10/11/19 23:30 106 20 112/49 (70) 100 10/11/19 23:30 107 30 100 10/11/19 23:00 106 20 127/62 (83) 100 10/11/19 23:00 127/62 10/11/19 23:00 20 127/62 Mechanical Ventilator 100 10/11/19 22:30 108 20 127/69 (88) 100 10/11/19 22:15 107 15 133/68 (89) 100 10/11/19 22:00 109 18 116/65 (82) 100 10/11/19 22:00 133/68 10/11/19 22:00 31 133/68 Mechanical Ventilator 100 10/11/19 21:30 110 18 124/61 (82) 10/11/19 21:00 114 16 128/51 (76) 10/11/19 21:00 122/65 10/11/19 21:00 18 122/65 Mechanical Ventilator 100 10/11/19 20:30 119 17 124/64 (84) 10/11/19 20:00 119 10/11/19 20:00 137/66 10/11/19 20:00 18 137/66 Mechanical Ventilator 100 10/11/19 20:00 Mechanical Ventilator Mechanical Ventilator 10/11/19 20:00 98.1 120 18 141/63 (89) 98 10/11/19 20:00 100 10/11/19 19:30 120 30 100 10/11/19 19:30 119 15 137/67 (90) 97 10/11/19 19:15 121 18 138/61 (86) 10/11/19 19:00 121 15 124/70 (88) 99 10/11/19 19:00 124/70 10/11/19 19:00 30 124/70 Mechanical Ventilator 100 10/11/19 18:58 122 14 142/58 (86) 97 10/11/19 18:45 120 21 142/58 (86) 100 10/11/19 18:30 115 24 119/57 (77) 95 10/11/19 18:15 114 23 124/62 (82) 93 10/11/19 18:00 113 18 126/60 (82) 100 10/11/19 18:00 120/60 10/11/19 18:00 30 120/60 Mechanical Ventilator 100 10/11/19 17:45 115 22 131/55 (80) 100 10/11/19 17:30 113 19 121/62 (81) 100 10/11/19 17:15 116 19 114/65 (81) 100 10/11/19 17:00 114/65 10/11/19 17:00 30 114/65 Mechanical Ventilator 100 10/11/19 17:00 114 19 115/61 (79) 100 10/11/19 16:45 113 19 113/57 (75) 90 10/11/19 16:30 114 18 105/61 (76) 98 10/11/19 16:15 112 16 110/58 (75) 100 10/11/19 16:00 114 10/11/19 16:00 100 10/11/19 16:00 98.1 115 17 124/61 (82) 99 10/11/19 16:00 124/61 10/11/19 16:00 30 124/61 Mechanical Ventilator 100 10/11/19 16:00 Mechanical Ventilator Mechanical Ventilator 10/11/19 15:45 115 15 116/57 (76) 99 10/11/19 15:39 100 31 100 10/11/19 15:30 117 19 146/53 (84) 100 10/11/19 15:15 107 16 140/68 (92) 100 10/11/19 15:02 123/56 10/11/19 15:00 107 15 116/60 (78) 100 10/11/19 15:00 30 116/60 Mechanical Ventilator 100 10/11/19 14:45 112 15 123/56 (78) 99 10/11/19 14:30 112 20 155/53 (87) 100 10/11/19 14:15 110 17 93/31 (51) 100 Intake and Output 10/11/19 10/12/19 19:00 07:00 Intake Total 2868.03285 ml 1273.410 ml Output Total 2900 ml 1170 ml Balance -31.92063 ml 103.410 ml IV Total 2868.59916 ml 1273.410 ml Output Urine Total 2800 ml 1070 ml Stool Total 100 ml 100 ml Laboratory Tests 10/11/19 17:30: Stool Occult Blood Positive 10/11/19 18:00: Activated Partial Thromboplast Time 75H, Urine Random Sodium < 20L, Urine Creatinine 54.9 10/12/19 04:19: Activated Partial Thromboplast Time 54H, White Blood Count 17.4#H, Red Blood Count 3.50L, Hemoglobin 10.3L, Hematocrit 34.0L, Mean Corpuscular Volume 97, Mean Corpuscular Hemoglobin 29.3, Mean Corpuscular Hemoglobin Concent 30.1L, Red Cell Distribution Width 14.5, Platelet Count 107L, Mean Platelet Volume 8.2 , Neutrophils (%) (Auto) , Lymphocytes (%) (Auto) , Monocytes (%) (Auto) , Eosinophils (%) (Auto) , Basophils (%) (Auto) , Differential Total Cells Counted 100, Neutrophils % (Manual) 67, Lymphocytes % (Manual) 8L, Monocytes % ( Manual) 3, Eosinophils % (Manual) 0, Basophils % (Manual) 0, Myelocytes % 5H, Band Neutrophils 17H, Platelet Estimate DecreasedL, Platelet Morphology Normal, Polychromasia 1+, Hypochromasia 1+, Anisocytosis 1+, Macrocytosis 1+, Sodium Level 141, Potassium Level 4.1, Chloride Level 100, Carbon Dioxide Level 33H, Anion Gap 8, Blood Urea Nitrogen 28H, Creatinine 1.5H, Estimat Glomerular Filtration Rate 45.5, Glucose Level 493#H, Calcium Level 7.4L, Total Bilirubin 0.3, Direct Bilirubin 0.2, Aspartate Amino Transf (AST/SGOT) 69H, Alanine Aminotransferase (ALT/SGPT) 19, Alkaline Phosphatase 162H, Total Protein 6.0L, Albumin 2.2L, Globulin 3.8, Albumin/Globulin Ratio 0.6L 10/12/19 08:09: Arterial Blood pH 7.326L, Arterial Blood Partial Pressure CO2 67.0*H, Arterial Blood Partial Pressure O2 92.9, Arterial Blood HCO3 34.2H, Arterial Blood Oxygen Saturation 96.0, Arterial Blood Base Excess 6.5H, Sadi Test Positive 10/12/19 12:30: Activated Partial Thromboplast Time 56H Height (Feet): 5 Height (Inches): 5.00 Weight (Pounds): 317 General Appearance: other - sedated, vent Cardiovascular: regular rhythm Respiratory/Chest: rhonchi - bilaterally Abdomen: non tender Extremities: trace edema Neurologic: unresponsive Agapito Mclain MD Oct 12, 2019 14:07
[2019-10-12] MEDS: cefTRIAXone 1 GM in D5W 55 ML IVPB SCH (14:51)
--- NOTE | 2019-10-12 16:00 | NUR ---
NURSE NOTES: Levophed turned off d/t B/P 209/63.
--- NOTE | 2019-10-12 16:00 | NUR ---
NURSE NOTES: Pt noted to be restless, breathing over the vent, appearing uncomfortable. Fentanyl increased to 160mcg/hr over the last 30 mins to achieve RASS -3
--- NOTE | 2019-10-12 16:32 | NUR ---
*-* INSURANCE *-* UPDATED CLINICALS AND REVIEWS HAVE BEEN FAXED TO: [employer] P: [phone] F: [phone] & GIOVANNY HANLEY P: [phone] F: [phone]
[2019-10-12] MEDS: DOPamine 400mg/250ml 250 ML IV SCH (17:08)
[2019-10-12] MEDS: Remdesivir 100mg 100 MG in NS 230 ML IV SCH (17:23)
[2019-10-12] MEDS ORDERED: NS 275ml ONE ×2 (17:36→17:41)
[2019-10-12] MEDS ORDERED: D5W 275ml ONE (17:36)
[2019-10-12] MEDS ORDERED: Tubing IV Secondary IV ONE ×3 (17:36→17:41)
[2019-10-12] MEDS ORDERED: 1/2 NS 1000ml IV ONE (17:40)
[2019-10-12] MEDS ORDERED: Sterile Water Irrig 1000ml IRRIG ONE (17:40)
--- NOTE | 2019-10-12 17:54 | NUR ---
NURSE NOTES: Pt fully cleaned and linens changed. Medication administered as ordered. BS 307
--- NOTE | 2019-10-12 19:14 | NUR ---
HAND-OFF: Report given to NICOL Reina and NICOL Gutierrez.
--- NOTE | 2019-10-12 19:30 | NUR ---
NURSE NOTES: Pt received from Lisa CAAMRENA. Pt is sedated with RASS -[address] Blackman Opens eyes to physical stimuli Pt is SR/ST on classroom monitor and VSS. Pt has non-pitting edema bilaterally upper and lower extremities. Pt is mechanically ventilated with 7.5 ETT, 26 cm at the lip line with vent settings: AC 30 TV 550 FiO2 100% Peep 22. SpO2 noted 94-99%. Pt has a right nares NGT clamped and NPO.
[2019-10-12] MEDS: Dyna-Hex 2% Top Sol 2oz TOPIC SCH (19:46)
--- NOTE | 2019-10-12 21:00 | NUR ---
NURSE NOTES: PM meds given BG 311 and insulin 10U PTT drawn and sent to lab IV sites and Central line Left femoral intact Will continue to monitor
--- NOTE | 2019-10-12 21:45 | NUR ---
NURSE NOTES: PTT 18. Per pharmacy, stop Heparin for 30min and start with 15U. Received new label. Addendum: 10/12/19 at 2159 by Brenda Lizarraga RN PTT 124sec. Per pharmacy, stop Heparin for 30min and start with 15U/kg/hour. Received new label.
[2019-10-13] VITALS (21 sets, daily range): BP systolic 44–174; BP diastolic 25–98
[2019-10-13] MEDS: fentaNYL 2500mcg/NS 250ml 250 ML IV SCH (00:33)
--- NOTE | 2019-10-13 00:33 | NUR ---
NURSE NOTES: Fentanyl bag changed. Pt is calm and asleep. No acute distress noted Afebrile and VSS. Continue to monitor
[2019-10-13] MEDS: NovoLOG Insulin Flexpen SUBQ SCH ×3 (00:59→09:00)
--- NOTE | 2019-10-13 02:11 | NUR ---
NURSE NOTES: Central line and Zamora renewed
[2019-10-13] MEDS: Norepinephrine Bitartrate 8 MG in D5W 500ml 500 ML IV SCH (02:46)
--- NOTE | 2019-10-13 02:53 | NUR ---
NURSE NOTES: BP trending down. Levophed started with 4mcgs Pt is asymptomatic, afebrile and VSS. Pt remains sedated with Fentanyl 200mcg/hr
[2019-10-13] MEDS: Heparin 25,000u/D5W 500ml 500 ML IV SCH (03:49)
[2019-10-13 04:38] LABS: HEMATOCRIT 30.8 % (37.0-47.0); HEMOGLOBIN 9.1 G/DL (12.0-16.0); MEAN CORPUSCULAR VOLUME 99 FL (80-99); PLATELET COUNT 105 K/UL (150-450); RED BLOOD COUNT 3.12 M/UL (4.20-5.40); RED CELL DISTRIBUTION WIDTH 14.8 % (11.6-14.8); WHITE BLOOD COUNT 15.8 K/UL (4.8-10.8)
--- NOTE | 2019-10-13 05:00 | NUR ---
NURSE NOTES: DC Levophed due to elevated BP. Asymptomatic and afebrile
[2019-10-13] MEDS: Solu-MEDROL 40mg Inj IVP SCH (05:20)
[2019-10-13 05:29] LABS: ALANINE AMINOTRANSFERASE 30 U/L (12-78); ALBUMIN 2.2 G/DL (3.4-5.0); ALBUMIN/GLOBULIN RATIO 0.6 (1.0-2.7); ALKALINE PHOSPHATASE 186 U/L (46-116); ANION GAP 6 mmol/L (5-15); ASPARTATE AMINO TRANSFERASE 66 U/L (15-37); BILIRUBIN,TOTAL 0.4 MG/DL (0.2-1.0); BLOOD UREA NITROGEN 38 mg/dL (7-18); CALCIUM 7.2 MG/DL (8.5-10.1); CARBON DIOXIDE 36 MMOL/L (21-32); CHLORIDE 101 MMOL/L (98-107); CREATININE 1.4 MG/DL (0.55-1.30); SODIUM 143 MMOL/L (136-145)
[2019-10-13] MEDS: LORazepam Inj 2mg/ml 1ml IV PRN (05:58)
--- NOTE | 2019-10-13 06:00 | NUR ---
NURSE NOTES: Pt desats. RT was called and Ativan given
--- NOTE | 2019-10-13 06:50 | NUR ---
NURSE NOTES: Pt went to rapid AFIB rate 150-170 bp 149/68, DR Farnsworth was notified, with order of Cardizem 10mg ivp.
[2019-10-13 06:56] LABS: PHOSPHORUS 2.9 MG/DL (2.5-4.9)
[2019-10-13] MEDS ORDERED: dilTIAZem HCl 25mg/5ml Inj IVP SCH (07:00)
--- NOTE | 2019-10-13 07:12 | NUR ---
NURSE NOTES: Diltiazem IV push given. RT is at the bedside.
--- NOTE | 2019-10-13 07:18 | NUR ---
HAND-OFF: Report given to NICOL Gonzalez. Endorsed POC.
--- NOTE | 2019-10-13 07:23 | NUR ---
HAND-OFF: Report given to Lisa CAMARENA.
--- NOTE | 2019-10-13 07:24 | NUR ---
NURSE NOTES: Pt received from NICOL Reina. Pt is sedated, RASS -3. Pt received in ST (140's) on monitoring coordinator, after episode of Rapid Afib and s/p administration of Cardizem 10mg IVP. Pt is mechanically ventilated with 7.5 ETT, 26 cm at the lip line with vent settings: AC 30 TV 550 FiO2 100% Peep 22. O2Sat in the 30's. Pt at this time not getting volumes, RT in the room getting ABG. Pt has a right nares NGT clamped at this time, as pt is NPO. F/C noted draining yellow urine to urometer. Pt has a Lt Hand 20g IV, a Rt Hand 20g IV running Heparin gtt at 15 units/kg/hr, and a left femoral TLC, dressing clean, dry, and intact; running 1/2 NS at 50 cc/hr and Fentanyl at 250 mcg/hr. Bed in lowest position with alarm on, side rails up x 3, call light within reach. Will continue to monitor.
--- NOTE | 2019-10-13 07:25 | NUR ---
NURSE NOTES: Dr Perkins made aware of situation and ABG results. Ventilator changed.
--- NOTE | 2019-10-13 07:30 | NUR ---
NURSE NOTES: CODE BLUE called after pt became bradycardic and showing PEA on monitor, upon assessment, no pulse found. CPR initiated by RT at 07. Code run by ER doc, Dr Dowell, at bedside. ROSC, ST 111, at 0730. Ventilator changed once again at the recommendation of Dr Dowell.
--- NOTE | 2019-10-13 08:10 | NUR ---
NURSE NOTES: Pt laying in bed, remains on defibrillator pads and monitor. Ventilator delivering volumes. O2 Sat 84%. HR ST 125 on teletypesetter monitor. B/P 104/37. Will continue to monitor.
--- NOTE | 2019-10-13 08:18 | Emergency Room Report ---
Physical Exam Code Blue called. Patient initially in rapid a fib. Converted with diltiazem to normal sinus rhythm Patient then became asystolic. The patient was able to be weaned off of Levophed last night as is not on any pressor at this time. Patient on ventilator but not getting volumes. 100% 550 rate 30 PEEP of 22. This is the second ventilator. The first 1 was switched out because it was felt to be dysfunctional. Prior to my arrival the patient received 2 A of epinephrine and now is in a sinus tachycardia. She is on a fentanyl drip. Propofol was stopped because of elevated triglycerides. She has been moving her eyes. Last 24 Hour Vital Signs Date Time Temp Pulse Resp B/P (MAP) Pulse Ox O2 Delivery O2 Flow Rate FiO2 10/13/19 07:12 131/98 10/13/19 07:00 178 8 131/98 (109) 10/13/19 06:30 124 17 165/75 (105) 58 10/13/19 06:00 18 179/67 Mechanical Ventilator 100 10/13/19 06:00 117 17 167/74 (105) 88 10/13/19 05:30 89 15 122/62 (82) 100 10/13/19 05:00 89 20 107/61 (76) 100 10/13/19 05:00 18 119/60 Mechanical Ventilator 100 10/13/19 04:30 90 18 111/71 (84) 98 10/13/19 04:00 90 16 130/57 (81) 96 10/13/19 04:00 Mechanical Ventilator Mechanical Ventilator 10/13/19 04:00 30 114/59 Mechanical Ventilator 100 10/13/19 04:00 100 10/13/19 04:00 90 10/13/19 03:30 30 126/71 Mechanical Ventilator 100 10/13/19 03:30 92 18 126/71 (89) 96 10/13/19 03:00 82 27 174/75 (108) 97 10/13/19 03:00 28 122/64 Mechanical Ventilator 100 10/13/19 02:59 96 30 100 10/13/19 02:46 95/39 10/13/19 02:00 86 30 92/44 (60) 100 10/13/19 02:00 30 92/44 Mechanical Ventilator 100 10/13/19 01:00 89 30 98/45 (62) 100 10/13/19 01:00 30 98/45 Mechanical Ventilator 100 10/13/19 00:33 30 98/49 100 10/13/19 00:30 91 30 100/45 (63) 100 10/13/19 00:00 30 103/55 Mechanical Ventilator 100 10/13/19 00:00 97.8 92 28 103/55 (71) 100 10/13/19 00:00 Mechanical Ventilator Mechanical Ventilator 10/12/19 23:03 93 30 100 10/12/19 23:00 93 30 97/56 (70) 100 10/12/19 23:00 30 97/56 Mechanical Ventilator 100 10/12/19 22:30 93 30 93/52 (66) 100 10/12/19 22:00 94 30 88/41 (57) 100 10/12/19 21:30 93 30 93/49 (64) 100 10/12/19 21:00 93 30 92/42 (59) 100 10/12/19 20:30 96 30 104/54 (71) 100 10/12/19 20:00 98 10/12/19 20:00 97.6 98 30 99/51 (67) 100 10/12/19 20:00 30 99/51 Mechanical Ventilator 100 10/12/19 20:00 Mechanical Ventilator Mechanical Ventilator 10/12/19 20:00 100 10/12/19 19:47 94 30 100 10/12/19 19:00 101 30 111/46 (67) 100 10/12/19 19:00 30 111/46 Mechanical Ventilator 100 10/12/19 18:45 103 30 112/47 (68) 100 10/12/19 18:30 105 30 110/56 (74) 100 10/12/19 18:15 106 30 110/56 (74) 100 10/12/19 18:00 30 117/61 Mechanical Ventilator 100 10/12/19 18:00 110 30 112/57 (75) 100 10/12/19 17:45 112 28 117/61 (79) 100 10/12/19 17:30 115 27 119/61 (80) 100 10/12/19 17:15 120 26 128/62 (84) 100 10/12/19 17:00 30 136/55 Mechanical Ventilator 100 10/12/19 17:00 125 30 136/55 (82) 100 10/12/19 16:50 125 18 172/66 (101) 55 6/15/20 16:45 125 19 180/77 (111) 59 10/12/19 16:30 116 23 180/124 (142) 99 10/12/19 16:25 122 16 132/55 (80) 85 10/12/19 16:15 98.9 125 22 201/77 (118) 10/12/19 16:00 100 10/12/19 16:00 209/63 10/12/19 16:00 37 209/63 Mechanical Ventilator 100 10/12/19 16:00 Mechanical Ventilator Mechanical Ventilator 10/12/19 16:00 119 20 209/63 (111) 99 10/12/19 16:00 99 10/12/19 15:30 99 20 172/75 (107) 99 10/12/19 15:15 100 30 100 10/12/19 15:04 99 10/12/19 15:00 100 30 125/54 (77) 100 10/12/19 15:00 125/54 10/12/19 15:00 30 125/54 Mechanical Ventilator 100 10/12/19 14:45 101 30 112/59 (76) 100 10/12/19 14:30 100 30 118/59 (78) 100 10/12/19 14:15 102 30 108/49 (68) 100 10/12/19 14:00 101 30 119/53 (75) 100 10/12/19 14:00 119/53 10/12/19 14:00 30 119/53 Mechanical Ventilator 100 10/12/19 13:45 100 30 100 Mechanical Ventilator 100 10/12/19 13:30 102 30 106/67 (80) 100 10/12/19 13:00 104 30 116/53 (74) 100 10/12/19 13:00 116/53 10/12/19 13:00 30 116/53 Mechanical Ventilator 100 10/12/19 12:00 100 10/12/19 12:00 111/47 10/12/19 12:00 30 111/47 Mechanical Ventilator 100 10/12/19 12:00 Mechanical Ventilator Mechanical Ventilator 10/12/19 12:00 99.0 105 19 111/47 (68) 100 10/12/19 11:35 107 10/12/19 11:30 106 18 123/46 (71) 100 10/12/19 11:15 106 19 115/53 (73) 99 10/12/19 11:15 106 30 100 10/12/19 11:00 107 13 119/54 (75) 96 10/12/19 11:00 119/54 10/12/19 11:00 30 119/54 Mechanical Ventilator 100 10/12/19 10:00 119/60 10/12/19 10:00 30 119/60 Mechanical Ventilator 100 10/12/19 10:00 110 20 119/60 (79) 99 10/12/19 09:30 112 12 119/55 (76) 98 10/12/19 09:00 103/64 10/12/19 09:00 17 103/64 Mechanical Ventilator 100 10/12/19 09:00 115 16 124/67 (86) 98 10/12/19 08:30 119 13 131/44 (73) 97 Sp02 EP Interpretation: reviewed, abnormal General Appearance: obese - Me, other - Unresponsive Head: normocephalic, atraumatic Eyes: bilateral eye other - Pupils 4 mm and not responding to light ENT: moist mucus membranes, other - The tracheal tube present Neck: other - Flaccid Respiratory: lungs clear, normal breath sounds - Some rales at the right base Cardiovascular #1: tachycardia Gastrointestinal: overweight Rectal: other - Rectal tube with greenish dark liquid stool Genitourinary: other - [place] Musculoskeletal: swelling Neurologic: other - Flaccid and unresponsive Psychiatric: other Skin: warm/dry Critical Care Time Critical Care Time Time: 30 minutes of bedside evaluation and treatment excludes procedures Procedures: EKG, CODE BLUE Reason for Critical care: After code evaluation of ventilator and respiratory status Possible Complications: Hypotension, sepsis, metabolic acidosis, prevention of end organ injury Interventions: CODE BLUE, bagging patient and discussion with CODE BLUE team, repeat evaluations, discussion with critical care physician, Course: Patient had an asystolic code and was resuscitated prior to my arrival. There were difficulties with the ventilator. I needed to assess the patient with the [id number]. Staff was reluctant to do this but with a viral filter and with the respiratory therapist in a PAPR patient was found to have good lung compliance. I requested that the ventilator be switched out. I needed to review the chest x-ray. I discussed the patient with the critical care doctor. I reassessed the patient after the ventilator was switched out and she was getting volumes at that time. Consultations: PMD, staff respiratory therapist, RT, critical care MD, pharmacist Alternative history: RN and medical records Result: Patient was improved but critical - prognosis dismal Performed by: Dr. Dowell CPR/Code Blue CPR/Code Blue Narrative Code was called at 726. Patient was asystolic initially. CPR was performed. Patient was continued on the ventilator. 2 amps of epinephrine were administered prior to my arrival. The patient's rhythm was sinus tachycardia and she was hypertensive. ROSC obtained at 730. The patient was still not getting volumes. After asking most of the staff to leave inside from the respiratory therapist with a PAPR and in full respiratory precautions I used the [id number] that had a valve filter to check lung compliance. Lung compliance was excellent. There is no leak in the endotracheal tube. I asked to switch the ventilator out again. Chest x-ray reviewed. Right lower lobe infiltrate endotracheal tube in good position. Evaluated after ventilator change in getting her volumes at this time. She is still hypoxemic. Action saturation of 80%. Prognosis poor. Medical Decision Making Diagnostic Impression: Primary Impression: Cardiopulmonary arrest Additional Impressions: Respiratory failure Qualified Codes: J96.01 - Acute respiratory failure with hypoxia; J96.02 - Acute respiratory failure with hypercapnia Respiratory acidosis COVID-19 Ventilator dysfunction ER Course Patient with cardiac arrest responding to to epinephrine. See procedure notes. The patient was reviewed with the critical care physician. Successful read resuscitation however prognosis poor. Laboratory Tests Test 10/11/19 09:30 10/11/19 17:30 10/11/19 18:00 10/12/19 04:19 Activated Partial Thromboplast Time 149 SEC (23-33) H 75 SEC (23-33) H 54 SEC (23-33) H Stool Occult Blood Positive (NEGATIVE) Urine Random Sodium < 20 mmol/L (20-110) L Urine Creatinine 54.9 MG/DL (30.0-125.0) White Blood Count 17.4 K/UL (4.8-10.8) #H Red Blood Count 3.50 M/UL (4.20-5.40) L Hemoglobin 10.3 G/DL (12.0-16.0) L Hematocrit 34.0 % (37.0-47.0) L Mean Corpuscular Volume 97 FL (80-99) Mean Corpuscular Hemoglobin 29.3 PG (27.0-31.0) Mean Corpuscular Hemoglobin Concent 30.1 G/DL (32.0-36.0) L Red Cell Distribution Width 14.5 % (11.6-14.8) Platelet Count 107 K/UL (150-450) L Mean Platelet Volume 8.2 FL (6.5-10.1) Neutrophils (%) (Auto) % (45.0-75.0) Lymphocytes (%) (Auto) % (20.0-45.0) Monocytes (%) (Auto) % (1.0-10.0) Eosinophils (%) (Auto) % (0.0-3.0) Basophils (%) (Auto) % (0.0-2.0) Differential Total Cells Counted 100 Neutrophils % (Manual) 67 % (45-75) Lymphocytes % (Manual) 8 % (20-45) L Monocytes % (Manual) 3 % (1-10) Eosinophils % (Manual) 0 % (0-3) Basophils % (Manual) 0 % (0-2) Myelocytes % 5 % (0-0) H Band Neutrophils 17 % (0-8) H Platelet Estimate Decreased L Platelet Morphology Normal Polychromasia 1+ Hypochromasia 1+ Anisocytosis 1+ Macrocytosis 1+ Sodium Level 141 MMOL/L (136-145) Potassium Level 4.1 MMOL/L (3.5-5.1) Chloride Level 100 MMOL/L (98-107) Carbon Dioxide Level 33 MMOL/L (21-32) H Anion Gap 8 mmol/L (5-15) Blood Urea Nitrogen 28 mg/dL (7-18) H Creatinine 1.5 MG/DL (0.55-1.30) H Estimated Glomerular Filtration Rate 45.5 mL/min (>60) Glucose Level 493 MG/DL (74-106) #H Calcium Level 7.4 MG/DL (8.5-10.1) L Total Bilirubin 0.3 MG/DL (0.2-1.0) Direct Bilirubin 0.2 MG/DL (0.0-0.3) Aspartate Amino Transferase (AST) 69 U/L (15-37) H Alanine Aminotransferase (ALT) 19 U/L (12-78) Alkaline Phosphatase 162 U/L (46-116) H Total Protein 6.0 G/DL (6.4-8.2) L Albumin 2.2 G/DL (3.4-5.0) L Globulin 3.8 g/dL Albumin/Globulin Ratio 0.6 (1.0-2.7) L Test 10/12/19 08:09 10/12/19 12:30 10/12/19 21:00 10/13/19 04:00 Arterial Blood pH 7.326 (7.350-7.450) Arterial Blood Partial Pressure CO2 67.0 mmHg (35.0-45.0) *H Arterial Blood Partial Pressure O2 92.9 mmHg (75.0-100.0) Arterial Blood HCO3 34.2 mmol/L (22.0-26.0) H Arterial Blood Oxygen Saturation 96.0 % (95-100) Arterial Blood Base Excess 6.5 (-2-2) H Sadi Test Positive Activated Partial Thromboplast Time 56 SEC (23-33) H 124 SEC (23-33) H 84 SEC (23-33) H White Blood Count 15.8 K/UL (4.8-10.8) H Red Blood Count 3.12 M/UL (4.20-5.40) L Hemoglobin 9.1 G/DL (12.0-16.0) L Hematocrit 30.8 % (37.0-47.0) L Mean Corpuscular Volume 99 FL (80-99) Mean Corpuscular Hemoglobin 29.2 PG (27.0-31.0) Mean Corpuscular Hemoglobin Concent 29.6 G/DL (32.0-36.0) L Red Cell Distribution Width 14.8 % (11.6-14.8) Platelet Count 105 K/UL (150-450) L Mean Platelet Volume 8.3 FL (6.5-10.1) Neutrophils (%) (Auto) % (45.0-75.0) Lymphocytes (%) (Auto) % (20.0-45.0) Monocytes (%) (Auto) % (1.0-10.0) Eosinophils (%) (Auto) % (0.0-3.0) Basophils (%) (Auto) % (0.0-2.0) Differential Total Cells Counted 100 Neutrophils % (Manual) 77 % (45-75) H Lymphocytes % (Manual) 5 % (20-45) L Monocytes % (Manual) 6 % (1-10) Eosinophils % (Manual) 0 % (0-3) Basophils % (Manual) 0 % (0-2) Band Neutrophils 12 % (0-8) H Platelet Estimate Decreased L Platelet Morphology Normal Hypochromasia 2+ Anisocytosis 1+ Sodium Level 143 MMOL/L (136-145) Potassium Level 4.0 MMOL/L (3.5-5.1) Chloride Level 101 MMOL/L (98-107) Carbon Dioxide Level 36 MMOL/L (21-32) H Anion Gap 6 mmol/L (5-15) Blood Urea Nitrogen 38 mg/dL (7-18) H Creatinine 1.4 MG/DL (0.55-1.30) H Estimated Glomerular Filtration Rate 49.3 mL/min (>60) Glucose Level 329 MG/DL (74-106) #H Calcium Level 7.2 MG/DL (8.5-10.1) L Phosphorus Level 2.9 MG/DL (2.5-4.9) Magnesium Level 2.1 MG/DL (1.8-2.4) Total Bilirubin 0.4 MG/DL (0.2-1.0) Aspartate Amino Transferase (AST) 66 U/L (15-37) H Alanine Aminotransferase (ALT) 30 U/L (12-78) Alkaline Phosphatase 186 U/L (46-116) H Total Protein 5.7 G/DL (6.4-8.2) L Albumin 2.2 G/DL (3.4-5.0) L Globulin 3.5 g/dL Albumin/Globulin Ratio 0.6 (1.0-2.7) L Test 10/13/19 06:52 Arterial Blood pH 6.905 (7.350-7.450) Arterial Blood Partial Pressure CO2 192.5 mmHg (35.0-45.0) *H Arterial Blood Partial Pressure O2 46.2 mmHg (75.0-100.0) Arterial Blood HCO3 37.3 mmol/L (22.0-26.0) H Arterial Blood Oxygen Saturation 51.8 % (95-100) *L Arterial Blood Base Excess 0.7 (-2-2) Sadi Test Pending Chest X-Ray Diagnostic Results Chest X-Ray Diagnostic Results : Chest X-Ray Ordered: Yes # of Views/Limited/Complete: 1 View Indication: Other EP Interpretation: Yes Interpretation: no effusion, no pneumothorax, other - No tracheal tube appropriate placement, right lower lobe infiltrate Impression: Other Electronically Signed by: Electronically signed by Christiano Dowell MD Last Vital Signs Date Time Temp Pulse Resp B/P (MAP) Pulse Ox O2 Delivery O2 Flow Rate FiO2 10/13/19 08:00 100 10/13/19 07:12 131/98 10/13/19 07:00 178 8 10/13/19 06:30 58 10/13/19 06:00 Mechanical Ventilator 10/13/19 00:00 97.8 10/10/19 08:05 15.0 Disposition: ADMITTED INPATIENT Condition: Serious Referrals: [facility],REFERRING (PCP) Christiano Dowell MD Oct 13, 2019 08:18
--- NOTE | 2019-10-13 08:40 | NUR ---
[employer] NOTE SW spoke w/ Nursing Head Librarian, Yadira and discussed that it may be crucial to notify pt's family member. SW spoke w/ pt's partner, Carlyn Avila [phone] that pt has two children but he refused to provide children's information. Mr. Pena is aware that pt is COVID positive. SW explained that pt did not provide full consent to provide an update when she was alert and oriented. Mr. Avila stated that he recently lost his son that pt probably did not want him to worry. Mr. Avila was very upset and verbally abusive to this SW, when SW notified code blue status and attempted to conduct psychosocial assessment and asking for children's information. Mr. Avila stated that he will be the primary contact as her children are not involved in her care/tx. Per chart review, there is another emergency contact, Divya Cr [phone]. JULIANO attempted to call and it went straight to . Addendum: 10/13/19 at 0856 by NICO HENAO JULIANO left a vm to Divya Cr (possibly pt's mother) [phone] for call back
--- NOTE | 2019-10-13 08:46 | Critical Care Progress Note ---
Assessment/Plan Assessment/Plan COVID+ ARDS hypoxemic respiratory failure sinus tachycardia anemia TESSA PCM severe leukocytosis MOF shock anemia PLAN vent support - hyperventilation without improvement vent change completed; getting volumes PEEP at 20 ICU care ID follow up on max oxygenation on max pressors steroids IV heparin prognosis grim with MOF poor oxygenation, hypercapnia, and hypotension feeds as able proning as able medications/laboratory data/nursing notes/ICU care reviewed in detail note reviewed and edited care discussed with RN and RT ICU time spent >40 minutes Critical Care - Subjective Interval Events: s/p code blue poor volumes and acidotic recovered with epi seen earlier now with significant hypotension on pressors obtunded unable to obtain sats d/w nursing and RT and ER I&O: Intake and Output 10/12/19 10/13/19 19:00 07:00 Intake Total 3193.7600 ml 911.894 ml Output Total 715 ml 470 ml Balance 2478.7600 ml 441.894 ml IV Total 3193.7600 ml 911.894 ml Output Urine Total 590 ml 345 ml Stool Total 125 ml 125 ml Critical Care - Objective ET-Tube: 7.5 ET Position: 26 Last 24 Hour Vital Signs Date Time Temp Pulse Resp B/P (MAP) Pulse Ox O2 Delivery O2 Flow Rate FiO2 10/13/19 08:00 100 10/13/19 07:12 131/98 10/13/19 07:00 178 8 131/98 (109) 10/13/19 06:30 124 17 165/75 (105) 58 10/13/19 06:00 18 179/67 Mechanical Ventilator 100 10/13/19 06:00 117 17 167/74 (105) 88 10/13/19 05:30 89 15 122/62 (82) 100 10/13/19 05:00 89 20 107/61 (76) 100 10/13/19 05:00 18 119/60 Mechanical Ventilator 100 10/13/19 04:30 90 18 111/71 (84) 98 10/13/19 04:00 90 16 130/57 (81) 96 10/13/19 04:00 Mechanical Ventilator Mechanical Ventilator 10/13/19 04:00 30 114/59 Mechanical Ventilator 100 10/13/19 04:00 100 10/13/19 04:00 90 10/13/19 03:30 30 126/71 Mechanical Ventilator 100 10/13/19 03:30 92 18 126/71 (89) 96 10/13/19 03:00 82 27 174/75 (108) 97 10/13/19 03:00 28 122/64 Mechanical Ventilator 100 10/13/19 02:59 96 30 100 10/13/19 02:46 95/39 10/13/19 02:00 86 30 92/44 (60) 100 10/13/19 02:00 30 92/44 Mechanical Ventilator 100 10/13/19 01:00 89 30 98/45 (62) 100 10/13/19 01:00 30 98/45 Mechanical Ventilator 100 10/13/19 00:33 30 98/49 100 10/13/19 00:30 91 30 100/45 (63) 100 10/13/19 00:00 30 103/55 Mechanical Ventilator 100 10/13/19 00:00 97.8 92 28 103/55 (71) 100 10/13/19 00:00 Mechanical Ventilator Mechanical Ventilator 10/12/19 23:03 93 30 100 10/12/19 23:00 93 30 97/56 (70) 100 10/12/19 23:00 30 97/56 Mechanical Ventilator 100 10/12/19 22:30 93 30 93/52 (66) 100 10/12/19 22:00 94 30 88/41 (57) 100 10/12/19 21:30 93 30 93/49 (64) 100 10/12/19 21:00 93 30 92/42 (59) 100 10/12/19 20:30 96 30 104/54 (71) 100 10/12/19 20:00 98 10/12/19 20:00 97.6 98 30 99/51 (67) 100 10/12/19 20:00 30 99/51 Mechanical Ventilator 100 10/12/19 20:00 Mechanical Ventilator Mechanical Ventilator 10/12/19 20:00 100 10/12/19 19:47 94 30 100 10/12/19 19:00 101 30 111/46 (67) 100 10/12/19 19:00 30 111/46 Mechanical Ventilator 100 10/12/19 18:45 103 30 112/47 (68) 100 10/12/19 18:30 105 30 110/56 (74) 100 10/12/19 18:15 106 30 110/56 (74) 100 10/12/19 18:00 30 117/61 Mechanical Ventilator 100 10/12/19 18:00 110 30 112/57 (75) 100 10/12/19 17:45 112 28 117/61 (79) 100 10/12/19 17:30 115 27 119/61 (80) 100 10/12/19 17:15 120 26 128/62 (84) 100 10/12/19 17:00 30 136/55 Mechanical Ventilator 100 10/12/19 17:00 125 30 136/55 (82) 100 10/12/19 16:50 125 18 172/66 (101) 55 10/12/19 16:45 125 19 180/77 (111) 59 10/12/19 16:30 116 23 180/124 (142) 99 10/12/19 16:25 122 16 132/55 (80) 85 10/12/19 16:15 98.9 125 22 201/77 (118) 10/12/19 16:00 100 10/12/19 16:00 209/63 10/12/19 16:00 37 209/63 Mechanical Ventilator 100 10/12/19 16:00 Mechanical Ventilator Mechanical Ventilator 10/12/19 16:00 119 20 209/63 (111) 99 10/12/19 16:00 99 10/12/19 15:30 99 20 172/75 (107) 99 10/12/19 15:15 100 30 100 10/12/19 15:04 99 10/12/19 15:00 100 30 125/54 (77) 100 10/12/19 15:00 125/54 10/12/19 15:00 30 125/54 Mechanical Ventilator 100 10/12/19 14:45 101 30 112/59 (76) 100 10/12/19 14:30 100 30 118/59 (78) 100 10/12/19 14:15 102 30 108/49 (68) 100 10/12/19 14:00 101 30 119/53 (75) 100 10/12/19 14:00 119/53 10/12/19 14:00 30 119/53 Mechanical Ventilator 100 10/12/19 13:45 100 30 100 Mechanical Ventilator 100 10/12/19 13:30 102 30 106/67 (80) 100 10/12/19 13:00 104 30 116/53 (74) 100 10/12/19 13:00 116/53 10/12/19 13:00 30 116/53 Mechanical Ventilator 100 10/12/19 12:00 100 10/12/19 12:00 111/47 10/12/19 12:00 30 111/47 Mechanical Ventilator 100 10/12/19 12:00 Mechanical Ventilator Mechanical Ventilator 10/12/19 12:00 99.0 105 19 111/47 (68) 100 10/12/19 11:35 107 10/12/19 11:30 106 18 123/46 (71) 100 10/12/19 11:15 106 19 115/53 (73) 99 10/12/19 11:15 106 30 100 10/12/19 11:00 107 13 119/54 (75) 96 10/12/19 11:00 119/54 10/12/19 11:00 30 119/54 Mechanical Ventilator 100 10/12/19 10:00 119/60 10/12/19 10:00 30 119/60 Mechanical Ventilator 100 10/12/19 10:00 110 20 119/60 (79) 99 10/12/19 09:30 112 12 119/55 (76) 98 10/12/19 09:00 103/64 10/12/19 09:00 17 103/64 Mechanical Ventilator 100 10/12/19 09:00 115 16 124/67 (86) 98 Labs: Laboratory Tests Test 10/12/19 12:30 10/12/19 21:00 10/13/19 04:00 10/13/19 06:52 Activated Partial Thromboplast Time 56 SEC (23-33) H 124 SEC (23-33) H 84 SEC (23-33) H White Blood Count 15.8 K/UL (4.8-10.8) H Red Blood Count 3.12 M/UL (4.20-5.40) L Hemoglobin 9.1 G/DL (12.0-16.0) L Hematocrit 30.8 % (37.0-47.0) L Mean Corpuscular Volume 99 FL (80-99) Mean Corpuscular Hemoglobin 29.2 PG (27.0-31.0) Mean Corpuscular Hemoglobin Concent 29.6 G/DL (32.0-36.0) L Red Cell Distribution Width 14.8 % (11.6-14.8) Platelet Count 105 K/UL (150-450) L Mean Platelet Volume 8.3 FL (6.5-10.1) Neutrophils (%) (Auto) % (45.0-75.0) Lymphocytes (%) (Auto) % (20.0-45.0) Monocytes (%) (Auto) % (1.0-10.0) Eosinophils (%) (Auto) % (0.0-3.0) Basophils (%) (Auto) % (0.0-2.0) Differential Total Cells Counted 100 Neutrophils % (Manual) 77 % (45-75) H Lymphocytes % (Manual) 5 % (20-45) L Monocytes % (Manual) 6 % (1-10) Eosinophils % (Manual) 0 % (0-3) Basophils % (Manual) 0 % (0-2) Band Neutrophils 12 % (0-8) H Platelet Estimate Decreased L Platelet Morphology Normal Hypochromasia 2+ Anisocytosis 1+ Sodium Level 143 MMOL/L (136-145) Potassium Level 4.0 MMOL/L (3.5-5.1) Chloride Level 101 MMOL/L (98-107) Carbon Dioxide Level 36 MMOL/L (21-32) H Anion Gap 6 mmol/L (5-15) Blood Urea Nitrogen 38 mg/dL (7-18) H Creatinine 1.4 MG/DL (0.55-1.30) H Estimat Glomerular Filtration Rate 49.3 mL/min (>60) Glucose Level 329 MG/DL (74-106) #H Calcium Level 7.2 MG/DL (8.5-10.1) L Phosphorus Level 2.9 MG/DL (2.5-4.9) Magnesium Level 2.1 MG/DL (1.8-2.4) Total Bilirubin 0.4 MG/DL (0.2-1.0) Aspartate Amino Transf (AST/SGOT) 66 U/L (15-37) H Alanine Aminotransferase (ALT/SGPT) 30 U/L (12-78) Alkaline Phosphatase 186 U/L (46-116) H Total Protein 5.7 G/DL (6.4-8.2) L Albumin 2.2 G/DL (3.4-5.0) L Globulin 3.5 g/dL Albumin/Globulin Ratio 0.6 (1.0-2.7) L Arterial Blood pH 6.905 (7.350-7.450) Arterial Blood Partial Pressure CO2 192.5 mmHg (35.0-45.0) *H Arterial Blood Partial Pressure O2 46.2 mmHg (75.0-100.0) Arterial Blood HCO3 37.3 mmol/L (22.0-26.0) H Arterial Blood Oxygen Saturation 51.8 % (95-100) *L Arterial Blood Base Excess 0.7 (-2-2) Sadi Test Pending Objective: deferred due to COVID Accucheck: 347 Tripp Perkins MD Oct 13, 2019 08:46
--- NOTE | 2019-10-13 08:46 | NUR ---
NURSE NOTES: Pt became bradycardic at 0840. PEA noted, No pulse upon assessment, CODE PAULETTE called at 0842. After multiple rounds of CPR and medication administration, ROSC achieved at 0846, HR ST 146.
--- NOTE | 2019-10-13 08:54 | NUR ---
NURSE NOTES: Pt asystole at 0852. No pulse upon assessment. Initiated CODE BLUE and started CPR. After CPR and medication administration, ROSC achieved at 0846, SR on monitor.
[2019-10-13] MEDS: Pantoprazole Inj IVP SCH (09:00)
[2019-10-13] MEDS: Levemir Flexpen SUBQ SCH (09:00)
--- NOTE | 2019-10-13 09:04 | NUR ---
NURSE NOTES: Asystole displayed on security monitor. Dr Dowell called time of at this time. Family notified.
--- NOTE | 2019-10-13 09:18 | Emergency Room Report ---
Physical Exam Please see the first code report earlier this morning. A third ventilator was switched. The patient was getting tidal volumes. She was still hypoxemic. I had requested a blood gas be obtained however this was unable to be drawn. Patient is COVID-19 positive. She has a right lower lobe pneumonia. Previously intubated. Levophed last night. Minimally responsive in the morning. Unresponsive concerns first code. Code Blue 2 -patient became bradycardic. CODE BLUE 3 -patient was in PEA. CODE BLUE 4 -patient became bradycardic and then PEA. Last 24 Hour Vital Signs Date Time Temp Pulse Resp B/P (MAP) Pulse Ox O2 Delivery O2 Flow Rate FiO2 10/13/19 08:00 100 10/13/19 07:12 131/98 10/13/19 07:00 178 8 131/98 (109) 10/13/19 06:30 124 17 165/75 (105) 58 10/13/19 06:00 18 179/67 Mechanical Ventilator 100 10/13/19 06:00 117 17 167/74 (105) 88 10/13/19 05:30 89 15 122/62 (82) 100 10/13/19 05:00 89 20 107/61 (76) 100 10/13/19 05:00 18 119/60 Mechanical Ventilator 100 10/13/19 04:30 90 18 111/71 (84) 98 10/13/19 04:00 90 16 130/57 (81) 96 10/13/19 04:00 Mechanical Ventilator Mechanical Ventilator 10/13/19 04:00 30 114/59 Mechanical Ventilator 100 10/13/19 04:00 100 10/13/19 04:00 90 10/13/19 03:30 30 126/71 Mechanical Ventilator 100 10/13/19 03:30 92 18 126/71 (89) 96 10/13/19 03:00 82 27 174/75 (108) 97 10/13/19 03:00 28 122/64 Mechanical Ventilator 100 10/13/19 02:59 96 30 100 10/13/19 02:46 95/39 10/13/19 02:00 86 30 92/44 (60) 100 10/13/19 02:00 30 92/44 Mechanical Ventilator 100 10/13/19 01:00 89 30 98/45 (62) 100 10/13/19 01:00 30 98/45 Mechanical Ventilator 100 10/13/19 00:33 30 98/49 100 10/13/19 00:30 91 30 100/45 (63) 100 10/13/19 00:00 30 103/55 Mechanical Ventilator 100 10/13/19 00:00 97.8 92 28 103/55 (71) 100 10/13/19 00:00 Mechanical Ventilator Mechanical Ventilator 10/12/19 23:03 93 30 100 10/12/19 23:00 93 30 97/56 (70) 100 10/12/19 23:00 30 97/56 Mechanical Ventilator 100 10/12/19 22:30 93 30 93/52 (66) 100 10/12/19 22:00 94 30 88/41 (57) 100 10/12/19 21:30 93 30 93/49 (64) 100 10/12/19 21:00 93 30 92/42 (59) 100 10/12/19 20:30 96 30 104/54 (71) 100 10/12/19 20:00 98 10/12/19 20:00 97.6 98 30 99/51 (67) 100 10/12/19 20:00 30 99/51 Mechanical Ventilator 100 10/12/19 20:00 Mechanical Ventilator Mechanical Ventilator 10/12/19 20:00 100 10/12/19 19:47 94 30 100 10/12/19 19:00 101 30 111/46 (67) 100 10/12/19 19:00 30 111/46 Mechanical Ventilator 100 10/12/19 18:45 103 30 112/47 (68) 100 10/12/19 18:30 105 30 110/56 (74) 100 10/12/19 18:15 106 30 110/56 (74) 100 10/12/19 18:00 30 117/61 Mechanical Ventilator 100 10/12/19 18:00 110 30 112/57 (75) 100 10/12/19 17:45 112 28 117/61 (79) 100 10/12/19 17:30 115 27 119/61 (80) 100 10/12/19 17:15 120 26 128/62 (84) 100 10/12/19 17:00 30 136/55 Mechanical Ventilator 100 10/12/19 17:00 125 30 136/55 (82) 100 10/12/19 16:50 125 18 172/66 (101) 55 10/12/19 16:45 125 19 180/77 (111) 59 10/12/19 16:30 116 23 180/124 (142) 99 10/12/19 16:25 122 16 132/55 (80) 85 10/12/19 16:15 98.9 125 22 201/77 (118) 10/12/19 16:00 100 10/12/19 16:00 209/63 10/12/19 16:00 37 209/63 Mechanical Ventilator 100 10/12/19 16:00 Mechanical Ventilator Mechanical Ventilator 10/12/19 16:00 119 20 209/63 (111) 99 10/12/19 16:00 99 10/12/19 15:30 99 20 172/75 (107) 99 10/12/19 15:15 100 30 100 10/12/19 15:04 99 10/12/19 15:00 100 30 125/54 (77) 100 10/12/19 15:00 125/54 10/12/19 15:00 30 125/54 Mechanical Ventilator 100 10/12/19 14:45 101 30 112/59 (76) 100 10/12/19 14:30 100 30 118/59 (78) 100 10/12/19 14:15 102 30 108/49 (68) 100 10/12/19 14:00 101 30 119/53 (75) 100 10/12/19 14:00 119/53 10/12/19 14:00 30 119/53 Mechanical Ventilator 100 10/12/19 13:45 100 30 100 Mechanical Ventilator 100 10/12/19 13:30 102 30 106/67 (80) 100 10/12/19 13:00 104 30 116/53 (74) 100 10/12/19 13:00 116/53 10/12/19 13:00 30 116/53 Mechanical Ventilator 100 10/12/19 12:00 100 10/12/19 12:00 111/47 10/12/19 12:00 30 111/47 Mechanical Ventilator 100 10/12/19 12:00 Mechanical Ventilator Mechanical Ventilator 10/12/19 12:00 99.0 105 19 111/47 (68) 100 10/12/19 11:35 107 10/12/19 11:30 106 18 123/46 (71) 100 10/12/19 11:15 106 19 115/53 (73) 99 10/12/19 11:15 106 30 100 10/12/19 11:00 107 13 119/54 (75) 96 10/12/19 11:00 119/54 10/12/19 11:00 30 119/54 Mechanical Ventilator 100 10/12/19 10:00 119/60 10/12/19 10:00 30 119/60 Mechanical Ventilator 100 10/12/19 10:00 110 20 119/60 (79) 99 10/12/19 09:30 112 12 119/55 (76) 98 Sp02 EP Interpretation: reviewed, abnormal - Hypoxia General Appearance: obese Head: normocephalic, atraumatic Eyes: bilateral eye other - Pupils unreactive ENT: other - Tracheal tube Neck: other - Flaccid Respiratory: other - Good chest rise with inspiration by ventilator Cardiovascular #1: other Gastrointestinal: overweight Rectal: other - Rectal tube Genitourinary: other - Zamora catheter Musculoskeletal: swelling, other - Flaccid Neurologic: other - Unresponsive Psychiatric: other - Unresponsive Skin: cyanosis CPR/Code Blue CPR/Code Blue Narrative Code Blue 2 -patient became bradycardic. Atropine and 1 amp of epinephrine were administered. The patient had return of spontaneous circulation. CODE BLUE 3 -patient was in PEA. 2 A of epinephrine were administered. Pulses were restored at that time. At this time discussion with the mother of the patient centered around the fact that everything was being done for her and she was still dying. The mother was accepting this information. CODE BLUE 4 -patient became bradycardic and then PEA. Because of the futility of resuscitation medications were withheld and the patient became asystolic and was pronounced at 904. Medical Decision Making Diagnostic Impression: Primary Impression: Cardiopulmonary arrest Additional Impressions: COVID-19 Respiratory acidosis Respiratory failure Qualified Codes: J96.01 - Acute respiratory failure with hypoxia; J96.02 - Acute respiratory failure with hypercapnia Ventilator dysfunction ER Course Second code was bradycardic that responded to atropine and epinephrine. Patient had return of spontaneous circulation. Third code was PEA responded to epinephrine. At this point I discussed the patient's demise with the mother. She understood that her daughter was dying and preferred not to prolong suffering. Fourth code was PEA that deteriorated into asystole. Because of futility of care no medications were given at this time. Patient pronounced at 9:04. Status: worsened Disposition: Condition: Referrals: [facility],REFERR[facility] (PCP) Christiano Dowell MD Oct 13, 2019 09:18
--- NOTE | 2019-10-13 10:32 | NUR ---
*-* INSURANCE *-* UPDATED CLINICALS HAVE BEEN FAXED TO: [employer] P: [phone] F: [phone] & GIOVANNY HANLEY P: [phone] F: [phone]
--- NOTE | 2019-10-13 13:30 | NUR ---
NURSE NOTES: Saturday Austin picked up pt's belongings and signed belonging sheet, as authorized by pt's daughter, Carlyn. Security called to transport body to the [facility] [place].
--- NOTE | 2019-10-13 15:42 | Surgery Progress Note ---
Surgery Progress Note Subjective Procedure Performed Left femoral central venous catheter insertion Symptoms: worse Additional Comments Unfortunately patient continued decline became attended and went into worsening respiratory insufficiency this morning desaturating and unfortunately has passed since. Is been a pleasure caring for this patient unfortunate demise at such a young age COVID Objective Last 24 Hour Vital Signs Date Time Temp Pulse Resp B/P (MAP) Pulse Ox O2 Delivery O2 Flow Rate FiO2 10/13/19 09:04 0 0 100 10/13/19 09:00 30 44/25 Mechanical Ventilator 100 10/13/19 09:00 35 54 99 10/13/19 08:45 125 53 91/56 (68) 6 10/13/19 08:30 49 22 44/25 (31) 91 10/13/19 08:15 109 13 56/27 (37) 67 10/13/19 08:00 100.2 120 19 104/37 (59) 91 10/13/19 08:00 101 10/13/19 08:00 30 56/27 Mechanical Ventilator 100 10/13/19 08:00 Mechanical Ventilator Mechanical Ventilator 10/13/19 08:00 100 10/13/19 07:45 106 10 110/43 (65) 87 10/13/19 07:30 124 11 150/46 (80) 10/13/19 07:15 86 7 141/51 (81) 59 10/13/19 07:12 131/98 10/13/19 07:00 178 8 131/98 (109) 10/13/19 06:30 124 17 165/75 (105) 58 10/13/19 06:00 18 179/67 Mechanical Ventilator 100 10/13/19 06:00 117 17 167/74 (105) 88 10/13/19 05:30 89 15 122/62 (82) 100 10/13/19 05:00 89 20 107/61 (76) 100 10/13/19 05:00 18 119/60 Mechanical Ventilator 100 10/13/19 04:30 90 18 111/71 (84) 98 10/13/19 04:00 90 16 130/57 (81) 96 10/13/19 04:00 Mechanical Ventilator Mechanical Ventilator 10/13/19 04:00 30 114/59 Mechanical Ventilator 100 10/13/19 04:00 100 10/13/19 04:00 90 10/13/19 03:30 30 126/71 Mechanical Ventilator 100 10/13/19 03:30 92 18 126/71 (89) 96 10/13/19 03:00 82 27 174/75 (108) 97 10/13/19 03:00 28 122/64 Mechanical Ventilator 100 10/13/19 02:59 96 30 100 10/13/19 02:46 95/39 10/13/19 02:00 86 30 92/44 (60) 100 10/13/19 02:00 30 92/44 Mechanical Ventilator 100 10/13/19 01:00 89 30 98/45 (62) 100 10/13/19 01:00 30 98/45 Mechanical Ventilator 100 10/13/19 00:33 30 98/49 100 10/13/19 00:30 91 30 100/45 (63) 100 10/13/19 00:00 30 103/55 Mechanical Ventilator 100 10/13/19 00:00 97.8 92 28 103/55 (71) 100 10/13/19 00:00 Mechanical Ventilator Mechanical Ventilator 10/12/19 23:03 93 30 100 10/12/19 23:00 93 30 97/56 (70) 100 10/12/19 23:00 30 97/56 Mechanical Ventilator 100 10/12/19 22:30 93 30 93/52 (66) 100 10/12/19 22:00 94 30 88/41 (57) 100 10/12/19 21:30 93 30 93/49 (64) 100 10/12/19 21:00 93 30 92/42 (59) 100 10/12/19 20:30 96 30 104/54 (71) 100 10/12/19 20:00 98 10/12/19 20:00 97.6 98 30 99/51 (67) 100 10/12/19 20:00 30 99/51 Mechanical Ventilator 100 10/12/19 20:00 Mechanical Ventilator Mechanical Ventilator 10/12/19 20:00 100 10/12/19 19:47 94 30 100 10/12/19 19:00 101 30 111/46 (67) 100 10/12/19 19:00 30 111/46 Mechanical Ventilator 100 10/12/19 18:45 103 30 112/47 (68) 100 10/12/19 18:30 105 30 110/56 (74) 100 10/12/19 18:15 106 30 110/56 (74) 100 10/12/19 18:00 30 117/61 Mechanical Ventilator 100 10/12/19 18:00 110 30 112/57 (75) 100 10/12/19 17:45 112 28 117/61 (79) 100 10/12/19 17:30 115 27 119/61 (80) 100 10/12/19 17:15 120 26 128/62 (84) 100 10/12/19 17:00 30 136/55 Mechanical Ventilator 100 10/12/19 17:00 125 30 136/55 (82) 100 10/12/19 16:50 125 18 172/66 (101) 55 10/12/19 16:45 125 19 180/77 (111) 59 10/12/19 16:30 116 23 180/124 (142) 99 10/12/19 16:25 122 16 132/55 (80) 85 10/12/19 16:15 98.9 125 22 201/77 (118) 10/12/19 16:00 100 10/12/19 16:00 209/63 10/12/19 16:00 37 209/63 Mechanical Ventilator 100 10/12/19 16:00 Mechanical Ventilator Mechanical Ventilator 10/12/19 16:00 119 20 209/63 (111) 99 10/12/19 16:00 99 I&O Intake and Output 10/12/19 10/13/19 19:00 07:00 Intake Total 3193.7600 ml 911.894 ml Output Total 715 ml 470 ml Balance 2478.7600 ml 441.894 ml IV Total 3193.7600 ml 911.894 ml Output Urine Total 590 ml 345 ml Stool Total 125 ml 125 ml Dressing: other Wound: other Drains: other Cardiovascular: other Respiratory: other Abdomen: other Extremities: other Laboratory Tests Test 10/12/19 21:00 10/13/19 04:00 10/13/19 06:52 Activated Partial Thromboplast Time 124 SEC (23-33) H 84 SEC (23-33) H White Blood Count 15.8 K/UL (4.8-10.8) H Red Blood Count 3.12 M/UL (4.20-5.40) L Hemoglobin 9.1 G/DL (12.0-16.0) L Hematocrit 30.8 % (37.0-47.0) L Mean Corpuscular Volume 99 FL (80-99) Mean Corpuscular Hemoglobin 29.2 PG (27.0-31.0) Mean Corpuscular Hemoglobin Concent 29.6 G/DL (32.0-36.0) L Red Cell Distribution Width 14.8 % (11.6-14.8) Platelet Count 105 K/UL (150-450) L Mean Platelet Volume 8.3 FL (6.5-10.1) Neutrophils (%) (Auto) % (45.0-75.0) Lymphocytes (%) (Auto) % (20.0-45.0) Monocytes (%) (Auto) % (1.0-10.0) Eosinophils (%) (Auto) % (0.0-3.0) Basophils (%) (Auto) % (0.0-2.0) Differential Total Cells Counted 100 Neutrophils % (Manual) 77 % (45-75) H Lymphocytes % (Manual) 5 % (20-45) L Monocytes % (Manual) 6 % (1-10) Eosinophils % (Manual) 0 % (0-3) Basophils % (Manual) 0 % (0-2) Band Neutrophils 12 % (0-8) H Platelet Estimate Decreased L Platelet Morphology Normal Hypochromasia 2+ Anisocytosis 1+ Sodium Level 143 MMOL/L (136-145) Potassium Level 4.0 MMOL/L (3.5-5.1) Chloride Level 101 MMOL/L (98-107) Carbon Dioxide Level 36 MMOL/L (21-32) H Anion Gap 6 mmol/L (5-15) Blood Urea Nitrogen 38 mg/dL (7-18) H Creatinine 1.4 MG/DL (0.55-1.30) H Estimat Glomerular Filtration Rate 49.3 mL/min (>60) Glucose Level 329 MG/DL (74-106) #H Calcium Level 7.2 MG/DL (8.5-10.1) L Phosphorus Level 2.9 MG/DL (2.5-4.9) Magnesium Level 2.1 MG/DL (1.8-2.4) Total Bilirubin 0.4 MG/DL (0.2-1.0) Aspartate Amino Transf (AST/SGOT) 66 U/L (15-37) H Alanine Aminotransferase (ALT/SGPT) 30 U/L (12-78) Alkaline Phosphatase 186 U/L (46-116) H Total Protein 5.7 G/DL (6.4-8.2) L Albumin 2.2 G/DL (3.4-5.0) L Globulin 3.5 g/dL Albumin/Globulin Ratio 0.6 (1.0-2.7) L Arterial Blood pH 6.905 (7.350-7.450) Arterial Blood Partial Pressure CO2 192.5 mmHg (35.0-45.0) *H Arterial Blood Partial Pressure O2 46.2 mmHg (75.0-100.0) Arterial Blood HCO3 37.3 mmol/L (22.0-26.0) H Arterial Blood Oxygen Saturation 51.8 % (95-100) *L Arterial Blood Base Excess 0.7 (-2-2) Sadi Test Pending Plan Problems: (1) Severe sepsis Assessment & Plan: Patient coded positive restaurant insufficiency on vent support. Acute decline. FiO2 100% PEEP 22 Chest x-ray noted On heparin drip On pressors Levophed vasopressin On antibiotics Unfortunately patient rapidly declining. We will continue with maximal medical efforts. Considerations of prone positioning but currently patient too unstable We will follow the recommendations thank you Worsening Unfortunate demise has passed since Late entry time of note does not reflect time patient was seen (2) COVID-19 Abdoul Burt Oct 13, 2019 15:42
--- NOTE | 2019-10-14 05:44 | Discharge Summary ---
DATE OF ADMISSION: 10/04/2019 DATE OF DISCHARGE: 10/13/2019 SUMMARY DATE OF : 10/13/2019 CAUSE OF : Cardiopulmonary arrest secondary to COVID-19 pneumonia. HOSPITAL COURSE: Patient is a 44-year-old female who presented with complaints of shortness of breath, fevers, and cough. 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 On evaluation in emergency room, a CAT scan showed bilateral interstitial infiltrates consistent with viral pneumonia. She was hypoxic and placed on nasal cannula. ID consultation was obtained. Patient was noted to be also a new onset diabetic with a hemoglobin A1c of 12.3. She received hydroxychloroquine. She initially was stable, but began to develop worsening hypoxemia and shortness of breath prompting transfer to the intensive care unit. She was also started on remdesivir prior to her transfer to the ICU. In the intensive care unit, she developed continued hypoxemia and respiratory distress requiring intubation and ventilatory support. She received [id number] heparin and later heparin drip because of elevated D-dimer and concern about DIC. She developed mild acute renal failure. She received intravenous steroids as well as an IL-6 jalen for cytokine storm from COVID-19. Despite aggressive treatment, the patient's hypoxemia worsened. She required multiple pressors. Attempts of weaning the patient were unsuccessful because of desaturation and unstable vital signs with any movement. Patient became progressively more acidotic despite aggressive ventilator management. Eventually developed bradycardia and loss of pulse. She was coded 4 times. On the last time though she was unable to be resuscitated, she was pronounced by the ER physician. I contacted the patient's mother about her passing. Josh Farnsworth M.D. DR: BROOKLYN JOB#: [id number] CC:
--- NOTE | 2019-10-14 15:25 | NUR ---
*-* INSURANCE *-* DISCHARGE SUMMARY HAS BEEN FAXED: [employer] P: [phone] F: [phone] & GIOVANNY HANLEY P: [phone] F: [phone]
--- NOTE | 2019-10-15 10:17 | Discharge Summary ---
Discharge Summary Discharge Summary _ PLEASE REFER TO DC SUMMARY DICTATED BY DR MARIA FINAL DIAGNOSES Status post recurrent cardiopulmonary arrests Acute hypoxemic respiratory failure, requiring intubation ARDS Confirmed COVID-19 pneumonia Shock ( requiring pressors) Acute kidney injury Sinus tachycardia Anemia Diabetes mellitus I have been assigned to dictate discharge summary for this account. I was not involved in the patient's management. Sonali Francis NP Oct 15, 2019 10:17
== END 2019-10-13 09:04 | disposition expired | DRG 130 ==
LOC: EDBD 19:31 → EMR 20:13 → EDBEDREQ 22:00 → 4E 22:11 → EDBEDREQ 22:50 → ICU 10-07 06:51
PROC: 5A1955Z Respiratory Ventilation, Greater than 96 Consecutive Hours (ICD-10-PCS; principal; 2019-10-07)
PROC: 0BH17EZ Insertion of Endotracheal Airway into Trachea, Via Natural or Artificial Opening (ICD-10-PCS; principal; 2019-10-07)
PROC: 06HN33Z Insertion of Infusion Device into Left Femoral Vein, Percutaneous Approach (ICD-10-PCS; 2019-10-10)
DX: U07.1 COVID-19 (principal); J12.89 Other viral pneumonia; N39.0 Urinary tract infection, site not specified; E66.01 Morbid (severe) obesity due to excess calories; Z68.43 Body mass index [BMI] 50.0-59.9, adult; A41.89 Other specified sepsis; R65.21 Severe sepsis with septic shock; N17.9 Acute kidney failure, unspecified; J80 Acute respiratory distress syndrome; I48.91 Unspecified atrial fibrillation; R00.1 Bradycardia, unspecified; E11.65 Type 2 diabetes mellitus with hyperglycemia; Z99.11 Dependence on respirator [ventilator] status; J95.850 Mechanical complication of respirator; R11.10 Vomiting, unspecified
CPT/HCPCS: 36415; 36600; 71045; 74018; 74176; 80053; 80076; 81003; 81025; 82248; 82270; 82550; 82570; 82803; 82962; 83036; 83690; 83735; 83880; 84100; 84300; 84443; 84478; 84484; 85007; 85025; 85379; 85730; 86140; 87070; 87086; 87205; 92950; 93005; 93306; 93970; 94002; 94003; 94664; 96365; 99285; J0171; J1815; J7030; S5561